=== PATIENT | female | born 1960 | race Caucasian/White ===

== ENCOUNTER → 2016-10-12 | Outpatient (CLI) | payer BC, OTHER | END | disposition home or self-care (01) | LOC: LABWHC1 09:49 | PROVIDERS: ATTEND Internal Medicine Endocrinology, Diabetes & Metabolism | DX: E11.65 Type 2 diabetes mellitus with hyperglycemia (principal); E89.0 Postprocedural hypothyroidism | CPT/HCPCS: 36415; 84432; 84439; 84443; 86800 ==

== ENCOUNTER → 2017-03-01 | Outpatient (CLI) | payer BC, OTHER | END | disposition home or self-care (01) | LOC: LABWHC1 12:22 | PROVIDERS: ATTEND Internal Medicine Endocrinology, Diabetes & Metabolism | DX: C73 Malignant neoplasm of thyroid gland (principal); E89.0 Postprocedural hypothyroidism | CPT/HCPCS: 36415; 84432; 86800 ==

== ENCOUNTER → 2017-03-09 | Outpatient (CLI) | payer BC, OTHER ==
--- NOTE | 2017-03-09 10:30 | US ---
EXAMINATION TYPE: US thyroid st tissue head/neck DATE OF EXAM: 03/09/2017 COMPARISON: 10/31/2015 CLINICAL HISTORY: Z85.850 History of thyroid cancer. F/U, pt had thyroidectomy 2 yrs ago Bilateral neck scanned, no evidence of lymphadenopathy. No evidence of residual thyroid tissue. Soft tissue neck appeared wnl. IMPRESSION: 1. No recurrent thyroid masses. Patient is status post thyroidectomy.
== END | disposition home or self-care (01) ==
LOC: RADUSWWP 09:39
PROVIDERS: ATTEND Family Medicine
DX: E89.0 Postprocedural hypothyroidism (principal); Z85.850 Personal history of malignant neoplasm of thyroid
CPT/HCPCS: 76536

== ENCOUNTER → 2017-03-16 | Outpatient (CLI) | payer BC, OTHER ==
[2017-03-16 11:16] LABS: ALT 35 U/L (9-52); AST 23 U/L (14-36); Alkaline Phosphatase 97 U/L (38-126); Anion Gap 10 mmol/L; Blood Urea Nitrogen 18 mg/dL (7-17); Calcium 9.2 mg/dL (8.4-10.2); Carbon Dioxide 26 mmol/L (22-30); Chloride 107 mmol/L (98-107); Cholesterol 229 mg/dL (<200); Glucose 143 mg/dL (74-99); HDL Cholesterol 50 mg/dL (40-60); Non-African American GFR(MDRD) >60 (>60 ml/min/1.73 sqM); Potassium 4.9 mmol/L (3.5-5.1); Sodium 143 mmol/L (137-145); Total Bilirubin 0.4 mg/dL (0.2-1.3); Total Protein 6.9 g/dL (6.3-8.2); Triglycerides 322 mg/dL (<150)
[2017-03-16 14:39] LABS: Hemoglobin A1C 6.8 % (4.2-6.1)
== END | disposition home or self-care (01) ==
LOC: LABWHC1 09:41
PROVIDERS: ATTEND Internal Medicine Endocrinology, Diabetes & Metabolism
DX: C73 Malignant neoplasm of thyroid gland (principal); E78.5 Hyperlipidemia, unspecified; E55.9 Vitamin D deficiency, unspecified; E11.65 Type 2 diabetes mellitus with hyperglycemia; I10 Essential (primary) hypertension; E89.0 Postprocedural hypothyroidism
CPT/HCPCS: 36415; 80053; 80061; 82306; 83036; 84439; 84443

== ENCOUNTER → 2018-02-16 | Outpatient (CLI) | payer BC ==
[2018-02-16 09:43] LABS: Albumin 4.6 g/dL (3.5-5.0); Calcium 9.7 mg/dL (8.4-10.2); Potassium 4.8 mmol/L (3.5-5.1); Total Bilirubin 0.4 mg/dL (0.2-1.3)
[2018-02-16 09:47] LABS: T4, Free (Free Thyroxine) 1.54 ng/dL (0.78-2.19)
[2018-02-16 17:10] LABS: Thyroglobulin 0.22 ng/mL (1.60-59.90)
[2018-02-16 17:25] LABS: Vitamin D 25 Hydroxy 18.8 ng/mL (30.0-100.0)
[2018-02-16 17:29] LABS: Hemoglobin A1C 8.1 % (4.0-6.0)
== END | disposition home or self-care (01) ==
LOC: LABWHC1 08:20
PROVIDERS: ATTEND Internal Medicine Endocrinology, Diabetes & Metabolism
DX: C73 Malignant neoplasm of thyroid gland (principal); I10 Essential (primary) hypertension; E89.0 Postprocedural hypothyroidism; E11.65 Type 2 diabetes mellitus with hyperglycemia; E55.9 Vitamin D deficiency, unspecified; E78.5 Hyperlipidemia, unspecified; L74.519 Primary focal hyperhidrosis, unspecified
CPT/HCPCS: 36415; 80053; 80061; 82306; 83036; 84432; 84439; 84443; 86800

== ENCOUNTER → 2018-04-25 | Outpatient (CLI) | payer BC ==
--- NOTE | 2018-04-25 18:56 | PN ---
PROGRESS NOTE SLEEP CENTER PROGRESS NOTE: This is a 57-year-old female patient coming in for a follow-up CPAP compliancy check and for JOSUÉ treatment. The patient has severe symptomatic obstructive sleep apnea. Her baseline AHI was 50. She has been maintained on a CPAP pressure of 11 cm of water. Note that her initial CPAP titration was set at a pressure of 13 and subsequently we had to lower the pressure for discomfort; currently she is on a pressure of 11 cm of water. She is doing well. She continues to benefit from the treatment. She has gained weight over the past 2 years. She used to weight 232 pounds and currently she is up to 251. Despite this weight gain, the patient has been adequately treated and she wakes up refreshed during the day. Her CPAP compliancy data indicated the patient has been utilizing CPAP every night. CPAP compliancy for more than 4 hours is 100% of the time. Average CPAP use is around 10 hours per night. Leak factor is 70 L/minute and AHI while on treatment is down to 3.1. The patient goes to bed around 10:30, wakes up at 7 a.m. in the morning and she feels quite refreshed. REVIEW OF SYSTEMS: Twelve-point review of systems was done. Positive findings were all mentioned above in the history of present illness. Her comorbidities include diabetes mellitus, hypertension and hypothyroidism; all of them are treated well. Her interval history is positive for weight gain on the order of 19 pounds. PHYSICAL EXAMINATION: BP is 119/78, pulse 78, respirations 16, temperature 99.2, saturation 94% on room air. Weight is 251. Height is 5 feet 7 inches. GENERAL APPEARANCE: Calm, comfortable. Head is atraumatic, normocephalic. NECK: Supple. There is no JVD. No goiter or neck masses. Mallampati class IV. LUNGS: Clear to auscultation. HEART: Heart sounds are regular rate and rhythm. Normal S1, S2. No S3, S4. No murmurs. ABDOMEN: Soft, nontender. No organomegaly. EXTREMITIES: No edema. No cyanosis or clubbing. NEUROLOGIC: Alert and oriented x3. No focal neurological deficit. PSYCHIATRIC: Appropriate mood and affect. IMPRESSION: 1. Severe obstructive sleep apnea. AHI is 50, currently on CPAP pressure of 11 cm of water with excellent clinical response and compliance. The patient continues to benefit from the treatment. 2. Obesity with interval weight gain on the order of 19 pounds. Current BMI is 39.3. Weight is up to 251. 3. Diabetes. 4. Hypertension. 5. Hypothyroidism. PLAN: 1. Continue CPAP at the same level of pressure. 2. Renew the CPAP supplies. 3. Encourage weight loss. 4. Implement good sleep hygiene measures. 5. We will continue to follow. MMODL / IJN: [id number] /
== END | disposition home or self-care (01) ==
LOC: SLEEP 13:51
PROVIDERS: ATTEND Internal Medicine Critical Care Medicine
DX: G47.33 Obstructive sleep apnea (adult) (pediatric) (principal); E11.9 Type 2 diabetes mellitus without complications; I10 Essential (primary) hypertension; E03.9 Hypothyroidism, unspecified; E66.9 Obesity, unspecified; Z68.39 Body mass index [BMI] 39.0-39.9, adult; Z99.89 Dependence on other enabling machines and devices

== ENCOUNTER → 2018-06-27 | Outpatient (CLI) | payer BC ==
[2018-06-27 16:10] LABS: Albumin 4.7 g/dL (3.80-4.90); Albumin/Globulin Ratio 2.24 (1.20-2.10); Anion Gap 8.3 mmol/L (4.00-12.00); Calcium 9.5 mg/dL (8.7-10.3); Carbon Dioxide 26.7 mmol/L (21.6-31.8); Globulin 2.1 g/dL (2.1-3.7); LDL Cholesterol,Calculated 74.6 mg/dL (0.0-131.0); Potassium 4.8 mmol/L (3.5-5.5); Total Bilirubin 0.3 mg/dL (0.2-1.2); Total Protein 6.8 g/dL (6.2-8.2)
[2018-06-27 16:18] LABS: T4, Free (Free Thyroxine) 1.5 ng/dL (0.80-1.80)
[2018-06-27 18:38] LABS: Thyroglobulin <0.20 ng/mL (1.60-59.90)
[2018-06-27 20:34] LABS: Hemoglobin A1C 6.5 % (4.0-6.0)
[2018-06-28 06:58] LABS: VLDL Calculation 23.4 mg/dL (5.00-40.00)
== END | disposition home or self-care (01) ==
LOC: LABWHC1 09:28
PROVIDERS: ATTEND Internal Medicine Endocrinology, Diabetes & Metabolism
DX: C73 Malignant neoplasm of thyroid gland (principal); I10 Essential (primary) hypertension; E89.0 Postprocedural hypothyroidism; E11.65 Type 2 diabetes mellitus with hyperglycemia
CPT/HCPCS: 36415; 80053; 80061; 82043; 82570; 83036; 84432; 84439; 84443; 86800

== ENCOUNTER → 2018-10-31 | Outpatient (CLI) | payer BC ==
[2018-10-31 11:33] LABS: Basophils # (A) 0.1 k/uL (0-0.2); Basophils % (A) 1 %; Eosinophils # (A) 0.3 k/uL (0-0.7); Eosinophils % (A) 4 %; HCT 38.2 % (34.0-46.0); HGB 12.2 gm/dL (11.4-16.0); Lymphocytes # (A) 1.7 k/uL (1.0-4.8); Lymphocytes % (A) 24 %; MCH 26.9 pg (25.0-35.0); MCV 83.9 fL (80.0-100.0); Mean Platelet Volume 6.3; Monocytes # (A) 0.4 k/uL (0-1.0); Monocytes % (A) 6 %; Neutrophils # (A) 4.5 k/uL (1.3-7.7); Neutrophils % (A) 64 %; Platelet Count 339 k/uL (150-450); RBC 4.55 m/uL (3.80-5.40); RDW 14.7 % (11.5-15.5); WBC 7.1 k/uL (3.8-10.6)
[2018-10-31 14:55] LABS: Erythrocyte Sedimentation Rate 20 mm/hr (0-20)
[2018-10-31 16:10] LABS: ALT 32 U/L (8-44); AST 28 U/L (13-35); Albumin/Globulin Ratio 2.42 (1.60-3.17); Alkaline Phosphatase 78 U/L (41-126); Calcium 9.7 mg/dL (8.7-10.3); Carbon Dioxide 28.4 mmol/L (21.6-31.8); Chloride 103 mmol/L (96-109); Cholesterol 142 mg/dL (0-200); Globulin 1.9 g/dL (1.6-3.3); Glucose 126 mg/dL (70-110); LDL Cholesterol,Calculated 67.4 mg/dL (0.0-131.0); Sodium 141 mmol/L (135-145); Total Bilirubin 0.5 mg/dL (0.2-1.2); Total Protein 6.5 g/dL (6.2-8.2)
[2018-10-31 16:19] LABS: Iron Saturation 17.67 (12.00-45.00)
[2018-10-31 16:28] LABS: Vitamin D 25 Hydroxy 62.2 ng/mL (30.0-100.0)
== END ==
LOC: LABWHC1 10:27
PROVIDERS: ATTEND Family Medicine
DX: Z00.00 Encounter for general adult medical examination without abnormal findings (principal); C73 Malignant neoplasm of thyroid gland; R53.83 Other fatigue; Z11.59 Encounter for screening for other viral diseases
CPT/HCPCS: 36415; 80053; 80061; 82306; 82607; 83540; 83550; 84439; 84443; 85025; 85652; 86803

== ENCOUNTER → 2019-02-13 | Outpatient (CLI) | payer BC ==
[2019-02-13 16:21] LABS: African American GFR (CKD) 94.9 (60.0-200.0); Albumin 4.6 g/dL (3.80-4.90); Albumin/Globulin Ratio 2.71 (1.60-3.17); Anion Gap 8.8 mmol/L (4.00-12.00); BUN/Creat Ratio 13.75 Ratio (12.00-20.00); Carbon Dioxide 27.2 mmol/L (21.6-31.8); Globulin 1.7 g/dL (1.6-3.3); LDL Cholesterol,Calculated 79.8 mg/dL (0.0-131.0); Potassium 4.5 mmol/L (3.5-5.5); Total Bilirubin 0.3 mg/dL (0.2-1.2); Total Protein 6.3 g/dL (6.2-8.2); VLDL Calculation 22.2 mg/dL (5.00-40.00)
[2019-02-13 16:28] LABS: T4, Free (Free Thyroxine) 1.2 ng/dL (0.80-1.80)
[2019-02-13 17:23] LABS: Hemoglobin A1C 7.8 % (4.0-6.0)
[2019-02-13 18:36] LABS: Thyroglobulin <0.20 ng/mL (1.60-59.90)
== END | disposition home or self-care (01) ==
LOC: LABWHC1 10:09
PROVIDERS: ATTEND Internal Medicine Endocrinology, Diabetes & Metabolism
DX: E11.65 Type 2 diabetes mellitus with hyperglycemia (principal); I10 Essential (primary) hypertension; E89.0 Postprocedural hypothyroidism
CPT/HCPCS: 36415; 80053; 80061; 83036; 84432; 84439; 84443; 86800

== ENCOUNTER → 2019-07-03 | Outpatient (CLI) | payer BC ==
--- NOTE | 2019-07-03 13:30 | US ---
EXAMINATION TYPE: US thyroid st tissue head/neck DATE OF EXAM: 07/03/2019 COMPARISON: NONE CLINICAL HISTORY: C73 Malignant neoplasm of thyroid gland. Hx of thyroid ca. 2015 thyroidectomy TECHNIQUE/FINDINGS: Grayscale imaging was performed of the thyroidectomy surgical bed and adjacent neck. There is a solitary nonenlarged 3 mm short axis lymph node on the left lateral neck. No residual thyr oid tissue. No focal cystic or solid nodules in the thyroidectomy bed. IMPRESSION: No solid or cystic mass in the thyroidectomy bed. Solitary nonenlarged 3 mm short axis ly mph node in the left lateral neck.
== END | disposition home or self-care (01) ==
LOC: RADUSWWP 12:41
PROVIDERS: ATTEND Internal Medicine
DX: Z08 Encounter for follow-up examination after completed treatment for malignant neoplasm (principal); Z85.850 Personal history of malignant neoplasm of thyroid; Z90.89 Acquired absence of other organs
CPT/HCPCS: 76536

== ENCOUNTER → 2019-07-11 | Outpatient (CLI) | payer BC ==
[2019-07-11 17:36] LABS: T4, Free (Free Thyroxine) 1.4 ng/dL (0.80-1.80)
[2019-07-11 17:54] LABS: Hemoglobin A1C 6.5 % (4.0-6.0)
== END | disposition home or self-care (01) ==
LOC: LABWHC1 09:30
PROVIDERS: ATTEND Internal Medicine
DX: E11.65 Type 2 diabetes mellitus with hyperglycemia (principal); E89.0 Postprocedural hypothyroidism; E55.9 Vitamin D deficiency, unspecified; C73 Malignant neoplasm of thyroid gland
CPT/HCPCS: 36415; 82043; 82306; 82570; 83036; 84432; 84439; 84443; 86800

== ENCOUNTER 2020-01-05 21:18 | Emergency (ER) | payer BC ==
[2020-01-05] MEDS ORDERED: IBUPROFEN 600 MG TAB PO STA (21:52)
[2020-01-05] MEDS ORDERED: ACETAMINOPHEN TAB 500 MG TAB PO STA (21:52)
--- NOTE | 2020-01-05 22:00 | ED ---
General Adult HPI - General Source: patient, RN notes reviewed, old records reviewed Mode of arrival: ambulatory Limitations: no limitations <Ramiro Barnard - Last Filed: 01/06/20 00:42> <Og Crump - Last Filed: 01/06/20 01:38> - General Chief complaint: Fever Stated complaint: Fever Time Seen by Provider: 01/05/20 21:20 - History of Present Illness Initial comments: This is a 59-year-old female presents emergency Department stating that she was recently diagnosed with urinary tract infection and started on Macrobid on Tuesday night. Patient states since then she has had a low-grade fever and has been feeling weak and slightly short of breath. Patient patient states she has a dry cough but nothing significant. Patient denies chest pain or palpitations. Patient denies abdominal pain patient denies vomiting or diarrhea. Patient denies any dysuria hematuria urinary frequency. Patient states this is typical of her UTI she gets fatigued feels a little nauseated occasionally and she gets diagnosed with urinary tract infection. Patient denies any back pain. Patient denies any headache patient denies numbness weakness. (Ramiro Barnard) - Related Data Home Medications Medication Instructions Recorded Confirmed Omeprazole [PriLOSEC] 40 mg PO HS 10/17/14 08/20/16 Venlafaxine HCl [Effexor] 75 mg PO DAILY 10/17/14 08/20/16 Cholecalciferol [Vitamin D3] 1,000 unit PO DAILY 12/22/15 08/20/16 Cinnamon Bark [Cinnamon] 2 cap PO DAILY 12/22/15 08/20/16 Cyanocobalamin (Vitamin B-12) 1,000 mcg PO DAILY 12/22/15 08/20/16 [Vitamin B12] Melatonin 10 mg PO HS 12/22/15 08/20/16 ALPRAZolam [Xanax] 0.5 mg PO BID 08/18/16 08/20/16 Levothyroxine Sodium [Levo-T] 150 mcg PO DAILY 08/18/16 08/20/16 Ranitidine HCl 150 mg PO BID 08/18/16 08/20/16 Varenicline [Chantix] .ROUTE BID 08/20/16 Allergies Allergy/AdvReac Type Severity Reaction Status Date / Time Penicillins Allergy Rash/Hives Verified 08/20/16 07:06 Review of Systems ROS Other: All systems not noted in ROS Statement are negative. <Ramiro Barnard - Last Filed: 01/06/20 00:42> ROS Other: All systems not noted in ROS Statement are negative. <Og Crump - Last Filed: 01/06/20 01:38> ROS Statement: Those systems with pertinent positive or pertinent negative responses have been documented in the HPI. Past Medical History Past Medical History: Cancer, Diabetes Mellitus, GERD/Reflux, Sleep Apnea/CPAP/BIPAP, Thyroid Disorder Additional Past Medical History / Comment(s): THYROID CANCER 10/30/14, Diet controlled Diabetes History of Any Multi-Drug Resistant Organisms: None Reported Past Surgical History: Cholecystectomy, Hysterectomy, Orthopedic Surgery, Tonsillectomy Additional Past Surgical History / Comment(s): thyroidectomy, left knees replacment. Past Anesthesia/Blood Transfusion Reactions: No Reported Reaction Past Psychological History: Depression Smoking Status: Current every day smoker Past Alcohol Use History: None Reported Past Drug Use History: None Reported - Past Family History Mother Family Medical History: Cancer Additional Family Medical History / Comment(s): uterine CA and esoghagus Father Family Medical History: Cancer <Ramiro Barnard - Last Filed: 01/06/20 00:42> General Exam Limitations: no limitations <Ramiro Barnard - Last Filed: 01/06/20 00:42> - General Exam Comments Initial Comments: GENERAL: Patient is well-developed and well-nourished. Patient is nontoxic and well- hydrated and is in mild distress. ENT: Neck is soft and supple. No significant lymphadenopathy is noted. Oropharynx is clear. Moist mucous membranes. Neck has full range of motion without eliciting any pain. EYES: The sclera were anicteric and conjunctiva were pink and moist. Extraocular movements were intact and pupils were equal round and reactive to light. Ey elids were unremarkable. PULMONARY: Unlabored respirations. Good breath sounds bilaterally. No audible rales rhonchi or wheezing was noted. CARDIOVASCULAR: There is a regular rate and rhythm without any murmurs gallops or rubs. ABDOMEN: Soft and nontender with normal bowel sounds. SKIN: Skin is clear with no lesions or rashes and otherwise unremarkable. NEUROLOGIC: Patient is alert and oriented x3. Cranial nerves II through XII are grossly intact. Motor and sensory are also intact. Normal speech, volume and content. Symmetrical smile. MUSCULOSKELETAL: Normal extremities with adequate strength and full range of motion. LYMPHATICS: No significant lymphadenopathy is noted PSYCHIATRIC: Normal psychiatric evaluation. (Ramiro aBrnard) Course Vital Signs 01/05/20 01/05/20 01/06/20 21:21 23:43 01:27 Temperature 100.5 F H 100.8 F H 98.6 F Pulse Rate 107 H 92 85 Respiratory 18 16 16 Rate Blood Pressure 175/96 133/92 146/93 O2 Sat by Pulse 98 97 96 Oximetry Medical Decision Making - Lab Data Result diagrams: 01/05/20 23:30 01/05/20 23:30 <Ramiro Barnard - Last Filed: 01/06/20 00:42> - Lab Data Result diagrams: 01/05/20 23:30 01/05/20 23:30 <Og Crump - Last Filed: 01/06/20 01:38> - Medical Decision Making EKG shows normal sinus rhythm at 89 bpm TX interval 160 QRS is 84 QT interval 376 QTC is 457. Patient's EKG shows no ST segment elevation or depression. Patient was given a gram of Rocephin in the emergency department because she had blood in her urine and was already partially treated with antibiotics. Chest x-ray showed no acute abnormality. Patient's given Tylenol Motrin emergency department and felt better after her fever came down. Dr. Vivas will follow-up with this patient at 12:30. (Ramiro Barnard) I reevaluated the patient after the computed tomography scan had been read. The patient is feeling better and she is not having symptoms suggestive of PE. She is feeling well and would like to go home. She does have to finish the course of antibiotics she is taking. We discussed appropriate further care and follow-up to ensure that all of her symptoms resolve, the hematuria clears and the d-dimer returns to baseline. We discussed possibility of requiring repeat imaging. (Og Crump) - Lab Data Lab Results 01/05/20 01/05/20 01/05/20 Range/Units 23:30 23:30 23:30 WBC 6.8 (3.8-10.6) k/uL RBC 4.48 (3.80-5.40) m/uL Hgb 11.5 (11.4-16.0) gm/dL Hct 35.9 (34.0-46.0) % MCV 80.2 (80.0-100.0) fL MCH 25.6 (25.0-35.0) pg MCHC 31.9 (31.0-37.0) g/dL RDW 15.1 (11.5-15.5) % Plt Count 305 (150-450) k/uL Neutrophils % 69 % Lymphocytes % 12 % Monocytes % 11 % Eosinophils % 5 % Basophils % 1 % Neutrophils # 4.7 (1.3-7.7) k/uL Lymphocytes # 0.8 L (1.0-4.8) k/uL Monocytes # 0.8 (0-1.0) k/uL Eosinophils # 0.3 (0-0.7) k/uL Basophils # 0.1 (0-0.2) k/uL Hypochromasia Marked D-Dimer 1.57 H (<0.60) mg/L FEU Sodium (137-145) mmol/L Potassium (3.5-5.1) mmol/L Chloride (98-107) mmol/L Carbon Dioxide (22-30) mmol/L Anion Gap mmol/L BUN (7-17) mg/dL Creatinine (0.52-1.04) mg/dL Est GFR (CKD-EPI)AfAm (>60 ml/min/1.73 sqM) Est GFR (CKD-EPI)NonAf (>60 ml/min/1.73 sqM) Glucose (74-99) mg/dL Calcium (8.4-10.2) mg/dL Total Bilirubin (0.2-1.3) mg/dL AST (14-36) U/L ALT (4-34) U/L Alkaline Phosphatase (38-126) U/L Total Protein (6.3-8.2) g/dL Albumin (3.5-5.0) g/dL Urine Color Yellow Urine Appearance Cloudy H (Clear) Urine pH 7.0 (5.0-8.0) Ur Specific Marlin 1.019 (1.001-1.035) Urine Protein 1+ H (Negative) Urine Glucose (UA) 2+ H (Negative) Urine Ketones Negative (Negative) Urine Blood Large H (Negative) Urine Nitrite Negative (Negative) Urine Bilirubin Negative (Negative) Urine Urobilinogen <2.0 (<2.0) mg/dL Ur Leukocyte Esterase Trace H (Negative) Urine RBC >182 H (0-5) /hpf Urine WBC 4 (0-5) /hpf Calcium Oxalate Crystal Many H (None) /hpf Urine Bacteria Rare H (None) /hpf Urine Mucus Rare H (None) /hpf Coronavirus (PCR) (Not Detectd) 01/05/20 01/05/20 Range/Units 23:30 23:30 WBC (3.8-10.6) k/uL RBC (3.80-5.40) m/uL Hgb (11.4-16.0) gm/dL Hct (34.0-46.0) % MCV (80.0-100.0) fL MCH (25.0-35.0) pg MCHC (31.0-37.0) g/dL RDW (11.5-15.5) % Plt Count (150-450) k/uL Neutrophils % % Lymphocytes % % Monocytes % % Eosinophils % % Basophils % % Neutrophils # (1.3-7.7) k/uL Lymphocytes # (1.0-4.8) k/uL Monocytes # (0-1.0) k/uL Eosinophils # (0-0.7) k/uL Basophils # (0-0.2) k/uL Hypochromasia D-Dimer (<0.60) mg/L FEU Sodium 137 (137-145) mmol/L Potassium 4.8 (3.5-5.1) mmol/L Chloride 102 (98-107) mmol/L Carbon Dioxide 25 (22-30) mmol/L Anion Gap 10 mmol/L BUN 12 (7-17) mg/dL Creatinine 0.59 (0.52-1.04) mg/dL Est GFR (CKD-EPI)AfAm >90 (>60 ml/min/1.73 sqM) Est GFR (CKD-EPI)NonAf >90 (>60 ml/min/1.73 sqM) Glucose 148 H (74-99) mg/dL Calcium 9.0 (8.4-10.2) mg/dL Total Bilirubin 0.4 (0.2-1.3) mg/dL AST 73 H (14-36) U/L ALT 44 H (4-34) U/L Alkaline Phosphatase 89 (38-126) U/L Total Protein 7.3 (6.3-8.2) g/dL Albumin 4.5 (3.5-5.0) g/dL Urine Color Urine Appearance (Clear) Urine pH (5.0-8.0) Ur Specific Marlin (1.001-1.035) Urine Protein (Negative) Urine Glucose (UA) (Negative) Urine Ketones (Negative) Urine Blood (Negative) Urine Nitrite (Negative) Urine Bilirubin (Negative) Urine Urobilinogen (<2.0) mg/dL Ur Leukocyte Esterase (Negative) Urine RBC (0-5) /hpf Urine WBC (0-5) /hpf Calcium Oxalate Crystal (None) /hpf Urine Bacteria (None) /hpf Urine Mucus (None) /hpf Coronavirus (PCR) Not Detected (Not Detectd) Disposition <Ramiro Barnard - Last Filed: 01/06/20 00:42> Is patient prescribed a controlled substance at d/c from ED?: No <Og Crump - Last Filed: 01/06/20 01:38> Clinical Impression: Hematuria, Elevated d-dimer Disposition: HOME SELF-CARE Condition: Good Instructions (If sedation given, give patient instructions): Fever in Adults (ED) Additional Instructions: As we discussed, follow with your physician to ensure that the hematuria clears and that all of her symptoms resolve. If the symptoms do not resolve, that should consider repeating imaging to rule out a blood clot. Referrals: Singh Otto MD [Primary Care Provider] - 1-2 days
--- NOTE | 2020-01-05 23:29 | XR ---
EXAMINATION TYPE: XR chest 2V DATE OF EXAM: 01/05/2020 COMPARISON: 12/16/2014 HISTORY: Short of breath TECHNIQUE: FINDINGS: Heart and mediastinum are normal. Lungs are clear. Diaphragm is normal. Bony thorax is inta ct. IMPRESSION: Normal chest. There is clearing of the atelectasis at the right lung base compared to old exam.
[2020-01-05 23:45] VITALS: RESP 16
[2020-01-05 23:46] LABS: Basophils # (A) 0.1 k/uL (0-0.2); Basophils % (A) 1 %; Eosinophils # (A) 0.3 k/uL (0-0.7); Eosinophils % (A) 5 %; HCT 35.9 % (34.0-46.0); HGB 11.5 gm/dL (11.4-16.0); Hypochromasia Marked; Lymphocytes # (A) 0.8 k/uL (1.0-4.8); Lymphocytes % (A) 12 %; MCH 25.6 pg (25.0-35.0); MCHC 31.9 g/dL (31.0-37.0); MCV 80.2 fL (80.0-100.0); Mean Platelet Volume 8.2; Monocytes # (A) 0.8 k/uL (0-1.0); Monocytes % (A) 11 %; Neutrophils # (A) 4.7 k/uL (1.3-7.7); Neutrophils % (A) 69 %; Platelet Count 305 k/uL (150-450); RBC 4.48 m/uL (3.80-5.40); RDW 15.1 % (11.5-15.5); WBC 6.8 k/uL (3.8-10.6)
[2020-01-05 23:55] LABS: ALT 44 U/L (4-34); AST 73 U/L (14-36); African American GFR (CKD) >90 (>60 ml/min/1.73 sqM); Albumin 4.5 g/dL (3.5-5.0); Alkaline Phosphatase 89 U/L (38-126); Anion Gap 10 mmol/L; Blood Urea Nitrogen 12 mg/dL (7-17); Carbon Dioxide 25 mmol/L (22-30); Chloride 102 mmol/L (98-107); Glucose 148 mg/dL (74-99); Non-African American GFR(CKD) >90 (>60 ml/min/1.73 sqM); Sodium 137 mmol/L (137-145); Total Bilirubin 0.4 mg/dL (0.2-1.3); Total Protein 7.3 g/dL (6.3-8.2)
[2020-01-05 23:58] LABS: Potassium 4.8 mmol/L (3.5-5.1)
[2020-01-06] LABS: Appearance,Urine Cloudy (Clear); Bacteria,Urine Rare /hpf; Bilirubin,Urine Negative (Negative); Blood,Urine Large (Negative); Calcium Oxalate Crystals,Urine Many /hpf; Color,Urine Yellow; Glucose,Urine (UA) 2+ (Negative); Ketones,Urine Negative (Negative); Leukocyte Esterase,Urine Trace (Negative); Mucus,Urine Rare /hpf; Nitrite,Urine Negative (Negative); Protein,Urine 1+ (Negative); RBC,Urine >182 /hpf (0-5); Specific Gravity,Urine 1.019 (1.001-1.035); Urobilinogen,Urine <2.0 mg/dL (<2.0); WBC,Urine 4 /hpf (0-5)
[2020-01-06] MEDS ORDERED: cefTRIAXone IN SWFI 1,000 MG/10 ML SYRINGE IVP STA (00:41)
--- NOTE | 2020-01-06 01:11 | CT ---
EXAMINATION TYPE: CT chest angio for PE DATE OF EXAM: 01/06/2020 COMPARISON: 12/15/2014 HISTORY: SARAH AND FEVER CT DLP: 864.8 mGycm Automated exposure control for dose reduction was used. CONTRAST: Performed with IV Contrast, patient injected with 100mL mL of Isovue 370. There are 3-D post processed images. There is mild subsegmental atelectasis in the posterior lung hearn. There is no evidence of a pulmon bennie mass. There is no pleural effusion. Heart size is normal. There is no pericardial effusion. There is no mediastinal adenopathy. There are no hilar masses. Thoracic aorta is intact. There is no aneurysm or dissection. There is normal contrast opacification of the pulmonary arteries. There is no filling defect. The tho racic spine is intact. Bony thorax is intact. IMPRESSION: No evidence of pulmonary embolism. Mild subsegmental atelectasis. There is almost complete clearing o f the right lower lobe pneumonia and atelectasis compared to old exam.
[2020-01-06 01:28] VITALS: BP 146/93; PULSE 85; TEMP 98.6
== END 2020-01-06 01:53 | disposition home or self-care (01) ==
LOC: EC 21:18
DX: R31.9 Hematuria, unspecified (principal); R79.89 Other specified abnormal findings of blood chemistry; K21.9 Gastro-esophageal reflux disease without esophagitis; F32.9 Major depressive disorder, single episode, unspecified; E11.9 Type 2 diabetes mellitus without complications; E07.9 Disorder of thyroid, unspecified; G47.30 Sleep apnea, unspecified; F17.200 Nicotine dependence, unspecified, uncomplicated; Z20.828 Contact with and (suspected) exposure to other viral communicable diseases; Z79.899 Other long term (current) drug therapy; Z79.890 Hormone replacement therapy; Z88.0 Allergy status to penicillin; Z85.850 Personal history of malignant neoplasm of thyroid; Z96.652 Presence of left artificial knee joint; Z99.89 Dependence on other enabling machines and devices
CPT/HCPCS: 96374; 99284; 36415; 93005; 85379; 80053; 85025; 81001; 87635; 71046; 71275; J0696; Q9967

== ENCOUNTER → 2020-02-15 | Outpatient (CLI) | payer BC ==
--- NOTE | 2020-02-15 15:45 | US ---
EXAMINATION TYPE: US thyroid st tissue head/neck DATE OF EXAM: 02/15/2020 COMPARISON: None CLINICAL HISTORY: 59-year-old female R22.1 localized swelling, mass and lump, neck. Right lateral nec k pain and swelling around right clavicle TECHNIQUE: Multiple sonographic images along the lateral aspect of the right side of the neck as well as the right supraclavicular area. FINDINGS: Right lateral neck: appears wnl Right clavicle area: appears wnl No discrete solid or cystic lesion is seen. IMPRESSION: The lateral right neck as well as the right clavicular area at the site of swelling and pain was scan george. No discrete sonographic abnormality of the superficial tissues. Clinical follow-up recommended. If any enlarging palpable lesion, CT can be considered.
== END | disposition home or self-care (01) ==
LOC: RADUSWWP 15:15
PROVIDERS: ATTEND Family Medicine
DX: R22.1 Localized swelling, mass and lump, neck (principal)
CPT/HCPCS: 76536

== ENCOUNTER → 2020-02-18 | Outpatient (CLI) | payer BC ==
[2020-02-18 08:45] LABS: Basophils # (A) 0.1 k/uL (0-0.2); Basophils % (A) 1 %; Eosinophils # (A) 0.3 k/uL (0-0.7); Eosinophils % (A) 4 %; Hypochromasia Moderate; Lymphocytes # (A) 1.8 k/uL (1.0-4.8); Lymphocytes % (A) 25 %; MCH 23.8 pg (25.0-35.0); MCHC 30.5 g/dL (31.0-37.0); Mean Platelet Volume 7.3; Monocytes # (A) 0.5 k/uL (0-1.0); Monocytes % (A) 7 %; Neutrophils # (A) 4.3 k/uL (1.3-7.7); Neutrophils % (A) 62 %; Platelet Count 366 k/uL (150-450); RBC 4.62 m/uL (3.80-5.40); RDW 15.4 % (11.5-15.5)
[2020-02-18 17:36] LABS: African American GFR (CKD) 110.7 (60.0-200.0); Anion Gap 10.6 mmol/L (4.00-12.00); BUN/Creat Ratio 17.14 Ratio (12.00-20.00); Calcium 9.3 mg/dL (8.7-10.3); Carbon Dioxide 24.4 mmol/L (21.6-31.8); Non-African American GFR(CKD) 95.5 (60.0-200.0); Potassium 4.4 mmol/L (3.5-5.5)
== END | disposition home or self-care (01) ==
LOC: LABWHC1 07:59
PROVIDERS: ATTEND Urology
DX: C67.9 Malignant neoplasm of bladder, unspecified (principal); Z88.0 Allergy status to penicillin; Z88.8 Allergy status to other drugs, medicaments and biological substances
CPT/HCPCS: 36415; 80048; 85025

== ENCOUNTER → 2020-05-06 | Outpatient (CLI) | payer BC ==
[2020-05-06 18:57] LABS: African American GFR (CKD) 109.9 (60.0-200.0); Anion Gap 8.5 mmol/L (4.00-12.00); BUN/Creat Ratio 18.57 Ratio (12.00-20.00); Calcium 9.4 mg/dL (8.7-10.3); Carbon Dioxide 26.5 mmol/L (21.6-31.8); Chol/HDL Ratio 2.54; LDL Cholesterol,Calculated 50.2 mg/dL (0.0-131.0); Non-African American GFR(CKD) 94.8 (60.0-200.0); Potassium 4.8 mmol/L (3.5-5.5); VLDL Calculation 26.8 mg/dL (5.00-40.00)
[2020-05-06 19:05] LABS: T4, Free (Free Thyroxine) 1.3 ng/dL (0.80-1.80)
[2020-05-06 21:49] LABS: Hemoglobin A1C 6.6 % (4.0-6.0)
== END | disposition home or self-care (01) ==
LOC: LABWHC1 11:36
PROVIDERS: ATTEND Internal Medicine
DX: C73 Malignant neoplasm of thyroid gland (principal); E11.65 Type 2 diabetes mellitus with hyperglycemia; R31.0 Gross hematuria
CPT/HCPCS: 36415; 80048; 80061; 82043; 82570; 83036; 84432; 84439; 84443; 86800

== ENCOUNTER → 2020-05-27 | Outpatient (CLI) | payer BC ==
[2020-05-27 13:55] LABS: Anisocytosis Slight; Basophils # (A) 0.1 k/uL (0-0.2); Basophils % (A) 1 %; Eosinophils # (A) 0.3 k/uL (0-0.7); Eosinophils % (A) 4 %; HCT 38.3 % (34.0-46.0); Hypochromasia Slight; Lymphocytes % (A) 25 %; MCH 25.1 pg (25.0-35.0); MCHC 31.4 g/dL (31.0-37.0); MCV 79.9 fL (80.0-100.0); Mean Platelet Volume 7.2; Microcytosis Slight; Monocytes # (A) 0.5 k/uL (0-1.0); Monocytes % (A) 7 %; Neutrophils # (A) 4.8 k/uL (1.3-7.7); Neutrophils % (A) 61 %; Platelet Count 337 k/uL (150-450); RBC 4.79 m/uL (3.80-5.40); RDW 16.2 % (11.5-15.5); WBC 7.9 k/uL (3.8-10.6)
[2020-05-27 14:13] LABS: African American GFR (CKD) >90 (>60 ml/min/1.73 sqM); Anion Gap 9 mmol/L; Blood Urea Nitrogen 18 mg/dL (7-17); Calcium 9.4 mg/dL (8.4-10.2); Carbon Dioxide 27 mmol/L (22-30); Chloride 104 mmol/L (98-107); Glucose 148 mg/dL (74-99); Non-African American GFR(CKD) >90 (>60 ml/min/1.73 sqM); Potassium 4.9 mmol/L (3.5-5.1); Sodium 140 mmol/L (137-145)
[2020-05-27 15:11] LABS: Amorphous Sediment,Urine Rare /hpf; Appearance,Urine Cloudy (Clear); Bilirubin,Urine Negative (Negative); Blood,Urine Moderate (Negative); Color,Urine Yellow; Glucose,Urine (UA) Negative (Negative); Hyaline Casts,Urine 5 /lpf (0-2); Ketones,Urine Negative (Negative); Leukocyte Esterase,Urine Moderate (Negative); Mucus,Urine Rare /hpf; Nitrite,Urine Negative (Negative); PH, Urine 5.5 (5.0-8.0); Protein,Urine Trace (Negative); RBC,Urine >182 /hpf (0-5); Specific Gravity,Urine 1.024 (1.001-1.035); Squamous Epithelial Cell,Urine 2 /hpf (0-4); Urobilinogen,Urine <2.0 mg/dL (<2.0); WBC,Urine 13 /hpf (0-5)
== END | disposition home or self-care (01) ==
LOC: LABPAT 13:15
PROVIDERS: ATTEND Urology
DX: Z01.818 Encounter for other preprocedural examination (principal); E11.9 Type 2 diabetes mellitus without complications; N20.0 Calculus of kidney; R31.0 Gross hematuria
CPT/HCPCS: 36415; 80048; 81001; 85025; 87086

== ENCOUNTER 2020-06-06 14:49 | Day surgery (SDC) | payer BC, OTHER ==
[2020-06-05 09:01] VITALS: BMI 40.3
[~2020-06-06 14:49] MED LIST: CIPROFLOXACIN/DEXTROSE PMX 400 MG in DEXTROSE/WATER 1 200ML.BAG IVPB ONE; DEXAMETHASONE SOD PHOSPHATE 10 MG/ML 1 ML VIAL IV ONE; HYDROmorphone 0.5 MG/0.5 ML SYRINGE IVP PRN; LIDOCAINE 1% (10MG/ML) FOR IV START INTRADERMA PRN; ONDANSETRON 4 MG/2 ML VIAL IVP ONE; ONDANSETRON 4 MG/2 ML VIAL IVP PRN
--- NOTE | 2020-06-06 15:04 | XR ---
EXAMINATION TYPE: XR KUB DATE OF EXAM: 06/06/2020 2:58 PM CLINICAL HISTORY: Left-sided kidney stones. Preoperative. TECHNIQUE: Two supine KUB images of the abdomen are obtained. COMPARISON: None. FINDINGS: There is 9 mm calculus left kidney centrally at L2 level. Cholecystectomy clips. Overall nonobstructive bowel gas pattern. Visualized osseous structures are in tact IMPRESSION: As above.
[2020-06-06] MEDS: LACTATED RINGERS 1,000 ML IV SCH (15:15)
[2020-06-06 15:34] LABS: Glucose,Whole Blood 93 mg/dL (75-99)
[2020-06-06 18:04] LABS: Glucose,Whole Blood 135 mg/dL (75-99)
--- NOTE | 2020-06-06 18:44 | P.HPIHPCON ---
History of Present Illness H&P Date: 06/06/20 Chief Complaint: Gross hematuria, left sided renal stone Ms Delaney is a 50-year-old female with history of gross hematuria. of note she has history of low-grade TA bladder cancer. Underwent an office cystoscopy that showed no evidence of bladder tumor recurrence. Given her continued gross hematuria decision was made to proceed with cystoscopy bilateral ureteroscopy. Of note she also has a left-sided renal stone. We'll do holmium laser lithotripsy at the same time. Discussed risk of bleeding infection injury to the ureter with her. She understood all risks and agree to proceed Consent for Procedure: I have explained the operation/procedure to the patient, including the risks, benefits, side effects, alternative therapies (including not receiving the proposed treatment or service), the likelihood of the patient achieving his/her goals, and potential recuperation problems for the procedure/sedation/analgesia, as well as any blood products, if indicated. I also explained to the patient the risks, benefits and side effects of the alternatives, as well as the risks related to not receiving the proposed procedure, care, treatment, or services. Past Medical History Past Medical History: Cancer, Diabetes Mellitus, GERD/Reflux, Sleep Apnea/CPAP/BIPAP, Thyroid Disorder Additional Past Medical History / Comment(s): THYROID CANCER AND BLADDER CANCER History of Any Multi-Drug Resistant Organisms: None Reported Past Surgical History: Cholecystectomy, Hysterectomy, Orthopedic Surgery, Tonsillectomy Additional Past Surgical History / Comment(s): thyroidectomy, left knee replacment x2, bladder cancer tumor removed Past Anesthesia/Blood Transfusion Reactions: No Reported Reaction Smoking Status: Former smoker - Past Family History Mother Family Medical History: Cancer Additional Family Medical History / Comment(s): uterine CA and esoghagus Father Family Medical History: Cancer Medications and Allergies Home Medications Medication Instructions Recorded Confirmed Type RX: Omeprazole [PriLOSEC] 40 mg PO HS 10/17/14 06/05/20 History RX: Venlafaxine HCl [Effexor] 75 mg PO DAILY 10/17/14 06/05/20 History Cholecalciferol [Vitamin D3] 50,000 unit PO Q7DAYS 12/22/15 06/05/20 History Cyanocobalamin (Vitamin B-12) 1,000 mcg PO DAILY 12/22/15 06/06/20 History [Vitamin B12] RX: Melatonin 10 mg PO HS 12/22/15 06/05/20 History ALPRAZolam [Xanax] 0.5 mg PO BID PRN 08/18/16 06/05/20 History Levothyroxine Sodium [Levo-T] 150 mcg PO DAILY 08/18/16 06/06/20 History RX: Ranitidine HCl 150 mg PO QAM 08/18/16 06/05/20 History Varenicline [Chantix] 1 tab PO BID 08/20/16 06/05/20 History Dulaglutide [Trulicity] 1.5 mg SQ Q7DAYS 06/05/20 06/05/20 History RX: Oxybutynin Chloride 5 mg PO BID 06/05/20 06/06/20 History RX: metFORMIN HCL 1,000 mg PO BID 06/05/20 06/05/20 History Allergies Allergy/AdvReac Type Severity Reaction Status Date / Time Penicillins Allergy Itching Verified 06/06/20 15:05 Surgical - Exam Vital Signs Temp Pulse Resp Pulse Ox 96.0 F L 98 17 96 06/06/20 15:10 06/06/20 15:10 06/06/20 15:10 06/06/20 15:10 - General well developed, well nourished, no distress, no pain - Respiratory normal expansion, normal respiratory effort - Abdomen Abdomen: soft, non tender Results - Labs Abnormal Lab Results - Last 24 Hours (Table) 06/06/20 Range/Units 18:02 POC Glucose (mg/dL) 135 H (75-99) mg/dL Assessment and Plan Assessment: 60-year-old female history of gross hematuria and left-sided renal stone OR for Cystoscopy, bilateral ureteroscopy, left sided holmium laser lithotripsy and stone basketing
[2020-06-06] MEDS ORDERED: LIDOCAINE 1% INJ 10MG/ML (20 ML MDV) ONE (18:55)
[2020-06-06] MEDS ORDERED: HYDROmorphone (PF) 1 MG/ML ONE (18:55)
[2020-06-06] MEDS ORDERED: SUCCINYLCHOLINE CHLORIDE 100 MG/5 ML SYR IV ONE (18:55)
[2020-06-06] MEDS ORDERED: PROPOFOL 10 MG/ML 20 ML VIAL IV ONE (18:55)
[2020-06-06] MEDS ORDERED: fentaNYL (PF) 50 MCG/ML 2 ML AMP ONE (18:55)
[2020-06-06] MEDS ORDERED: MIDAZOLAM 2 MG/2 ML VIAL ONE (18:55)
[2020-06-06] MEDS ORDERED: IOPAMIDOL-370 50ML BTL IRRIGATION ONE (19:22)
--- NOTE | 2020-06-06 20:17 | P.OP ---
Date of Procedure: 06/06/20 Preoperative Diagnosis: Gross hematuria/left renal calculi Postoperative Diagnosis: Same Procedure(s) Performed: Cystoscopy, bilateral ureteroscopy, left holmium laser lithotripsy, stone basketing and stent placement Implants: 6-Burmese by 26 cm stent on the left Anesthesia: CAROLEE Surgeon: Isaiah Doyle Estimated Blood Loss (ml): 1 Pathology: other (Left renal calculi, bilateral renal cytology) Condition: stable Disposition: PACU Indications for Procedure: Ms Delaney is a 50-year-old female with history of gross hematuria. of note she has history of low-grade TA bladder cancer. Underwent an office cystoscopy that showed no evidence of bladder tumor recurrence. Given her continued gross hematuria decision was made to proceed with cystoscopy bilateral ureteroscopy. Of note she also has a left-sided renal stone. We'll do holmium laser lithotripsy at the same time. Discussed risk of bleeding infection injury to the ureter with her. She understood all risks and agree to proceed Operative Findings: Left renal calculi, otherwise normal bilateral ureteroscopy Description of Procedure: Patient was brought to the operating room, general anesthesia was induced. She was prepped and draped in sterile fashion and placed in a dorsal lithotomy position. Cystoscopy fitted with 21 sheath was inserted per urethra, cystoscopy was performed which showed no evidence of bleeding within the bladder. The previous resection site appears completely healed and there was no evidence of bleeding. At this time attention was carried to the right ureteral orifice which was intubated with a a sensor wire. Next an [id number] access sheath was passed over the wire and into the proximal ureter. Next the flexible ureteroscope was inserted through the access sheath, renoscopy was performed showed no abnormality within the kidney. Renal cytology was obtained on the right side. Retrograde Polygram was performed to ensure all cases were evaluated. Pullback ureteroscopy confirmed no injury to the ureter or any evidence of ureteral tumor. At this time the cystoscope was reinserted and the left ureteral orifice was intubated with a sensor wire. Next a [id number] access sheath was passed over the wire and into the proximal ureter. Next a flexible ureteroscope was inserted through the access sheath renoscopy was performed which showed a large stone in the renal pelvis. renoscopy of the rest of the kidney demonstrated no suspicious lesions within the kidney. Renal cytology left-sided was obtained. Using the holmium laser the stone was fragmented into smaller fragments. The fragments were removed using stone basket. Repeat renoscopy showed no sizable fragments or injury to the kidney. Retrograde pyelogram was performed to ensure all calyces were evaluated. At this time pullback ureteroscopy was performed showed no injury to the ureter or any evidence of ureteral stones or tumors. The scope was reinserted and a sensor wire was advanced to the left ureteral orifice. Next a ureteral stent was passed over the wire, the proximal closure was on fluoroscopy and distal curl was noted cystoscope. The bladder was emptied and the case. The patient thought the procedure well taken to PACU in stable condition
[2020-06-06] MEDS ORDERED: LACTATED RINGERS 1,000 ML IV ONE ×2 (20:45)
[2020-06-06 20:52] LABS: Glucose,Whole Blood 149 mg/dL (75-99)
[2020-06-06] MEDS ORDERED: LOSARTAN 25 MG TAB PO STA (21:59)
[2020-06-06] MEDS ORDERED: ONDANSETRON 4 MG/2 ML VIAL IVP PRN (23:16)
[2020-06-06] MEDS ORDERED: ALPRAZolam 0.5 MG TAB PO PRN (23:19)
[2020-06-06] MEDS ORDERED: MELATONIN 5 MG TABLET PO SCH (23:30)
[2020-06-06] MEDS: HYDROcodone/APAP 5-325MG 1 EACH TAB PO PRN (23:31)
[2020-06-07] MEDS: HYDROcodone/APAP 5-325MG 1 EACH TAB PO PRN (03:01)
[2020-06-07 03:09] VITALS: RESP 16
[2020-06-07 06:09] LABS: Glucose,Whole Blood 141 mg/dL (75-99)
[2020-06-07] MEDS: LACTATED RINGERS 1,000 ML IV SCH (06:09)
[2020-06-07] MEDS ORDERED: LEVOTHYROXINE 75 MCG TAB PO SCH (06:30)
--- NOTE | 2020-06-07 07:20 | FL ---
Fluoroscopy HISTORY: Stones 46 seconds fluoroscopy time supplied to the referring clinician. 1 intraoperative C-arm images docum ent the procedure. See dictated report from urology.
[2020-06-07 08:14] VITALS: BP 156/89; PULSE 111; TEMP 98.8
[2020-06-07] MEDS ORDERED: VARENICLINE 0.5 MG TAB PO SCH (08:30)
[2020-06-07] MEDS ORDERED: OXYBUTYNIN CHLORIDE 5 MG TAB PO SCH (09:00)
[2020-06-07] MEDS ORDERED: FAMOTIDINE 20 MG TAB PO SCH (09:00)
[2020-06-07] MEDS ORDERED: LOSARTAN 25 MG TAB PO SCH (09:00)
[2020-06-07] MEDS ORDERED: VENLAFAXINE HCL 75 MG TAB PO SCH (09:00)
[2020-06-07] MEDS ORDERED: metFORMIN 500 MG TAB PO SCH (09:00)
[2020-06-07] MEDS ORDERED: CYANOCOBALAMIN 500 MCG TAB PO SCH (09:00)
--- NOTE | 2020-06-07 10:41 | P.DS ---
Providers Attending physician: Isaiah Doyle MD Primary care physician: [facility] Course: The patient underwent cystoscopy left ureteroscopy with laser lithotripsy and stent placement by yesterday. She had too much pain to be discharged home last night. She is feeling much better today. She'll be discharged home today in follow-up in the office to see Dr. Doyle. Postoperative instructions have been given. Her condition is good. She'll take tolerable Motrin for pain. She may resume all her medications. Patient Condition at Discharge: Good Plan - Discharge Summary Discharge Rx Participant: No New Discharge Prescriptions: No Action Venlafaxine HCl [Effexor] 75 mg PO DAILY Omeprazole [PriLOSEC] 40 mg PO HS Cholecalciferol [Vitamin D3] 50,000 unit PO Q7DAYS Cyanocobalamin (Vitamin B-12) [Vitamin B12] 1,000 mcg PO DAILY Melatonin 10 mg PO HS Ranitidine HCl 150 mg PO QAM ALPRAZolam [Xanax] 0.5 mg PO BID PRN PRN Reason: Anxiety Levothyroxine Sodium [Levo-T] 150 mcg PO DAILY Varenicline [Chantix] 1 tab PO BID Oxybutynin Chloride 5 mg PO BID metFORMIN HCL 1,000 mg PO BID Dulaglutide [Trulicity] 1.5 mg SQ Q7DAYS Losartan Potassium [Cozaar] 25 mg PO Discharge Medication List Omeprazole [PriLOSEC] 40 mg PO HS 10/17/14 [History] Venlafaxine HCl [Effexor] 75 mg PO DAILY 10/17/14 [History] Cholecalciferol [Vitamin D3] 50,000 unit PO Q7DAYS 12/22/15 [History] Cyanocobalamin (Vitamin B-12) [Vitamin B12] 1,000 mcg PO DAILY 12/22/15 [History] Melatonin 10 mg PO HS 12/22/15 [History] ALPRAZolam [Xanax] 0.5 mg PO BID PRN 08/18/16 [History] Levothyroxine Sodium [Levo-T] 150 mcg PO DAILY 08/18/16 [History] Ranitidine HCl 150 mg PO QAM 08/18/16 [History] Varenicline [Chantix] 1 tab PO BID 08/20/16 [History] Dulaglutide [Trulicity] 1.5 mg SQ Q7DAYS 06/05/20 [History] Oxybutynin Chloride 5 mg PO BID 06/05/20 [History] metFORMIN HCL 1,000 mg PO BID 06/05/20 [History] Losartan Potassium [Cozaar] 25 mg PO 06/06/20 [History] Follow up Appointment(s)/Referral(s): Isaiah Doyle MD [STAFF PHYSICIAN] - 1 Week Patient Instructions/Handouts: *[facility] - Cystoscopy Discharge Instructions, *[facility] - (Anesthesia) Discharge Instructions Outpatient Surgery, Ureteral Stent Placement (DC), Lithotripsy (DC) Activity/Diet/Wound Care/Special Instructions: You may see some blood in the urine Drink plenty of fluid Discharge Disposition: HOME SELF-CARE
[2020-06-07] MEDS ORDERED: PANTOPRAZOLE 40 MG TABLET PO SCH (21:00)
[2020-06-12] MEDS ORDERED: NON FORMULARY DRUG (Dulaglutide [Trulicity] 1.5 MG/0.5 ML Pen.Injctr) SQ SCH (09:00)
[2020-06-12] MEDS ORDERED: ERGOCALCIFEROL 50,000 UNIT CAP PO SCH (09:00)
== END 2020-06-07 11:45 | disposition home or self-care (01) ==
LOC: OR 14:49 → 1SOBS 20:52 → OR 06-07 11:45
PROVIDERS: ATTEND Urology
DX: N20.0 Calculus of kidney (principal); R31.0 Gross hematuria; E11.9 Type 2 diabetes mellitus without complications; K21.9 Gastro-esophageal reflux disease without esophagitis; G47.33 Obstructive sleep apnea (adult) (pediatric); Z99.89 Dependence on other enabling machines and devices; Z85.850 Personal history of malignant neoplasm of thyroid; Z85.51 Personal history of malignant neoplasm of bladder; Z90.49 Acquired absence of other specified parts of digestive tract; Z90.710 Acquired absence of both cervix and uterus; F41.9 Anxiety disorder, unspecified; F32.9 Major depressive disorder, single episode, unspecified; Z96.652 Presence of left artificial knee joint; E89.0 Postprocedural hypothyroidism; Z98.890 Other specified postprocedural states; Z87.891 Personal history of nicotine dependence; Z80.0 Family history of malignant neoplasm of digestive organs; Z80.49 Family history of malignant neoplasm of other genital organs; Z79.84 Long term (current) use of oral hypoglycemic drugs; Z79.899 Other long term (current) drug therapy; Z88.0 Allergy status to penicillin
CPT/HCPCS: 52356; 82365; 74420; 74018; C2625; C1758; C1769; J2250; J1100; J2405; J2001; J3010; J0744; J1170; J0330; J2704; Q9967; 88173; 88305

== ENCOUNTER 2020-12-02 06:55 | Inpatient (IN) | payer BC, OTHER ==
[2020-12-02] MEDS ORDERED: ACETAMINOPHEN TAB 325 MG TAB PO STA (07:06)
[2020-12-02] MEDS ORDERED: KETOROLAC 15 MG/ML 1 ML VIAL IVP STA (07:06)
[2020-12-02] MEDS ORDERED: SODIUM CHLORIDE 0.9% 500 ML 500 ML IV ONE (07:06)
--- NOTE | 2020-12-02 07:13 | ED ---
Recheck HPI - General Stated Complaint: +COVID, SARAH Time Seen by Provider: 12/02/20 06:58 - History of Present Illness Initial Comments: 60-year-old female presenting to the emergency department today for chief complaint of shortness of breath, cough, fevers. Patient states that she tested positive for covid 7 days ago, she states she started symptoms 1 day prior. Patient states that she was exposed 5 days prior to symptom onset. Patient states that for the past 2-3 days she had increasing dyspnea and feels like she cannot expand her lungs, she states they feel "tight" denies chest pain, hemoptysis, leg swelling, sharp chest pain wtih a deep breath. Admits to cough, fevers, nausea. Denies diarrhea, abdominal pain, rashes, sore throat, ear pain. Patient denies hx of DVT/PE, recent surgeries/fracture, patient states that she was recently diagnosed with stage 1A breast cancer, and has hx of previous cancer CA, thyroid CA both of which she states is in remission. Patient denies neck stiffness, or additional complaints. Upon arrival she appears in no distress, but is only 88% on RA, febrile and tachycardic. - Related Data Home Medications Medication Instructions Recorded Confirmed Omeprazole [PriLOSEC] 40 mg PO HS 10/17/14 06/05/20 Venlafaxine HCl [Effexor] 75 mg PO DAILY 10/17/14 06/05/20 Cholecalciferol [Vitamin D3] 50,000 unit PO Q7DAYS 12/22/15 06/05/20 Cyanocobalamin (Vitamin B-12) 1,000 mcg PO DAILY 12/22/15 06/06/20 [Vitamin B12] Melatonin 10 mg PO HS 12/22/15 06/05/20 ALPRAZolam [Xanax] 0.5 mg PO BID PRN 08/18/16 06/05/20 Levothyroxine Sodium [Levo-T] 150 mcg PO DAILY 08/18/16 06/06/20 Ranitidine HCl 150 mg PO QAM 08/18/16 06/05/20 Varenicline [Chantix] 1 tab PO BID 08/20/16 06/05/20 Dulaglutide [Trulicity] 1.5 mg SQ Q7DAYS 06/05/20 06/05/20 Oxybutynin Chloride 5 mg PO BID 06/05/20 06/06/20 metFORMIN HCL 1,000 mg PO BID 06/05/20 06/05/20 Losartan Potassium [Cozaar] 25 mg PO 06/06/20 Allergies Allergy/AdvReac Type Severity Reaction Status Date / Time Penicillins Allergy Itching Verified 12/02/20 09:26 Review of Systems ROS Statement: Those systems with pertinent positive or pertinent negative responses have been documented in the HPI. ROS Other: All systems not noted in ROS Statement are negative. Past Medical History Past Medical History: Cancer, Diabetes Mellitus, GERD/Reflux, Sleep Apnea/CPAP/BIPAP, Thyroid Disorder Additional Past Medical History / Comment(s): THYROID CANCER 10/30/14, Diet controlled Diabetes History of Any Multi-Drug Resistant Organisms: None Reported Past Surgical History: Cholecystectomy, Hysterectomy, Orthopedic Surgery, Tonsillectomy Additional Past Surgical History / Comment(s): thyroidectomy, left knees replacment. Past Anesthesia/Blood Transfusion Reactions: No Reported Reaction Past Psychological History: Depression - Past Family History Mother Family Medical History: Cancer Additional Family Medical History / Comment(s): uterine CA and esoghagus Father Family Medical History: Cancer General Exam - General Exam Comments Initial Comments: General: The patient is awake and alert, in no distress Eye: +3 mm pupils are equal, round and reactive to light, extra-ocular movements are intact. No nystagmus. There is normal conjunctiva bilaterally. No signs of icterus. Ears, nose, mouth and throat: There are moist mucous membranes and no oral lesions. Neck: The neck is supple, there is no tenderness or JVD. Cardiovascular: There is a regular rate and rhythm. No murmur, rub or gallop is appreciated. Respiratory: Respirations are mildly-labored, breath sounds are equal. No wheezes, stridor, rales. Scattered rales, rhonchi present. Gastrointestinal: Soft, non-distended, non-tender abdomen without masses or organomegaly noted. There is no rebound or guarding present. Musculoskeletal: Normal ROM, no tenderness. Strength 5/5. Sensation intact. Radial pulses equal bilaterally 2+. Neurological: A&O x 3. CN II-XII intact grossly, There are no obvious motor or sensory deficits. Coordination appears grossly intact. Speech is normal. Skin: Skin is warm and dry and no rashes or lesions are noted. No calf pain or LE edema. Psychiatric: Cooperative, appropriate mood & affect, normal judgment. Course Vital Signs 12/02/20 12/02/20 12/02/20 07:04 07:50 07:52 Temperature 103 F H Pulse Rate 115 H 115 H Respiratory 18 16 18 Rate Blood Pressure 125/72 130/82 O2 Sat by Pulse 88 L 95 Oximetry Medical Decision Making - Medical Decision Making Labs consistent with covid 19 infection. Patient does not appear toxic but is significantly hypoxia at 88% on RA. patient 95% on 2L. CTA no PE. Patient will be admittedd on IV steroids for hypoxic covid pneumonia. Dr Brice agreeable to care plan and admission. Ventricular rate 107 bpm, ME interval 140 ms, QR administration 86 ms, QT/QTc 320/427 ms. This is sinus tachycardia with no ST elevation or depression appreciated. - Lab Data Result diagrams: 12/02/20 07:39 12/02/20 07:39 Lab Results 12/02/20 12/02/20 12/02/20 Range/Units 07:39 07:39 07:39 WBC 4.3 (3.8-10.6) k/uL RBC 4.58 (3.80-5.40) m/uL Hgb 12.0 (11.4-16.0) gm/dL Hct 35.3 (34.0-46.0) % MCV 77.1 L (80.0-100.0) fL MCH 26.2 (25.0-35.0) pg MCHC 33.9 (31.0-37.0) g/dL RDW 15.4 (11.5-15.5) % Plt Count 174 (150-450) k/uL MPV 7.8 Neutrophils % 83 % Lymphocytes % 12 % Monocytes % 4 % Eosinophils % 0 % Basophils % 0 % Neutrophils # 3.6 (1.3-7.7) k/uL Lymphocytes # 0.5 L (1.0-4.8) k/uL Monocytes # 0.2 (0-1.0) k/uL Eosinophils # 0.0 (0-0.7) k/uL Basophils # 0.0 (0-0.2) k/uL Microcytosis Slight PT 10.0 (9.0-12.0) sec INR 0.9 (<1.2) APTT 24.8 (22.0-30.0) sec D-Dimer 0.87 H (<0.60) mg/L FEU Sodium 131 L (137-145) mmol/L Potassium 4.1 (3.5-5.1) mmol/L Chloride 99 (98-107) mmol/L Carbon Dioxide 24 (22-30) mmol/L Anion Gap 8 mmol/L BUN 13 (7-17) mg/dL Creatinine 0.80 (0.52-1.04) mg/dL Est GFR (CKD-EPI)AfAm >90 (>60 ml/min/1.73 sqM) Est GFR (CKD-EPI)NonAf 81 (>60 ml/min/1.73 sqM) Glucose 143 H (74-99) mg/dL Plasma Lactic Acid Hussein (0.7-2.0) mmol/L Calcium 8.8 (8.4-10.2) mg/dL Magnesium 1.8 (1.6-2.3) mg/dL Total Bilirubin 0.6 (0.2-1.3) mg/dL AST 44 H (14-36) U/L ALT 25 (4-34) U/L Alkaline Phosphatase 71 (38-126) U/L Lactate Dehydrogenase 740 H (313-618) U/L C-Reactive Protein 204.9 H (<10.0) mg/L Total Protein 6.8 (6.3-8.2) g/dL Albumin 4.0 (3.5-5.0) g/dL Coronavirus (PCR) (Not Detectd) 12/02/20 12/02/20 Range/Units 07:39 08:03 WBC (3.8-10.6) k/uL RBC (3.80-5.40) m/uL Hgb (11.4-16.0) gm/dL Hct (34.0-46.0) % MCV (80.0-100.0) fL MCH (25.0-35.0) pg MCHC (31.0-37.0) g/dL RDW (11.5-15.5) % Plt Count (150-450) k/uL MPV Neutrophils % % Lymphocytes % % Monocytes % % Eosinophils % % Basophils % % Neutrophils # (1.3-7.7) k/uL Lymphocytes # (1.0-4.8) k/uL Monocytes # (0-1.0) k/uL Eosinophils # (0-0.7) k/uL Basophils # (0-0.2) k/uL Microcytosis PT (9.0-12.0) sec INR (<1.2) APTT (22.0-30.0) sec D-Dimer (<0.60) mg/L FEU Sodium (137-145) mmol/L Potassium (3.5-5.1) mmol/L Chloride (98-107) mmol/L Carbon Dioxide (22-30) mmol/L Anion Gap mmol/L BUN (7-17) mg/dL Creatinine (0.52-1.04) mg/dL Est GFR (CKD-EPI)AfAm (>60 ml/min/1.73 sqM) Est GFR (CKD-EPI)NonAf (>60 ml/min/1.73 sqM) Glucose (74-99) mg/dL Plasma Lactic Acid Hussein 1.3 (0.7-2.0) mmol/L Calcium (8.4-10.2) mg/dL Magnesium (1.6-2.3) mg/dL Total Bilirubin (0.2-1.3) mg/dL AST (14-36) U/L ALT (4-34) U/L Alkaline Phosphatase (38-126) U/L Lactate Dehydrogenase (313-618) U/L C-Reactive Protein (<10.0) mg/L Total Protein (6.3-8.2) g/dL Albumin (3.5-5.0) g/dL Coronavirus (PCR) Detected A (Not Detectd) Disposition Clinical Impression: COVID-19, Hypoxia, Fever, Pneumonia due to COVID-19 virus Disposition: ADMITTED IP TO THIS [facility] Condition: Stable Is patient prescribed a controlled substance at d/c from ED?: No Referrals: Singh Otto MD [Primary Care Provider] - 1-2 days Time of Disposition: 09:09 Decision to Admit Reason: Admit from EC Decision Date: 12/02/20 Decision Time: 09:09
[2020-12-02] MEDS ORDERED: SODIUM CHLORIDE 0.9% 1,000 ML IV SCH (07:15)
[2020-12-02 07:45] LABS: Basophils % (A) 0 %; Eosinophils % (A) 0 %; HCT 35.3 % (34.0-46.0); Lymphocytes # (A) 0.5 k/uL (1.0-4.8); Lymphocytes % (A) 12 %; MCH 26.2 pg (25.0-35.0); MCHC 33.9 g/dL (31.0-37.0); MCV 77.1 fL (80.0-100.0); Mean Platelet Volume 7.8; Microcytosis Slight; Monocytes # (A) 0.2 k/uL (0-1.0); Monocytes % (A) 4 %; Neutrophils # (A) 3.6 k/uL (1.3-7.7); Neutrophils % (A) 83 %; Platelet Count 174 k/uL (150-450); RBC 4.58 m/uL (3.80-5.40); RDW 15.4 % (11.5-15.5); WBC 4.3 k/uL (3.8-10.6)
--- NOTE | 2020-12-02 07:54 | XR ---
EXAMINATION TYPE: XR chest 1V portable DATE OF EXAM: 12/02/2020 Comparison: 01/05/2020 Clinical History: 60-year-old female Suspected COVID-19 pneumonia Findings: Heart upper limits of normal in size. Mild tortuosity of the thoracic aorta. Confluent airspace disea se in the mid and lower lungs, right greater than left. No pleural effusion. Impression: Peripheral airspace disease in the mid and lower lungs, right greater than left. Findings can be seen with COVID pneumonia.
[2020-12-02 07:57] LABS: ALT 25 U/L (4-34); AST 44 U/L (14-36); African American GFR (CKD) >90 (>60 ml/min/1.73 sqM); Alkaline Phosphatase 71 U/L (38-126); Anion Gap 8 mmol/L; Blood Urea Nitrogen 13 mg/dL (7-17); Calcium 8.8 mg/dL (8.4-10.2); Carbon Dioxide 24 mmol/L (22-30); Chloride 99 mmol/L (98-107); Glucose 143 mg/dL (74-99); Magnesium 1.8 mg/dL (1.6-2.3); Non-African American GFR(CKD) 81 (>60 ml/min/1.73 sqM); Potassium 4.1 mmol/L (3.5-5.1); Sodium 131 mmol/L (137-145); Total Bilirubin 0.6 mg/dL (0.2-1.3); Total Protein 6.8 g/dL (6.3-8.2)
[2020-12-02 08:02] LABS: INR 0.9 (<1.2); Partial Thromboplastin Time 24.8 sec (22.0-30.0)
[2020-12-02 08:40] LABS: C Reactive Protein 204.9 mg/L (<10.0)
[2020-12-02 08:47] LABS: LDH 740 U/L (313-618)
--- NOTE | 2020-12-02 09:06 | CT ---
CT CHEST FOR PULMONARY EMBOLISM. EXAMINATION TYPE: CT chest angio for PE DATE OF EXAM: 12/02/2020 INDICATION: SOB, elevated d dimer, covid positive CT DLP: 529.6 mGycm, Automated exposure control for dose reduction was used. CONTRAST: Patient injected with 100 mL of Isovue 370. COMPARISON: 01/06/2020 TECHNIQUE: CT of the chest is performed on a spiral scan at 2 mm thick sections. Study is performed with intravenous contrast timed for evaluation for pulmonary embolism. This will limit additional po rtions of the evaluation. 3-D MIP images reconstructed by the technologist are reviewed on the compu ter in the coronal and sagittal planes. FINDINGS: No persistent filling defects are evident to suggest an acute pulmonary embolism. No mediastinal or hilar adenopathy enlarged by CT criteria is evident. The ascending aorta diameter at the level of the main pulmonary artery is 3.3 cm. The main pulmonary artery diameter at the bifur cation is 2.8 cm. There are patchy peripheral infiltrates present some peripheral posterior nodules would be difficult to exclude. Findings can be compatible with atypical pneumonia. Limited CT section through the upper abdomen. There is mild to moderate fatty infiltration of liver. IMPRESSIONS: 1. Findings suggestive for atypical pneumonia. 2. No acute pulmonary embolism
[2020-12-02] MEDS ORDERED: DEXAMETHASONE SOD PHOSPHATE 4 MG/ML 1 ML VIAL IV STA (09:07)
[2020-12-02] MEDS ORDERED: NALOXONE 0.4 MG/ML 1 ML VIAL IV PRN (09:08)
[2020-12-02] MEDS ORDERED: AZITHROMYCIN 500 MG in SODIUM CHLORIDE 0.9% 250 ML IVPB STA (09:08)
[2020-12-02] MEDS ORDERED: IBUPROFEN 400 MG TAB PO PRN (13:00)
--- NOTE | 2020-12-02 13:17 | P.HPIM ---
History of Present Illness H&P Date: 12/02/20 Chief Complaint: Not feeling well This is a 60-year-old female with past medical history noted below who presented to the emergency room with generalized fatigue, fever, and vomiting. Patient reported that she was diagnosed with COVID-19 approximately a week ago at the urgent care. She said her symptoms started approximately 8 days ago and is being getting progressively worse. Patient reports mild shortness of breath, fevers and chills, and poor appetite with nausea and occasional vomiting. Patient said that occasionally she is having diarrhea as well. She said that she was not given any prescription at the urgent care and has been taking Tylenol and ibuprofen at home with minimal relief. She denies any significant cough. Patient was evaluated in the ER and was found to have evidence of a typical pneumonia on imaging. CT angiogram was negative for PE. Initial O2 sat on presentation was 88% on room air. Patient was seen by me in the ED. She is in no distress. She reported being diagnosed with stage I breast cancer recently and is scheduled for surgical removal of the tumor on December 17. She also has a history of thyroid cancer and bladder cancer there are both in remission. She did not get any chemotherapy. Review of Systems Review of system: 14 points review of systems were obtained and were negative except to what were mentioned in the HPI. Past Medical History Past Medical History: Cancer, Diabetes Mellitus, GERD/Reflux, Sleep Apnea/CPAP/BIPAP, Thyroid Disorder Additional Past Medical History / Comment(s): THYROID CANCER 10/30/14, Diet controlled Diabetes History of Any Multi-Drug Resistant Organisms: None Reported Past Surgical History: Cholecystectomy, Hysterectomy, Orthopedic Surgery, T onsillectomy Additional Past Surgical History / Comment(s): thyroidectomy, left knees replacment. Past Anesthesia/Blood Transfusion Reactions: No Reported Reaction Past Psychological History: Depression - Past Family History Mother Family Medical History: Cancer Additional Family Medical History / Comment(s): uterine CA and esoghagus Father Family Medical History: Cancer Medications and Allergies Home Medications Medication Instructions Recorded Confirmed Type Venlafaxine HCl [Effexor] 75 mg PO DAILY 10/17/14 12/02/20 History ALPRAZolam [Xanax] 0.5 mg PO HS PRN 08/18/16 12/02/20 History Levothyroxine Sodium [Levo-T] 150 mcg PO DAILY 08/18/16 12/02/20 History Dulaglutide [Trulicity] 1.5 mg SQ WE 06/05/20 12/02/20 History Oxybutynin Chloride 5 mg PO BID 06/05/20 12/02/20 History Losartan Potassium [Cozaar] 25 mg PO DAILY 06/06/20 12/02/20 History Ergocalciferol (Vitamin D2) 1,250 mcg PO LEÓN 12/02/20 12/02/20 History [Vitamin D2 (50,000 Iu)] Omeprazole [PriLOSEC] 40 mg PO DAILY 12/02/20 12/02/20 History Propranolol HCl [Propranolol HCl 60 mg PO DAILY 12/02/20 12/02/20 History ER] metFORMIN HCL ER [Glucophage Xr] 1,000 mg PO BID 12/02/20 12/02/20 History Allergies Allergy/AdvReac Type Severity Reaction Status Date / Time Penicillins Allergy Itching Verified 12/02/20 09:26 Physical Exam Vitals: Vital Signs Temp Pulse Resp BP Pulse Ox 12/02/20 12:38 100.3 F H 12/02/20 12:36 98 18 112/71 96 12/02/20 10:37 100.9 F H 96 18 129/77 92 L 12/02/20 07:52 115 H 18 130/82 95 12/02/20 07:50 16 12/02/20 07:04 103 F H 115 H 18 125/72 88 L Intake and Output 12/01/20 12/02/20 12/02/20 22:59 06:59 14:59 Other: Weight 113.398 kg General: The patient is awake and alert, in no distress Eye: there is normal conjunctiva bilaterally. Neck: The neck is supple, there is no JVD. Cardiovascular: Normal S1-S2, no S3-S4, no murmurs. Respiratory: Lungs clear to auscultation bilaterally Gastrointestinal: Abdomen is soft, nontender Musculoskeletal: There is no pedal edema. Neurological:. Speech is normal. Skin: Skin is warm and dry Results CBC & Chem 7: 12/02/20 07:39 12/02/20 07:39 Labs: Abnormal Lab Results - Last 24 Hours (Table) 12/02/20 12/02/20 12/02/20 Range/Units 07:39 07:39 07:39 MCV 77.1 L (80.0-100.0) fL Lymphocytes # 0.5 L (1.0-4.8) k/uL D-Dimer 0.87 H (<0.60) mg/L FEU Sodium 131 L (137-145) mmol/L Glucose 143 H (74-99) mg/dL AST 44 H (14-36) U/L Lactate Dehydrogenase 740 H (313-618) U/L C-Reactive Protein 204.9 H (<10.0) mg/L Procalcitonin (0.02-0.09) ng/mL Coronavirus (PCR) (Not Detectd) 12/02/20 12/02/20 Range/Units 07:39 08:03 MCV (80.0-100.0) fL Lymphocytes # (1.0-4.8) k/uL D-Dimer (<0.60) mg/L FEU Sodium (137-145) mmol/L Glucose (74-99) mg/dL AST (14-36) U/L Lactate Dehydrogenase (313-618) U/L C-Reactive Protein (<10.0) mg/L Procalcitonin 0.17 H (0.02-0.09) ng/mL Coronavirus (PCR) Detected A (Not Detectd) Assessment and Plan Assessment: This is a 60-year-old female that presented to the emergency room with worsening shortness of breath, fever, and nausea. Patient was diagnosed with COVID-19 week prior to her presentation. Patient was evaluated in the ER and admitted to the hospital for further management of her medical problems noted below. 1. COVID-19 pneumonia: Continue Decadron 6 mg daily for 10 days. Vitamin C, vitamin D, zinc, and melatonin. Continue supportive care. We will continue to monitor inflammatory markers. Patient may be a candidate for Remdesivir. I will consult pulmonology for further evaluation 2. Acute hypoxic respiratory failure, mild. Patient was 88% on room air on presentation. Improved significantly with 2 L of oxygen 3. Sepsis without septic shock: Lactic acid is normal. Blood culture sent and pending. Continue aggressive IV fluid hydration. 4. Hypovolemic hyponatremia, repeat lab work in the morning 5. Type 2 diabetes: Hold oral agents and continue sliding scale insulin 6. Elevated d-dimer, CT angiogram negative for PE 7. Chronic medical problems: Recently diagnosed stage I breast cancer with scheduled surgical intervention on December 17, hypothyroidism, hypertension 8. DVT prophylaxis with subcu Lovenox 9. Patient is full code Today, I reviewed her medication list and lab work results. Continue IV fluid hydration with normal saline at 75 mL per hour. Appreciate industrial rehabilitation consultant's recommendations. Repeat inflammatory markers tomorrow.
[2020-12-02] MEDS: ALBUTEROL HFA INHALER INHALATION PRN ×3 (13:54→18:59)
[2020-12-02] MEDS: ASCORBIC ACID 500 MG TAB PO SCH (14:30)
[2020-12-02] MEDS: ZINC SULFATE 220 MG CAP PO SCH (14:30)
[2020-12-02] MEDS: ENOXAPARIN 40 MG/0.4 ML SYRINGE SQ SCH (14:31)
[2020-12-02] MEDS: CHOLECALCIFEROL 25 MCG (1000 IU) TABLET PO SCH (14:31)
[2020-12-02] MEDS: SODIUM CHLORIDE 0.9% 2,000 ML IV SCH (14:32)
[2020-12-02 16:26] LABS: Ferritin 198.6 ng/mL (10.0-291.0)
[2020-12-02] MEDS: INSULIN ASPART (NovoLOG) 100 UNIT/ML VIAL SQ SCH ×2 (17:18→20:51)
[2020-12-02 17:20] LABS: Glucose,Whole Blood 227 mg/dL (75-99)
[2020-12-02] MEDS: ACETAMINOPHEN TAB 325 MG TAB PO PRN ×2 (19:23→23:52)
[2020-12-02 20:19] LABS: Glucose,Whole Blood 208 mg/dL (75-99)
[2020-12-02] MEDS: MELATONIN 5 MG TABLET PO SCH (20:50)
[2020-12-02] MEDS: OXYBUTYNIN CHLORIDE 5 MG TAB PO SCH (20:52)
[2020-12-03] MEDS: ACETAMINOPHEN TAB 325 MG TAB PO PRN ×3 (05:36→20:39)
[2020-12-03] MEDS: ALBUTEROL HFA INHALER INHALATION PRN ×4 (08:14→20:38)
[2020-12-03] MEDS: VENLAFAXINE HCL 75 MG TAB PO SCH (08:24)
[2020-12-03] MEDS: ZINC SULFATE 220 MG CAP PO SCH (08:24)
[2020-12-03] MEDS: CHOLECALCIFEROL 25 MCG (1000 IU) TABLET PO SCH (08:24)
[2020-12-03] MEDS: LOSARTAN 25 MG TAB PO SCH (08:24)
[2020-12-03] MEDS: ASCORBIC ACID 500 MG TAB PO SCH (08:24)
[2020-12-03] MEDS: ENOXAPARIN 40 MG/0.4 ML SYRINGE SQ SCH (08:24)
[2020-12-03] MEDS: PANTOPRAZOLE 40 MG TABLET PO SCH (08:24)
[2020-12-03] MEDS: PROPRANOLOL LA 60 MG CAP.SA.24H PO SCH (08:24)
[2020-12-03] MEDS: DEXAMETHASONE SOD PHOSPHATE 10 MG/ML 1 ML VIAL IV SCH (08:25)
[2020-12-03 08:26] LABS: Glucose,Whole Blood 107 mg/dL (75-99)
[2020-12-03] MEDS: INSULIN ASPART (NovoLOG) 100 UNIT/ML VIAL SQ SCH ×4 (09:01→20:51)
[2020-12-03] MEDS: OXYBUTYNIN CHLORIDE 5 MG TAB PO SCH ×2 (10:30→21:41)
[2020-12-03] MEDS: LEVOTHYROXINE 75 MCG TAB PO SCH (10:30)
[2020-12-03] MEDS: SODIUM CHLORIDE 0.9% 2,000 ML IV SCH (10:31)
[2020-12-03 12:09] LABS: African American GFR (CKD) 81.1 (60.0-200.0); BUN/Creat Ratio 15.56 Ratio (12.00-20.00); Calcium 8.5 mg/dL (8.7-10.3); Potassium 4.5 mmol/L (3.5-5.5)
[2020-12-03] MEDS: ASPIRIN 81 MG PO SCH (12:39)
[2020-12-03] MEDS: COLCHICINE 0.6 MG EACH PO SCH (12:39)
--- NOTE | 2020-12-03 12:51 | P.CNPUL ---
History of Present Illness Consult date: 12/03/20 Requesting physician: Yara Arias Chief complaint: Fatigue fever and vomiting. And cough History of present illness: This is a 60-year-old female with history of thyroid cancer, diabetes, bladder cancer, GERD, obstructive sleep apnea syndrome, patient was admitted yesterday with 9 days symptoms of shortness of breath, fever, chills, poor appetite, nausea, and occasional vomiting, intermittent episodes of diarrhea, and nonproductive cough. Patient tested positive about a week ago at the urgent care clinic for [place] virus with positive PCR. Patient was advised to take Tylenol ibuprofen at home, and there was minimal relief. Patient continues to worsen, more symptoms of cough, or symptoms of shortness of breath, seen in the ER yesterday, and chest x-ray showed bilateral pneumonia consistent with acute c ovid [address] angiogram of the chest showed no evidence of pulmonary embolism. Patient was admitted, and this consult was initiated. Review of Systems Constitutional: Fever chills, aches and pains, weakness, fatigue. HEENT: Negative. Pulmonary: As noted in HPI Cardiac: Negative GI: As noted. Genitourinary: Negative Muscular skeletal: Negative except for aches and pains Skin: Negative Endocrine: Negative Hematologic: Negative Psychiatric: Negative Past Medical History Past Medical History: Cancer, Diabetes Mellitus, GERD/Reflux, Sleep Apnea/CPAP/BIPAP, Thyroid Disorder Additional Past Medical History / Comment(s): THYROID CANCER 10/30/14, Diet controlled Diabetes History of Any Multi-Drug Resistant Organisms: None Reported Past Surgical History: Cholecystectomy, Hysterectomy, Orthopedic Surgery, Tonsillectomy Additional Past Surgical History / Comment(s): thyroidectomy, left knees replacment. Past Anesthesia/Blood Transfusion Reactions: No Reported Reaction Past Psychological History: Depression Smoking Status: Never smoker Past Alcohol Use History: None Reported Past Drug Use History: None Reported - Past Family History Mother Family Medical History: Cancer Additional Family Medical History / Comment(s): uterine CA and esoghagus Father Family Medical History: Cancer Medications and Allergies Home Medications Medication Instructions Recorded Confirmed Type Venlafaxine HCl [Effexor] 75 mg PO DAILY 10/17/14 12/02/20 History ALPRAZolam [Xanax] 0.5 mg PO HS PRN 08/18/16 12/02/20 History Levothyroxine Sodium [Levo-T] 150 mcg PO DAILY 08/18/16 12/02/20 History Dulaglutide [Trulicity] 1.5 mg SQ WE 06/05/20 12/02/20 History Oxybutynin Chloride 5 mg PO BID 06/05/20 12/02/20 History Losartan Potassium [Cozaar] 25 mg PO DAILY 06/06/20 12/02/20 History Ergocalciferol (Vitamin D2) 1,250 mcg PO LEÓN 12/02/20 12/02/20 History [Vitamin D2 (50,000 Iu)] Omeprazole [PriLOSEC] 40 mg PO DAILY 12/02/20 12/02/20 History Propranolol HCl [Propranolol HCl 60 mg PO DAILY 12/02/20 12/02/20 History ER] metFORMIN HCL ER [Glucophage Xr] 1,000 mg PO BID 12/02/20 12/02/20 History Allergies Allergy/AdvReac Type Severity Reaction Status Date / Time Penicillins Allergy Itching Verified 12/02/20 09:26 Physical Exam Vitals: Vital Signs Temp Pulse Pulse Resp BP BP Pulse Ox 12/03/20 12:19 90 L 12/03/20 07:36 99.9 F H 91 16 113/73 92 L 12/03/20 05:30 101.6 F H 12/03/20 02:00 99.1 F 92 16 101/63 92 L 12/03/20 00:23 99.7 F H 89 20 118/87 92 L 12/02/20 20:00 100.0 F H 87 18 108/65 91 L 12/02/20 19:19 101.2 F H 92 18 109/66 95 12/02/20 17:19 94 18 120/83 95 12/02/20 14:37 94 18 126/79 94 L 12/02/20 13:58 95 Intake and Output 12/02/20 12/03/20 12/03/20 22:59 06:59 14:59 Intake Total 180 Balance 180 Intake: Oral 180 Other: Voiding Method Toilet # Voids 1 Weight 113.398 kg Physical Exam: Revealed a 60-year-old female in no distress Head: Atraumatic, normocephalic. HEENT:[Neck is supple.] [No neck masses.] [No thyromegaly.] [No JVD.] Chest: [] Called chest expansion crackles and rhonchi at the bases. No wheezing. Cardiac Exam: [Normal S1 and S2, no S3 gallop, no murmur.] Abdomen: [Soft, nontender, no megaly, no rebound, no guarding, normal bowel sounds.] Extremities: [No clubbing, no edema, no cyanosis.] Neurological Exam: [No focal neurologic deficit.] Alert and oriented 3, no gross focal deficits. Psychiatric: Normal mood affect and normal mental status examination. Skin: No rashes. Musculoskeletal: No deformities and no limitation in range of motion Results - Laboratory Findings CBC and BMP: 12/02/20 07:39 12/03/20 05:22 PT/INR, D-dimer PT 10.0 sec (9.0-12.0) 12/02/20 07:39 INR 0.9 (<1.2) 12/02/20 07:39 D-Dimer 0.87 mg/L FEU (<0.60) H 12/02/20 07:39 Abnormal lab findings: Abnormal Labs 12/02/20 12/02/20 12/02/20 07:39 07:39 07:39 MCV 77.1 L Lymphocytes # 0.5 L D-Dimer 0.87 H Sodium 131 L Glucose 143 H POC Glucose (mg/dL) Calcium AST 44 H Lactate Dehydrogenase 740 H C-Reactive Protein 204.9 H Procalcitonin Coronavirus (PCR) 12/02/20 12/02/20 12/02/20 07:39 08:03 17:13 MCV Lymphocytes # D-Dimer Sodium Glucose POC Glucose (mg/dL) 227 H Calcium AST Lactate Dehydrogenase C-Reactive Protein Procalcitonin 0.17 H Coronavirus (PCR) Detected A 12/02/20 12/03/20 12/03/20 20:18 05:22 08:11 MCV Lymphocytes # D-Dimer Sodium Glucose 113 H POC Glucose (mg/dL) 208 H 107 H Calcium 8.5 L AST Lactate Dehydrogenase 373 H C-Reactive Protein Procalcitonin Coronavirus (PCR) - Diagnostic Findings Chest x-ray: image reviewed CT scan - chest: image reviewed (As noted in HPI.) Assessment and Plan Assessment: Impression: Acute hypoxic respiratory failure secondary to acute covid 19 pneumonitis. Hypovolemic hyponatremia Type 2 diabetes Elevated d-dimer History of of multiple cancers including breast thyroid and bladder. Recommendation: Continue present Covid 19 cocktail. Continue Decadron. Continue Lovenox. Continue colchicine. Continue ascorbic acid. Continue Cozaar. Continue aspirin. Resume home medications. Patient is out of the window for remdesivir May or may not consider convalescent plasma. And she does not qualify at this point for actemra Time with Patient: Greater than 30
[2020-12-03 12:55] LABS: Glucose,Whole Blood 135 mg/dL (75-99)
[2020-12-03] MEDS: ONDANSETRON 4 MG/2 ML VIAL IVP PRN (14:18)
--- NOTE | 2020-12-03 16:01 | P.PN ---
Subjective Progress Note Date: 12/03/20 (delayed charting seen at 1210) Principal diagnosis: shortness of breath Patient is a 60-year-old female with a history of diabetes mellitus type 2 controlled without insulin, GERD, stage I breast cancer with history of thyroid cancer and bladder cancer in remission who presented to the emergency department secondary to fever, fatigue, and vomiting. Patient had been diagnosed with Covid 19 one week ago at urgent care, and had started symptoms 8 days prior to presentation. In the ER she underwent an extensive evaluation. CTA chest was negative for PE but was consistent with atypical pneumonia. She was found to be satting 88% on room air.'[id number]. She had a fever of 103 and pulse 115. LDH 704, CRP 204.9, pro calcitonin 0.17. She was admitted and started on Decadron. She is not a candidate for Remdesivir due to symptoms starting greater than 7 days prior to admission. Pulmonary started her on Colchicine. Patient seen and examined at bedside. She is feeling very fatigued. Her shortness of breath is somewhat better than yesterday. No nausea or vomiting. She states she is not eating and drinking well. She has not lost her taste or sense of smell. General: Ill appearing, mild distress, appears at stated age Derm: warm, dry Head: atraumatic, normocephalic, symmetric Eyes: EOMI, no lid lag, anicteric sclera Mouth: no lip lesion, mucus membranes moist Cardiovascular: S1S2 reg, no murmur, positive posterior tibial pulse bilateral, Lungs: Rhonchi right base greater than left, 3 word conversational dyspnea, no accessory muscle use Abdominal: soft, nontender to palpation, no guarding, no appreciable organomegaly Ext: no gross muscle atrophy, no edema, no contractures Neuro: CN II-XI grossly intact, no focal neuro deficits Psych: Alert, oriented, appropriate affect Covid 19 pneumonitis, acute hypoxic respiratory failure -Continue with Decadron -Pulmonary recommendations appreciated: Colchicine, window for REM. Currently not a candidate for actemra. -Continue with Lovenox, vitamin C, vitamin D - follow inflammatory labs Hyponatremia secondary to dehydration, improved -IV fluids -Repeat labs in a.m. Diabetes mellitus type 2 -Hold trulicity and metformin - SSI - follow BS Hypothyroidism -Synthroid Obesity with BMI 40.4 -Outpatient structured weight loss Breast cancer stage I -Has outpatient appointment on 12/17 for surgical procedure. DVT prophylaxis: Lovenox Discussed with: Patient, nursing, pulmonary Anticipated discharge: 4-[address]: home A total of 35 minutes was spent on the care of this complex patient more than 50% of the time was spent in counseling and care coordination. Objective - Vital Signs Vital signs: Vital Signs Temp 100.6 F H 12/03/20 14:15 Pulse 90 12/03/20 14:15 Resp 16 12/03/20 14:15 BP 117/56 12/03/20 14:15 Pulse Ox 90 L 12/03/20 14:15 Intake & Output 12/02/20 12/03/20 12/03/20 18:59 06:59 18:59 Intake Total 180 Balance 180 Weight 113.398 kg 113.398 kg Intake: Oral 180 Other: Voiding Method Toilet # Voids 1 - Labs CBC & Chem 7: 12/02/20 07:39 12/03/20 05:22 Labs: Abnormal Lab Results - Last 24 Hours (Table) 12/02/20 12/02/20 12/03/20 Range/Units 17:13 20:18 05:22 Glucose 113 H (70-110) mg/dL POC Glucose (mg/dL) 227 H 208 H (75-99) mg/dL Calcium 8.5 L (8.7-10.3) mg/dL Lactate Dehydrogenase 373 H (120-246) U/L 12/03/20 12/03/20 Range/Units 08:11 12:48 Glucose (70-110) mg/dL POC Glucose (mg/dL) 107 H 135 H (75-99) mg/dL Calcium (8.7-10.3) mg/dL Lactate Dehydrogenase (120-246) U/L Microbiology - Last 24 Hours (Table) 12/02/20 10:45 Blood Culture - Preliminary Blood No Growth after 24 hours 12/02/20 10:40 Blood Culture - Preliminary Blood No Growth after 24 hours
[2020-12-03 17:17] LABS: Glucose,Whole Blood 124 mg/dL (75-99)
[2020-12-03 19:16] LABS: C Reactive Protein 11.7 mg/dL (0.0-0.8)
[2020-12-03] MEDS: MELATONIN 5 MG TABLET PO SCH (20:39)
[2020-12-03 20:45] LABS: Glucose,Whole Blood 101 mg/dL (75-99)
[2020-12-04] MEDS: ACETAMINOPHEN TAB 325 MG TAB PO PRN (02:46)
[2020-12-04] MEDS: ALBUTEROL HFA INHALER INHALATION PRN ×4 (03:50→19:34)
[2020-12-04] MEDS: LEVOTHYROXINE 75 MCG TAB PO SCH (06:01)
[2020-12-04] MEDS: SODIUM CHLORIDE 0.9% 2,000 ML IV SCH (06:02)
[2020-12-04 07:41] LABS: Glucose,Whole Blood 72 mg/dL (75-99)
[2020-12-04] MEDS: INSULIN ASPART (NovoLOG) 100 UNIT/ML VIAL SQ SCH ×4 (07:53→22:11)
[2020-12-04] MEDS: ASPIRIN 81 MG PO SCH (07:54)
[2020-12-04] MEDS: PANTOPRAZOLE 40 MG TABLET PO SCH (07:54)
[2020-12-04] MEDS: CHOLECALCIFEROL 25 MCG (1000 IU) TABLET PO SCH (07:54)
[2020-12-04] MEDS: DEXAMETHASONE SOD PHOSPHATE 10 MG/ML 1 ML VIAL IV SCH (07:54)
[2020-12-04] MEDS: ASCORBIC ACID 500 MG TAB PO SCH (07:54)
[2020-12-04] MEDS: LOSARTAN 25 MG TAB PO SCH (07:55)
[2020-12-04] MEDS: ZINC SULFATE 220 MG CAP PO SCH (07:55)
[2020-12-04] MEDS: ENOXAPARIN 40 MG/0.4 ML SYRINGE SQ SCH (07:55)
[2020-12-04] MEDS: VENLAFAXINE HCL 75 MG TAB PO SCH (09:33)
[2020-12-04] MEDS: PROPRANOLOL LA 60 MG CAP.SA.24H PO SCH (09:33)
[2020-12-04] MEDS: OXYBUTYNIN CHLORIDE 5 MG TAB PO SCH ×2 (09:33→20:06)
[2020-12-04] MEDS: COLCHICINE 0.6 MG EACH PO SCH (09:34)
[2020-12-04 11:11] LABS: HCT 32.2 % (37.2-46.3); HGB 9.9 g/dL (12.0-15.0); MCH 24.9 pg (27.0-32.0); MCHC 30.7 g/dL (32.0-37.0); MCV 81.1 fL (80.0-97.0); Mean Platelet Volume 10.9 fL (9.5-12.2); Platelet Count 223 X 10*3/uL (140-440); RBC 3.97 X 10*6/uL (4.10-5.20); RDW 16.5 % (11.5-14.5); WBC 4.87 X 10*3/uL (4.50-10.00)
[2020-12-04 11:48] LABS: Basophils # (A) 0.01 X 10*3/uL (0.00-0.10); Basophils % (A) 0.2 %; Eosinophils # (A) 0 X 10*3/uL (0.04-0.35); Eosinophils % (A) 0 %; Lymphocytes # (A) 0.99 X 10*3/uL (0.90-5.00); Lymphocytes % (A) 20.3 %; Monocytes % (A) 4.1 %; Neutrophils # (A) 3.65 X 10*3/uL (1.80-7.70)
[2020-12-04 12:15] LABS: Glucose,Whole Blood 142 mg/dL (75-99)
[2020-12-04 12:23] LABS: African American GFR (CKD) 93.5 (60.0-200.0); Albumin 3.7 g/dL (3.80-4.90); Albumin/Globulin Ratio 2.18 (1.60-3.17); Calcium 8.1 mg/dL (8.7-10.3); Globulin 1.7 g/dL (1.6-3.3); Non-African American GFR(CKD) 80.7 (60.0-200.0); Potassium 4.2 mmol/L (3.5-5.5); Total Bilirubin 0.3 mg/dL (0.2-1.2); Total Protein 5.4 g/dL (6.2-8.2)
--- NOTE | 2020-12-04 12:43 | P.PN ---
Subjective Progress Note Date: 12/04/20 Principal diagnosis: Acute hypoxic respiratory failure secondary to acute covid 19 pneumonitis. This is a 60-year-old female with history of thyroid cancer, diabetes, bladder cancer, GERD, obstructive sleep apnea syndrome, patient was admitted yesterday with 9 days symptoms of shortness of breath, fever, chills, poor appetite, nausea, and occasional vomiting, intermittent episodes of diarrhea, and nonproductive cough. Patient tested positive about a week ago at the urgent [facility] for [place] virus with positive PCR. Patient was advised to take Tylenol ibuprofen at home, and there was minimal relief. Patient continues to worsen, more symptoms of cough, or symptoms of shortness of breath, seen in the ER yesterday, and chest x-ray showed bilateral pneumonia consistent with acute covid [address] angiogram of the chest showed no evidence of pulmonary embolism. Patient was admitted, and this consult was initiated. Patient was reevaluated today on 12/04/2020, patient remains on the regular medical floor, she developed diarrhea today, and I have recommended stopping colchicine. Patient remains on 4 L nasal cannula, and O2 saturations 90%, she was on CPAP which she normally uses at night and she was placed back on cannula this morning. Still feels generally weak, had diarrhea this morning, occasional cough, some shortness of breath upon activity. CBC is relatively normal except for hemoglobin of 9.9. Basic metabolic profile is normal. LDH is 502, CT of the chest showed obviously evidence of atypical pneumonia and there was no evidence of pulmonary embolism on admission. Objective - Vital Signs Vital signs: Vital Signs Temp 97.5 F L 12/04/20 08:00 Pulse 85 12/04/20 02:00 Resp 25 H 12/04/20 08:00 BP 112/57 12/04/20 08:00 Pulse Ox 90 L 12/04/20 10:00 Intake & Output 12/03/20 12/04/20 12/04/20 18:59 06:59 18:59 Intake Total 180 150 Balance 180 150 Intake: Oral 180 150 Other: Voiding Method Toilet # Voids 1 - Exam Physical Exam: Revealed a 60-year-old female in no distress Head: Atraumatic, normocephalic. HEENT:[Neck is supple.] [No neck masses.] [No thyromegaly.] [No JVD.] Chest: [] Called chest expansion crackles and rhonchi at the bases. No wheezing. Cardiac Exam: [Normal S1 and S2, no S3 gallop, no murmur.] Abdomen: [Soft, nontender, no megaly, no rebound, no guarding, normal bowel sounds.] Extremities: [No clubbing, no edema, no cyanosis.] Neurological Exam: [No focal neurologic deficit.] Alert and oriented 3, no gross focal deficits. Psychiatric: Normal mood affect and normal mental status examination. Skin: No rashes. Musculoskeletal: No deformities and no limitation in range of motion - Labs CBC & Chem 7: 12/04/20 06:27 12/04/20 06:27 Labs: Abnormal Lab Results - Last 24 Hours (Table) 12/03/20 12/03/20 12/03/20 Range/Units 05:22 12:48 17:15 RBC (4.10-5.20) X 10*6/uL Hgb (12.0-15.0) g/dL Hct (37.2-46.3) % MCH (27.0-32.0) pg MCHC (32.0-37.0) g/dL RDW (11.5-14.5) % Eosinophils # (0.04-0.35) X 10*3/uL D-Dimer (<0.60) mg/L FEU POC Glucose (mg/dL) 135 H 124 H (75-99) mg/dL Calcium (8.7-10.3) mg/dL AST (13-35) U/L Lactate Dehydrogenase (120-246) U/L C-Reactive Protein 11.7 H (0.0-0.8) mg/dL Total Protein (6.2-8.2) g/dL Albumin (3.80-4.90) g/dL 12/03/20 12/04/20 12/04/20 Range/Units 20:44 06:27 06:27 RBC (4.10-5.20) X 10*6/uL Hgb (12.0-15.0) g/dL Hct (37.2-46.3) % MCH (27.0-32.0) pg MCHC (32.0-37.0) g/dL RDW (11.5-14.5) % Eosinophils # (0.04-0.35) X 10*3/uL D-Dimer 1.49 H (<0.60) mg/L FEU POC Glucose (mg/dL) 101 H (75-99) mg/dL Calcium 8.1 L (8.7-10.3) mg/dL AST 36 H (13-35) U/L Lactate Dehydrogenase 502 H (120-246) U/L C-Reactive Protein (0.0-0.8) mg/dL Total Protein 5.4 L (6.2-8.2) g/dL Albumin 3.70 L (3.80-4.90) g/dL 12/04/20 12/04/20 12/04/20 Range/Units 06:27 07:39 12:14 RBC 3.97 L (4.10-5.20) X 10*6/uL Hgb 9.9 L (12.0-15.0) g/dL Hct 32.2 L (37.2-46.3) % MCH 24.9 L (27.0-32.0) pg MCHC 30.7 L (32.0-37.0) g/dL RDW 16.5 H (11.5-14.5) % Eosinophils # 0 L (0.04-0.35) X 10*3/uL D-Dimer (<0.60) mg/L FEU POC Glucose (mg/dL) 72 L 142 H (75-99) mg/dL Calcium (8.7-10.3) mg/dL AST (13-35) U/L Lactate Dehydrogenase (120-246) U/L C-Reactive Protein (0.0-0.8) mg/dL Total Protein (6.2-8.2) g/dL Albumin (3.80-4.90) g/dL Microbiology - Last 24 Hours (Table) 12/02/20 10:45 Blood Culture - Preliminary Blood No Growth after 24 hours 12/02/20 10:40 Blood Culture - Preliminary Blood No Growth after 24 hours Assessment and Plan Assessment: Impression: Acute hypoxic respiratory failure secondary to acute covid 19 pneumonitis. Hypovolemic hyponatremia Type 2 diabetes Elevated d-dimer History of of multiple cancers including breast thyroid and bladder. Suspect colchicine induced diarrhea. Recommendation: Continue present Covid 19 cocktail. Continue Decadron. Continue Lovenox. Discontinue colchicine because of diarrhea. Continue ascorbic acid. Continue Cozaar. Continue aspirin. Resume home medications. Patient is out of the window for remdesivir Patient does not qualify for actemra Continue to titrate oxygen down accordingly and maintaining O2 saturation above 90%. We'll continue to follow. Time with Patient: Less than 30
[2020-12-04 12:54] LABS: C Reactive Protein 15.7 mg/dL (0.0-0.8)
--- NOTE | 2020-12-04 16:35 | P.PN ---
Subjective Progress Note Date: 12/04/20 (delayed charting seen at 1330) Principal diagnosis: shortness of breath Patient is a 60-year-old female with a history of diabetes mellitus type 2 controlled without insulin, GERD, stage I breast cancer with history of thyroid cancer and bladder cancer in remission who presented to the emergency department secondary to fever, fatigue, and vomiting. Patient had been diagnosed with Covid 19 one week ago at urgent care, and had started symptoms 8 days prior to presentation. In the ER she underwent an extensive evaluation. CTA chest was negative for PE but was consistent with atypical pneumonia. She was found to be satting 88% on room air. She had a fever of 103 and pulse 115. LDH 704, CRP 204.9, pro calcitonin 0.17. She was admitted and started on Decadron. She is not a candidate for Remdesivir due to symptoms starting greater than 7 days prior to admission. Pulmonary started her on Colchicine. Patient seen and examined at bedside. Feeling somewhat better that yesterday. + SOB, no N/V, + diarrhea, no chest pain, has been eating and drinking well. General: Ill appearing, mild distress, appears at stated age Derm: warm, dry Head: atraumatic, normocephalic, symmetric Eyes: EOMI, no lid lag, anicteric sclera Mouth: no lip lesion, mucus membranes moist Cardiovascular: S1S2 reg, no murmur, positive posterior tibial pulse bilateral, Lungs: Rhonchi right base greater than left, no conversational dyspnea, no accessory muscle use Abdominal: soft, nontender to palpation, no guarding, no appreciable organomegaly Ext: no gross muscle atrophy, no edema, no contractures Neuro: CN II-XI grossly intact, no focal neuro deficits Psych: Alert, oriented, appropriate affect Covid 19 pneumonitis, acute hypoxic respiratory failure -Continue with Decadron -Pulmonary recommendations appreciated: Colchicine stopped due to diarrhea, out of the window for REM. Currently not a candidate for actemra. -Continue with Lovenox, vitamin C, vitamin D, zinc - follow inflammatory labs Diabetes mellitus type 2 -Hold trulicity and metformin - SSI - follow BS Hypothyroidism -Synthroid Obesity with BMI 40.4 -Outpatient structured weight loss Breast cancer stage I -Has outpatient appointment on 12/17 for surgical procedure. Hyponatremia secondary to dehydration, improved DVT prophylaxis: Lovenox Discussed with: Patient, nursing, pulmonary Anticipated discharge: 4-[address]: home A total of 35 minutes was spent on the care of this complex patient more than 50% of the time was spent in counseling and care coordination. Objective - Vital Signs Vital signs: Vital Signs Temp 97.8 F 12/04/20 14:35 Pulse 78 12/04/20 14:35 Resp 14 12/04/20 14:35 BP 121/68 12/04/20 14:35 Pulse Ox 94 L 12/04/20 14:35 Intake & Output 12/03/20 12/04/20 12/04/20 18:59 06:59 18:59 Intake Total 180 150 Balance 180 150 Intake: Oral 180 150 Other: Voiding Method Toilet # Voids 1 - Labs CBC & Chem 7: 12/04/20 06:27 12/04/20 06:27 Labs: Abnormal Lab Results - Last 24 Hours (Table) 12/03/20 12/03/20 12/03/20 Range/Units 05:22 17:15 20:44 RBC (4.10-5.20) X 10*6/uL Hgb (12.0-15.0) g/dL Hct (37.2-46.3) % MCH (27.0-32.0) pg MCHC (32.0-37.0) g/dL RDW (11.5-14.5) % Eosinophils # (0.04-0.35) X 10*3/uL D-Dimer (<0.60) mg/L FEU POC Glucose (mg/dL) 124 H 101 H (75-99) mg/dL Calcium (8.7-10.3) mg/dL AST (13-35) U/L Lactate Dehydrogenase (120-246) U/L C-Reactive Protein 11.7 H (0.0-0.8) mg/dL Total Protein (6.2-8.2) g/dL Albumin (3.80-4.90) g/dL 12/04/20 12/04/20 12/04/20 Range/Units 06:27 06:27 06:27 RBC 3.97 L (4.10-5.20) X 10*6/uL Hgb 9.9 L (12.0-15.0) g/dL Hct 32.2 L (37.2-46.3) % MCH 24.9 L (27.0-32.0) pg MCHC 30.7 L (32.0-37.0) g/dL RDW 16.5 H (11.5-14.5) % Eosinophils # 0 L (0.04-0.35) X 10*3/uL D-Dimer 1.49 H (<0.60) mg/L FEU POC Glucose (mg/dL) (75-99) mg/dL Calcium 8.1 L (8.7-10.3) mg/dL AST 36 H (13-35) U/L Lactate Dehydrogenase 502 H (120-246) U/L C-Reactive Protein 15.7 H (0.0-0.8) mg/dL Total Protein 5.4 L (6.2-8.2) g/dL Albumin 3.70 L (3.80-4.90) g/dL 12/04/20 12/04/20 Range/Units 07:39 12:14 RBC (4.10-5.20) X 10*6/uL Hgb (12.0-15.0) g/dL Hct (37.2-46.3) % MCH (27.0-32.0) pg MCHC (32.0-37.0) g/dL RDW (11.5-14.5) % Eosinophils # (0.04-0.35) X 10*3/uL D-Dimer (<0.60) mg/L FEU POC Glucose (mg/dL) 72 L 142 H (75-99) mg/dL Calcium (8.7-10.3) mg/dL AST (13-35) U/L Lactate Dehydrogenase (120-246) U/L C-Reactive Protein (0.0-0.8) mg/dL Total Protein (6.2-8.2) g/dL Albumin (3.80-4.90) g/dL Microbiology - Last 24 Hours (Table) 12/02/20 10:45 Blood Culture - Preliminary Blood No Growth after 48 hours 12/02/20 10:40 Blood Culture - Preliminary Blood No Growth after 48 hours
[2020-12-04 17:23] LABS: Glucose,Whole Blood 229 mg/dL (75-99)
[2020-12-04] MEDS: MELATONIN 5 MG TABLET PO SCH (20:06)
[2020-12-04 20:43] LABS: Glucose,Whole Blood 216 mg/dL (75-99)
[2020-12-05] MEDS: SODIUM CHLORIDE 0.9% 2,000 ML IV SCH (01:45)
[2020-12-05] MEDS: LEVOTHYROXINE 75 MCG TAB PO SCH (05:24)
[2020-12-05 06:59] LABS: Glucose,Whole Blood 137 mg/dL (75-99)
[2020-12-05] MEDS: ASPIRIN 81 MG PO SCH (08:40)
[2020-12-05] MEDS: ENOXAPARIN 40 MG/0.4 ML SYRINGE SQ SCH (08:40)
[2020-12-05] MEDS: ZINC SULFATE 220 MG CAP PO SCH (08:40)
[2020-12-05] MEDS: PROPRANOLOL LA 60 MG CAP.SA.24H PO SCH (08:41)
[2020-12-05] MEDS: INSULIN ASPART (NovoLOG) 100 UNIT/ML VIAL SQ SCH ×4 (08:41→22:11)
[2020-12-05] MEDS: VENLAFAXINE HCL 75 MG TAB PO SCH (08:41)
[2020-12-05] MEDS: PANTOPRAZOLE 40 MG TABLET PO SCH (08:41)
[2020-12-05] MEDS: ASCORBIC ACID 500 MG TAB PO SCH (08:41)
[2020-12-05] MEDS: OXYBUTYNIN CHLORIDE 5 MG TAB PO SCH ×2 (08:41→22:11)
[2020-12-05] MEDS: LOSARTAN 25 MG TAB PO SCH (08:41)
[2020-12-05] MEDS: CHOLECALCIFEROL 25 MCG (1000 IU) TABLET PO SCH (08:41)
[2020-12-05] MEDS: ACETAMINOPHEN TAB 325 MG TAB PO PRN (08:47)
[2020-12-05] MEDS: ONDANSETRON 4 MG/2 ML VIAL IVP PRN (08:47)
[2020-12-05] MEDS: ALBUTEROL HFA INHALER INHALATION PRN ×4 (09:49→20:22)
[2020-12-05] MEDS: DEXAMETHASONE SOD PHOSPHATE 10 MG/ML 1 ML VIAL IV SCH (09:57)
[2020-12-05 11:30] LABS: Basophils # (A) 0 X 10*3/uL (0.00-0.10); Basophils % (A) 0 %; Eosinophils # (A) 0 X 10*3/uL (0.04-0.35); Eosinophils % (A) 0 %; HCT 30.1 % (37.2-46.3); HGB 9.4 g/dL (12.0-15.0); Lymphocytes # (A) 0.73 X 10*3/uL (0.90-5.00); Lymphocytes % (A) 12.2 %; MCH 24.9 pg (27.0-32.0); MCHC 31.2 g/dL (32.0-37.0); MCV 79.8 fL (80.0-97.0); Mean Platelet Volume 11.2 fL (9.5-12.2); Monocytes # (A) 0.33 X 10*3/uL (0.20-1.00); Monocytes % (A) 5.5 %; Neutrophils # (A) 4.88 X 10*3/uL (1.80-7.70); Neutrophils % (A) 81.8 %; Platelet Count 235 X 10*3/uL (140-440); RBC 3.77 X 10*6/uL (4.10-5.20); RDW 16.5 % (11.5-14.5); WBC 5.97 X 10*3/uL (4.50-10.00)
[2020-12-05 11:40] LABS: Glucose,Whole Blood 174 mg/dL (75-99)
[2020-12-05 12:41] LABS: African American GFR (CKD) 115.6 (60.0-200.0); Albumin 3.6 g/dL (3.80-4.90); Albumin/Globulin Ratio 2.12 (1.60-3.17); BUN/Creat Ratio 16.67 Ratio (12.00-20.00); Calcium 7.9 mg/dL (8.7-10.3); Globulin 1.7 g/dL (1.6-3.3); Non-African American GFR(CKD) 99.8 (60.0-200.0); Potassium 4.1 mmol/L (3.5-5.5); Total Bilirubin 0.2 mg/dL (0.3-1.2); Total Protein 5.3 g/dL (6.2-8.2)
--- NOTE | 2020-12-05 13:39 | P.PN ---
Subjective Progress Note Date: 12/05/20 Principal diagnosis: Acute hypoxic respiratory failure secondary to acute covid 19 pneumonitis. This is a 60-year-old female with history of thyroid cancer, diabetes, bladder cancer, GERD, obstructive sleep apnea syndrome, patient was admitted yesterday with 9 days symptoms of shortness of breath, fever, chills, poor appetite, nausea, and occasional vomiting, intermittent episodes of diarrhea, and nonproductive cough. Patient tested positive about a week ago at the [facility] for [facility] virus with positive PCR. Patient was advised to take Tylenol ibuprofen at home, and there was minimal relief. Patient continues to worsen, more symptoms of cough, or symptoms of shortness of breath, seen in the ER yesterday, and chest x-ray showed bilateral pneumonia consistent with acute covid [address] angiogram of the chest showed no evidence of pulmonary embolism. Patient was admitted, and this consult was initiated. Patient was reevaluated today on 12/04/2020, patient remains on the regular medical floor, she developed diarrhea today, and I have recommended stopping colchicine. Patient remains on 4 L nasal cannula, and O2 saturations 90%, she was on CPAP which she normally uses at night and she was placed back on cannula this morning. Still feels generally weak, had diarrhea this morning, occasional cough, some shortness of breath upon activity. CBC is relatively normal except for hemoglobin of 9.9. Basic metabolic profile is normal. LDH is 502, CT of the chest showed obviously evidence of atypical pneumonia and there was no evidence of pulmonary embolism on admission. Reevaluated today on 12/05/2020, patient is about the same, maybe she feels a bit worse. Continues to have cough, shortness of breath, fever, generalized weakness and fatigue. She is now on 5 L nasal cannula, and her O2 saturation is in the high 80s and low 90s. Last LDH was 521, and this was today. C-reactive protein is 11 clinically however the patient is not doing great Objective - Vital Signs Vital signs: Vital Signs Temp 97.0 F L 12/05/20 08:00 Pulse 63 12/05/20 08:00 Resp 20 12/05/20 08:00 BP 115/63 12/05/20 08:00 Pulse Ox 89 L 12/05/20 08:00 Intake & Output 12/04/20 12/05/20 12/05/20 18:59 06:59 18:59 Intake Total 350 180 Balance 350 180 Intake: Oral 350 180 Other: Voiding Method Toilet # Voids 1 1 - Exam Physical Exam: Revealed a 60-year-old female in no distress, on 5 L nasal cannula. Head: Atraumatic, normocephalic. HEENT:[Neck is supple.] [No neck masses.] [No thyromegaly.] [No JVD.] Chest: [] Called chest expansion crackles and rhonchi at the bases. No wheezing. Cardiac Exam: [Normal S1 and S2, no S3 gallop, no murmur.] Abdomen: [Soft, nontender, no megaly, no rebound, no guarding, normal bowel sounds.] Extremities: [No clubbing, no edema, no cyanosis.] Neurological Exam: [No focal neurologic deficit.] Alert and oriented 3, no gross focal deficits. Psychiatric: Normal mood affect and normal mental status examination. Skin: No rashes. Musculoskeletal: No deformities and no limitation in range of motion - Labs CBC & Chem 7: 12/05/20 05:22 12/05/20 05:22 Labs: Abnormal Lab Results - Last 24 Hours (Table) 12/04/20 12/04/20 12/05/20 Range/Units 17:21 20:42 05:22 RBC (4.10-5.20) X 10*6/uL Hgb (12.0-15.0) g/dL Hct (37.2-46.3) % MCV (80.0-97.0) fL MCH (27.0-32.0) pg MCHC (32.0-37.0) g/dL RDW (11.5-14.5) % Lymphocytes # (0.90-5.00) X 10*3/uL Eosinophils # (0.04-0.35) X 10*3/uL D-Dimer 0.61 H (<0.60) mg/L FEU Carbon Dioxide (21.6-31.8) mmol/L Glucose (70-110) mg/dL POC Glucose (mg/dL) 229 H 216 H (75-99) mg/dL Calcium (8.7-10.3) mg/dL Total Bilirubin (0.3-1.2) mg/dL Lactate Dehydrogenase (120-246) U/L C-Reactive Protein (0.0-0.8) mg/dL Total Protein (6.2-8.2) g/dL Albumin (3.80-4.90) g/dL 12/05/20 12/05/20 12/05/20 Range/Units 05:22 05:22 06:57 RBC 3.77 L (4.10-5.20) X 10*6/uL Hgb 9.4 L (12.0-15.0) g/dL Hct 30.1 L (37.2-46.3) % MCV 79.8 L (80.0-97.0) fL MCH 24.9 L (27.0-32.0) pg MCHC 31.2 L (32.0-37.0) g/dL RDW 16.5 H (11.5-14.5) % Lymphocytes # 0.73 L (0.90-5.00) X 10*3/uL Eosinophils # 0 L (0.04-0.35) X 10*3/uL D-Dimer (<0.60) mg/L FEU Carbon Dioxide 21.0 L (21.6-31.8) mmol/L Glucose 158 H (70-110) mg/dL POC Glucose (mg/dL) 137 H (75-99) mg/dL Calcium 7.9 L (8.7-10.3) mg/dL Total Bilirubin 0.2 L (0.3-1.2) mg/dL Lactate Dehydrogenase 521 H (120-246) U/L C-Reactive Protein 11.0 H (0.0-0.8) mg/dL Total Protein 5.3 L (6.2-8.2) g/dL Albumin 3.60 L (3.80-4.90) g/dL 12/05/20 Range/Units 11:38 RBC (4.10-5.20) X 10*6/uL Hgb (12.0-15.0) g/dL Hct (37.2-46.3) % MCV (80.0-97.0) fL MCH (27.0-32.0) pg MCHC (32.0-37.0) g/dL RDW (11.5-14.5) % Lymphocytes # (0.90-5.00) X 10*3/uL Eosinophils # (0.04-0.35) X 10*3/uL D-Dimer (<0.60) mg/L FEU Carbon Dioxide (21.6-31.8) mmol/L Glucose (70-110) mg/dL POC Glucose (mg/dL) 174 H (75-99) mg/dL Calcium (8.7-10.3) mg/dL Total Bilirubin (0.3-1.2) mg/dL Lactate Dehydrogenase (120-246) U/L C-Reactive Protein (0.0-0.8) mg/dL Total Protein (6.2-8.2) g/dL Albumin (3.80-4.90) g/dL Microbiology - Last 24 Hours (Table) 12/02/20 10:45 Blood Culture - Preliminary Blood No Growth after 72 hours 12/02/20 10:40 Blood Culture - Preliminary Blood No Growth after 72 hours Assessment and Plan Assessment: Impression: Acute hypoxic respiratory failure secondary to acute covid 19 pneumonitis. Hypovolemic hyponatremia Type 2 diabetes Elevated d-dimer History of of multiple cancers including breast thyroid and bladder. Suspect colchicine induced diarrhea. Recommendation: Continue present Covid 19 cocktail. Continue Decadron. Continue Lovenox. Continue ascorbic acid. Continue Cozaar. Continue aspirin. Patient is out of the window for remdesivir Patient does not qualify for actemra, did not receive convalescent plasma Continue to titrate oxygen down accordingly and maintaining O2 saturation above 90%. We'll continue to follow. Time with Patient: Less than 30
--- NOTE | 2020-12-05 15:01 | P.PN ---
Subjective Progress Note Date: 12/05/20 (delayed charting seen at 1230) Principal diagnosis: shortness of breath Patient is a 60-year-old female with a history of diabetes mellitus type 2 controlled without insulin, GERD, stage I breast cancer with history of thyroid cancer and bladder cancer in remission who presented to the emergency department secondary to fever, fatigue, and vomiting. Patient had been diagnosed with Covid 19 one week ago at urgent care, and had started symptoms 8 days prior to presentation. In the ER she underwent an extensive evaluation. CTA chest was negative for PE but was consistent with atypical pneumonia. She was found to be satting 88% on room air. She had a fever of 103 and pulse 115. LDH 704, CRP 204.9, pro calcitonin 0.17. She was admitted and started on Decadron. She is not a candidate for Remdesivir due to symptoms starting greater than 7 days prior to admission. Pulmonary started her on Colchicine she was unable to tolerate due to diarrhea. Fevers improved after 12/04. O2 went from 4 to 5L 12/05. Patient seen and examined at bedside. Still feeling very tired. Diarrhea somewhat worse than yesterday. Some nausea no vomiting. Still eating and drinking well.continues with some shortness of breath and cough. Difficulty to take deep General: Ill appearing, breath, mild distress, appears at stated age Derm: warm, dry Head: atraumatic, normocephalic, symmetric Eyes: EOMI, no lid lag, anicteric sclera Mouth: no lip lesion, mucus membranes moist Cardiovascular: S1S2 reg, no murmur, positive posterior tibial pulse bilateral, Lungs: Rhonchi right base greater than left, no conversational dyspnea, no accessory muscle use Abdominal: soft, nontender to palpation, no guarding, no appreciable organomegaly Ext: no gross muscle atrophy, no edema, no contractures Neuro: CN II-XI grossly intact, no focal neuro deficits Psych: Alert, oriented, appropriate affect Covid 19 pneumonitis, acute hypoxic respiratory failure -Continue with Decadron -Pulmonary recommendations appreciated: Colchicine stopped due to diarrhea, out of the window for REM. Currently not a candidate for actemra. -Continue with Lovenox, vitamin C, vitamin D, zinc - follow inflammatory labs Diabetes mellitus type 2 -Hold trulicity and metformin - SSI - follow BS Hypothyroidism -Synthroid Microcytic anemia - outpatient follow-up as ferritin likely falsely elevated due to COVID-19 Obesity with BMI 40.4 -Outpatient structured weight loss Breast cancer stage I -Has outpatient appointment on 12/17 for surgical procedure. Hyponatremia secondary to dehydration, improved DVT prophylaxis: Lovenox Discussed with: Patient, nursing, Anticipated discharge: 3-[address]: home A total of 25 minutes was spent on the care of this complex patient more than 50% of the time was spent in counseling and care coordination. Objective - Vital Signs Vital signs: Vital Signs Temp 97.0 F L 12/05/20 08:00 Pulse 63 12/05/20 08:00 Resp 20 12/05/20 08:00 BP 115/63 12/05/20 08:00 Pulse Ox 94 L 12/05/20 13:00 Intake & Output 12/04/20 12/05/20 12/05/20 18:59 06:59 18:59 Intake Total 350 180 Balance 350 180 Intake: Oral 350 180 Other: Voiding Method Toilet # Voids 1 1 - Labs CBC & Chem 7: 12/05/20 05:22 12/05/20 05:22 Labs: Abnormal Lab Results - Last 24 Hours (Table) 12/04/20 12/04/20 12/05/20 Range/Units 17:21 20:42 05:22 RBC (4.10-5.20) X 10*6/uL Hgb (12.0-15.0) g/dL Hct (37.2-46.3) % MCV (80.0-97.0) fL MCH (27.0-32.0) pg MCHC (32.0-37.0) g/dL RDW (11.5-14.5) % Lymphocytes # (0.90-5.00) X 10*3/uL Eosinophils # (0.04-0.35) X 10*3/uL D-Dimer 0.61 H (<0.60) mg/L FEU Carbon Dioxide (21.6-31.8) mmol/L Glucose (70-110) mg/dL POC Glucose (mg/dL) 229 H 216 H (75-99) mg/dL Calcium (8.7-10.3) mg/dL Total Bilirubin (0.3-1.2) mg/dL Lactate Dehydrogenase (120-246) U/L C-Reactive Protein (0.0-0.8) mg/dL Total Protein (6.2-8.2) g/dL Albumin (3.80-4.90) g/dL 12/05/20 12/05/20 12/05/20 Range/Units 05:22 05:22 06:57 RBC 3.77 L (4.10-5.20) X 10*6/uL Hgb 9.4 L (12.0-15.0) g/dL Hct 30.1 L (37.2-46.3) % MCV 79.8 L (80.0-97.0) fL MCH 24.9 L (27.0-32.0) pg MCHC 31.2 L (32.0-37.0) g/dL RDW 16.5 H (11.5-14.5) % Lymphocytes # 0.73 L (0.90-5.00) X 10*3/uL Eosinophils # 0 L (0.04-0.35) X 10*3/uL D-Dimer (<0.60) mg/L FEU Carbon Dioxide 21.0 L (21.6-31.8) mmol/L Glucose 158 H (70-110) mg/dL POC Glucose (mg/dL) 137 H (75-99) mg/dL Calcium 7.9 L (8.7-10.3) mg/dL Total Bilirubin 0.2 L (0.3-1.2) mg/dL Lactate Dehydrogenase 521 H (120-246) U/L C-Reactive Protein 11.0 H (0.0-0.8) mg/dL Total Protein 5.3 L (6.2-8.2) g/dL Albumin 3.60 L (3.80-4.90) g/dL 12/05/20 Range/Units 11:38 RBC (4.10-5.20) X 10*6/uL Hgb (12.0-15.0) g/dL Hct (37.2-46.3) % MCV (80.0-97.0) fL MCH (27.0-32.0) pg MCHC (32.0-37.0) g/dL RDW (11.5-14.5) % Lymphocytes # (0.90-5.00) X 10*3/uL Eosinophils # (0.04-0.35) X 10*3/uL D-Dimer (<0.60) mg/L FEU Carbon Dioxide (21.6-31.8) mmol/L Glucose (70-110) mg/dL POC Glucose (mg/dL) 174 H (75-99) mg/dL Calcium (8.7-10.3) mg/dL Total Bilirubin (0.3-1.2) mg/dL Lactate Dehydrogenase (120-246) U/L C-Reactive Protein (0.0-0.8) mg/dL Total Protein (6.2-8.2) g/dL Albumin (3.80-4.90) g/dL Microbiology - Last 24 Hours (Table) 12/02/20 10:45 Blood Culture - Preliminary Blood No Growth after 72 hours 12/02/20 10:40 Blood Culture - Preliminary Blood No Growth after 72 hours
[2020-12-05] MEDS: SODIUM CHLORIDE 0.9% 1,000 ML IV SCH (16:53)
[2020-12-05 17:05] LABS: Glucose,Whole Blood 200 mg/dL (75-99)
[2020-12-05 20:06] LABS: Glucose,Whole Blood 212 mg/dL (75-99)
[2020-12-05] MEDS: MELATONIN 5 MG TABLET PO SCH (22:11)
[2020-12-06] MEDS: SODIUM CHLORIDE 0.9% 1,000 ML IV SCH ×2 (03:57→12:53)
[2020-12-06] MEDS: LEVOTHYROXINE 75 MCG TAB PO SCH (06:07)
[2020-12-06 07:04] LABS: Glucose,Whole Blood 119 mg/dL (75-99)
--- NOTE | 2020-12-06 07:05 | XR ---
EXAMINATION TYPE: XR chest 1V portable DATE OF EXAM: 12/06/2020 COMPARISON: 12/02/2020 HISTORY: Suspected: Pneumonia TECHNIQUE: Single frontal view of the chest is obtained. FINDINGS: There are marked diffuse partially consolidative/airspace opacities moderately worse julio cesar red to the prior study. There is no pneumothorax. There is no large pleural effusion. Heart size is normal. The osseous struc tures are intact IMPRESSION: Moderate interval worsening in the airspace opacities as described above.
[2020-12-06] MEDS: INSULIN ASPART (NovoLOG) 100 UNIT/ML VIAL SQ SCH ×4 (07:20→21:07)
[2020-12-06] MEDS: ASPIRIN 81 MG PO SCH (08:54)
[2020-12-06] MEDS: LOSARTAN 25 MG TAB PO SCH (08:54)
[2020-12-06] MEDS: ASCORBIC ACID 500 MG TAB PO SCH (08:54)
[2020-12-06] MEDS: PANTOPRAZOLE 40 MG TABLET PO SCH (08:54)
[2020-12-06] MEDS: DEXAMETHASONE SOD PHOSPHATE 10 MG/ML 1 ML VIAL IV SCH (08:54)
[2020-12-06 08:55] LABS: HGB 9.6 g/dL (12.0-15.0); MCH 24.9 pg (27.0-32.0); MCV 80.5 fL (80.0-97.0); Platelet Count 302 X 10*3/uL (140-440); RBC 3.85 X 10*6/uL (4.10-5.20); RDW 16.4 % (11.5-14.5); WBC 7.99 X 10*3/uL (4.50-10.00)
[2020-12-06] MEDS: ZINC SULFATE 220 MG CAP PO SCH (08:55)
[2020-12-06] MEDS: CHOLECALCIFEROL 25 MCG (1000 IU) TABLET PO SCH (08:55)
[2020-12-06] MEDS: ENOXAPARIN 40 MG/0.4 ML SYRINGE SQ SCH (08:55)
[2020-12-06] MEDS: OXYBUTYNIN CHLORIDE 5 MG TAB PO SCH ×2 (08:57→21:07)
[2020-12-06] MEDS: VENLAFAXINE HCL 75 MG TAB PO SCH (08:57)
[2020-12-06] MEDS: PROPRANOLOL LA 60 MG CAP.SA.24H PO SCH (08:57)
[2020-12-06 09:35] LABS: African American GFR (CKD) 115.6 (60.0-200.0); Albumin 3.6 g/dL (3.80-4.90); Albumin/Globulin Ratio 2.12 (1.60-3.17); Anion Gap 8.3 mmol/L (4.00-12.00); BUN/Creat Ratio 23.33 Ratio (12.00-20.00); Calcium 8.2 mg/dL (8.7-10.3); Carbon Dioxide 24.7 mmol/L (21.6-31.8); Globulin 1.7 g/dL (1.6-3.3); Non-African American GFR(CKD) 99.8 (60.0-200.0); Potassium 4.8 mmol/L (3.5-5.5); Total Bilirubin 0.3 mg/dL (0.2-1.2); Total Protein 5.3 g/dL (6.2-8.2)
[2020-12-06 10:16] LABS: C Reactive Protein 3.8 mg/dL (0.0-0.8)
--- NOTE | 2020-12-06 10:17 | P.PN ---
Subjective Progress Note Date: 12/06/20 Principal diagnosis: Shortness of breath. Patient was reevaluated today on 12/04/2020, patient remains on the regular medical floor, she developed diarrhea today, and I have recommended stopping colchicine. Patient remains on 4 L nasal cannula, and O2 saturations 90%, she was on CPAP which she normally uses at night and she was placed back on cannula this morning. Still feels generally weak, had diarrhea this morning, occasional cough, some shortness of breath upon activity. CBC is relatively normal except for hemoglobin of 9.9. Basic metabolic profile is normal. LDH is 502, CT of the chest showed obviously evidence of atypical pneumonia and there was no evidence of pulmonary embolism on admission. Reevaluated today on 12/05/2020, patient is about the same, maybe she feels a bit worse. Continues to have cough, shortness of breath, fever, generalized weakness and fatigue. She is now on 5 L nasal cannula, and her O2 saturation is in the high 80s and low 90s. Last LDH was 521, and this was today. C-reactive protein is 11 clinically however the patient is not doing great Progress note dated 12/06/2020. This is a 60-year-old female that was admitted with a diagnosis of acute hypoxemic respiratory failure secondary to COVID 19 pneumonia. She also has a history of thyroid cancer, diabetes mellitus, bladder cancer, GERD, and sleep apnea syndrome. When she was admitted, she had 9 days of symptoms of shortness of breath, fever, chills, poor appetite, nausea, vomiting, diarrhea, nonproductive cough. CT angiogram the chest did not reveal pulmonary embolism. Currently, she is on 5 L nasal cannula. She's not receiving any IV fluids. She has not been out of bed. I told her she needed to get up and sit in a chair, and while in bed, focus on right side down, left side down, supine positioning, and prone positioning, to improve her oxygenation. She does not seem to be particularly motivated. Labs today show a white count of 7.99, hemoglobin 9.6, hematocrit 31.0, platelet count 302,000. Sodium, potassium, chloride, CO2, anion gap, BUN, and creatinine were all normal. LDH was 498. D-dimer was 1.26. Objective - Vital Signs Vital signs: Vital Signs Temp 96.9 F L 12/06/20 08:00 Pulse 62 12/06/20 08:00 Resp 22 12/06/20 08:00 BP 168/76 12/06/20 08:00 Pulse Ox 90 L 12/06/20 09:11 Intake & Output 12/05/20 12/06/20 12/06/20 18:59 06:59 18:59 Intake Total 2340 240 Balance 2340 240 Intake: Intake, IV Titration 1200 Amount Sodium Chloride 0.9% 1, 1200 000 ml @ 100 mls/hr IV . Q10H CHUY Rx#:[id number] Oral 1140 240 Other: Voiding Method Toilet # Voids 3 1 - Exam No acute distress, oriented 3. Seems depressed. 5 L saturation is 90%. No use of accessory muscles or conversational dyspnea. HEENT examination is grossly unremarkable. Mucous membranes are moist. No oral lesions. Neck supple. Full range of motion. No adenopathy thyromegaly or neck vein distention. Cardiovascular examination reveals regular rhythm rate. S1-S2 normal. No S3 or S4. No discernible murmur noted. Heart rate 62 bpm. Lungs reveal bibasilar crackles and rhonchi. There are no wheezes. Breath sounds equal bilaterally. She does not take deep breaths and when she does, she does cough. Abdomen soft bowel sounds are heard. No masses or tenderness. Extremities are intact. No cyanosis clubbing or edema. Skin is without rash or lesion. Neurologic examination is brief but nonfocal. - Labs CBC & Chem 7: 12/06/20 05:57 12/06/20 05:57 Labs: Abnormal Lab Results - Last 24 Hours (Table) 12/05/20 12/05/20 12/05/20 Range/Units 05:22 05:22 11:38 RBC 3.77 L (4.10-5.20) X 10*6/uL Hgb 9.4 L (12.0-15.0) g/dL Hct 30.1 L (37.2-46.3) % MCV 79.8 L (80.0-97.0) fL MCH 24.9 L (27.0-32.0) pg MCHC 31.2 L (32.0-37.0) g/dL RDW 16.5 H (11.5-14.5) % Absolute Nucleated RBC (0.00-0.00) X 10*3/uL Lymphocytes # 0.73 L (0.90-5.00) X 10*3/uL Eosinophils # 0 L (0.04-0.35) X 10*3/uL NRBC/100 WBC Diff (0.0-0.0) /100 WBCS D-Dimer (<0.60) mg/L FEU Carbon Dioxide 21.0 L (21.6-31.8) mmol/L BUN/Creatinine Ratio (12.00-20.00) Ratio Glucose 158 H (70-110) mg/dL POC Glucose (mg/dL) 174 H (75-99) mg/dL Calcium 7.9 L (8.7-10.3) mg/dL Total Bilirubin 0.2 L (0.3-1.2) mg/dL Lactate Dehydrogenase 521 H (120-246) U/L C-Reactive Protein 11.0 H (0.0-0.8) mg/dL Total Protein 5.3 L (6.2-8.2) g/dL Albumin 3.60 L (3.80-4.90) g/dL 12/05/20 12/05/20 12/05/20 Range/Units 16:10 17:03 20:04 RBC (4.10-5.20) X 10*6/uL Hgb (12.0-15.0) g/dL Hct (37.2-46.3) % MCV (80.0-97.0) fL MCH (27.0-32.0) pg MCHC (32.0-37.0) g/dL RDW (11.5-14.5) % Absolute Nucleated RBC (0.00-0.00) X 10*3/uL Lymphocytes # (0.90-5.00) X 10*3/uL Eosinophils # (0.04-0.35) X 10*3/uL NRBC/100 WBC Diff (0.0-0.0) /100 WBCS D-Dimer 0.76 H (<0.60) mg/L FEU Carbon Dioxide (21.6-31.8) mmol/L BUN/Creatinine Ratio (12.00-20.00) Ratio Glucose (70-110) mg/dL POC Glucose (mg/dL) 200 H 212 H (75-99) mg/dL Calcium (8.7-10.3) mg/dL Total Bilirubin (0.3-1.2) mg/dL Lactate Dehydrogenase (120-246) U/L C-Reactive Protein (0.0-0.8) mg/dL Total Protein (6.2-8.2) g/dL Albumin (3.80-4.90) g/dL 12/06/20 12/06/20 12/06/20 Range/Units 05:57 05:57 05:57 RBC 3.85 L (4.10-5.20) X 10*6/uL Hgb 9.6 L (12.0-15.0) g/dL Hct 31.0 L (37.2-46.3) % MCV (80.0-97.0) fL MCH 24.9 L (27.0-32.0) pg MCHC 31.0 L (32.0-37.0) g/dL RDW 16.4 H (11.5-14.5) % Absolute Nucleated RBC 0.02 H (0.00-0.00) X 10*3/uL Lymphocytes # (0.90-5.00) X 10*3/uL Eosinophils # (0.04-0.35) X 10*3/uL NRBC/100 WBC Diff 0.3 H (0.0-0.0) /100 WBCS D-Dimer 1.26 H (<0.60) mg/L FEU Carbon Dioxide (21.6-31.8) mmol/L BUN/Creatinine Ratio 23.33 H (12.00-20.00) Ratio Glucose 111 H (70-110) mg/dL POC Glucose (mg/dL) (75-99) mg/dL Calcium 8.2 L (8.7-10.3) mg/dL Total Bilirubin (0.3-1.2) mg/dL Lactate Dehydrogenase 498 H (120-246) U/L C-Reactive Protein (0.0-0.8) mg/dL Total Protein 5.3 L (6.2-8.2) g/dL Albumin 3.60 L (3.80-4.90) g/dL 12/06/20 Range/Units 07:03 RBC (4.10-5.20) X 10*6/uL Hgb (12.0-15.0) g/dL Hct (37.2-46.3) % MCV (80.0-97.0) fL MCH (27.0-32.0) pg MCHC (32.0-37.0) g/dL RDW (11.5-14.5) % Absolute Nucleated RBC (0.00-0.00) X 10*3/uL Lymphocytes # (0.90-5.00) X 10*3/uL Eosinophils # (0.04-0.35) X 10*3/uL NRBC/100 WBC Diff (0.0-0.0) /100 WBCS D-Dimer (<0.60) mg/L FEU Carbon Dioxide (21.6-31.8) mmol/L BUN/Creatinine Ratio (12.00-20.00) Ratio Glucose (70-110) mg/dL POC Glucose (mg/dL) 119 H (75-99) mg/dL Calcium (8.7-10.3) mg/dL Total Bilirubin (0.3-1.2) mg/dL Lactate Dehydrogenase (120-246) U/L C-Reactive Protein (0.0-0.8) mg/dL Total Protein (6.2-8.2) g/dL Albumin (3.80-4.90) g/dL Microbiology - Last 24 Hours (Table) 12/02/20 10:45 Blood Culture - Preliminary Blood No Growth after 72 hours 12/02/20 10:40 Blood Culture - Preliminary Blood No Growth after 72 hours Assessment and Plan Assessment: Acute hypoxemic respiratory failure secondary to COVID 19 pneumonia. Hypovolemic hyponatremia. Type 2 diabetes mellitus. History of breast, thyroid, and bladder cancer. History of gastroesophageal reflux disease. History of obstructive sleep apnea syndrome. Plan: Plan dated 12/06/2020. The patient did not qualify for REM, as she was outside the window. She also did not qualify for, convalescent plasma or TOCI. She continues on vitamin C, vitamin D3, and zinc. In addition, she continues on Decadron, and Lovenox. Her oxygenation is borderline. She is on 5 L. She hasn't gotten out of bed. I told her she needed to get out of bed and sit up in the chair. In addition, while in bed, she needs to change her positions frequently. She seems not motivated to get better and may be even a little depressed. Additional recommendations and suggestions are forthcoming. Prognosis is guarded. We will continue to follow along and make recommendations were appropriate. Time with Patient: Less than 30
[2020-12-06 12:09] LABS: Glucose,Whole Blood 189 mg/dL (75-99)
--- NOTE | 2020-12-06 14:24 | XR ---
EXAMINATION TYPE: XR chest 1V portable DATE OF EXAM: 12/06/2020 COMPARISON: December 06, 2020 HISTORY: Hypoxemia TECHNIQUE: Single view FINDINGS: There is pulmonary interstitial and airspace edema. Heart is probably enlarged. I see no de finite pleural effusion. IMPRESSION: Moderately severe pulmonary edema is the same or slightly worse than exam this morning.
[2020-12-06] MEDS ORDERED: TOCILIZUMAB 800 MG in SODIUM CHLORIDE 0.9% 60 ML IV ONE (15:00)
[2020-12-06] MEDS ORDERED: FUROSEMIDE 10 MG/ML 4 ML VIAL IV STA (15:13)
[2020-12-06 15:46] LABS: Glucose,Whole Blood 179 mg/dL (75-99)
--- NOTE | 2020-12-06 16:08 | P.PN ---
Subjective Progress Note Date: 12/06/20 (delayed charting seen at 1130 and 1430) Principal diagnosis: shortness of breath Patient is a 60-year-old female with a history of diabetes mellitus type 2 controlled without insulin, GERD, stage I breast cancer with history of thyroid cancer and bladder cancer in remission who presented to the emergency department secondary to fever, fatigue, and vomiting. Patient had been diagnosed with Covid 19 one week ago at urgent care, and had started symptoms 8 days prior to presentation. In the ER she underwent an extensive evaluation. CTA chest was negative for PE but was consistent with atypical pneumonia. She was found to be satting 88% on room air. She had a fever of 103 and pulse 115. LDH 704, CRP 204.9, pro calcitonin 0.17. She was admitted and started on Decadron. She is not a candidate for Remdesivir due to symptoms starting greater than 7 days prior to admission. Pulmonary started her on Colchicine she was unable to tolerate due to diarrhea. Fevers improved after 12/04. O2 went from 4 to 5L 12/05. On 12/06/20 her oxygen requirements went up acutely. She was requiring 15L NC. She was started on Tocilizumab. Patient seen and examined at bedside. SOB unchagned from yesterday, more tired, no nuasea, still eating and drinking okay Recheck on 1430 and worsening ronchi and crackes and fluids stopped General: Ill appearing, moderate distress, appears at stated age Derm: warm, dry Head: atraumatic, normocephalic, symmetric Eyes: EOMI, no lid lag, anicteric sclera Mouth: no lip lesion, mucus membranes moist Cardiovascular: S1S2 reg, no murmur, positive posterior tibial pulse bilateral, Lungs: + ronchi bilateral, + conversational dyspnea, no accessory muscle use Abdominal: soft, nontender to palpation, no guarding, no appreciable organomegaly Ext: no gross muscle atrophy, no edema, no contractures Neuro: CN II-XI grossly intact, no focal neuro deficits Psych: Alert, oriented, appropriate affect Covid 19 pneumonitis, acute hypoxic respiratory failure -Continue with Decadron -Pulmonary recommendations appreciated: Colchicine stopped due to diarrhea, out of the window for REM. D/W pulm started on Toci -Continue with Lovenox, vitamin C, vitamin D, zinc - follow inflammatory labs - check echo - stop IVF Diabetes mellitus type 2 -Hold trulicity and metformin - SSI - follow BS Hypothyroidism -Synthroid Microcytic anemia - outpatient follow-up as ferritin likely falsely elevated due to COVID-19 Obesity with BMI 40.4 -Outpatient structured weight loss Breast cancer stage I -Has outpatient appointment on 12/17 for surgical procedure. Hyponatremia secondary to dehydration, improved DVT prophylaxis: Lovenox Discussed with: Patient, nursing, Anticipated discharge: 3-[address]: home A total of 25 minutes was spent on the care of this complex patient more than 50% of the time was spent in counseling and care coordination. Objective - Vital Signs Vital signs: Vital Signs Temp 97.2 F L 12/06/20 14:00 Pulse 66 12/06/20 14:00 Resp 22 12/06/20 14:00 BP 133/79 12/06/20 14:00 Pulse Ox 89 L 12/06/20 14:00 Intake & Output 12/05/20 12/06/20 12/06/20 18:59 06:59 18:59 Intake Total 2340 240 Balance 2340 240 Intake: Intake, IV Titration 1200 Amount Sodium Chloride 0.9% 1, 1200 000 ml @ 100 mls/hr IV . Q10H CHUY Rx#:[id number] Oral 1140 240 Other: Voiding Method Toilet # Voids 3 1 - Labs CBC & Chem 7: 12/06/20 05:57 12/06/20 05:57 Labs: Abnormal Lab Results - Last 24 Hours (Table) 12/05/20 12/05/20 12/05/20 Range/Units 16:10 17:03 20:04 RBC (4.10-5.20) X 10*6/uL Hgb (12.0-15.0) g/dL Hct (37.2-46.3) % MCH (27.0-32.0) pg MCHC (32.0-37.0) g/dL RDW (11.5-14.5) % Absolute Nucleated RBC (0.00-0.00) X 10*3/uL NRBC/100 WBC Diff (0.0-0.0) /100 WBCS D-Dimer 0.76 H (<0.60) mg/L FEU BUN/Creatinine Ratio (12.00-20.00) Ratio Glucose (70-110) mg/dL POC Glucose (mg/dL) 200 H 212 H (75-99) mg/dL Calcium (8.7-10.3) mg/dL Lactate Dehydrogenase (120-246) U/L C-Reactive Protein (0.0-0.8) mg/dL Total Protein (6.2-8.2) g/dL Albumin (3.80-4.90) g/dL 12/06/20 12/06/20 12/06/20 Range/Units 05:57 05:57 05:57 RBC 3.85 L (4.10-5.20) X 10*6/uL Hgb 9.6 L (12.0-15.0) g/dL Hct 31.0 L (37.2-46.3) % MCH 24.9 L (27.0-32.0) pg MCHC 31.0 L (32.0-37.0) g/dL RDW 16.4 H (11.5-14.5) % Absolute Nucleated RBC 0.02 H (0.00-0.00) X 10*3/uL NRBC/100 WBC Diff 0.3 H (0.0-0.0) /100 WBCS D-Dimer 1.26 H (<0.60) mg/L FEU BUN/Creatinine Ratio 23.33 H (12.00-20.00) Ratio Glucose 111 H (70-110) mg/dL POC Glucose (mg/dL) (75-99) mg/dL Calcium 8.2 L (8.7-10.3) mg/dL Lactate Dehydrogenase 498 H (120-246) U/L C-Reactive Protein 3.8 H (0.0-0.8) mg/dL Total Protein 5.3 L (6.2-8.2) g/dL Albumin 3.60 L (3.80-4.90) g/dL 12/06/20 12/06/20 Range/Units 07:03 12:08 RBC (4.10-5.20) X 10*6/uL Hgb (12.0-15.0) g/dL Hct (37.2-46.3) % MCH (27.0-32.0) pg MCHC (32.0-37.0) g/dL RDW (11.5-14.5) % Absolute Nucleated RBC (0.00-0.00) X 10*3/uL NRBC/100 WBC Diff (0.0-0.0) /100 WBCS D-Dimer (<0.60) mg/L FEU BUN/Creatinine Ratio (12.00-20.00) Ratio Glucose (70-110) mg/dL POC Glucose (mg/dL) 119 H 189 H (75-99) mg/dL Calcium (8.7-10.3) mg/dL Lactate Dehydrogenase (120-246) U/L C-Reactive Protein (0.0-0.8) mg/dL Total Protein (6.2-8.2) g/dL Albumin (3.80-4.90) g/dL Microbiology - Last 24 Hours (Table) 12/02/20 10:40 Blood Culture - Preliminary Blood No Growth after 96 hours 12/02/20 10:45 Blood Culture - Preliminary Blood No Growth after 96 hours
[2020-12-06 16:28] LABS: ABG Base Excess -0.7 mmol/L; ABG HCO3 24 mmol/L (21-25); ABG Oxygen Saturation 85.2 % (94-97); ABG PCO2 36 mmHg (35-45); ABG PH 7.42 (7.35-7.45); ABG TCO2 25 mmol/L (19-24)
[2020-12-06 16:29] LABS: ABG PO2 50 mmHg (83-108); Allen Test Performed? y
[2020-12-06 17:05] LABS: Glucose,Whole Blood 148 mg/dL (75-99)
[2020-12-06 20:41] LABS: Glucose,Whole Blood 135 mg/dL (75-99)
[2020-12-06] MEDS: MELATONIN 5 MG TABLET PO SCH (21:07)
[2020-12-06] MEDS: ALBUTEROL HFA INHALER INHALATION PRN (23:55)
[2020-12-07 04:47] LABS: HCT 32.2 % (34.0-46.0); HGB 10.4 gm/dL (11.4-16.0); Hypochromasia Slight; MCH 25.1 pg (25.0-35.0); MCHC 32.2 g/dL (31.0-37.0); MCV 77.9 fL (80.0-100.0); Mean Platelet Volume 7.8; Microcytosis Slight; RBC 4.13 m/uL (3.80-5.40); RDW 15.9 % (11.5-15.5); WBC 8.8 k/uL (3.8-10.6)
[2020-12-07 04:55] LABS: Platelet Count 367 k/uL (150-450)
[2020-12-07 05:08] LABS: ALT 18 U/L (4-34); AST 41 U/L (14-36); African American GFR (CKD) >90 (>60 ml/min/1.73 sqM); Alkaline Phosphatase 50 U/L (38-126); Anion Gap 3 mmol/L; Blood Urea Nitrogen 14 mg/dL (7-17); Carbon Dioxide 31 mmol/L (22-30); Chloride 104 mmol/L (98-107); Glucose 94 mg/dL (74-99); LDH 1280 U/L (313-618); Non-African American GFR(CKD) >90 (>60 ml/min/1.73 sqM); Potassium 4.4 mmol/L (3.5-5.1); Sodium 138 mmol/L (137-145); Total Bilirubin 0.5 mg/dL (0.2-1.3); Total Protein 5.6 g/dL (6.3-8.2)
[2020-12-07 05:26] LABS: C Reactive Protein 31.8 mg/L (<10.0)
[2020-12-07] MEDS: LEVOTHYROXINE 75 MCG TAB PO SCH (06:57)
[2020-12-07] MEDS: PANTOPRAZOLE 40 MG TABLET PO SCH (06:57)
[2020-12-07] MEDS: INSULIN ASPART (NovoLOG) 100 UNIT/ML VIAL SQ SCH ×4 (06:58→20:43)
[2020-12-07] MEDS: ALBUTEROL HFA INHALER INHALATION PRN ×3 (07:24→20:24)
[2020-12-07] MEDS: ONDANSETRON 4 MG/2 ML VIAL IVP PRN (08:01)
[2020-12-07] MEDS: ENOXAPARIN 40 MG/0.4 ML SYRINGE SQ SCH (08:01)
[2020-12-07] MEDS: DEXAMETHASONE SOD PHOSPHATE 10 MG/ML 1 ML VIAL IV SCH (08:03)
[2020-12-07] MEDS ORDERED: LIDOCAINE 1% INJ 10MG/ML (20 ML MDV) SQ STA (08:50)
--- NOTE | 2020-12-07 09:16 | XR ---
EXAMINATION TYPE: XR chest 1V portable DATE OF EXAM: 12/07/2020 COMPARISON: NONE HISTORY: Follow-up shortness of breath and covid positive. TECHNIQUE: Single frontal view of the chest is obtained. FINDINGS: There is new moderate to large right pneumothorax with partial collapse of the long. There is persistent diffuse, dense opacities throughout the visualized bilateral lungs. No significant ple ural effusion. The cardiac silhouette size is stable. The osseous structures are unchanged. IMPRESSION: Interval moderate to large right pneumothorax. Ongoing diffuse airspace disease. Medical team aware of findings.
[2020-12-07] MEDS ORDERED: LIDOCAINE 1% INJ 10MG/ML (20 ML MDV) SQ ONE (09:32)
--- NOTE | 2020-12-07 09:44 | XR ---
EXAMINATION TYPE: XR chest 1V portable DATE OF EXAM: 12/07/2020 COMPARISON: Earlier same day. HISTORY: Follow-up pneumothorax. Covid positive. TECHNIQUE: Single frontal view of the chest is obtained. FINDINGS: There is interval placement of right upper chest tube. There is persistent moderate to lar ge right pneumothorax as well as diffuse patchy opacities of the visualized lungs. The cardiac silho uette size is within normal limits. The osseous structures are intact. IMPRESSION: Status post right chest tube. Otherwise no significant interval change.
--- NOTE | 2020-12-07 09:58 | XR ---
EXAMINATION TYPE: XR chest 1V portable DATE OF EXAM: 12/07/2020 COMPARISON: Earlier same day. HISTORY: Follow-up chest tube. TECHNIQUE: Single frontal view of the chest is obtained. FINDINGS: There is adjustment of right upper chest with straightening of the tip. There is mild decr ease of right pneumothorax is persistent moderate residual. There is unchanged bilateral diffuse patc hy groundglass opacities. No significant pleural effusion. The cardiac silhouette size is within nor mal limits. The osseous structures are intact. IMPRESSION: Mild decrease of right pneumothorax persistent moderate residual. Unchanged airspace disease.
[2020-12-07] MEDS: CHOLECALCIFEROL 25 MCG (1000 IU) TABLET PO SCH (10:24)
[2020-12-07] MEDS: OXYBUTYNIN CHLORIDE 5 MG TAB PO SCH ×3 (10:24→20:43)
[2020-12-07] MEDS: ASPIRIN 81 MG PO SCH (10:24)
[2020-12-07] MEDS: LOSARTAN 25 MG TAB PO SCH (10:24)
[2020-12-07] MEDS: ZINC SULFATE 220 MG CAP PO SCH (10:24)
[2020-12-07] MEDS: ASCORBIC ACID 500 MG TAB PO SCH (10:24)
[2020-12-07] MEDS: VENLAFAXINE HCL 75 MG TAB PO SCH (10:24)
[2020-12-07] MEDS: PROPRANOLOL LA 60 MG CAP.SA.24H PO SCH (10:24)
--- NOTE | 2020-12-07 11:06 | P.PN ---
Subjective Progress Note Date: 12/07/20 Principal diagnosis: shortness of breath Patient is a 60-year-old female with a history of diabetes mellitus type 2 controlled without insulin, GERD, stage I breast cancer with history of thyroid cancer and bladder cancer in remission who presented to the emergency department secondary to fever, fatigue, and vomiting. Patient had been diagnosed with Covid 19 one week ago at urgent care, and had started symptoms 8 days prior to presentation. In the ER she underwent an extensive evaluation. CTA chest was negative for PE but was consistent with atypical pneumonia. She was found to be satting 88% on room air. She had a fever of 103 and pulse 115. LDH 704, CRP 204.9, pro calcitonin 0.17. She was admitted and started on Decadron. She is not a candidate for Remdesivir due to symptoms starting greater than 7 days prior to admission. Pulmonary started her on Colchicine she was unable to tolerate due to diarrhea. Fevers improved after 12/04. O2 went from 4 to 5L 12/05. On 12/06/20 her oxygen requirements went up acutely. She was requiring 15L NC. She was started on Tocilizumab. CXR showed worsening infiltrates and she was transferred to he ICU for closer monitoring. Her morning CXR on 12/07 revealed a PTX and a thoravent was placed. Patient seen and examined at bedside. + SOB, but somewhat improved from yesterday, no chest pain, no nausea, no vomiting. There was pain at the thoravent site but it is improved now. General: Ill appearing, moderate distress, appears at stated age Derm: warm, dry Head: atraumatic, normocephalic, symmetric Eyes: EOMI, no lid lag, anicteric sclera Mouth: no lip lesion, mucus membranes moist Cardiovascular: S1S2 reg, no murmur, positive posterior tibial pulse bilateral, Lungs: + crackels bilateral with dimminished bs right apex. + conversational dyspnea, no accessory muscle use Abdominal: soft, nontender to palpation, no guarding, no appreciable organomegaly Ext: no gross muscle atrophy, no edema, no contractures Neuro: CN II-XI grossly intact, no focal neuro deficits Psych: Alert, oriented, appropriate affect Covid 19 pneumonitis, acute hypoxic respiratory failure -Continue with Decadron - Pulmonary recommendations appreciated: Colchicine stopped due to diarrhea, out of the window for REM. - Toci on 12/06 and Convalescent plasma 12/07 - Continue with Lovenox, vitamin C, vitamin D, zinc - follow inflammatory labs - Echo pending - stop IVF Right pneumonthorax - thoravent in place - management per pulmonary - pain control Diabetes mellitus type 2 -Hold trulicity and metformin - SSI - follow BS Hypothyroidism -Synthroid Microcytic anemia - outpatient follow-up as ferritin likely falsely elevated due to COVID-19 Obesity with BMI 40.4 -Outpatient structured weight loss Breast cancer stage I -Has outpatient appointment on 12/17 for surgical procedure. Hyponatremia secondary to dehydration, improved DVT prophylaxis: Lovenox Discussed with: Patient, nursing, Anticipated discharge: 5-[address]: home A total of 25 minutes was spent on the care of this complex patient more than 50% of the time was spent in counseling and care coordination. Objective - Vital Signs Vital signs: Vital Signs Temp 98.7 F 12/07/20 04:00 Pulse 49 L 12/07/20 07:00 Resp 20 12/07/20 07:00 BP 148/83 12/07/20 07:00 Pulse Ox 96 12/07/20 07:00 Intake & Output 12/06/20 12/07/20 12/07/20 18:59 06:59 18:59 Intake Total 340 Output Total 1999 3150 120 Balance -1660 -3150 -120 Weight 116.6 kg Intake: Oral 340 Output: Urine 1999 3150 120 Uretheral (Becerril) 500 1500 Other: Voiding Method Indwelling Catheter Indwelling Catheter - Labs CBC & Chem 7: 12/07/20 03:31 12/07/20 03:31 Labs: Abnormal Lab Results - Last 24 Hours (Table) 12/06/20 12/06/20 12/06/20 Range/Units 12:08 15:41 16:25 Hgb (11.4-16.0) gm/dL Hct (34.0-46.0) % MCV (80.0-100.0) fL RDW (11.5-15.5) % D-Dimer (<0.60) mg/L FEU ABG pO2 50 L* (83-108) mmHg ABG Total CO2 25 H (19-24) mmol/L ABG O2 Saturation 85.2 L (94-97) % Carbon Dioxide (22-30) mmol/L POC Glucose (mg/dL) 189 H 179 H (75-99) mg/dL Calcium (8.4-10.2) mg/dL AST (14-36) U/L Lactate Dehydrogenase (313-618) U/L C-Reactive Protein (<10.0) mg/L Total Protein (6.3-8.2) g/dL Albumin (3.5-5.0) g/dL 12/06/20 12/06/20 12/07/20 Range/Units 17:03 20:39 03:31 Hgb 10.4 L (11.4-16.0) gm/dL Hct 32.2 L (34.0-46.0) % MCV 77.9 L (80.0-100.0) fL RDW 15.9 H (11.5-15.5) % D-Dimer (<0.60) mg/L FEU ABG pO2 (83-108) mmHg ABG Total CO2 (19-24) mmol/L ABG O2 Saturation (94-97) % Carbon Dioxide (22-30) mmol/L POC Glucose (mg/dL) 148 H 135 H (75-99) mg/dL Calcium (8.4-10.2) mg/dL AST (14-36) U/L Lactate Dehydrogenase (313-618) U/L C-Reactive Protein (<10.0) mg/L Total Protein (6.3-8.2) g/dL Albumin (3.5-5.0) g/dL 12/07/20 12/07/20 Range/Units 03:31 03:31 Hgb (11.4-16.0) gm/dL Hct (34.0-46.0) % MCV (80.0-100.0) fL RDW (11.5-15.5) % D-Dimer 1.81 H (<0.60) mg/L FEU ABG pO2 (83-108) mmHg ABG Total CO2 (19-24) mmol/L ABG O2 Saturation (94-97) % Carbon Dioxide 31 H (22-30) mmol/L POC Glucose (mg/dL) (75-99) mg/dL Calcium 8.0 L (8.4-10.2) mg/dL AST 41 H (14-36) U/L Lactate Dehydrogenase 1280 H (313-618) U/L C-Reactive Protein 31.8 H (<10.0) mg/L Total Protein 5.6 L (6.3-8.2) g/dL Albumin 3.0 L (3.5-5.0) g/dL Microbiology - Last 24 Hours (Table) 12/02/20 10:40 Blood Culture - Preliminary Blood No Growth after 96 hours 12/02/20 10:45 Blood Culture - Preliminary Blood No Growth after 96 hours
--- NOTE | 2020-12-07 12:02 | P.PN ---
Subjective Progress Note Date: 12/07/20 Principal diagnosis: CoVID 19 pneumonia Patient was reevaluated today on 12/04/2020, patient remains on the regular medical floor, she developed diarrhea today, and I have recommended stopping colchicine. Patient remains on 4 L nasal cannula, and O2 saturations 90%, she was on CPAP which she normally uses at night and she was placed back on cannula this morning. Still feels generally weak, had diarrhea this morning, occasional cough, some shortness of breath upon activity. CBC is relatively normal except for hemoglobin of 9.9. Basic metabolic profile is normal. LDH is 502, CT of the chest showed obviously evidence of atypical pneumonia and there was no evidence of pulmonary embolism on admission. Reevaluated today on 12/05/2020, patient is about the same, maybe she feels a bit worse. Continues to have cough, shortness of breath, fever, generalized weakness and fatigue. She is now on 5 L nasal cannula, and her O2 saturation is in the high 80s and low 90s. Last LDH was 521, and this was today. C-reactive protein is 11 clinically however the patient is not doing great Progress note dated 12/06/2020. This is a 60-year-old female that was admitted with a diagnosis of acute hypoxemic respiratory failure secondary to COVID 19 pneumonia. She also has a history of thyroid cancer, diabetes mellitus, bladder cancer, GERD, and sleep apnea syndrome. When she was admitted, she had 9 days of symptoms of shortness of breath, fever, chills, poor appetite, nausea, vomiting, diarrhea, nonproductive cough. CT angiogram the chest did not reveal pulmonary embolism. Currently, she is on 5 L nasal cannula. She's not receiving any IV fluids. She has not been out of bed. I told her she needed to get up and sit in a chair, and while in bed, focus on right side down, left side down, supine positioning, and prone positioning, to improve her oxygenation. She does not seem to be particularly motivated. Labs today show a white count of 7.99, hemoglobin 9.6, hematocrit 31.0, platelet count 302,000. Sodium, potassium, chloride, CO2, anion gap, BUN, and creatinine were all normal. LDH was 498. D-dimer was 1.26. The patient is seen today 12/07/2020 follow-up in the intensive care unit. She was transferred here yesterday afternoon after developing increasing shortness of breath, worsening chest x-ray and higher oxygen requirements. She was given tocilizumab and convalescent plasma have been ordered. She is seen today in follow-up in the intensive care unit. She is currently sitting up in bed. Awake and alert. In mild respiratory distress. She was on 15 L high flow nasal cannula along with the 100% nonrebreather mask. She utilized BiPAP throughout the evening. She has 0.9 NS KVO . Her main complaint today is that of nausea. Chest x-ray today shows a moderate to large right-sided pneumothorax with partial collapse of the lung. There is persistent diffuse dense opacities throughout the visualized bilaterally. Right-sided thora vent was placed by Dr. Pereira. This required repositioning and follow-up chest x-ray showed improvement in the pneumothorax. Current saturations in the mid 90s. White count 8.8. Hemoglobin 10.4. D-dimer 1.81. Sodium 1:30. Potassium 4.4. Creatinine 0.66. LDH tolerated. C-reactive protein 31.8. She is continued on dexamethasone, Lovenox, vitamin supplements. Objective - Vital Signs Vital signs: Vital Signs Temp 98.7 F 12/07/20 04:00 Pulse 49 L 12/07/20 07:00 Resp 20 12/07/20 07:00 BP 148/83 12/07/20 07:00 Pulse Ox 96 12/07/20 07:00 Intake & Output 12/06/20 12/07/20 12/07/20 18:59 06:59 18:59 Intake Total 340 Output Total 19990 120 Balance -1660 -0 -120 Weight 116.6 kg Intake: Oral 340 Output: Urine 1999 3150 120 Uretheral (Becerril) 500 1500 Other: Voiding Method Indwelling Catheter Indwelling Catheter - Exam GENERAL EXAM: Alert, very pleasant 60-year-old female patient currently on 15 L high flow + nonrebreather mask, in mild respiratory distress. HEAD: Normocephalic. EYES: Normal reaction of pupils, equal size. NOSE: Clear with pink turbinates. THROAT: No erythema or exudates. NECK: No masses, no JVD. CHEST: No chest wall deformity. LUNGS: Equal air entry with bibasilar crackles, diminished in the right lung. CVS: S1 and S2 normal with no audible murmur, regular rhythm. ABDOMEN: No hepatosplenomegaly, normal bowel sounds, no guarding or rigidity. SPINE: No scoliosis or deformity SKIN: No rashes CENTRAL NERVOUS SYSTEM: No focal deficits, tone is normal in all 4 extremities. EXTREMITIES: There is no peripheral edema. No clubbing, no cyanosis. Peripheral pulses are intact. - Labs CBC & Chem 7: 12/07/20 03:31 12/07/20 03:31 Labs: Abnormal Lab Results - Last 24 Hours (Table) 12/06/20 12/06/20 12/06/20 Range/Units 12:08 15:41 16:25 Hgb (11.4-16.0) gm/dL Hct (34.0-46.0) % MCV (80.0-100.0) fL RDW (11.5-15.5) % D-Dimer (<0.60) mg/L FEU ABG pO2 50 L* (83-108) mmHg ABG Total CO2 25 H (19-24) mmol/L ABG O2 Saturation 85.2 L (94-97) % Carbon Dioxide (22-30) mmol/L POC Glucose (mg/dL) 189 H 179 H (75-99) mg/dL Calcium (8.4-10.2) mg/dL AST (14-36) U/L Lactate Dehydrogenase (313-618) U/L C-Reactive Protein (<10.0) mg/L Total Protein (6.3-8.2) g/dL Albumin (3.5-5.0) g/dL 12/06/20 12/06/20 12/07/20 Range/Units 17:03 20:39 03:31 Hgb 10.4 L (11.4-16.0) gm/dL Hct 32.2 L (34.0-46.0) % MCV 77.9 L (80.0-100.0) fL RDW 15.9 H (11.5-15.5) % D-Dimer (<0.60) mg/L FEU ABG pO2 (83-108) mmHg ABG Total CO2 (19-24) mmol/L ABG O2 Saturation (94-97) % Carbon Dioxide (22-30) mmol/L POC Glucose (mg/dL) 148 H 135 H (75-99) mg/dL Calcium (8.4-10.2) mg/dL AST (14-36) U/L Lactate Dehydrogenase (313-618) U/L C-Reactive Protein (<10.0) mg/L Total Protein (6.3-8.2) g/dL Albumin (3.5-5.0) g/dL 12/07/20 12/07/20 Range/Units 03:31 03:31 Hgb (11.4-16.0) gm/dL Hct (34.0-46.0) % MCV (80.0-100.0) fL RDW (11.5-15.5) % D-Dimer 1.81 H (<0.60) mg/L FEU ABG pO2 (83-108) mmHg ABG Total CO2 (19-24) mmol/L ABG O2 Saturation (94-97) % Carbon Dioxide 31 H (22-30) mmol/L POC Glucose (mg/dL) (75-99) mg/dL Calcium 8.0 L (8.4-10.2) mg/dL AST 41 H (14-36) U/L Lactate Dehydrogenase 1280 H (313-618) U/L C-Reactive Protein 31.8 H (<10.0) mg/L Total Protein 5.6 L (6.3-8.2) g/dL Albumin 3.0 L (3.5-5.0) g/dL Microbiology - Last 24 Hours (Table) 12/02/20 10:40 Blood Culture - Preliminary Blood No Growth after 96 hours 12/02/20 10:45 Blood Culture - Preliminary Blood No Growth after 96 hours Assessment and Plan Assessment: 1 Acute hypoxemic respiratory failure secondary to CoVID 19 pneumonia. Received Tocilizumab on 12/06/2020, convalescent plasma pending 2 Acute right-sided spontaneous pneumothorax secondary to above, status post Thora-Vent placement on 12/07/2020 3 Diabetes mellitus 4 History of breast, thyroid, bladder cancer 5 History of gastroesophageal reflux disease 6 History of obstructive sleep apnea Plan: The patient was seen and evaluated by Dr. Pereira Chest x-ray and labs reviewed Thora vent chest tube placed to the right chest Tocilizumab given on 12/06/2020 1 unit of convalescent plasma has been ordered Continued on dexamethasone, Lovenox, vitamin supplements Utilizing BiPAP throughout the evening Titrate down the FiO2 as tolerated Follow-up chest x-ray and labs in the a.m. I, the cosigning physician, performed a history & physical examination of the patient. Lungs sounds with crackles in the bilateral posterior bases, diminished in the right Maintaining good O2 saturations in the 90s on 15 L high flow with 100% nonrebreather mask. I discussed the assessment and plan of care with my nurse practitioner, Cindy Delgadillo. I attest to the above note as dictated by her.
--- NOTE | 2020-12-07 12:40 | PCN ---
PROCEDURE NOTE OPERATIVE REPORT: Placement of a right sided Thoravent/chest tube. PREOPERATIVE DIAGNOSIS: Acute spontaneous right-sided pneumothorax. POSTOP DIAGNOSIS: Acute spontaneous right sided pneumothorax. ANESTHESIA: 10 mL of 1% lidocaine. PROCEDURE DETAILS: The patient was placed in a sitting upright position, the area below the right clavicle was prepared in a sterile fashion and drapes were applied. The area between the 2nd and 3rd intercostal space was anesthetized locally with lidocaine, then a small incision was made, and through the incision, a size 13-Algerian Thoravent was placed with the trocar, advanced into the pleural space. Then, the catheter was advanced over the trocar, the trocar was moved out of the pleural space. There was adequate movement of the diaphragm upon the placement, however, followup chest x-ray showed persistent right- sided pneumothorax, and the catheter was noted to be possibly kinked at the rib level. Then, the catheter was adjusted, moved slightly out of the pleural space, and gauze was applied below the Thoravent. Repeat chest x-ray in 1 hour showed significant improvement in the right-sided pneumothorax with residual right-sided apical pneumothorax. The patient felt better, her O2 saturation significantly improved. The Thoravent was secured by tape, no evidence of any immediate complications. MMODL / IJN: [id number] /
--- NOTE | 2020-12-07 12:43 | XR ---
EXAMINATION TYPE: XR chest 1V portable DATE OF EXAM: 12/07/2020 Comparison: Earlier today Clinical History: 60-year-old female reposition thoravent Findings: Heart borderline enlarged. Diffuse bilateral airspace disease persists. Right-sided Thoravent cathete r is demonstrated. A small right apical pneumothorax remains measuring 3.4 cm versus 8.6 cm, previous ly. No sizable effusion. Impression: 1. Right-sided Thoravent catheter with decreasing size of the patient's right-sided pneumothorax curr ently small at the apex measuring 3.4 cm. 2. Continued extensive diffuse bilateral airspace disease.
[2020-12-07 13:16] LABS: Glucose,Whole Blood 158 mg/dL (75-99)
[2020-12-07 17:29] LABS: Glucose,Whole Blood 144 mg/dL (75-99)
[2020-12-07 20:21] LABS: Glucose,Whole Blood 128 mg/dL (75-99)
[2020-12-07] MEDS: ALPRAZolam 0.5 MG TAB PO PRN (20:43)
[2020-12-07] MEDS: MELATONIN 5 MG TABLET PO SCH (20:43)
[2020-12-08 05:24] LABS: HCT 29.2 % (34.0-46.0); HGB 10.4 gm/dL (11.4-16.0); MCH 27.2 pg (25.0-35.0); MCHC 35.4 g/dL (31.0-37.0); Mean Platelet Volume 8.5; Microcytosis Slight; Platelet Count 386 k/uL (150-450); RDW 15.8 % (11.5-15.5); WBC 7.2 k/uL (3.8-10.6)
[2020-12-08 05:48] LABS: ALT 26 U/L (4-34); AST 47 U/L (14-36); African American GFR (CKD) >90 (>60 ml/min/1.73 sqM); Albumin 3.4 g/dL (3.5-5.0); Alkaline Phosphatase 58 U/L (38-126); Anion Gap 7 mmol/L; Blood Urea Nitrogen 13 mg/dL (7-17); Calcium 8.1 mg/dL (8.4-10.2); Carbon Dioxide 32 mmol/L (22-30); Chloride 97 mmol/L (98-107); Glucose 81 mg/dL (74-99); LDH 1187 U/L (313-618); Non-African American GFR(CKD) >90 (>60 ml/min/1.73 sqM); Potassium 3.7 mmol/L (3.5-5.1); Sodium 136 mmol/L (137-145); Total Bilirubin 0.6 mg/dL (0.2-1.3); Total Protein 6.1 g/dL (6.3-8.2)
[2020-12-08] MEDS: INSULIN ASPART (NovoLOG) 100 UNIT/ML VIAL SQ SCH ×4 (06:36→21:59)
--- NOTE | 2020-12-08 07:31 | XR ---
EXAMINATION TYPE: XR chest 1V portable DATE OF EXAM: 12/08/2020 Comparison: 12/07/2020 Clinical History: 60-year-old female COVID, PTX Findings: Heart mildly enlarged. Diffuse bilateral airspace disease persists. Right-sided Thoravent catheter. R edemonstrated right apical pneumothorax, [id number] in size. While the apical component is sli ghtly smaller at 3.2 cm versus 3.4 cm, previously, lateral component is now visualized measuring 8 mm . No pleural effusion. Impression: 1. Small to moderate sized right-sided pneumothorax with Thoravent catheter in place. While the apica l component is slightly smaller at 3.2 cm (versus 3.4 cm, previously), a lateral component is now vis ualized measuring 8 mm suggesting slight increasing size. 2. Continued diffuse bilateral airspace disease and mild cardiomegaly.
[2020-12-08] MEDS: ENOXAPARIN 40 MG/0.4 ML SYRINGE SQ SCH (08:36)
[2020-12-08] MEDS: DEXAMETHASONE SOD PHOSPHATE 10 MG/ML 1 ML VIAL IV SCH (08:36)
[2020-12-08] MEDS: PROPRANOLOL LA 60 MG CAP.SA.24H PO SCH (08:37)
[2020-12-08] MEDS: LOSARTAN 25 MG TAB PO SCH (08:37)
[2020-12-08] MEDS: VENLAFAXINE HCL 75 MG TAB PO SCH (08:37)
[2020-12-08] MEDS: OXYBUTYNIN CHLORIDE 5 MG TAB PO SCH ×2 (08:37→21:59)
[2020-12-08] MEDS: ASPIRIN 81 MG PO SCH (08:37)
[2020-12-08] MEDS: ASCORBIC ACID 500 MG TAB PO SCH (08:37)
[2020-12-08] MEDS: ZINC SULFATE 220 MG CAP PO SCH (08:37)
[2020-12-08] MEDS: LEVOTHYROXINE 75 MCG TAB PO SCH (08:38)
[2020-12-08] MEDS: CHOLECALCIFEROL 25 MCG (1000 IU) TABLET PO SCH (08:38)
[2020-12-08] MEDS: PANTOPRAZOLE 40 MG TABLET PO SCH (08:39)
[2020-12-08] MEDS: ALBUTEROL HFA INHALER INHALATION PRN ×2 (11:12→20:29)
[2020-12-08 11:18] LABS: Glucose,Whole Blood 154 mg/dL (75-99)
--- NOTE | 2020-12-08 12:53 | P.PN ---
Subjective Progress Note Date: 12/08/20 Principal diagnosis: Shortness of breath. Patient was reevaluated today on 12/04/2020, patient remains on the regular medical floor, she developed diarrhea today, and I have recommended stopping colchicine. Patient remains on 4 L nasal cannula, and O2 saturations 90%, she was on CPAP which she normally uses at night and she was placed back on cannula this morning. Still feels generally weak, had diarrhea this morning, occasional cough, some shortness of breath upon activity. CBC is relatively normal except for hemoglobin of 9.9. Basic metabolic profile is normal. LDH is 502, CT of the chest showed obviously evidence of atypical pneumonia and there was no evidence of pulmonary embolism on admission. Reevaluated today on 12/05/2020, patient is about the same, maybe she feels a bit worse. Continues to have cough, shortness of breath, fever, generalized weakness and fatigue. She is now on 5 L nasal cannula, and her O2 saturation is in the high 80s and low 90s. Last LDH was 521, and this was today. C-reactive protein is 11 clinically however the patient is not doing great Progress note dated 12/06/2020. This is a 60-year-old female that was admitted with a diagnosis of acute hypoxemic respiratory failure secondary to COVID 19 pneumonia. She also has a history of thyroid cancer, diabetes mellitus, bladder cancer, GERD, and sleep apnea syndrome. When she was admitted, she had 9 days of symptoms of shortness of breath, fever, chills, poor appetite, nausea, vomiting, diarrhea, nonproductive cough. CT angiogram the chest did not reveal pulmonary embolism. Currently, she is on 5 L nasal cannula. She's not receiving any IV fluids. She has not been out of bed. I told her she needed to get up and sit in a chair, and while in bed, focus on right side down, left side down, supine positioning, and prone positioning, to improve her oxygenation. She does not seem to be particularly motivated. Labs today show a white count of 7.99, hemoglobin 9.6, hematocrit 31.0, platelet count 302,000. Sodium, potassium, chloride, CO2, anion gap, BUN, and creatinine were all normal. LDH was 498. D-dimer was 1.26. Progress note dated 12/08/2020. This is a 60-year-old female that was admitted with a diagnosis of acute hypoxemic respiratory failure secondary to COVID 19 pneumonia. She also has a history of thyroid cancer, diabetes mellitus, bladder cancer, GERD, and sleep apnea syndrome. When she was admitted, she had 9 days of symptoms of shortness of breath, fever, chills, poor appetite, nausea, vomiting, diarrhea, nonproductive cough. CT angiogram the chest did not reveal pulmonary embolism. The patient was initially admitted on December 02. She came to the ICU on December 06. She developed a right-sided pneumothorax, and a Thora-vent was placed. Initially, it was not functional, but is currently working. Her pneumothorax on the right side is improved. She still has some apical pneumothorax present. Currently, she is on a combination of both 15 L high flow nasal cannula, and a nonrebreather mask. The patient's getting saline at 10 mL an hour. She did receive both TOCI and CP. White count 7.2, hemoglobin 10.4, hematocrit 29.2, pl atelet count 386,000. D-dimer is 1.76. Sodium 136, potassium 3.7, chlorides 97, CO2 32, anion gap 7, BUN 13, creatinine 0.53. LDH is 1187, and C-reactive protein is 19. Chest x-ray was reviewed and again showed the right-sided pneumothorax. In addition, the patient has bilateral airspace disease. Objective - Vital Signs Vital signs: Vital Signs Temp 98.0 F 12/08/20 12:00 Pulse 69 12/08/20 12:00 Resp 19 12/08/20 12:00 BP 136/92 12/08/20 12:00 Pulse Ox 92 L 12/08/20 12:00 Intake & Output 12/07/20 12/08/20 12/08/20 18:59 06:59 18:59 Intake Total 437 110 60 Output Total 1100 1410 765 Balance -663 1300 -705 Weight 57.9 kg Intake: IV 120 110 60 0.9 Normal Saline @ 10mL/ 120 110 60 hr Blood Product 317 Ffp Convalescent Plasma 317 Cpd Unit [id number] Output: Urine 1100 1410 765 Other: Voiding Method Indwelling Catheter Indwelling Catheter Indwelling Catheter - Exam No acute distress, oriented 3. Currently on 15 L high flow nasal cannula, and nonrebreather mask. No conversational dyspnea or use of accessory muscles. HEENT examination is grossly unremarkable. Mucous membranes are moist. No oral lesions. Neck supple. Full range of motion. No adenopathy thyromegaly or neck vein distention. Cardiovascular examination reveals regular rhythm rate. S1-S2 normal. No S3 or S4. No discernible murmur noted. Heart rate 69 bpm. Lungs reveal bibasilar crackles and rhonchi. There are no wheezes. Breath sounds equal bilaterally. She does not take deep breaths and when she does, she does cough. Thora-vent is noted in the right anterior chest area. Abdomen soft bowel sounds are heard. No masses or tenderness. Extremities are intact. No cyanosis clubbing or edema. Skin is without rash or lesion. Neurologic examination is brief but nonfocal. - Labs CBC & Chem 7: 12/08/20 04:06 12/08/20 04:06 Labs: Abnormal Lab Results - Last 24 Hours (Table) 12/07/20 12/07/20 12/07/20 Range/Units 13:14 17:28 20:20 Hgb (11.4-16.0) gm/dL Hct (34.0-46.0) % MCV (80.0-100.0) fL RDW (11.5-15.5) % D-Dimer (<0.60) mg/L FEU Sodium (137-145) mmol/L Chloride (98-107) mmol/L Carbon Dioxide (22-30) mmol/L POC Glucose (mg/dL) 158 H 144 H 128 H (75-99) mg/dL Calcium (8.4-10.2) mg/dL AST (14-36) U/L Lactate Dehydrogenase (313-618) U/L C-Reactive Protein (<10.0) mg/L Total Protein (6.3-8.2) g/dL Albumin (3.5-5.0) g/dL 12/08/20 12/08/20 12/08/20 Range/Units 04:06 04:06 04:06 Hgb 10.4 L (11.4-16.0) gm/dL Hct 29.2 L (34.0-46.0) % MCV 77.0 L (80.0-100.0) fL RDW 15.8 H (11.5-15.5) % D-Dimer 1.76 H (<0.60) mg/L FEU Sodium 136 L (137-145) mmol/L Chloride 97 L (98-107) mmol/L Carbon Dioxide 32 H (22-30) mmol/L POC Glucose (mg/dL) (75-99) mg/dL Calcium 8.1 L (8.4-10.2) mg/dL AST 47 H (14-36) U/L Lactate Dehydrogenase 1187 H (313-618) U/L C-Reactive Protein 19.0 H (<10.0) mg/L Total Protein 6.1 L (6.3-8.2) g/dL Albumin 3.4 L (3.5-5.0) g/dL 12/08/20 Range/Units 11:17 Hgb (11.4-16.0) gm/dL Hct (34.0-46.0) % MCV (80.0-100.0) fL RDW (11.5-15.5) % D-Dimer (<0.60) mg/L FEU Sodium (137-145) mmol/L Chloride (98-107) mmol/L Carbon Dioxide (22-30) mmol/L POC Glucose (mg/dL) 154 H (75-99) mg/dL Calcium (8.4-10.2) mg/dL AST (14-36) U/L Lactate Dehydrogenase (313-618) U/L C-Reactive Protein (<10.0) mg/L Total Protein (6.3-8.2) g/dL Albumin (3.5-5.0) g/dL Microbiology - Last 24 Hours (Table) 12/02/20 10:45 Blood Culture - Preliminary Blood No Growth after 120 hours 12/02/20 10:40 Blood Culture - Preliminary Blood No Growth after 120 hours Assessment and Plan Assessment: Acute hypoxemic respiratory failure secondary to COVID 19 pneumonia. Status post right-sided spontaneous pneumothorax, with placement of Thora-vent on 12/07/2020. Hypovolemic hyponatremia. Type 2 diabetes mellitus. History of breast, thyroid, and bladder cancer. History of gastroesophageal reflux disease. History of obstructive sleep apnea syndrome. Plan: Plan dated 12/06/2020. The patient did not qualify for REM, as she was outside the window. She also did not qualify for, convalescent plasma or TOCI. She continues on vitamin C, vitamin D3, and zinc. In addition, she continues on Decadron, and Lovenox. Her oxygenation is borderline. She is on 5 L. She hasn't gotten out of bed. I told her she needed to get out of bed and sit up in the chair. In addition, while in bed, she needs to change her positions frequently. She seems not motivated to get better and may be even a little depressed. Additional recommendations and suggestions are forthcoming. Prognosis is guarded. We will continue to follow along and make recommendations were appropriate. Plan dated 12/08/2020. The patient did receive both TOCI and CP. The pneumothorax on the right side is a bit smaller. The patient is still quite short of breath and still receiving high concentrations of oxygen, it is both on 15 L high flow nasal cannula and a nonrebreather mask. Saline is running at 10 mL an hour. I did explain to the patient, she may eventually are a chest tube if the lung does not fully expand. Additional recommendations and suggestions are forthcoming. The patient angel luis nues on vitamins, specifically vitamin C, vitamin D3, and zinc. In addition, she is on Decadron and Lovenox. Prognosis is guarded. Time with Patient: Greater than 30
[2020-12-08 15:14] VITALS: BMI 20.6
[2020-12-08 16:53] LABS: Glucose,Whole Blood 137 mg/dL (75-99)
--- NOTE | 2020-12-08 18:31 | ECHOF ---
Referral Reason:fluid overload MEASUREMENTS -------- HEIGHT: 167.6 cm WEIGHT: 116.6 kg BP: 149/85 IVSd: 0.8 cm (0.6 - 1.1) LVIDd: 3.7 cm (3.9 - 5.3) LVPWd: 0.9 cm (0.6 - 1.1) EDV(Teich): 58 ml IVSs: 1.0 cm LVIDs: 2.3 cm LVPWs: 0.9 cm %IVS Thck: 27 % ESV(Teich): 19 ml EF(Teich): 67 % %FS: 37 % SV(Teich): 39 ml RVIDd: 2.6 cm (< 3.3) IVC: 15.88 mm LALs A4C: 4.9 cm LAAs A4C: 17.8 cm LAESV A-L A4C: 55 ml LAESV MOD A4C: 52 ml LALs A2C: 5.1 cm LAAs A2C: 18.8 cm LAESV A-L A2C: 58 ml LAESV MOD A2C: 54 ml LAESV(A-L): 58 ml LAESV Index (A-L): 26.14 ml/m Ao Diam: 3.3 cm (2.0 - 3.7) LA Diam: 3.6 cm (2.7 - 3.8) AV Cusp: 2.2 cm (1.5 - 2.6) EPSS: 1.5 cm MV E Samy: 0.69 m/s MV DecT: 238 ms MV Dec [place]: 2.9 m/s MV A Samy: 0.73 m/s MV E/A Ratio: 0.95 MV PHT: 69 ms MR Vmax: 1.15 m/s MR maxP.33 mmHg AV Vmax: 1.15 m/s AV maxP.25 mmHg AR Vmax: 1.51 m/s AR maxP.14 mmHg AR PHT: 964 ms AR Dec Time: 3323 ms AR Dec [place]: 0.5 m/s TR Vmax: 1.15 m/s TR maxP.33 mmHg RAP: 5.00 mmHg RVSP: 10.33 mmHg MV EF SLOPE: 57.87 mm/s (70 - 150) MV EXCURSION: 12.84 mm (> 18.000) FINDINGS -------- This was a technically adequate study. The left ventricular size is normal. Left ventricular wall thickness is normal. Overall left vent ricular systolic function is normal with, an EF between 55 - 60 %. The diastolic filling pattern is normal for the age of the patient 10.91. The right ventricle is normal in size. The left atrial size is normal. Normal LA size by volume 22+/-6 ml/m2. The right atrial size is normal. The aortic valve is trileaflet and appears structurally normal. The mitral valve is normal. There is trace mitral regurgitation. The tricuspid valve appears structurally normal. Trace tricuspid regurgitation present. Right florecita tricular systolic pressure is normal at < 35 mmHg. There is no pulmonic regurgitation present. The aortic root size is normal. There is a trivial pericardial effusion present. CONCLUSIONS -------- 1. The left ventricular size is normal. 2. Left ventricular wall thickness is normal. 3. Overall left ventricular systolic function is normal with, an EF between 55 - 60 %. 4. The diastolic filling pattern is normal for the age of the patient 10.91 5. There is trace mitral regurgitation. 6. Trace tricuspid regurgitation present. 7. There is a trivial pericardial effusion present. REFRIGERATION MECHANIC HELPER: Deidre Rubin RDCS
[2020-12-08 20:08] LABS: Glucose,Whole Blood 162 mg/dL (75-99)
--- NOTE | 2020-12-08 20:33 | P.PN ---
Progress Note - Text Progress Note Date: 12/08/20 Presenting complaint: shortness of breath History of presenting complaint 60-year-old female with a history of diabetes mellitus type 2 controlled without insulin, GERD, stage I breast cancer with history of thyroid cancer and bladder cancer in remission who presented to the emergency department secondary to fever, fatigue, and vomiting. had been diagnosed with Covid 19 one week ago at urgent care, and had started symptoms 8 days prior to presentation. In the ER she underwent an extensive evaluation. CTA chest was negative for PE but was consistent with atypical pneumonia. Pulse ox-88% on room air.fever of 103 and pulse 115. LDH 704, CRP 204.9, pro calcitonin 0.17. She was admitted and started on Decadron. She is not a candidate for Remdesivir due to symptoms starting greater than 7 days prior to admission. Pulmonary started her on Colchicine she was unable to tolerate due to diarrhea. Fevers improved after 12/04. O2 went from 4 to 5L 12/05. On 12/06/20 her oxygen requirements went up acutely. She was requiring 15L NC. She was started on Tocilizumab. CXR showed worsening infiltrates and she was transferred to he ICU for closer monitoring. morning CXR on 12/07 revealed a pneumothorax and a thoravent was placed. Today-ICU: Laying in bed in bed. Telemetry-sinus rhythm. Tired. Has got a cough. Eating. Remains on high flow nasal cannula 15 L at 100%. Awake Review of systems: Was done for constitutional, cardiovascular, GI, pulmonary. relevant finding as above Active Medications Acetaminophen (Acetaminophen Tab 325 Mg Tab) 650 mg PO Q4HR PRN PRN Reason: Fever and/ or Pain Last Admin: 12/05/20 08:47 Dose: 650 mg Documented by: Albuterol Sulfate (Albuterol Hfa Inhaler) 2 puff INHALATION RT-QID PRN PRN Reason: Shortness Of Breath Or Wheezing Last Admin: 12/08/20 11:12 Dose: 2 puff Documented by: Alprazolam (Alprazolam 0.5 Mg Tab) 0.5 mg PO HS PRN PRN Reason: Anxiety Last Admin: 12/07/20 20:43 Dose: 0.5 mg Documented by: Ascorbic Acid (Ascorbic Acid 500 Mg Tab) 1,000 mg PO DAILY [facility] Last Admin: 12/08/20 08:37 Dose: 1,000 mg Documented by: Aspirin (Aspirin 81 Mg) 81 mg PO DAILY [facility] Last Admin: 12/08/20 08:37 Dose: 81 mg Documented by: Cholecalciferol (Cholecalciferol 25 Mcg (1000 Iu) Tablet) 75 mcg PO DAILY [facility] Last Admin: 12/08/20 08:38 Dose: 75 mcg Documented by: Dexamethasone Sodium Phosphate (Dexamethasone Sod Phosphate 10 Mg/Ml 1 Ml Vial) 6 mg IV DAILY [facility] Last Admin: 12/08/20 08:36 Dose: 6 mg Documented by: Enoxaparin Sodium (Enoxaparin 40 Mg/0.4 Ml Syringe) 40 mg SQ DAILY [facility] Last Admin: 12/08/20 08:36 Dose: 40 mg Documented by: Insulin Aspart (Insulin Aspart (Novolog) 100 Unit/Ml Vial) 0 unit SQ ACHS [facility]; Protocol Last Admin: 12/08/20 17:26 Dose: Not Given Documented by: Levothyroxine Sodium (Levothyroxine 75 Mcg Tab) 150 mcg PO DAILY@0630 [facility] Last Admin: 12/08/20 08:38 Dose: 150 mcg Documented by: Losartan Potassium (Losartan 25 Mg Tab) 25 mg PO DAILY [facility] Last Admin: 12/08/20 08:37 Dose: 25 mg Documented by: Melatonin (Melatonin 5 Mg Tablet) 5 mg PO HS [facility] Last Admin: 12/07/20 20:43 Dose: 5 mg Documented by: Naloxone HCl (Naloxone 0.4 Mg/Ml 1 Ml Vial) 0.2 mg IV Q2M PRN PRN Reason: Opioid Reversal Ondansetron HCl (Ondansetron 4 Mg/2 Ml Vial) 4 mg IVP Q6HR PRN PRN Reason: Nausea And Vomiting Last Admin: 12/07/20 08:01 Dose: 4 mg Documented by: Oxybutynin Chloride (Oxybutynin Chloride 5 Mg Tab) 5 mg PO BID [facility] Last Admin: 12/08/20 08:37 Dose: Not Given Documented by: Pantoprazole Sodium (Pantoprazole 40 Mg Tablet) 40 mg PO DAILY@0730 [facility] Last Admin: 12/08/20 08:39 Dose: 40 mg Documented by: Propranolol HCl (Propranolol La 60 Mg Cap.Sa.24h) 60 mg PO DAILY [facility] Last Admin: 12/08/20 08:37 Dose: 60 mg Documented by: Venlafaxine HCl (Venlafaxine Hcl 75 Mg Tab) 75 mg PO DAILY [facility] Last Admin: 12/08/20 08:37 Dose: 75 mg Documented by: Zinc Sulfate (Zinc Sulfate 220 Mg Cap) 220 mg PO DAILY [facility] Last Admin: 12/08/20 08:37 Dose: 220 mg Documented by: On examination: VITAL SIGNS: 97.4, 51, 24, 151 bun 93, 98% on 15 L high flow cannula at 100% GENERAL APPEARANCE: Reclining in bed, tired, awake. . NEUROLOGICAL: Cranial nerves grossly intact. Moving all 4 limbs PSYCHIATRY: Alert and oriented x3. Mood and affect normal. Rest of exam as per pulmonary and nursing Investigations: December 08: WBC 7.2 hemoglobin 10.4 platelets 386 sodium 136 potassium 3.7 creatinine 0.53 d-dimer 1.76 CRP 19 Chest x-ray film personally reviewed by me-[December 08] bilateral infiltrates with right-sided apical pneumothorax 2-D echocardiogram: EF 55-60% Computed tomography scan chest and you for PE: Patchy peripheral infiltrates. Fatty infiltration of the liver. No PE Assessment and plan Covid 19 pneumonitis, acute hypoxic respiratory failure-worsening -IV Decadron, subcu Lovenox, vitamin C, vitamin D, zinc [Colchicine stopped due to diarrhea, out of the window for REM.] - Toci on 12/06 and Convalescent plasma 12/07 Right pneumonthorax, secondary to COVID 19 - thoravent in place, follow x-ray Diabetes mellitus type 2 -Hold trulicity and metformin. Follow Accu-Cheks Hypothyroidism -Continue with Synthroid Microcytic anemia, cause unknown - outpatient follow-up as ferritin likely falsely elevated due to COVID-19 Breast cancer stage I -Has outpatient appointment on 12/17 for surgical procedure. Hyponatremia secondary to dehydration, improved Depression: -Continue with Effexor GERD: -Continue with Protonix Insomnia: -Continue melatonin Essential hypertension: -Increased dose of Cozaar. VERNA Inderal [place] Patient remains significantly ill. In the ICU. Follow-up in activities assistant. Discussed with the patient
[2020-12-08] MEDS: MELATONIN 5 MG TABLET PO SCH (21:59)
[2020-12-08] MEDS: ALPRAZolam 0.5 MG TAB PO PRN (21:59)
[2020-12-09 04:36] LABS: Basophils % (A) 0 %; Eosinophils # (A) 0.2 k/uL (0-0.7); Eosinophils % (A) 3 %; HGB 11.1 gm/dL (11.4-16.0); Lymphocytes # (A) 1.6 k/uL (1.0-4.8); Lymphocytes % (A) 23 %; MCH 25.2 pg (25.0-35.0); MCHC 32.6 g/dL (31.0-37.0); MCV 77.3 fL (80.0-100.0); Mean Platelet Volume 7.5; Microcytosis Slight; Monocytes # (A) 0.6 k/uL (0-1.0); Monocytes % (A) 8 %; Neutrophils # (A) 4.4 k/uL (1.3-7.7); Neutrophils % (A) 63 %; Platelet Count 425 k/uL (150-450); RBC 4.39 m/uL (3.80-5.40); RDW 15.9 % (11.5-15.5)
[2020-12-09 04:58] LABS: ALT 31 U/L (4-34); AST 41 U/L (14-36); African American GFR (CKD) >90 (>60 ml/min/1.73 sqM); Albumin 3.5 g/dL (3.5-5.0); Alkaline Phosphatase 55 U/L (38-126); Anion Gap 6 mmol/L; Blood Urea Nitrogen 20 mg/dL (7-17); C Reactive Protein 13.3 mg/L (<10.0); Calcium 8.1 mg/dL (8.4-10.2); Carbon Dioxide 31 mmol/L (22-30); Chloride 99 mmol/L (98-107); Glucose 80 mg/dL (74-99); Non-African American GFR(CKD) >90 (>60 ml/min/1.73 sqM); Sodium 136 mmol/L (137-145); Total Bilirubin 0.6 mg/dL (0.2-1.3); Total Protein 6.3 g/dL (6.3-8.2)
[2020-12-09] MEDS: INSULIN ASPART (NovoLOG) 100 UNIT/ML VIAL SQ SCH ×4 (06:36→21:06)
[2020-12-09 06:45] LABS: Glucose,Whole Blood 100 mg/dL (75-99)
[2020-12-09] MEDS: ALBUTEROL HFA INHALER INHALATION PRN ×2 (06:53→15:49)
[2020-12-09] MEDS: LEVOTHYROXINE 75 MCG TAB PO SCH (08:05)
[2020-12-09] MEDS: ASPIRIN 81 MG PO SCH (08:06)
[2020-12-09] MEDS: ASCORBIC ACID 500 MG TAB PO SCH (08:06)
[2020-12-09] MEDS: PANTOPRAZOLE 40 MG TABLET PO SCH (08:06)
[2020-12-09] MEDS: CHLORTHALIDONE 25 MG TAB PO SCH (08:06)
[2020-12-09] MEDS: ZINC SULFATE 220 MG CAP PO SCH (08:06)
[2020-12-09] MEDS: CHOLECALCIFEROL 25 MCG (1000 IU) TABLET PO SCH (08:06)
[2020-12-09] MEDS: DEXAMETHASONE SOD PHOSPHATE 10 MG/ML 1 ML VIAL IV SCH (08:06)
[2020-12-09] MEDS: ENOXAPARIN 40 MG/0.4 ML SYRINGE SQ SCH (08:07)
[2020-12-09] MEDS: OXYBUTYNIN CHLORIDE 5 MG TAB PO SCH ×2 (08:07→20:59)
[2020-12-09] MEDS: VENLAFAXINE HCL 75 MG TAB PO SCH (08:07)
[2020-12-09] MEDS: LOSARTAN 50 MG TAB PO SCH (08:22)
[2020-12-09] MEDS ORDERED: LIDOCAINE 1% INJ 10MG/ML (20 ML MDV) ONE ×2 (08:55→09:58)
--- NOTE | 2020-12-09 09:58 | XR ---
EXAMINATION TYPE: XR chest 1V portable DATE OF EXAM: 12/09/2020 COMPARISON: 12/08/2020 INDICATION: Pneumothorax TECHNIQUE: Single frontal view of the chest is obtained. FINDINGS: The heart size is normal. The pulmonary vasculature is normal. Diffuse increased lung markings are present bilaterally. There is an increasing right pneumothorax. Right-sided chest tube remains in position. IMPRESSION: 1. Increasing right-sided pneumothorax.
--- NOTE | 2020-12-09 10:02 | XR ---
EXAMINATION TYPE: XR chest 1V portable DATE OF EXAM: 12/09/2020 COMPARISON: Earlier exam INDICATION: Pneumothorax TECHNIQUE: Single frontal view of the chest is obtained. FINDINGS: The heart size is normal. The pulmonary vasculature is normal. Patchy infiltrates present bilaterally are stable. On the enlarging right pneumothorax appears stable from earlier in the morning. There is adjustment o f the right-sided thoravent. Catheter tip is directed to the right apex. IMPRESSION: 1. Adjustment of fluoroscopy vent catheter with the catheter tip within the right apex of the lung fi eld. Pneumothorax size appears similar to comparison and large prior day.
[2020-12-09] MEDS ORDERED: HYDROmorphone 1 MG/ML 1 ML SYRINGE IVP STA (10:10)
[2020-12-09] MEDS ORDERED: HYDROmorphone 1 MG/ML 1 ML SYRINGE ONE (10:11)
[2020-12-09 11:06] LABS: Glucose,Whole Blood 182 mg/dL (75-99)
--- NOTE | 2020-12-09 11:23 | P.PN ---
Subjective Progress Note Date: 12/09/20 Principal diagnosis: Shortness of breath. Patient was reevaluated today on 12/04/2020, patient remains on the regular medical floor, she developed diarrhea today, and I have recommended stopping colchicine. Patient remains on 4 L nasal cannula, and O2 saturations 90%, she was on CPAP which she normally uses at night and she was placed back on cannula this morning. Still feels generally weak, had diarrhea this morning, occasional cough, some shortness of breath upon activity. CBC is relatively normal except for hemoglobin of 9.9. Basic metabolic profile is normal. LDH is 502, CT of the chest showed obviously evidence of atypical pneumonia and there was no evidence of pulmonary embolism on admission. Reevaluated today on 12/05/2020, patient is about the same, maybe she feels a bit worse. Continues to have cough, shortness of breath, fever, generalized weakness and fatigue. She is now on 5 L nasal cannula, and her O2 saturation is in the high 80s and low 90s. Last LDH was 521, and this was today. C-reactive protein is 11 clinically however the patient is not doing great Progress note dated 12/06/2020. This is a 60-year-old female that was admitted with a diagnosis of acute hypoxemic respiratory failure secondary to COVID 19 pneumonia. She also has a history of thyroid cancer, diabetes mellitus, bladder cancer, GERD, and sleep apnea syndrome. When she was admitted, she had 9 days of symptoms of shortness of breath, fever, chills, poor appetite, nausea, vomiting, diarrhea, nonproductive cough. CT angiogram the chest did not reveal pulmonary embolism. Currently, she is on 5 L nasal cannula. She's not receiving any IV fluids. She has not been out of bed. I told her she needed to get up and sit in a chair, and while in bed, focus on right side down, left side down, supine positioning, and prone positioning, to improve her oxygenation. She does not seem to be particularly motivated. Labs today show a white count of 7.99, hemoglobin 9.6, hematocrit 31.0, platelet count 302,000. Sodium, potassium, chloride, CO2, anion gap, BUN, and creatinine were all normal. LDH was 498. D-dimer was 1.26. Progress note dated 12/08/2020. This is a 60-year-old female that was admitted with a diagnosis of acute hypoxemic respiratory failure secondary to COVID 19 pneumonia. She also has a history of thyroid cancer, diabetes mellitus, bladder cancer, GERD, and sleep apnea syndrome. When she was admitted, she had 9 days of symptoms of shortness of breath, fever, chills, poor appetite, nausea, vomiting, diarrhea, nonproductive cough. CT angiogram the chest did not reveal pulmonary embolism. The patient was initially admitted on December 02. She came to the ICU on December 06. She developed a right-sided pneumothorax, and a Thora-vent was placed. Initially, it was not functional, but is currently working. Her pneumothorax on the right side is improved. She still has some apical pneumothorax present. Currently, she is on a combination of both 15 L high flow nasal cannula, and a nonrebreather mask. The patient's getting saline at 10 mL an hour. She did receive both TOCI and CP. White count 7.2, hemoglobin 10.4, hematocrit 29.2, pl atelet count 386,000. D-dimer is 1.76. Sodium 136, potassium 3.7, chlorides 97, CO2 32, anion gap 7, BUN 13, creatinine 0.53. LDH is 1187, and C-reactive protein is 19. Chest x-ray was reviewed and again showed the right-sided pneumothorax. In addition, the patient has bilateral airspace disease. Progress note dated 12/09/2020. 60-year-old female again seen today in the ICU. She is in room 255. Today, she right-sided chest tube was inserted. A repeat thoracentesis insertion, failed to expand the right lung. The patient was admitted with a diagnosis of acute hypoxemic respiratory failure secondary to coronavirus infection, and pneumonia. She also has a history of thyroid cancer, diabetes mellitus, bladder cancer, GERD, and sleep apnea syndrome. The patient's currently on 15 L high flow nasal cannula. She's getting saline at 10 mL an hour. The chest tube insertion seemed to better expand the right lung, although there was still an apical pneumothorax. We did ask cardiothoracic surgery to advance the tube for us. White count 7, hemoglobin 9.1, hematocrit 34, platelet count 425,000. D-dimer is 1.26. Sodium 136, potassium 4, chlorides 99, CO2 31, anion gap 6, BUN 20, and creatinine 0.51. Multiple chest x-rays are reviewed. Objective - Vital Signs Vital signs: Vital Signs Temp 98.1 F 12/09/20 04:00 Pulse 51 L 12/09/20 08:00 Resp 10 L 12/09/20 08:00 BP 132/81 12/09/20 08:00 Pulse Ox 99 12/09/20 08:00 Intake & Output 12/08/20 12/09/20 12/09/20 18:59 06:59 18:59 Intake Total 120 120 10 Output Total 1105 475 30 Balance -985 -355 -20 Weight 57.9 kg 111.2 kg Intake: IV 120 120 10 0.9 Normal Saline @ 10mL/ 120 120 10 hr Output: Urine 1105 475 30 Other: Voiding Method Indwelling Catheter Indwelling Catheter Indwelling Catheter - Exam No acute distress, oriented 3. Currently on 15 L high flow nasal cannula. No conversational dyspnea or use of accessory muscles. HEENT examination is grossly unremarkable. Mucous membranes are moist. No oral lesions. Neck supple. Full range of motion. No adenopathy thyromegaly or neck vein distention. Cardiovascular examination reveals regular rhythm rate. S1-S2 normal. No S3 or S4. No discernible murmur noted. Heart rate 51 bpm. Lungs reveal bibasilar crackles and rhonchi. There are no wheezes. Breath soun ds equal bilaterally. She does not take deep breaths and when she does, she does cough. Thora-vent is noted in the right anterior chest area. Right chest tube inserted. Abdomen soft bowel sounds are heard. No masses or tenderness. Extremities are intact. No cyanosis clubbing or edema. Skin is without rash or lesion. Neurologic examination is brief but nonfocal. - Labs CBC & Chem 7: 12/09/20 03:32 12/09/20 03:32 Labs: Abnormal Lab Results - Last 24 Hours (Table) 12/08/20 12/08/20 12/08/20 Range/Units 11:17 16:52 20:07 Hgb (11.4-16.0) gm/dL MCV (80.0-100.0) fL RDW (11.5-15.5) % D-Dimer (<0.60) mg/L FEU Sodium (137-145) mmol/L Carbon Dioxide (22-30) mmol/L BUN (7-17) mg/dL Creatinine (0.52-1.04) mg/dL POC Glucose (mg/dL) 154 H 137 H 162 H (75-99) mg/dL Calcium (8.4-10.2) mg/dL AST (14-36) U/L C-Reactive Protein (<10.0) mg/L 12/09/20 12/09/20 12/09/20 Range/Units 03:32 03:32 03:32 Hgb 11.1 L (11.4-16.0) gm/dL MCV 77.3 L (80.0-100.0) fL RDW 15.9 H (11.5-15.5) % D-Dimer 1.26 H (<0.60) mg/L FEU Sodium 136 L (137-145) mmol/L Carbon Dioxide 31 H (22-30) mmol/L BUN 20 H (7-17) mg/dL Creatinine 0.51 L (0.52-1.04) mg/dL POC Glucose (mg/dL) (75-99) mg/dL Calcium 8.1 L (8.4-10.2) mg/dL AST 41 H (14-36) U/L C-Reactive Protein 13.3 H (<10.0) mg/L 12/09/20 12/09/20 Range/Units 06:43 11:05 Hgb (11.4-16.0) gm/dL MCV (80.0-100.0) fL RDW (11.5-15.5) % D-Dimer (<0.60) mg/L FEU Sodium (137-145) mmol/L Carbon Dioxide (22-30) mmol/L BUN (7-17) mg/dL Creatinine (0.52-1.04) mg/dL POC Glucose (mg/dL) 100 H 182 H (75-99) mg/dL Calcium (8.4-10.2) mg/dL AST (14-36) U/L C-Reactive Protein (<10.0) mg/L Microbiology - Last 24 Hours (Table) 12/02/20 10:45 Blood Culture - Final Blood No Growth after 144 hours 12/02/20 10:40 Blood Culture - Final Blood No Growth after 144 hours Assessment and Plan Assessment: Acute hypoxemic respiratory failure secondary to COVID 19 pneumonia. Status post right-sided spontaneous pneumothorax, with placement of Thora-vent on 12/07/2020. Status post #28-Libyan chest tube inserted, on 12/09/2020. Hypovolemic hyponatremia. Type 2 diabetes mellitus. History of breast, thyroid, and bladder cancer. History of gastroesophageal reflux disease. History of obstructive sleep apnea syndrome. Plan: Plan dated 12/06/2020. The patient did not qualify for REM, as she was outside the window. She also did not qualify for, convalescent plasma or TOCI. She continues on vitamin C, vitamin D3, and zinc. In addition, she continues on Decadron, and Lovenox. Her oxygenation is borderline. She is on 5 L. She hasn't gotten out of bed. I told her she needed to get out of bed and sit up in the chair. In addition, while in bed, she needs to change her positions frequently. She seems not mot ivated to get better and may be even a little depressed. Additional recommendations and suggestions are forthcoming. Prognosis is guarded. We will continue to follow along and make recommendations were appropriate. Plan dated 12/08/2020. The patient did receive both TOCI and CP. The pneumothorax on the right side is a bit smaller. The patient is still quite short of breath and still receiving high concentrations of oxygen, it is both on 15 L high flow nasal cannula and a nonrebreather mask. Saline is running at 10 mL an hour. I did explain to the patient, she may eventually are a chest tube if the lung does not fully expand. Additional recommendations and suggestions are forthcoming. The patient continues on vitamins, specifically vitamin C, vitamin D3, and zinc. In addition, she is on Decadron and Lovenox. Prognosis is guarded. Plan dated 12/09/2020. The patient remains on 15 L high flow nasal oxygen. A right-sided chest tube was placed. A #28-Libyan chest tube was used. The right lung seemed to expand better. I asked cardiothoracic surgery to advance the tube for us. We will continue to follow. Prognosis is guarded. The patient remains on all appropriate medications including vitamin C vitamin D3, zinc, Decadron, and Lovenox. Additional recommendations and suggestions are forthcoming. Prognosis is certainly guarded. Hopefully the right lung will fully expand. Time with Patient: Greater than 30
--- NOTE | 2020-12-09 11:24 | PCN ---
PROCEDURE NOTE PROCEDURE: Right-sided chest tube. PREOPERATIVE DIAGNOSIS: Right pneumothorax. POSTOPERATIVE DIAGNOSIS: Right pneumothorax. There was informed consent. OPERATORS: Dr. Galindo and Christin Randle. DESCRIPTION OF PROCEDURE: A #28-Faroese tube was inserted between the anterior and middle axillary line at the 5th intercostal space. There was no immediate complication. A chest x-ray following the insertion showed that the pneumothorax had improved a bit. The chest x-ray was improved. There was no immediate complication. The patient tolerated the procedure well. No additional recommendations are made. MMODL / IJN: [id number] /
--- NOTE | 2020-12-09 12:00 | XR ---
EXAMINATION TYPE: XR chest 1V portable DATE OF EXAM: 12/09/2020 COMPARISON: 12/09/2020 INDICATION: Right-sided chest tube placement TECHNIQUE: Single frontal view of the chest is obtained. FINDINGS: The heart size is normal. The pulmonary vasculature is normal. Patchy infiltrates within the mid and lower lung hearn. There is a right apical pneumothorax. This is diminished from comparison. There is interval placement of a right-sided chest tube which appears borderline within the chest. Correlate for function. IMPRESSION: 1. Patchy bilateral lung infiltrates, stable. 2. Diminished right pneumothorax. 3. Right-sided chest tube placement. This could be advanced for more typical placement.
[2020-12-09 16:56] LABS: Glucose,Whole Blood 178 mg/dL (75-99)
--- NOTE | 2020-12-09 17:11 | XR ---
EXAMINATION TYPE: XR chest 1V portable DATE OF EXAM: 12/09/2020 COMPARISON: 12/09/2020 HISTORY: Chest tube placement TECHNIQUE: Single frontal view of the chest is obtained. FINDINGS: Diffuse bilateral airspace disease noted. Chest tube seen along the right lateral margin o f the chest. Small apical pneumothorax not excluded. Bilateral patchy airspace disease seen. Heart si ze is mildly prominent. IMPRESSION: 1. Larger chest tube appears in similar position. Additional possible right apical smaller chest tube no longer identified. Could not exclude a small right apical pneumothorax. 2. Bilateral diffuse infiltrates
--- NOTE | 2020-12-09 19:09 | P.PN ---
Progress Note - Text Progress Note Date: 12/09/20 Presenting complaint: shortness of breath History of presenting complaint 60-year-old female with a history of diabetes mellitus type 2 controlled without insulin, GERD, stage I breast cancer with history of thyroid cancer and bladder cancer in remission who presented to the emergency department secondary to fever, fatigue, and vomiting. had been diagnosed with Covid 19 one week ago at urgent care, and had started symptoms 8 days prior to presentation. In the ER she underwent an extensive evaluation. CTA chest was negative for PE but was consistent with atypical pneumonia. Pulse ox-88% on room air.fever of 103 and pulse 115. LDH 704, CRP 204.9, pro calcitonin 0.17. She was admitted and started on Decadron. She is not a candidate for Remdesivir due to symptoms starting greater than 7 days prior to admission. Pulmonary started her on Colchicine she was unable to tolerate due to diarrhea. Fevers improved after 12/04. O2 went from 4 to 5L 12/05. On 12/06/20 her oxygen requirements went up acutely. She was requiring 15L NC. She was started on Tocilizumab. CXR showed worsening infiltrates and she was transferred to he ICU for closer monitoring. morning CXR on 12/07 revealed a pneumothorax and a thoravent was placed. Today-ICU: Pneumothorax found to be worsening this morning. Thora-vent replace. No improvement. Right chest wall tube placed. Oral intake better. Telemetry sinus rhythm. On 15 L high flow oxygen with a pulse ox of 99%. Awake a bit anxious Review of systems: Was done for constitutional, cardiovascular, GI, pulmonary. relevant finding as above Active Medications Acetaminophen (Acetaminophen Tab 325 Mg Tab) 650 mg PO Q4HR PRN PRN Reason: Fever and/ or Pain Last Admin: 12/05/20 08:47 Dose: 650 mg Documented by: Albuterol Sulfate (Albuterol Hfa Inhaler) 2 puff INHALATION RT-QID PRN PRN Reason: Shortness Of Breath Or Wheezing Last Admin: 12/09/20 15:49 Dose: 2 puff Documented by: Alprazolam (Alprazolam 0.5 Mg Tab) 0.5 mg PO HS PRN PRN Reason: Anxiety Last Admin: 12/08/20 21:59 Dose: 0.5 mg Documented by: Ascorbic Acid (Ascorbic Acid 500 Mg Tab) 1,000 mg PO DAILY [facility] Last Admin: 12/09/20 08:06 Dose: 1,000 mg Documented by: Aspirin (Aspirin 81 Mg) 81 mg PO DAILY [facility] Last Admin: 12/09/20 08:06 Dose: 81 mg Documented by: Chlorthalidone (Chlorthalidone 25 Mg Tab) 25 mg PO DAILY [facility] Last Admin: 12/09/20 08:06 Dose: 25 mg Documented by: Cholecalciferol (Cholecalciferol 25 Mcg (1000 Iu) Tablet) 75 mcg PO DAILY [facility] Last Admin: 12/09/20 08:06 Dose: 75 mcg Documented by: Dexamethasone Sodium Phosphate (Dexamethasone Sod Phosphate 10 Mg/Ml 1 Ml Vial) 6 mg IV DAILY [facility] Last Admin: 12/09/20 08:06 Dose: 6 mg Documented by: Enoxaparin Sodium (Enoxaparin 40 Mg/0.4 Ml Syringe) 40 mg SQ DAILY [facility] Last Admin: 12/09/20 08:07 Dose: 40 mg Documented by: Insulin Aspart (Insulin Aspart (Novolog) 100 Unit/Ml Vial) 0 unit SQ [facility]; Protocol Last Admin: 12/09/20 17:42 Dose: 3 unit Documented by: Levothyroxine Sodium (Levothyroxine 75 Mcg Tab) 150 mcg PO DAILY@0630 [facility] Last Admin: 12/09/20 08:05 Dose: 150 mcg Documented by: Losartan Potassium (Losartan 50 Mg Tab) 50 mg PO DAILY [facility] Last Admin: 12/09/20 08:22 Dose: Not Given Documented by: Melatonin (Melatonin 5 Mg Tablet) 5 mg PO HS [facility] Last Admin: 12/08/20 21:59 Dose: 5 mg Documented by: Naloxone HCl (Naloxone 0.4 Mg/Ml 1 Ml Vial) 0.2 mg IV Q2M PRN PRN Reason: Opioid Reversal Ondansetron HCl (Ondansetron 4 Mg/2 Ml Vial) 4 mg IVP Q6HR PRN PRN Reason: Nausea And Vomiting Last Admin: 12/07/20 08:01 Dose: 4 mg Documented by: Oxybutynin Chloride (Oxybutynin Chloride 5 Mg Tab) 5 mg PO BID [facility] Last Admin: 12/09/20 08:07 Dose: 5 mg Documented by: Pantoprazole Sodium (Pantoprazole 40 Mg Tablet) 40 mg PO DAILY@0730 [facility] Last Admin: 12/09/20 08:06 Dose: 40 mg Documented by: Venlafaxine HCl (Venlafaxine Hcl 75 Mg Tab) 75 mg PO DAILY [facility] Last Admin: 12/09/20 08:07 Dose: 75 mg Documented by: Zinc Sulfate (Zinc Sulfate 220 Mg Cap) 220 mg PO DAILY [facility] Last Admin: 12/09/20 08:06 Dose: 220 mg Documented by: On examination: VITAL SIGNS: Afebrile, 57, 22, 110/79, 99% on 15 L nasal cannula GENERAL APPEARANCE: Reclining in bed, tired, awake. . NEUROLOGICAL: Cranial nerves grossly intact. Moving all 4 limbs PSYCHIATRY: Alert and oriented x3. Mood and affect normal. PULMONARY: Respiratory effort increased. Accessory muscles are working Rest of exam as per pulmonary and nursing Investigations: December 09: White count 7 hemoglobin 11.1 platelets 425 d-dimer 1.26 potassium 4 creatinine 0.51 CRP 13.3 December 08: WBC 7.2 hemoglobin 10.4 platelets 386 sodium 136 potassium 3.7 creatinine 0.53 d-dimer 1.76 CRP 19 Chest x-ray film personally reviewed by me-[December 08] bilateral infiltrates with right-sided apical pneumothorax 2-D echocardiogram: EF 55-60% Computed tomography scan chest and you for PE: Patchy peripheral infiltrates. Fatty infiltration of the liver. No PE Assessment and plan Covid 19 pneumonitis, acute hypoxic respiratory slow to respond -IV Decadron, subcu Lovenox, vitamin C, vitamin D, zinc [Colchicine stopped due to diarrhea, out of the window for REM.] - Toci on 12/06 and Convalescent plasma 12/07 Right pneumonthorax, secondary to COVID 19 - thoravent in place, replaced. No improvement. Removed. Right chest wall to placed on December 09 Diabetes mellitus type 2 -Hold trulicity and metformin. Follow Accu-Cheks Hypothyroidism -Continue with Synthroid Microcytic anemia, cause unknown - outpatient follow-up as ferritin likely falsely elevated due to COVID-19 Breast cancer stage I -Has outpatient appointment on 12/17 for surgical procedure. Hyponatremia secondary to dehydration, improved Depression: -Continue with Effexor GERD: -Continue with Protonix Insomnia: -Continue melatonin Essential hypertension: -Increased dose of Cozaar. VERNA MIR Discussed with the patient, follows with director of digital marketing
[2020-12-09] MEDS: MELATONIN 5 MG TABLET PO SCH (20:59)
[2020-12-09 21:04] LABS: Glucose,Whole Blood 135 mg/dL (75-99)
--- NOTE | 2020-12-09 23:35 | OP ---
OPERATIVE REPORT OPERATIVE REPORT: Removal of old ThoraVent and placement of a new ThoraVent. PREOPERATIVE DIAGNOSIS: Right-sided pneumothorax. The right-sided ThoraVent does not seem to be functional. POSTOPERATIVE DIAGNOSIS: Right-sided pneumothorax. The right-sided ThoraVent does not seem to be functional. ANESTHESIA USED: Twenty mL of 1% lidocaine. PROCEDURE DESCRIPTION: The patient was placed in a semi-upright position. The area around the old ThoraVent was cleaned and prepared in a sterile fashion. Then the old ThoraVent was removed. The area at the same site, which is the third intercostal space and midclavicular line, was prepared in a sterile fashion and anesthetized locally with lidocaine. After adequate anesthesia was maintained, a ThoraVent 13-Romanian was used, and was inserted at the same site, advanced with a trocar and the catheter in place, advanced until the pleural space was entered. As the space was entered, the catheter was advanced over the trocar, and the trocar was removed. There was slight movement of the diaphragm on the ThoraVent, and then the ThoraVent was connected to Pleur-Evac. Follow-up chest x- ray showed adequate placement of the ThoraVent, but no significant expansion of the right lung. The ThoraVent was secured and kept in place. However, considering that the lung did not expand much, Dr. Galindo went ahead and placed a 28 [place] tube in the right pleural space. Please refer to his operative report. MMODL / IJN: [id number] /
[2020-12-10 06:36] LABS: Glucose,Whole Blood 104 mg/dL (75-99)
--- NOTE | 2020-12-10 07:22 | XR ---
EXAMINATION TYPE: XR chest 1V portable DATE OF EXAM: 12/10/2020 COMPARISON: 12/09/2020 HISTORY: SOB, Follow Up FINDINGS: Right-sided chest tube is again noted. Approximately 10% right-sided pneumothorax suspected. Subcutan eous emphysema noted. Patchy perihilar and basilar infiltrates. Stable appearance of the cardio-media stinal structures at this time. IMPRESSION: 1. Stable portable chest. Clinical correlation and follow up until resolution is recommended.
[2020-12-10] MEDS: INSULIN ASPART (NovoLOG) 100 UNIT/ML VIAL SQ SCH ×4 (07:29→20:41)
[2020-12-10] MEDS: ENOXAPARIN 40 MG/0.4 ML SYRINGE SQ SCH (08:59)
[2020-12-10] MEDS: CHLORTHALIDONE 25 MG TAB PO SCH (08:59)
[2020-12-10] MEDS: OXYBUTYNIN CHLORIDE 5 MG TAB PO SCH ×2 (09:00→20:41)
[2020-12-10] MEDS: PANTOPRAZOLE 40 MG TABLET PO SCH (09:00)
[2020-12-10] MEDS: VENLAFAXINE HCL 75 MG TAB PO SCH (09:00)
[2020-12-10] MEDS: ASPIRIN 81 MG PO SCH (09:00)
[2020-12-10] MEDS: CHOLECALCIFEROL 25 MCG (1000 IU) TABLET PO SCH (09:00)
[2020-12-10] MEDS: ASCORBIC ACID 500 MG TAB PO SCH (09:01)
[2020-12-10] MEDS: DEXAMETHASONE SOD PHOSPHATE 10 MG/ML 1 ML VIAL IV SCH (09:01)
[2020-12-10] MEDS: LEVOTHYROXINE 75 MCG TAB PO SCH (09:01)
[2020-12-10] MEDS: ZINC SULFATE 220 MG CAP PO SCH (09:01)
[2020-12-10 09:43] LABS: ALT 37 U/L (4-34); AST 42 U/L (14-36); African American GFR (CKD) >90 (>60 ml/min/1.73 sqM); Albumin 3.3 g/dL (3.5-5.0); Alkaline Phosphatase 55 U/L (38-126); Anion Gap 5 mmol/L; Anisocytosis Slight; Basophils % (A) 0 %; Blood Urea Nitrogen 22 mg/dL (7-17); Calcium 8.2 mg/dL (8.4-10.2); Carbon Dioxide 32 mmol/L (22-30); Chloride 99 mmol/L (98-107); Eosinophils # (A) 0.3 k/uL (0-0.7); Eosinophils % (A) 4 %; Glucose 216 mg/dL (74-99); HCT 33.2 % (34.0-46.0); HGB 11.1 gm/dL (11.4-16.0); Lymphocytes # (A) 1.6 k/uL (1.0-4.8); Lymphocytes % (A) 25 %; MCHC 33.4 g/dL (31.0-37.0); Mean Platelet Volume 7.3; Microcytosis Slight; Monocytes # (A) 0.5 k/uL (0-1.0); Monocytes % (A) 8 %; Neutrophils % (A) 61 %; Non-African American GFR(CKD) >90 (>60 ml/min/1.73 sqM); Platelet Count 495 k/uL (150-450); Potassium 3.4 mmol/L (3.5-5.1); RBC 4.26 m/uL (3.80-5.40); RDW 16.1 % (11.5-15.5); Sodium 136 mmol/L (137-145); Total Bilirubin 0.5 mg/dL (0.2-1.3); Total Protein 5.8 g/dL (6.3-8.2); WBC 6.6 k/uL (3.8-10.6)
[2020-12-10] MEDS: ACETAMINOPHEN TAB 325 MG TAB PO PRN (10:05)
[2020-12-10] MEDS: LOSARTAN 50 MG TAB PO SCH (10:06)
[2020-12-10 10:11] LABS: Partial Thromboplastin Time 21.6 sec (22.0-30.0)
[2020-12-10 11:26] LABS: Glucose,Whole Blood 206 mg/dL (75-99)
--- NOTE | 2020-12-10 12:11 | P.PN ---
Subjective Progress Note Date: 12/10/20 Principal diagnosis: CoVID 19 pneumonia Patient was reevaluated today on 12/04/2020, patient remains on the regular medical floor, she developed diarrhea today, and I have recommended stopping colchicine. Patient remains on 4 L nasal cannula, and O2 saturations 90%, she was on CPAP which she normally uses at night and she was placed back on cannula this morning. Still feels generally weak, had diarrhea this morning, occasional cough, some shortness of breath upon activity. CBC is relatively normal except for hemoglobin of 9.9. Basic metabolic profile is normal. LDH is 502, CT of the chest showed obviously evidence of atypical pneumonia and there was no evidence of pulmonary embolism on admission. Reevaluated today on 12/05/2020, patient is about the same, maybe she feels a bit worse. Continues to have cough, shortness of breath, fever, generalized weakness and fatigue. She is now on 5 L nasal cannula, and her O2 saturation is in the high 80s and low 90s. Last LDH was 521, and this was today. C-reactive protein is 11 clinically however the patient is not doing great Progress note dated 12/06/2020. This is a 60-year-old female that was admitted with a diagnosis of acute hypoxemic respiratory failure secondary to COVID 19 pneumonia. She also has a history of thyroid cancer, diabetes mellitus, bladder cancer, GERD, and sleep apnea syndrome. When she was admitted, she had 9 days of symptoms of shortness of breath, fever, chills, poor appetite, nausea, vomiting, diarrhea, nonproductive cough. CT angiogram the chest did not reveal pulmonary embolism. Currently, she is on 5 L nasal cannula. She's not receiving any IV fluids. She has not been out of bed. I told her she needed to get up and sit in a chair, and while in bed, focus on right side down, left side down, supine positioning, and prone positioning, to improve her oxygenation. She does not seem to be particularly motivated. Labs today show a white count of 7.99, hemoglobin 9.6, hematocrit 31.0, platelet count 302,000. Sodium, potassium, chloride, CO2, anion gap, BUN, and creatinine were all normal. LDH was 498. D-dimer was 1.26. The patient is seen today 12/07/2020 follow-up in the intensive care unit. She was transferred here yesterday afternoon after developing increasing shortness of breath, worsening chest x-ray and higher oxygen requirements. She was given tocilizumab and convalescent plasma have been ordered. She is seen today in follow-up in the intensive care unit. She is currently sitting up in bed. Awake and alert. In mild respiratory distress. She was on 15 L high flow nasal cannula along with the 100% nonrebreather mask. She utilized BiPAP throughout the evening. She has 0.9 NS KVO . Her main complaint today is that of nausea. Chest x-ray today shows a moderate to large right-sided pneumothorax with partial collapse of the lung. There is persistent diffuse dense opacities throughout the visualized bilaterally. Right-sided thora vent was placed by Dr. Pereira. This required repositioning and follow-up chest x-ray showed improvement in the pneumothorax. Current saturations in the mid 90s. White count 8.8. Hemoglobin 10.4. D-dimer 1.81. Sodium 1:30. Potassium 4.4. Creatinine 0.66. LDH tolerated. C-reactive protein 31.8. She is continued on dexamethasone, Lovenox, vitamin supplements. Progress note dated 12/08/2020. This is a 60-year-old female that was admitted with a diagnosis of acute hypoxemic respiratory failure secondary to COVID 19 pneumonia. She also has a history of thyroid cancer, diabetes mellitus, bladder cancer, GERD, and sleep apnea syndrome. When she was admitted, she had 9 days of symptoms of shortness of breath, fever, chills, poor appetite, nausea, vomiting, diarrhea, nonproductive cough. CT angiogram the chest did not reveal pulmonary embolism. The patient was initially admitted on December 02. She came to the ICU on December 06. She developed a right-sided pneumothorax, and a Thora-vent was placed. Initially, it was not functional, but is currently working. Her pneumothorax on the right side is improved. She still has some apical pneumothorax present. Currently, she is on a combination of both 15 L high flow nasal cannula, and a nonrebreather mask. The patient's getting saline at 10 mL an hour. She did receive both TOCI and CP. White count 7.2, hemoglobin 10.4, hematocrit 29.2, platelet count 386,000. D-dimer is 1.76. Sodium 136, potassium 3.7, chlorides 97, CO2 32, anion gap 7, BUN 13, creatinine 0.53. LDH is 1187, and C-reactive protein is 19. Chest x-ray was reviewed and again showed the right-sided pneumothorax. In addition, the patient has bilateral airspace disease. Progress note dated 12/09/2020. 60-year-old female again seen today in the ICU. She is in room 255. Today, she right-sided chest tube was inserted. A repeat thoracentesis insertion, failed to expand the right lung. The patient was admitted with a diagnosis of acute hypoxemic respiratory failure secondary to coronavirus infection, and pneumonia. She also has a history of thyroid cancer, diabetes mellitus, bladder cancer, GERD, and sleep apnea syndrome. The patient's currently on 15 L high flow nasal cannula. She's getting saline at 10 mL an hour. The chest tube insertion s eemed to better expand the right lung, although there was still an apical pneumothorax. We did ask cardiothoracic surgery to advance the tube for us. White count 7, hemoglobin 9.1, hematocrit 34, platelet count 425,000. D-dimer is 1.26. Sodium 136, potassium 4, chlorides 99, CO2 31, anion gap 6, BUN 20, and creatinine 0.51. Multiple chest x-rays are reviewed. The patient is seen today 12/10/2020 and follow-up in the intensive care unit. She is currently sitting up in bed. Awake and alert. She remains on 10 L high flow nasal cannula to maintain O2 saturation in the low 90s. She is 0.9 normal saline at 10 MLS per hour. Right-sided chest tube remains in place. No air leak present. Chest x-ray reveals 10% right-sided pneumothorax suspected. Otherwise stable. White count 6.6. Hemoglobin 11.1. Platelets 495. D-dimer 0.87. Sodium 136. Potassium 3.4. Creatinine 0.70. AST 42. ALT 37. She remains on dexamethasone, Lovenox, vitamin supplements. Objective - Vital Signs Vital signs: Vital Signs Temp 98.6 F 12/10/20 08:00 Pulse 59 L 12/10/20 10:00 Resp 16 12/10/20 10:00 BP 113/69 12/10/20 10:00 Pulse Ox 96 12/10/20 10:00 Intake & Output 12/09/20 12/10/20 12/10/20 18:59 06:59 18:59 Intake Total 680 110 280 Output Total 805 670 165 Balance -125 -560 115 Weight 108.7 kg Intake: IV 120 110 40 0.9 Normal Saline @ 10mL/ 120 110 40 hr Oral 560 240 Output: Chest Tube Drainage 205 Chest Tube Right Mid- 205 Axillary Chest Urine 805 465 165 Other: Voiding Method Indwelling Catheter Indwelling Catheter Indwelling Catheter - Exam GENERAL EXAM: Alert, very pleasant 60-year-old female patient currently on 10 L high flow nasal cannula, in mild respiratory distress. HEAD: Normocephalic. EYES: Normal reaction of pupils, equal size. NOSE: Clear with pink turbinates. THROAT: No erythema or exudates. NECK: No masses, no JVD. CHEST: No chest wall deformity. LUNGS: Equal air entry with bibasilar crackles, diminished in the right lung. CVS: S1 and S2 normal with no audible murmur, regular rhythm. ABDOMEN: No hepatosplenomegaly, normal bowel sounds, no guarding or rigidity. SPINE: No scoliosis or deformity SKIN: No rashes CENTRAL NERVOUS SYSTEM: No focal deficits, tone is normal in all 4 extremities. EXTREMITIES: There is no peripheral edema. No clubbing, no cyanosis. Peripheral pulses are intact. - Labs CBC & Chem 7: 12/10/20 09:08 12/10/20 09:08 Labs: Abnormal Lab Results - Last 24 Hours (Table) 12/09/20 12/09/20 12/10/20 Range/Units 16:55 21:02 06:35 Hgb (11.4-16.0) gm/dL Hct (34.0-46.0) % MCV (80.0-100.0) fL RDW (11.5-15.5) % Plt Count (150-450) k/uL APTT (22.0-30.0) sec D-Dimer (<0.60) mg/L FEU Sodium (137-145) mmol/L Potassium (3.5-5.1) mmol/L Carbon Dioxide (22-30) mmol/L BUN (7-17) mg/dL Glucose (74-99) mg/dL POC Glucose (mg/dL) 178 H 135 H 104 H (75-99) mg/dL Calcium (8.4-10.2) mg/dL AST (14-36) U/L ALT (4-34) U/L Total Protein (6.3-8.2) g/dL Albumin (3.5-5.0) g/dL 12/10/20 12/10/20 12/10/20 Range/Units 09:08 09:08 09:08 Hgb 11.1 L (11.4-16.0) gm/dL Hct 33.2 L (34.0-46.0) % MCV 78.0 L (80.0-100.0) fL RDW 16.1 H (11.5-15.5) % Plt Count 495 H (150-450) k/uL APTT 21.6 L (22.0-30.0) sec D-Dimer 0.87 H (<0.60) mg/L FEU Sodium 136 L (137-145) mmol/L Potassium 3.4 L (3.5-5.1) mmol/L Carbon Dioxide 32 H (22-30) mmol/L BUN 22 H (7-17) mg/dL Glucose 216 H (74-99) mg/dL POC Glucose (mg/dL) (75-99) mg/dL Calcium 8.2 L (8.4-10.2) mg/dL AST 42 H (14-36) U/L ALT 37 H (4-34) U/L Total Protein 5.8 L (6.3-8.2) g/dL Albumin 3.3 L (3.5-5.0) g/dL 12/10/20 Range/Units 11:25 Hgb (11.4-16.0) gm/dL Hct (34.0-46.0) % MCV (80.0-100.0) fL RDW (11.5-15.5) % Plt Count (150-450) k/uL APTT (22.0-30.0) sec D-Dimer (<0.60) mg/L FEU Sodium (137-145) mmol/L Potassium (3.5-5.1) mmol/L Carbon Dioxide (22-30) mmol/L BUN (7-17) mg/dL Glucose (74-99) mg/dL POC Glucose (mg/dL) 206 H (75-99) mg/dL Calcium (8.4-10.2) mg/dL AST (14-36) U/L ALT (4-34) U/L Total Protein (6.3-8.2) g/dL Albumin (3.5-5.0) g/dL Assessment and Plan Assessment: 1 Acute hypoxemic respiratory failure secondary to CoVID 19 pneumonia. Received Tocilizumab on 12/06/2020, convalescent plasma x 1 2 Acute right-sided spontaneous pneumothorax secondary to above, status post Thora-Vent placement on 12/07/2020, subsequent chest tube placed 12/09/2020 3 Diabetes mellitus 4 History of breast, thyroid, bladder cancer 5 History of gastroesophageal reflux disease 6 History of obstructive sleep apnea Plan: The patient was seen and evaluated by Dr. Galindo Chest x-ray and labs reviewed 10% pneumothorax in the right apex, chest tube remains in place Tocilizumab given on 12/06/2020 1 unit of convalescent plasma given Continued on dexamethasone, Lovenox, vitamin supplements Titrate down the FiO2 as tolerated Follow-up chest x-ray and labs in the a.m. Transfer to the regular medical floor today. I, the cosigning physician, performed a history & physical examination of the patient. Lungs sounds with crackles in the bilateral posterior bases, diminished in the right. Maintaining good O2 saturations in the 90s on 10 L high flownasal canula. I discussed the assessment and plan of care with my nurse practitioner, Cindy Delgadillo. I attest to the above note as dictated by her.
--- NOTE | 2020-12-10 15:38 | P.PN ---
Progress Note - Text Progress Note Date: 12/10/20 Presenting complaint: shortness of breath History of presenting complaint 60-year-old female with a history of diabetes mellitus type 2 controlled without insulin, GERD, stage I breast cancer with history of thyroid cancer and bladder cancer in remission who presented to the emergency department secondary to fever, fatigue, and vomiting. had been diagnosed with Covid 19 one week ago at urgent care, and had started symptoms 8 days prior to presentation. In the ER she underwent an extensive evaluation. CTA chest was negative for PE but was consistent with atypical pneumonia. Pulse ox-88% on room air.fever of 103 and pulse 115. LDH 704, CRP 204.9, pro calcitonin 0.17. She was admitted and started on Decadron. She is not a candidate for Remdesivir due to symptoms starting greater than 7 days prior to admission. Pulmonary started her on Colchicine she was unable to tolerate due to diarrhea. Fevers improved after 12/04. O2 went from 4 to 5L 12/05. On 12/06/20 her oxygen requirements went up acutely. She was requiring 15L NC. She was started on Tocilizumab. CXR showed worsening infiltrates and she was transferred to he ICU for closer monitoring. morning CXR on 12/07 revealed a pneumothorax and a thoravent was placed. December 09: Pneumothorax found to be worsening Thora-vent replace. No improvement. Right chest wall tube placed. Today: Sitting up in a chair. Right chest tube in place. Oral intake better. On 9 L nasal cannula Review of systems: Was done for constitutional, cardiovascular, GI, pulmonary. relevant finding as above Active Medications Acetaminophen (Acetaminophen Tab 325 Mg Tab) 650 mg PO Q4HR PRN PRN Reason: Fever and/ or Pain Last Admin: 12/10/20 10:05 Dose: 650 mg Documented by: Albuterol Sulfate (Albuterol Hfa Inhaler) 2 puff INHALATION RT-QID PRN PRN Reason: Shortness Of Breath Or Wheezing Last Admin: 12/09/20 15:49 Dose: 2 puff Documented by: Alprazolam (Alprazolam 0.5 Mg Tab) 0.5 mg PO HS PRN PRN Reason: Anxiety Last Admin: 12/08/20 21:59 Dose: 0.5 mg Documented by: Ascorbic Acid (Ascorbic Acid 500 Mg Tab) 1,000 mg PO DAILY [facility] Last Admin: 12/10/20 09:01 Dose: 1,000 mg Documented by: Aspirin (Aspirin 81 Mg) 81 mg PO DAILY [facility] Last Admin: 12/10/20 09:00 Dose: 81 mg Documented by: Chlorthalidone (Chlorthalidone 25 Mg Tab) 25 mg PO DAILY [facility] Last Admin: 12/10/20 08:59 Dose: 25 mg Documented by: Cholecalciferol (Cholecalciferol 25 Mcg (1000 Iu) Tablet) 75 mcg PO DAILY [facility] Last Admin: 12/10/20 09:00 Dose: 75 mcg Documented by: Dexamethasone Sodium Phosphate (Dexamethasone Sod Phosphate 10 Mg/Ml 1 Ml Vial) 6 mg IV DAILY [facility] Last Admin: 12/10/20 09:01 Dose: 6 mg Documented by: Enoxaparin Sodium (Enoxaparin 40 Mg/0.4 Ml Syringe) 40 mg SQ DAILY [facility] Last Admin: 12/10/20 08:59 Dose: 40 mg Documented by: Insulin Aspart (Insulin Aspart (Novolog) 100 Unit/Ml Vial) 0 unit SQ [facility]; Protocol Last Admin: 12/10/20 12:25 Dose: 4 unit Documented by: Levothyroxine Sodium (Levothyroxine 75 Mcg Tab) 150 mcg PO DAILY@0630 [facility] Last Admin: 12/10/20 09:01 Dose: 150 mcg Documented by: Losartan Potassium (Losartan 50 Mg Tab) 50 mg PO DAILY [facility] Last Admin: 12/10/20 10:06 Dose: Not Given Documented by: Melatonin (Melatonin 5 Mg Tablet) 5 mg PO HS [facility] Last Admin: 12/09/20 20:59 Dose: 5 mg Documented by: Naloxone HCl (Naloxone 0.4 Mg/Ml 1 Ml Vial) 0.2 mg IV Q2M PRN PRN Reason: Opioid Reversal Ondansetron HCl (Ondansetron 4 Mg/2 Ml Vial) 4 mg IVP Q6HR PRN PRN Reason: Nausea And Vomiting Last Admin: 12/07/20 08:01 Dose: 4 mg Documented by: Oxybutynin Chloride (Oxybutynin Chloride 5 Mg Tab) 5 mg PO BID [facility] Last Admin: 12/10/20 09:00 Dose: 5 mg Documented by: Pantoprazole Sodium (Pantoprazole 40 Mg Tablet) 40 mg PO DAILY@0730 [facility] Last Admin: 12/10/20 09:00 Dose: 40 mg Documented by: Sodium Chloride (Sodium Chloride 0.9% Flush 10 Ml Syringe) 10 ml IV BID [facility] Venlafaxine HCl (Venlafaxine Hcl 75 Mg Tab) 75 mg PO DAILY [facility] Last Admin: 12/10/20 09:00 Dose: 75 mg Documented by: Zinc Sulfate (Zinc Sulfate 220 Mg Cap) 220 mg PO DAILY [facility] Last Admin: 12/10/20 09:01 Dose: 220 mg Documented by: On examination: VITAL SIGNS: 98.5, 84, 22, 111/72, 96% on 9 L GENERAL APPEARANCE: Sitting up in a chair, awake. Nasal cannula. NEUROLOGICAL: Cranial nerves grossly intact. Moving all 4 limbs PSYCHIATRY: Alert and oriented x3. Mood and affect normal. PULMONARY: Respiratory effort increased. Rest of exam as per pulmonary and nursing Investigations: December 10: WBC 6.6 hemoglobin 11.1 platelets 495 potassium 3.4 creatinine 0.70 d- dimer 0.87.Chest x-ray film personally reviewed by me-small pneumothorax right apex. Bilateral infiltrates December 09: White count 7 hemoglobin 11.1 platelets 425 d-dimer 1.26 potassium 4 creatinine 0.51 CRP 13.3 December 08: WBC 7.2 hemoglobin 10.4 platelets 386 sodium 136 potassium 3.7 creatinine 0.53 d-dimer 1.76 CRP 19 Chest x-ray film personally reviewed by me-[December 08] bilateral infiltrates with right-sided apical pneumothorax 2-D echocardiogram: EF 55-60% Computed tomography scan chest and you for PE: Patchy peripheral infiltrates. Fatty infiltration of the liver. No PE Assessment and plan: Covid 19 pneumonitis, acute hypoxic respiratory slow to respond -IV Decadron, subcu Lovenox, vitamin C, vitamin D, zinc [Colchicine stopped due to diarrhea, out of the window for REM.] - Toci on 12/06 and Convalescent plasma 12/07 Acute hypoxic respiratory failure due to COVID 19 pneumonia, slow to respond -Currently on 9 L of nasal cannula Right pneumonthorax, secondary to COVID 19 - thoravent in place, replaced. No improvement. Removed. Right chest wall to placed on December 09. Currently about 10% Diabetes mellitus type 2 -Hold trulicity and metformin. Follow Accu-Cheks Hypothyroidism -Continue with Synthroid Microcytic anemia, cause unknown - outpatient follow-up as ferritin likely falsely elevated due to COVID-19 Breast cancer stage I -Has outpatient appointment on 12/17 for surgical procedure. Hyponatremia secondary to dehydration, improved Depression: -Continue with Effexor GERD: -Continue with Protonix Insomnia: -Continue melatonin Essential hypertension: -Increased dose of Cozaar. VERNA MIR Care was discussed with the patient. Dr. Henry is moving the patient out of the ICU to the medical floor.
[2020-12-10 17:38] LABS: Glucose,Whole Blood 132 mg/dL (75-99)
[2020-12-10 20:22] LABS: Glucose,Whole Blood 203 mg/dL (75-99)
[2020-12-10] MEDS: MELATONIN 5 MG TABLET PO SCH (20:41)
[2020-12-11] MEDS: LEVOTHYROXINE 75 MCG TAB PO SCH (05:44)
[2020-12-11 07:47] LABS: Glucose,Whole Blood 112 mg/dL (75-99)
[2020-12-11] MEDS: CHOLECALCIFEROL 25 MCG (1000 IU) TABLET PO SCH (07:58)
[2020-12-11] MEDS: PANTOPRAZOLE 40 MG TABLET PO SCH (07:59)
[2020-12-11] MEDS: CHLORTHALIDONE 25 MG TAB PO SCH (07:59)
[2020-12-11] MEDS: DEXAMETHASONE SOD PHOSPHATE 10 MG/ML 1 ML VIAL IV SCH (07:59)
[2020-12-11] MEDS: ASCORBIC ACID 500 MG TAB PO SCH (07:59)
[2020-12-11] MEDS: OXYBUTYNIN CHLORIDE 5 MG TAB PO SCH ×2 (07:59→20:15)
[2020-12-11] MEDS: VENLAFAXINE HCL 75 MG TAB PO SCH (07:59)
[2020-12-11] MEDS: ASPIRIN 81 MG PO SCH (07:59)
[2020-12-11] MEDS: ZINC SULFATE 220 MG CAP PO SCH (08:00)
[2020-12-11] MEDS: LOSARTAN 50 MG TAB PO SCH ×2 (08:00→08:01)
[2020-12-11] MEDS: ENOXAPARIN 40 MG/0.4 ML SYRINGE SQ SCH (08:00)
[2020-12-11] MEDS: ALBUTEROL HFA INHALER INHALATION PRN ×4 (08:49→20:11)
--- NOTE | 2020-12-11 09:16 | XR ---
EXAMINATION TYPE: XR chest 1V portable DATE OF EXAM: 12/11/2020 HISTORY: Pneumothorax follow-up COMPARISON: 12/10/2020 TECHNIQUE: Single view of the chest is submitted. FINDINGS: Demonstrated are scattered senescent parenchymal change. Right-sided chest tube unchanged in position. Diminution in size of right apical pneumothorax estimat ed at less than 8%. Improving subcutaneous emphysema. Improving patchy infiltrates. The heart is stable. Hilar and mediastinal structures are within normal limits. Degenerative changes are seen of the dorsal spine. IMPRESSION: 1. Right-sided chest tube unchanged in position. Diminution in size of right apical pneumothorax est imated at less than 8%. Improving subcutaneous emphysema. Improving patchy infiltrates.
[2020-12-11] MEDS: INSULIN ASPART (NovoLOG) 100 UNIT/ML VIAL SQ SCH ×4 (09:57→21:36)
--- NOTE | 2020-12-11 10:38 | P.PN ---
Subjective Progress Note Date: 12/11/20 Principal diagnosis: Acute hypoxic respiratory failure secondary to acute covid 19 pneumonitis. This is a 60-year-old female with history of thyroid cancer, diabetes, bladder cancer, GERD, obstructive sleep apnea syndrome, patient was admitted yesterday with 9 days symptoms of shortness of breath, fever, chills, poor appetite, nausea, and occasional vomiting, intermittent episodes of diarrhea, and nonproductive cough. Patient tested positive about a week ago at the [facility] for olguin virus with positive PCR. Patient was advised to take Tylenol ibuprofen at home, and there was minimal relief. Patient continues to worsen, more symptoms of cough, or symptoms of shortness of breath, seen in the ER yesterday, and chest x-ray showed bilateral pneumonia consistent with acute covid [address] angiogram of the chest showed no evidence of pulmonary embolism. Patient was admitted, and this consult was initiated. Patient was reevaluated today on 12/04/2020, patient remains on the regular medical floor, she developed diarrhea today, and I have recommended stopping colchicine. Patient remains on 4 L nasal cannula, and O2 saturations 90%, she was on CPAP which she normally uses at night and she was placed back on cannula this morning. Still feels generally weak, had diarrhea this morning, occasional cough, some shortness of breath upon activity. CBC is relatively normal except for hemoglobin of 9.9. Basic metabolic profile is normal. LDH is 502, CT of the chest showed obviously evidence of atypical pneumonia and there was no evidence of pulmonary embolism on admission. Reevaluated today on 12/05/2020, patient is about the same, maybe she feels a bit worse. Continues to have cough, shortness of breath, fever, generalized weakness and fatigue. She is now on 5 L nasal cannula, and her O2 saturation is in the high 80s and low 90s. Last LDH was 521, and this was today. C-reactive protein is 11 clinically however the patient is not doing great Reevaluated today on 12/11/2020, patient is now on the regular medical floor, continues to be on 8 L high flow nasal cannula, and we cut it down to 4 L today. O2 saturation is 98%. Chest x-ray continues to show small tiny right-sided apical pneumothorax. Her infiltrates seem to be improving. Medically the patient is doing better, continues to have a right-sided chest tube in place, minimal air leak noted today. Hence the tube is not quite ready to be removed yet. We will likely clamp it tomorrow, and if no change in the pneumothorax he it could be discontinued within the next 48 hours. Clinically the patient is feeling better. No labs were done today. Objective - Vital Signs Vital signs: Vital Signs Temp 98.2 F 12/11/20 07:35 Pulse 75 12/11/20 07:35 Resp 20 12/11/20 08:00 BP 106/68 12/11/20 07:35 Pulse Ox 98 12/11/20 07:35 Intake & Output 12/10/20 12/11/20 12/11/20 18:59 06:59 18:59 Intake Total 520 240 Output Total 365 800 Balance 155 -800 240 Weight 102.2 kg Intake: IV 40 0.9 Normal Saline @ 10mL/ 40 hr Oral 480 240 Output: Urine 365 800 Other: Voiding Method Indwelling Catheter Indwelling Catheter - Exam Physical Exam: Revealed a 60-year-old female in no distress, on 4 L nasal cannula. Head: Atraumatic, normocephalic. HEENT:[Neck is supple.] [No neck masses.] [No thyromegaly.] [No JVD.] Chest: [] Called chest expansion crackles and rhonchi at the bases. No whee zing. Right-sided chest tube is noted with very tiny minimal intermittent air leak. Cardiac Exam: [Normal S1 and S2, no S3 gallop, no murmur.] Abdomen: [Soft, nontender, no megaly, no rebound, no guarding, normal bowel sounds.] Extremities: [No clubbing, no edema, no cyanosis.] Neurological Exam: [No focal neurologic deficit.] Alert and oriented 3, no gross focal deficits. Psychiatric: Normal mood affect and normal mental status examination. Skin: No rashes. Musculoskeletal: No deformities and no limitation in range of motion - Labs CBC & Chem 7: 12/10/20 09:08 12/10/20 09:08 Labs: Abnormal Lab Results - Last 24 Hours (Table) 12/10/20 12/10/20 12/10/20 Range/Units 11:25 17:36 20:20 POC Glucose (mg/dL) 206 H 132 H 203 H (75-99) mg/dL 12/11/20 Range/Units 07:38 POC Glucose (mg/dL) 112 H (75-99) mg/dL Assessment and Plan Assessment: Impression: Acute hypoxic respiratory failure secondary to acute covid 19 pneumonitis. Hypovolemic hyponatremia Type 2 diabetes Elevated d-dimer History of of multiple cancers including breast thyroid and bladder. Acute right sided spontaneous pneumothorax. Requiring thoravent placement 2, and later required a right sided chest tube. Recommendation: Continue present Covid 19 cocktail. Continue Decadron. Continue Lovenox. Continue ascorbic acid. Continue Cozaar. Continue aspirin. Patient was out of the window for REM. Patient did not receive convalescent plasma Continue to titrate oxygen down accordingly and maintaining O2 saturation above 90%. Repeat chest x-ray in a.m. and follow-up on pneumothorax. Requested thoracic surgery consult to follow-up on the pneumothorax. But no consult noted on the chart We'll continue to follow. Time with Patient: Less than 30
[2020-12-11 12:04] LABS: Glucose,Whole Blood 174 mg/dL (75-99)
--- NOTE | 2020-12-11 14:21 | P.GSCN ---
History of Present Illness Consult date: 12/11/20 Reason for Consult: Right-sided pneumothorax Requesting physician: Devorah Pereira History of present illness: This is a 60-year-old overweight female patient of Dr. Singh Otto. She has a previous medical history of hypertension, type 2 diabetes, hypothyroidism, anemia, multiple cancers, and depression. She presented to [facility] emergency room 12/02/2020 with signs and symptoms consistent with Covid includ ing shortness of breath, cough, fevers, chest tightness, nausea, and inability to take a deep breath. Upon arrival she was found to be hypoxic at 88% oxygen saturation on room air, febrile and tachycardic. Her Covid PCR was positive, she was admitted for close monitoring and treatment unit with consultation placed to Dr. Pereira for pulmonology. She was placed on the medical surgical floor, however on 12/06/2020 she developed increasing shortness of breath, worsening chest x-ray, and higher oxygen requirements. She was then transferred to the intensive care unit. The next morning her chest x-ray revealed moderate to large right-sided pneumothorax and a thoravent was placed by Dr. Pereira. Right lung had started to re-expand, however on December 09 she was noted to have an increasing right-sided pneumothorax again, thoravent was replaced without good re-expansion, subsequently a right-sided pleural thoracostomy tube was placed by Dr. Galindo. She began to improve, her oxygen was titrated down to 4 L nasal cannula yesterday, and she was transferred out of the ICU back to the medical surgical floor. This morning tiny right-sided pneumothorax remains, there was no air leak noted in the chest tube. Consultation was placed to cardiothoracic surgery for recommendations and chest tube management. Review of Systems Review of systems was completed and was negative except as noted - Constitutional Reports as per HPI, Reports chills, Reports fatigue, Reports fever - Cardiovascular Reports as per HPI, Reports chest pain - Respiratory Reports as per HPI, Reports cough, Reports dyspnea Past Medical History Past Medical History: Cancer, Diabetes Mellitus, GERD/Reflux, Sleep Apnea/CPAP/BIPAP, Thyroid Disorder Additional Past Medical History / Comment(s): THYROID CANCER 10/30/14; breast cancer; type 2 Diabetes History of Any Multi-Drug Resistant Organisms: None Reported Past Surgical History: Cholecystectomy, Hysterectomy, Orthopedic Surgery, Tonsillectomy Additional Past Surgical History / Comment(s): thyroidectomy, left knees replacment. Past Anesthesia/Blood Transfusion Reactions: No Reported Reaction Past Psychological History: Depression Smoking Status: Never smoker Past Alcohol Use History: None Reported Past Drug Use History: None Reported - Past Family History Mother Family Medical History: Cancer Additional Family Medical History / Comment(s): uterine CA and esoghagus Father Family Medical History: Cancer Medications and Allergies Home Medications Medication Instructions Recorded Confirmed Type Venlafaxine HCl [Effexor] 75 mg PO DAILY 10/17/14 12/02/20 History ALPRAZolam [Xanax] 0.5 mg PO HS PRN 08/18/16 12/02/20 History Levothyroxine Sodium [Levo-T] 150 mcg PO DAILY 08/18/16 12/02/20 History Dulaglutide [Trulicity] 1.5 mg SQ WE 06/05/20 12/02/20 History Oxybutynin Chloride 5 mg PO BID 06/05/20 12/02/20 History Losartan Potassium [Cozaar] 25 mg PO DAILY 06/06/20 12/02/20 History Ergocalciferol (Vitamin D2) 1,250 mcg PO LEÓN 12/02/20 12/02/20 History [Vitamin D2 (50,000 Iu)] Omeprazole [PriLOSEC] 40 mg PO DAILY 12/02/20 12/02/20 History Propranolol HCl [Propranolol HCl 60 mg PO DAILY 12/02/20 12/02/20 History ER] metFORMIN HCL ER [Glucophage Xr] 1,000 mg PO BID 12/02/20 12/02/20 History Allergies Allergy/AdvReac Type Severity Reaction Status Date / Time Penicillins Allergy Itching Verified 12/02/20 09:26 Surgical - Exam Vital Signs Temp Pulse Resp BP Pulse Ox 103 F H 115 H 18 125/72 88 L 12/02/20 07:04 12/02/20 07:04 12/02/20 07:04 12/02/20 07:04 12/02/20 07:04 CONSTITUTIONAL: Awake and alert, appears comfortable, cooperative, well- developed, well-nourished, no pain, no acute distress EYES: Pupils equal, round, reactive to light, normal ocular movement ENT: Moist mucous membranes without oral lesions present NECK: No masses, no bruits, trachea midline RESPIRATORY: Lungs sounds diminished to auscultation bilaterally. Respirations even, nonlabored. Currently on 4 L nasal cannula with oxygen saturation in the 90s %. Strong cough. No chest wall deformities. No clubbing or cyanosis present CARDIOVASCULAR: S1, S2 present. Regular rate and rhythm, sinus rhythm on telemetry. Palpable peripheral pulses bilaterally. No edema present. No calf pain or tenderness noted. GASTROINTESTINAL: Abdomen soft, nontender, nondistended without masses or organomegaly noted. There is no rebound or guarding present. Active bowel sounds present 4 quadrants. GENITOURINARY: Deferred INTEGUMENTARY: Skin is warm and dry with evidence of good perfusion. NEUROLOGIC: Cranial nerves II through XII intact, normal coordination, no obvious motor or sensory deficits, speech is normal MUSKULOSKELETAL: Able to move all extremities, strength equal bilaterally, norm al posture PSYCHIATRIC: Alert and oriented to person place and time, appropriate affect, intact judgment and insight Results - Labs 12/10/20 09:08 12/10/20 09:08 Abnormal Lab Results - Last 24 Hours (Table) 12/10/20 12/10/20 12/11/20 Range/Units 17:36 20:20 07:38 POC Glucose (mg/dL) 132 H 203 H 112 H (75-99) mg/dL 12/11/20 Range/Units 11:58 POC Glucose (mg/dL) 174 H (75-99) mg/dL - Imaging Chest x-ray: report reviewed, image reviewed CT scan - chest: report reviewed, image reviewed Assessment and Plan Assessment: 1. Covid 19 pneumonia 2. Acute hypoxic respiratory failure secondary to above 3. Right-sided spontaneous pneumothorax status post thoravent placement 2 with subsequent right pleural thoracostomy tube placement 4. Shortness of breath 5. History of hypertension 6. Type 2 diabetes 7. Hypothyroidism 8. Anemia 9. History of multiple cancers 10. Depression Plan: The patient was seen and examined in the bedside. Chart/diagnostics were reviewed. Will discuss the case in detail with Dr. Kearns. Likely will recommend to continue chest tube to wall suction for another 24 hours, may placed to waterseal tomorrow, and eventually will clamp chest tube with subsequent removal when safe to do so. The patient is currently in no distress, oxygen has been titrated down, there is no air leak present in the right pleural chest tube, and the patient states that she is feeling better since admission. She was encouraged to continue using incentive spirometer and to get out of bed and ambulate around the room as tolerated. Will follow daily chest x-rays, and monitor for resolution of pneumothorax. Management of other medical comorbidities per primary care service. More recommendations to follow. Thank you Dr. Pereira for this consult Time with Patient: Greater than 30
[2020-12-11 17:26] LABS: Glucose,Whole Blood 140 mg/dL (75-99)
[2020-12-11] MEDS: MELATONIN 5 MG TABLET PO SCH (20:15)
[2020-12-11 20:51] LABS: Glucose,Whole Blood 176 mg/dL (75-99)
--- NOTE | 2020-12-11 23:05 | P.PN ---
Progress Note - Text Progress Note Date: 12/11/20 Presenting complaint: shortness of breath History of presenting complaint 60-year-old female with a history of diabetes mellitus type 2 controlled without insulin, GERD, stage I breast cancer with history of thyroid cancer and bladder cancer in remission who presented to the emergency department secondary to fever, fatigue, and vomiting. had been diagnosed with Covid 19 one week ago at urgent care, and had started symptoms 8 days prior to presentation. In the ER she underwent an extensive evaluation. CTA chest was negative for PE but was consistent with atypical pneumonia. Pulse ox-88% on room air.fever of 103 and pulse 115. LDH 704, CRP 204.9, pro calcitonin 0.17. She was admitted and started on Decadron. She is not a candidate for Remdesivir due to symptoms starting greater than 7 days prior to admission. Pulmonary started her on Colchicine she was unable to tolerate due to diarrhea. Fevers improved after 12/04. O2 went from 4 to 5L 12/05. On 12/06/20 her oxygen requirements went up acutely. She was requiring 15L NC. She was started on Tocilizumab. CXR showed worsening infiltrates and she was transferred to he ICU for closer monitoring. morning CXR on 12/07 revealed a pneumothorax and a thoravent was placed. December 09: Pneumothorax found to be worsening Thora-vent replace. No improvement. Right chest wall tube placed. Today: up in a chair. Right chest tube in place. Eating fair. On 8 L nasal cannula Review of systems: Was done for constitutional, cardiovascular, GI, pulmonary. relevant finding as above Active Medications Acetaminophen (Acetaminophen Tab 325 Mg Tab) 650 mg PO Q4HR PRN PRN Reason: Fever and/ or Pain Last Admin: 12/10/20 10:05 Dose: 650 mg Documented by: Albuterol Sulfate (Albuterol Hfa Inhaler) 2 puff INHALATION RT-QID PRN PRN Reason: Shortness Of Breath Or Wheezing Last Admin: 12/11/20 20:11 Dose: 2 puff Documented by: Alprazolam (Alprazolam 0.5 Mg Tab) 0.5 mg PO HS PRN PRN Reason: Anxiety Last Admin: 12/08/20 21:59 Dose: 0.5 mg Documented by: Ascorbic Acid (Ascorbic Acid 500 Mg Tab) 1,000 mg PO DAILY CHUY Last Admin: 12/11/20 07:59 Dose: 1,000 mg Documented by: Aspirin (Aspirin 81 Mg) 81 mg PO DAILY [facility] Last Admin: 12/11/20 07:59 Dose: 81 mg Documented by: Chlorthalidone (Chlorthalidone 25 Mg Tab) 25 mg PO DAILY [facility] Last Admin: 12/11/20 07:59 Dose: 25 mg Documented by: Cholecalciferol (Cholecalciferol 25 Mcg (1000 Iu) Tablet) 75 mcg PO DAILY [facility] Last Admin: 12/11/20 07:58 Dose: 75 mcg Documented by: Dexamethasone Sodium Phosphate (Dexamethasone Sod Phosphate 10 Mg/Ml 1 Ml Vial) 6 mg IV DAILY [facility] Last Admin: 12/11/20 07:59 Dose: 6 mg Documented by: Enoxaparin Sodium (Enoxaparin 40 Mg/0.4 Ml Syringe) 40 mg SQ DAILY [facility] Last Admin: 12/11/20 08:00 Dose: 40 mg Documented by: Insulin Aspart (Insulin Aspart (Novolog) 100 Unit/Ml Vial) 0 unit SQ [facility]; Protocol Last Admin: 12/11/20 21:36 Dose: 3 unit Documented by: Levothyroxine Sodium (Levothyroxine 75 Mcg Tab) 150 mcg PO DAILY@0630 [facility] Last Admin: 12/11/20 05:44 Dose: 150 mcg Documented by: Losartan Potassium (Losartan 50 Mg Tab) 50 mg PO DAILY [facility] Last Admin: 12/11/20 08:01 Dose: Not Given Documented by: Melatonin (Melatonin 5 Mg Tablet) 5 mg PO HS [facility] Last Admin: 12/11/20 20:15 Dose: 5 mg Documented by: Naloxone HCl (Naloxone 0.4 Mg/Ml 1 Ml Vial) 0.2 mg IV Q2M PRN PRN Reason: Opioid Reversal Ondansetron HCl (Ondansetron 4 Mg/2 Ml Vial) 4 mg IVP Q6HR PRN PRN Reason: Nausea And Vomiting Last Admin: 12/07/20 08:01 Dose: 4 mg Documented by: Oxybutynin Chloride (Oxybutynin Chloride 5 Mg Tab) 5 mg PO BID [facility] Last Admin: 12/11/20 20:15 Dose: 5 mg Documented by: Pantoprazole Sodium (Pantoprazole 40 Mg Tablet) 40 mg PO DAILY@0730 [facility] Last Admin: 12/11/20 07:59 Dose: 40 mg Documented by: Sodium Chloride (Sodium Chloride 0.9% Flush 10 Ml Syringe) 10 ml IV BID [facility] Last Admin: 12/11/20 20:15 Dose: 10 ml Documented by: Venlafaxine HCl (Venlafaxine Hcl 75 Mg Tab) 75 mg PO DAILY [facility] Last Admin: 12/11/20 07:59 Dose: 75 mg Documented by: Zinc Sulfate (Zinc Sulfate 220 Mg Cap) 220 mg PO DAILY [facility] Last Admin: 12/11/20 08:00 Dose: 220 mg Documented by: On examination: VITAL SIGNS: 98.2, 75, 18, 106/68, 98% on 8 L GENERAL APPEARANCE: Sitting up in a chair, awake. Nasal cannula. NEUROLOGICAL: Cranial nerves grossly intact. Moving all 4 limbs PSYCHIATRY: Alert and oriented x3. Mood and affect normal. PULMONARY: Respiratory effort increased. Rest of exam as per pulmonary and nursing Investigations: December 10: WBC 6.6 hemoglobin 11.1 platelets 495 potassium 3.4 creatinine 0.70 d- dimer 0.87.Chest x-ray film personally reviewed by me-small pneumothorax right apex. Bilateral infiltrates December 09: White count 7 hemoglobin 11.1 platelets 425 d-dimer 1.26 potassium 4 creatinine 0.51 CRP 13.3 December 08: WBC 7.2 hemoglobin 10.4 platelets 386 sodium 136 potassium 3.7 creatinine 0.53 d-dimer 1.76 CRP 19 Chest x-ray film personally reviewed by me-[December 08] bilateral infiltrates with right-sided apical pneumothorax 2-D echocardiogram: EF 55-60% Computed tomography scan chest and you for PE: Patchy peripheral infiltrates. Fatty infiltration of the liver. No PE Assessment and plan: Covid 19 pneumonitis, acute hypoxic respiratory slow to respond -IV Decadron, subcu Lovenox, vitamin C, vitamin D, zinc [Colchicine stopped due to diarrhea, out of the window for REM.] - Toci on 12/06 and Convalescent plasma 12/07 Acute hypoxic respiratory failure due to COVID 19 pneumonia, slow to respond -Currently on 8 L of nasal cannula Right pneumonthorax, secondary to COVID 19 - thoravent in place, replaced. No improvement. Removed. Right chest wall to placed on December 09. Currently about less than 8% Diabetes mellitus type 2 -Hold trulicity and metformin. Follow Accu-Cheks Hypothyroidism -Continue with Synthroid Microcytic anemia, cause unknown - outpatient follow-up as ferritin likely falsely elevated due to COVID-19 Breast cancer stage I -Has outpatient appointment on 12/17 for surgical procedure. Hyponatremia secondary to dehydration, improved Depression: -Continue with Effexor GERD: -Continue with Protonix Insomnia: -Continue melatonin Essential hypertension: -Increased dose of Cozaar. VERNA MIR. Blood pressure running on the lower side. Cutback to dose of Cozaar Care was discussed with the patient. Cutback doses of Cozaar. Titrate down FiO2.
[2020-12-12] MEDS: LEVOTHYROXINE 75 MCG TAB PO SCH (05:31)
[2020-12-12] MEDS: INSULIN ASPART (NovoLOG) 100 UNIT/ML VIAL SQ SCH ×4 (08:31→21:34)
[2020-12-12 08:52] LABS: Glucose,Whole Blood 129 mg/dL (75-99)
[2020-12-12] MEDS: ALBUTEROL HFA INHALER INHALATION PRN ×2 (09:04→16:05)
[2020-12-12] MEDS: ASPIRIN 81 MG PO SCH (09:33)
[2020-12-12] MEDS: ZINC SULFATE 220 MG CAP PO SCH (09:33)
[2020-12-12] MEDS: DEXAMETHASONE SOD PHOSPHATE 10 MG/ML 1 ML VIAL IV SCH (09:33)
[2020-12-12] MEDS: LOSARTAN 25 MG TAB PO SCH (09:33)
[2020-12-12] MEDS: ENOXAPARIN 40 MG/0.4 ML SYRINGE SQ SCH (09:33)
[2020-12-12] MEDS: CHOLECALCIFEROL 25 MCG (1000 IU) TABLET PO SCH (09:33)
[2020-12-12] MEDS: PANTOPRAZOLE 40 MG TABLET PO SCH (09:33)
[2020-12-12] MEDS: ASCORBIC ACID 500 MG TAB PO SCH (09:33)
[2020-12-12] MEDS: OXYBUTYNIN CHLORIDE 5 MG TAB PO SCH ×2 (09:34→23:19)
[2020-12-12] MEDS: CHLORTHALIDONE 25 MG TAB PO SCH (09:34)
[2020-12-12] MEDS: VENLAFAXINE HCL 75 MG TAB PO SCH (09:34)
--- NOTE | 2020-12-12 10:39 | XR ---
EXAMINATION TYPE: XR chest 1V portable DATE OF EXAM: 12/12/2020 Comparison: 12/11/2020 Clinical History: 60-year-old female right pneumothorax Findings: Heart normal size. Bilateral interstitial and patchy opacities especially in the mid and lower lungs relatively unchanged. Right-sided chest tube remains in place. The previous small right apical pneumo thorax is no longer seen. Some mild subcutaneous emphysema remains at the right axilla. Impression: Patchy mid and lower lung infiltrates are similar. Right-sided chest tube in place. Previous small ri ght apical pneumothorax appears to have resolved.
--- NOTE | 2020-12-12 12:09 | P.PN ---
Subjective Progress Note Date: 12/12/20 Principal diagnosis: Acute hypoxic respiratory failure secondary to acute covid 19 pneumonitis. This is a 60-year-old female with history of thyroid cancer, diabetes, bladder cancer, GERD, obstructive sleep apnea syndrome, patient was admitted yesterday with 9 days symptoms of shortness of breath, fever, chills, poor appetite, nausea, and occasional vomiting, intermittent episodes of diarrhea, and nonproductive cough. Patient tested positive about a week ago at the urgent [facility] for olguin virus with positive PCR. Patient was advised to take Tylenol ibuprofen at home, and there was minimal relief. Patient continues to worsen, more symptoms of cough, or symptoms of shortness of breath, seen in the ER yesterday, and chest x-ray showed bilateral pneumonia consistent with acute covid [address] angiogram of the chest showed no evidence of pulmonary embolism. Patient was admitted, and this consult was initiated. Patient was reevaluated today on 12/04/2020, patient remains on the regular medical floor, she developed diarrhea today, and I have recommended stopping colchicine. Patient remains on 4 L nasal cannula, and O2 saturations 90%, she was on CPAP which she normally uses at night and she was placed back on cannula this morning. Still feels generally weak, had diarrhea this morning, occasional cough, some shortness of breath upon activity. CBC is relatively normal except for hemoglobin of 9.9. Basic metabolic profile is normal. LDH is 502, CT of the chest showed obviously evidence of atypical pneumonia and there was no evidence of pulmonary embolism on admission. Reevaluated today on 12/05/2020, patient is about the same, maybe she feels a bit worse. Continues to have cough, shortness of breath, fever, generalized weakness and fatigue. She is now on 5 L nasal cannula, and her O2 saturation is in the high 80s and low 90s. Last LDH was 521, and this was today. C-reactive protein is 11 clinically however the patient is not doing great Reevaluated today on 12/11/2020, patient is now on the regular medical floor, continues to be on 8 L high flow nasal cannula, and we cut it down to 4 L today. O2 saturation is 98%. Chest x-ray continues to show small tiny right-sided apical pneumothorax. Her infiltrates seem to be improving. Medically the patient is doing better, continues to have a right-sided chest tube in place, minimal air leak noted today. Hence the tube is not quite ready to be removed yet. We will likely clamp it tomorrow, and if no change in the pneumothorax he it could be discontinued within the next 48 hours. Clinically the patient is feeling better. No labs were done today. Reevaluated today on 12/12/2020, patient is doing much better, breathing a lot easier, she is now only on 4 L nasal cannula with O2 saturation in the low 90s. Chest tube remains in place, no air leak noted, hence wall suction was discontinued. Patient is now off suction and hopefully we could have a repeat chest x-ray in a.m., possibly clamp tomorrow for few hours, and if no pneumothorax the chest tube will be removed. Objective - Vital Signs Vital signs: Vital Signs Temp 99.7 F H 12/12/20 07:00 Pulse 73 12/12/20 07:46 Resp 20 12/12/20 07:46 BP 110/82 12/12/20 07:00 Pulse Ox 96 12/12/20 02:02 Intake & Output 12/11/20 12/12/20 12/12/20 18:59 06:59 18:59 Intake Total 480 480 Output Total 350 475 475 Balance 130 -475 5 Weight 108 kg Intake: Oral 480 480 Output: Urine 350 475 475 Other: Voiding Method Indwelling Catheter Indwelling Catheter # Voids 1 1 # Bowel Movements 0 0 - Exam Physical Exam: Revealed a 60-year-old female in no distress, on 4 L nasal cannula. Head: Atraumatic, normocephalic. HEENT:[Neck is supple.] [No neck masses.] [No thyromegaly.] [No JVD.] Chest: [] Called chest expansion crackles and rhonchi at the bases. No wheezing. Right-sided chest tube is noted with very tiny minimal intermittent air leak. Cardiac Exam: [Normal S1 and S2, no S3 gallop, no murmur.] Abdomen: [Soft, nontender, no megaly, no rebound, no guarding, normal bowel sounds.] Extremities: [No clubbing, no edema, no cyanosis.] Neurological Exam: [No focal neurologic deficit.] Alert and oriented 3, no gross focal deficits. Psychiatric: Normal mood affect and normal mental status examination. Skin: No rashes. Musculoskeletal: No deformities and no limitation in range of motion - Labs CBC & Chem 7: 12/10/20 09:08 12/10/20 09:08 Labs: Abnormal Lab Results - Last 24 Hours (Table) 12/11/20 12/11/20 12/12/20 Range/Units 17:16 20:50 08:47 POC Glucose (mg/dL) 140 H 176 H 129 H (75-99) mg/dL Assessment and Plan Assessment: Impression: Acute hypoxic respiratory failure secondary to acute covid 19 pneumonitis. Hypovolemic hyponatremia Type 2 diabetes Elevated d-dimer History of of multiple cancers including breast thyroid and bladder. Acute right sided spontaneous pneumothorax. Requiring thoravent placement 2, and later required a right sided chest tube. Recommendation: Continue present Covid 19 cocktail. Continue Decadron. Continue Lovenox. Continue ascorbic acid. Continue Cozaar. Continue aspirin. Patient was out of the window for REM. Patient did not receive convalescent plasma Continue to titrate oxygen down accordingly and maintaining O2 saturation above 90%. Discontinue suction on the chest tube, and possibly clamp the tube tomorrow and remove it. Later on yet tomorrow and the patient could be discharged home. Time with Patient: Less than 30
[2020-12-12 12:24] LABS: Glucose,Whole Blood 187 mg/dL (75-99)
--- NOTE | 2020-12-12 12:28 | P.PN ---
Subjective Progress Note Date: 12/12/20 Principal diagnosis: Covid 19 pneumonia, acute hypoxic respiratory failure, right-sided spontaneous pneumothorax status post thoravent placement 2 with subsequent right pleural th oracostomy tube placement, shortness of breath. Previous medical history of hypertension, type 2 diabetes, hypothyroidism, anemia, multiple cancers, depression The patient is currently sitting up in a recliner in no acute distress. Denies chest pain, states shortness of breath continues to improve. Remains on 4 L nasal cannula with good oxygen saturations. Right-sided pleural chest tube remains in place, no air leak present. Chest x-ray reviewed with Dr. Kearns. Objective - Vital Signs Vital signs: Vital Signs Temp 99.7 F H 12/12/20 07:00 Pulse 73 12/12/20 07:46 Resp 20 12/12/20 07:46 BP 110/82 12/12/20 07:00 Pulse Ox 96 12/12/20 02:02 Intake & Output 12/11/20 12/12/20 12/12/20 18:59 06:59 18:59 Intake Total 480 480 Output Total 350 475 475 Balance 130 -475 5 Weight 108 kg Intake: Oral 480 480 Output: Urine 350 475 475 Other: Voiding Method Indwelling Catheter Indwelling Catheter # Voids 1 1 # Bowel Movements 0 0 - Exam CONSTITUTIONAL: Appears comfortable, cooperative, no acute distress RESPIRATORY: Lungs sounds diminished bilaterally. Respirations even, nonlabored. Currently on 4 L nasal cannula with oxygen saturation 96%. Strong cough. CARDIOVASCULAR: S1, S2 present. Regular rate and rhythm. Palpable peripheral pulses bilaterally. No edema present. No calf pain or tenderness noted. GASTROINTESTINAL: Abdomen soft, nontender, nondistended. Active bowel sounds present 4 quadrants. Tolerating diet. GENITOURINARY: Becerril present draining blood tinged urine INTEGUMENTARY: Skin is warm and dry with evidence of good perfusion. Thoracic incision well approximated and covered with dry intact dressing. NEUROLOGIC: Cranial nerves II through XII intact MUSKULOSKELETAL: Able to move all extremities, strength equal bilaterally, gait normal PSYCHIATRIC: Alert and oriented to person place and time, appropriate affect, intact judgment and insight INVASIVE LINES AND TUBES: Right pleural chest tubes present and connected to wall suction, no air leak present - Allied health notes Allied health notes reviewed: nursing - Labs CBC & Chem 7: 12/10/20 09:08 12/10/20 09:08 Labs: Abnormal Lab Results - Last 24 Hours (Table) 12/11/20 12/11/20 12/11/20 Range/Units 11:58 17:16 20:50 POC Glucose (mg/dL) 174 H 140 H 176 H (75-99) mg/dL 12/12/20 Range/Units 08:47 POC Glucose (mg/dL) 129 H (75-99) mg/dL - Imaging and Cardiology Chest x-ray: report reviewed, image reviewed Assessment and Plan Assessment: 1. Covid 19 pneumonia 2. Acute hypoxic respiratory failure secondary to above 3. Right-sided spontaneous pneumothorax status post thoravent placement 2 with subsequent right pleural thoracostomy tube placement 4. Shortness of breath 5. History of hypertension 6. Type 2 diabetes 7. Hypothyroidism 8. Anemia 9. History of multiple cancers 10. Depression Plan: 1. Chest tube clamped. Will unclamp in 2 hours, if no air leak present will discontinue chest tube 2. Wean O2 as tolerated. Incentive spirometry ordered and encouraged 3. Increase activity, ambulate in room as tolerated 4. Will monitor chest x-rays 5. Medical management of other comorbidities per primary care service 6. More recommendations to follow Time with Patient: Greater than 30
[2020-12-12 17:58] LABS: Glucose,Whole Blood 156 mg/dL (75-99)
[2020-12-12 19:40] LABS: LD Isoenzymes 1 18 % (19-38); LD Isoenzymes 2 37 % (30-43); LD Isoenzymes 3 25 % (16-26); LD Isoenzymes 4 10 % (3-12); LD Isoenzymes 5 10 % (3-14); Lactacte Dehydrogenase(LD) ISO 403 U/L (120-250)
[2020-12-12 21:21] LABS: Glucose,Whole Blood 128 mg/dL (75-99)
--- NOTE | 2020-12-12 22:29 | P.PN ---
Progress Note - Text Progress Note Date: 12/12/20 History of presenting complaint 60-year-old female with a history of diabetes mellitus type 2 controlled without insulin, GERD, stage I breast cancer with history of thyroid cancer and bladder cancer in remission who presented to the emergency department secondary to fever, fatigue, and vomiting. had been diagnosed with Covid 19 one week ago at urgent care, and had started symptoms 8 days prior to presentation. In the ER she underwent an extensive evaluation. CTA chest was negative for PE but was consistent with atypical pneumonia. Pulse ox-88% on room air.fever of 103 and pulse 115. LDH 704, CRP 204.9, pro calcitonin 0.17. She was admitted and started on Decadron. She is not a candidate for Remdesivir due to symptoms starting greater than 7 days prior to admission. Pulmonary started her on Colchicine she was unable to tolerate due to diarrhea. Fevers improved after 12/04. O2 went from 4 to 5L 12/05. On 12/06/20 her oxygen requirements went up acutely. She was requiring 15L NC. She was started on Tocilizumab. CXR showed worsening infiltrates and she was transferred to he ICU for closer monitoring. morning CXR on 12/07 revealed a pneumothorax and a thoravent was placed. December 09: Pneumothorax found to be worsening Thora-vent replace. No improvement. Right chest wall tube placed. Today: up in a chair. Saw the patient this morning. Plan is for cardiothoracic to remove the chest tube later today. Patient feeling better. Oral intake better. Review of systems: Was done for constitutional, cardiovascular, GI, pulmonary. relevant finding as above Active Medications Acetaminophen (Acetaminophen Tab 325 Mg Tab) 650 mg PO Q4HR PRN PRN Reason: Fever and/ or Pain Last Admin: 12/10/20 10:05 Dose: 650 mg Documented by: Albuterol Sulfate (Albuterol Hfa Inhaler) 2 puff INHALATION RT-QID PRN PRN Reason: Shortness Of Breath Or Wheezing Last Admin: 12/12/20 16:05 Dose: 2 puff Documented by: Alprazolam (Alprazolam 0.5 Mg Tab) 0.5 mg PO HS PRN PRN Reason: Anxiety Last Admin: 12/08/20 21:59 Dose: 0.5 mg Documented by: Ascorbic Acid (Ascorbic Acid 500 Mg Tab) 1,000 mg PO DAILY [facility] Last Admin: 12/12/20 09:33 Dose: 1,000 mg Documented by: Aspirin (Aspirin 81 Mg) 81 mg PO DAILY [facility] Last Admin: 12/12/20 09:33 Dose: 81 mg Documented by: Chlorthalidone (Chlorthalidone 25 Mg Tab) 25 mg PO DAILY [facility] Last Admin: 12/12/20 09:34 Dose: 25 mg Documented by: Cholecalciferol (Cholecalciferol 25 Mcg (1000 Iu) Tablet) 75 mcg PO DAILY [facility] Last Admin: 12/12/20 09:33 Dose: 75 mcg Documented by: Dexamethasone Sodium Phosphate (Dexamethasone Sod Phosphate 10 Mg/Ml 1 Ml Vial) 6 mg IV DAILY [facility] Last Admin: 12/12/20 09:33 Dose: 6 mg Documented by: Enoxaparin Sodium (Enoxaparin 40 Mg/0.4 Ml Syringe) 40 mg SQ DAILY [facility] Last Admin: 12/12/20 09:33 Dose: 40 mg Documented by: Insulin Aspart (Insulin Aspart (Novolog) 100 Unit/Ml Vial) 0 unit SQ [facility]; Protocol Last Admin: 12/12/20 21:34 Dose: Not Given Documented by: Levothyroxine Sodium (Levothyroxine 75 Mcg Tab) 150 mcg PO DAILY@0630 [facility] Last Admin: 12/12/20 05:31 Dose: 150 mcg Documented by: Losartan Potassium (Losartan 25 Mg Tab) 25 mg PO DAILY [facility] Last Admin: 12/12/20 09:33 Dose: 25 mg Documented by: Melatonin (Melatonin 5 Mg Tablet) 5 mg PO HS [facility] Last Admin: 12/11/20 20:15 Dose: 5 mg Documented by: Naloxone HCl (Naloxone 0.4 Mg/Ml 1 Ml Vial) 0.2 mg IV Q2M PRN PRN Reason: Opioid Reversal Ondansetron HCl (Ondansetron 4 Mg/2 Ml Vial) 4 mg IVP Q6HR PRN PRN Reason: Nausea And Vomiting Last Admin: 12/07/20 08:01 Dose: 4 mg Documented by: Oxybutynin Chloride (Oxybutynin Chloride 5 Mg Tab) 5 mg PO BID [facility] Last Admin: 12/12/20 09:34 Dose: 5 mg Documented by: Pantoprazole Sodium (Pantoprazole 40 Mg Tablet) 40 mg PO DAILY@0730 [facility] Last Admin: 12/12/20 09:33 Dose: 40 mg Documented by: Sodium Chloride (Sodium Chloride 0.9% Flush 10 Ml Syringe) 10 ml IV BID [facility] Last Admin: 12/12/20 09:34 Dose: 10 ml Documented by: Venlafaxine HCl (Venlafaxine Hcl 75 Mg Tab) 75 mg PO DAILY [facility] Last Admin: 12/12/20 09:34 Dose: 75 mg Documented by: Zinc Sulfate (Zinc Sulfate 220 Mg Cap) 220 mg PO DAILY [facility] Last Admin: 12/12/20 09:33 Dose: 220 mg Documented by: On examination: VITAL SIGNS: 98.1, 70, 20, 96/63, 96% on 4 L GENERAL APPEARANCE: Sitting up in a chair, awake. Nasal cannula. NEUROLOGICAL: Cranial nerves grossly intact. Moving all 4 limbs CHEST wall: Right chest wall tube PSYCHIATRY: Alert and oriented x3. Mood and affect normal. PULMONARY: Respiratory effort increased. Rest of exam as per pulmonary and nursing Investigations: December 10: WBC 6.6 hemoglobin 11.1 platelets 495 potassium 3.4 creatinine 0.70 d- dimer 0.87.Chest x-ray film personally reviewed by me-small pneumothorax right apex. Bilateral infiltrates December 09: White count 7 hemoglobin 11.1 platelets 425 d-dimer 1.26 potassium 4 creatinine 0.51 CRP 13.3 December 08: WBC 7.2 hemoglobin 10.4 platelets 386 sodium 136 potassium 3.7 creatinine 0.53 d-dimer 1.76 CRP 19 Chest x-ray film personally reviewed by me-[December 08] bilateral infiltrates with right-sided apical pneumothorax 2-D echocardiogram: EF 55-60% Computed tomography scan chest and you for PE: Patchy peripheral infiltrates. Fatty infiltration of the liver. No PE Assessment and plan: Covid 19 pneumonitis, acute hypoxic respiratory slow to respond -IV Decadron, subcu Lovenox, vitamin C, vitamin D, zinc [Colchicine stopped due to diarrhea, out of the window for REM.] - Toci on 12/06 and Convalescent plasma 12/07 Acute hypoxic respiratory failure due to COVID 19 pneumonia, slow to respond -Currently on 4 L of nasal cannula Right pneumonthorax, secondary to COVID 19 - thoravent in place, replaced. No improvement. Removed. Right chest wall to placed on December 09. Currently about less than 8%. Plan for chest tube to come out later today. Diabetes mellitus type 2 -Hold trulicity and metformin. Follow Accu-Cheks Hypothyroidism -Continue with Synthroid Microcytic anemia, cause unknown - outpatient follow-up as ferritin likely falsely elevated due to COVID-19 Breast cancer stage I -Has outpatient appointment on 12/17 for surgical procedure. Hyponatremia secondary to dehydration, improved Depression: -Continue with Effexor GERD: -Continue with Protonix Insomnia: -Continue melatonin Essential hypertension: -Increased dose of Cozaar. DC Inderal [place]. Blood pressure running on the lower side. Cutback to dose of Cozaar Auction requirement coming down. Chest tube to be removed by cardiothoracic. Follow. DC chlorthalidone
[2020-12-12] MEDS: MELATONIN 5 MG TABLET PO SCH (23:19)
[2020-12-13 04:19] VITALS: RESP 16
[2020-12-13] MEDS: LEVOTHYROXINE 75 MCG TAB PO SCH (05:37)
[2020-12-13 07:49] VITALS: TEMP 97.5
[2020-12-13 07:52] LABS: Glucose,Whole Blood 108 mg/dL (75-99)
[2020-12-13] MEDS: ALBUTEROL HFA INHALER INHALATION PRN ×2 (08:07→12:08)
--- NOTE | 2020-12-13 08:39 | P.PN ---
Subjective Progress Note Date: 12/13/20 Principal diagnosis: Covid 19 pneumonia, acute hypoxic respiratory failure, right-sided spontaneous pneumothorax status post thoravent placement 2 with subsequent right pleural th oracostomy tube placement, shortness of breath. Previous medical history of hypertension, type 2 diabetes, hypothyroidism, anemia, multiple cancers, depression The patient is currently sitting up in a recliner in no acute distress. Denies chest pain, states shortness of breath continues to improve. Remains on 4 L nasal cannula with oxygen saturation in the mid 90s. Right-sided pleural chest tube discontinued yesterday without incident. Chest x-ray reviewed this morning, stable. Objective - Vital Signs Vital signs: Vital Signs Temp 97.5 F L 12/13/20 07:47 Pulse 86 12/13/20 07:47 Resp 16 12/13/20 07:47 BP 105/72 12/13/20 07:47 Pulse Ox 96 12/13/20 07:47 Intake & Output 12/12/20 12/13/20 12/13/20 18:59 06:59 18:59 Intake Total 480 Output Total 475 1200 Balance 5 -1200 Weight 108 kg Intake: Oral 480 Output: Urine 475 1200 Other: Voiding Method Indwelling Catheter Indwelling Catheter # Voids 1 1 # Bowel Movements 0 - Exam CONSTITUTIONAL: Appears comfortable, cooperative, no acute distress RESPIRATORY: Lungs sounds diminished bilaterally. Respirations even, nonlabored. Currently on 4 L nasal cannula with oxygen saturation 96%. Strong cough. CARDIOVASCULAR: S1, S2 present. Regular rate and rhythm. Palpable peripheral pulses bilaterally. No edema present. No calf pain or tenderness noted. GASTROINTESTINAL: Abdomen soft, nontender, nondistended. Active bowel sounds p resent 4 quadrants. Tolerating diet. GENITOURINARY: Becerril present draining blood tinged urine INTEGUMENTARY: Skin is warm and dry with evidence of good perfusion. Thoracic incision well approximated and covered with dry intact dressing. NEUROLOGIC: Cranial nerves II through XII intact MUSKULOSKELETAL: Able to move all extremities, strength equal bilaterally, gait normal PSYCHIATRIC: Alert and oriented to person place and time, appropriate affect, intact judgment and insight - Allied health notes Allied health notes reviewed: nursing - Labs CBC & Chem 7: 12/10/20 09:08 12/10/20 09:08 Labs: Abnormal Lab Results - Last 24 Hours (Table) 04/02/2312/12/20 12/12/20 Range/Units 03:32 08:47 12:22 POC Glucose (mg/dL) 129 H 187 H (75-99) mg/dL LD Isoenzymes 403 H (120-250) U/L LD 1 18 L (19-38) % 12/12/20 12/12/20 12/13/20 Range/Units 17:49 21:19 07:49 POC Glucose (mg/dL) 156 H 128 H 108 H (75-99) mg/dL LD Isoenzymes (120-250) U/L LD 1 (19-38) % - Imaging and Cardiology Chest x-ray: image reviewed Assessment and Plan Assessment: 1. Covid 19 pneumonia 2. Acute hypoxic respiratory failure secondary to above 3. Right-sided spontaneous pneumothorax status post thoravent placement 2 with subsequent right pleural thoracostomy tube placement 4. Shortness of breath 5. History of hypertension 6. Type 2 diabetes 7. Hypothyroidism 8. Anemia 9. History of multiple cancers 10. Depression Plan: 1. Wean O2 as tolerated. Incentive spirometry ordered and encouraged 2. Increase activity, ambulate in room as tolerated 3. Medical management of other comorbidities per primary care service 4. Patient may be discharged from cardiothoracic standpoint. Will sign off, please call with any further concerns Time with Patient: Greater than 30
[2020-12-13] MEDS: INSULIN ASPART (NovoLOG) 100 UNIT/ML VIAL SQ SCH ×3 (08:51→17:51)
[2020-12-13] MEDS: ZINC SULFATE 220 MG CAP PO SCH (08:52)
[2020-12-13] MEDS: OXYBUTYNIN CHLORIDE 5 MG TAB PO SCH (08:52)
[2020-12-13] MEDS: CHOLECALCIFEROL 25 MCG (1000 IU) TABLET PO SCH (08:52)
[2020-12-13] MEDS: LOSARTAN 25 MG TAB PO SCH (08:52)
[2020-12-13] MEDS: ENOXAPARIN 40 MG/0.4 ML SYRINGE SQ SCH (08:52)
[2020-12-13] MEDS: PANTOPRAZOLE 40 MG TABLET PO SCH (08:52)
[2020-12-13] MEDS: VENLAFAXINE HCL 75 MG TAB PO SCH (08:53)
[2020-12-13] MEDS: DEXAMETHASONE SOD PHOSPHATE 10 MG/ML 1 ML VIAL IV SCH (08:53)
[2020-12-13] MEDS: ASCORBIC ACID 500 MG TAB PO SCH (08:53)
[2020-12-13] MEDS: ASPIRIN 81 MG PO SCH (08:53)
--- NOTE | 2020-12-13 09:10 | XR ---
EXAMINATION TYPE: XR chest 1V portable DATE OF EXAM: 12/13/2020 COMPARISON: 12/12/2020 INDICATION: Pneumothorax TECHNIQUE: Single frontal view of the chest is obtained. FINDINGS: The heart size is normal. The pulmonary vasculature is normal. Mild subsegmental infiltrate may be present. Findings are improved from comparison. IMPRESSION: 1. Residual subsegmental infiltrates are nonspecific can be compatible with atypical pneumonia or ate lectasis. Findings are improved from comparison.
--- NOTE | 2020-12-13 10:25 | P.PN ---
Subjective Progress Note Date: 12/13/20 Principal diagnosis: Acute hypoxic respiratory failure secondary to acute covid 19 pneumonitis. This is a 60-year-old female with history of thyroid cancer, diabetes, bladder cancer, GERD, obstructive sleep apnea syndrome, patient was admitted yesterday with 9 days symptoms of shortness of breath, fever, chills, poor appetite, nausea, and occasional vomiting, intermittent episodes of diarrhea, and nonproductive cough. Patient tested positive about a week ago at the urgent [facility] for olguin virus with positive PCR. Patient was advised to take Tylenol ibuprofen at home, and there was minimal relief. Patient continues to worsen, more symptoms of cough, or symptoms of shortness of breath, seen in the ER yesterday, and chest x-ray showed bilateral pneumonia consistent with acute covid [address] angiogram of the chest showed no evidence of pulmonary embolism. Patient was admitted, and this consult was initiated. Patient was reevaluated today on 12/04/2020, patient remains on the regular medical floor, she developed diarrhea today, and I have recommended stopping colchicine. Patient remains on 4 L nasal cannula, and O2 saturations 90%, she was on CPAP which she normally uses at night and she was placed back on cannula this morning. Still feels generally weak, had diarrhea this morning, occasional cough, some shortness of breath upon activity. CBC is relatively normal except for hemoglobin of 9.9. Basic metabolic profile is normal. LDH is 502, CT of the chest showed obviously evidence of atypical pneumonia and there was no evidence of pulmonary embolism on admission. Reevaluated today on 12/05/2020, patient is about the same, maybe she feels a bit worse. Continues to have cough, shortness of breath, fever, generalized weakness and fatigue. She is now on 5 L nasal cannula, and her O2 saturation is in the high 80s and low 90s. Last LDH was 521, and this was today. C-reactive protein is 11 clinically however the patient is not doing great Reevaluated today on 12/11/2020, patient is now on the regular medical floor, continues to be on 8 L high flow nasal cannula, and we cut it down to 4 L today. O2 saturation is 98%. Chest x-ray continues to show small tiny right-sided apical pneumothorax. Her infiltrates seem to be improving. Medically the patient is doing better, continues to have a right-sided chest tube in place, minimal air leak noted today. Hence the tube is not quite ready to be removed yet. We will likely clamp it tomorrow, and if no change in the pneumothorax he it could be discontinued within the next 48 hours. Clinically the patient is feeling better. No labs were done today. Reevaluated today on 12/12/2020, patient is doing much better, breathing a lot easier, she is now only on 4 L nasal cannula with O2 saturation in the low 90s. Chest tube remains in place, no air leak noted, hence wall suction was discontinued. Patient is now off suction and hopefully we could have a repeat chest x-ray in a.m., possibly clamp tomorrow for few hours, and if no pneumothorax the chest tube will be removed. Patient was reevaluated today on 12/13/2020, patient is doing great, her chest tube has been removed, chest x-ray showed no evidence of pneumothorax. Patient is down to 2 L nasal cannula, and her O2 saturation was 96%. No cough no wheezing no shortness of breath, I believe the patient could be discharged home today. Objective - Vital Signs Vital signs: Vital Signs Temp 97.5 F L 12/13/20 07:47 Pulse 86 12/13/20 07:47 Resp 16 12/13/20 07:47 BP 105/72 12/13/20 07:47 Pulse Ox 96 12/13/20 07:47 Intake & Output 12/12/20 12/13/20 12/13/20 18:59 06:59 18:59 Intake Total 480 Output Total 475 1200 Balance 5 -1200 Weight 108 kg Intake: Oral 480 Output: Urine 475 1200 Other: Voiding Method Indwelling Catheter Indwelling Catheter # Voids 1 1 # Bowel Movements 0 - Exam Physical Exam: Revealed a 60-year-old female in no distress, on 2 L nasal cannula. Head: Atraumatic, normocephalic. HEENT:[Neck is supple.] [No neck masses.] [No thyromegaly.] [No JVD.] Chest: Chest tube has been removed. Very minimal crackles at the bases symmetrical chest expansion no rhonchi no wheezes Cardiac Exam: [Normal S1 and S2, no S3 gallop, no murmur.] Abdomen: [Soft, nontender, no megaly, no rebound, no guarding, normal bowel sounds.] Extremities: [No clubbing, no edema, no cyanosis.] Neurological Exam: [No focal neurologic deficit.] Alert and oriented 3, no gross focal deficits. Psychiatric: Normal mood affect and normal mental status examination. Skin: No rashes. Musculoskeletal: No deformities and no limitation in range of motion - Labs CBC & Chem 7: 12/10/20 09:08 12/10/20 09:08 Labs: Abnormal Lab Results - Last 24 Hours (Table) 12/09/20 12/12/20 12/12/20 Range/Units 03:32 12:22 17:49 POC Glucose (mg/dL) 187 H 156 H (75-99) mg/dL LD Isoenzymes 403 H (120-250) U/L LD 1 18 L (19-38) % 12/12/20 12/13/20 Range/Units 21:19 07:49 POC Glucose (mg/dL) 128 H 108 H (75-99) mg/dL LD Isoenzymes (120-250) U/L LD 1 (19-38) % Assessment and Plan Assessment: Impression: Acute hypoxic respiratory failure secondary to acute covid 19 pneumonitis. Hypovolemic hyponatremia Type 2 diabetes Elevated d-dimer History of of multiple cancers including breast thyroid and bladder. Acute right sided spontaneous pneumothorax. Requiring thoravent placement 2, and later required a right sided chest tube. Her chest tube was removed by thoracic surgery today, and her chest x-ray is reassuring. Recommendation: Patient was cleared from our perspective to be discharged home today. May or may not need home oxygen she should be tested whether she needs oxygen Continue the cocktail for Covid 19 Follow-up on outpatient basis Again cleared to go home today Time with Patient: Less than 30
[2020-12-13 11:48] LABS: Glucose,Whole Blood 259 mg/dL (75-99)
[2020-12-13 15:29] VITALS: BP 96/60; PULSE 71
[2020-12-13 17:11] LABS: Glucose,Whole Blood 223 mg/dL (75-99)
--- NOTE | 2020-12-14 22:12 | P.DS ---
Providers Date of admission: 12/02/20 09:08 Expected date of discharge: 12/13/20 Attending physician: Augustin Otto Consults: 12/02/20 13:03 Consult Physician Routine Consulting Provider: Devorah Pereira Consult Reason/Comments: COVID Do you want consulting provider notified?: Yes 12/11/20 10:38 Consult Physician Routine Consulting Provider: Karlos Lemon Consult Reason/Comments: spont ptx Do you want consulting provider notified?: Yes, Notify in am Primary care physician: [facility] Course: History of presenting complaint 60-year-old female with a history of diabetes mellitus type 2 controlled without insulin, GERD, stage I breast cancer with history of thyroid cancer and bladder cancer in remission who presented to the emergency department secondary to fever, fatigue, and vomiting. had been diagnosed with Covid 19 one week ago at urgent care, and had started symptoms 8 days prior to presentation. In the ER she underwent an extensive evaluation. CTA chest was negative for PE but was consistent with atypical pneumonia. Pulse ox-88% on room air.fever of 103 and pulse 115. LDH 704, CRP 204.9, pro calcitonin 0.17. She was admitted and started on Decadron. She is not a candidate for Remdesivir due to symptoms starting greater than 7 days prior to admission. Pulmonary started her on Colchicine she was unable to tolerate due to diarrhea. Fevers improved after 12/04. O2 went from 4 to 5L 12/05. On 12/06/20 her oxygen requirements went up acutely. She was requiring 15L NC. She was started on Tocilizumab. CXR showed worsening infiltrates and she was transferred to he ICU for closer monitoring. morning CXR on 12/07 revealed a pneumothorax and a thoravent was placed. December 09: Pneumothorax found to be worsening Thora-vent replace. No improve ment. Right chest wall tube placed. -Improved. Removed Today: Breathing well. No new issues. Pulse ox 86% room air and 95% on 2 L. Home oxygen being arranged. Discussed with the patient. Discussion and discharge planning more than 35 minutes Consultation: Dr. Pereira and partners from pulmonary Cardiothoracic surgery On examination: VITAL SIGNS: 97.5, 71, 16, 96/60, 95% on 2 L GENERAL APPEARANCE: Sitting up in a chair, awake. Nasal cannula. NEUROLOGICAL: Cranial nerves grossly intact. Moving all 4 limbs CHEST wall: Chest tube removed PSYCHIATRY: Alert and oriented x3. Mood and affect normal. PULMONARY: Respiratory effort increased. Rest of exam as per pulmonary and nursing Investigations: December 10: WBC 6.6 hemoglobin 11.1 platelets 495 potassium 3.4 creatinine 0.70 d- dimer 0.87.Chest x-ray film personally reviewed by me-small pneumothorax right apex. Bilateral infiltrates December 09: White count 7 hemoglobin 11.1 platelets 425 d-dimer 1.26 potassium 4 creatinine 0.51 CRP 13.3 December 08: WBC 7.2 hemoglobin 10.4 platelets 386 sodium 136 potassium 3.7 creatinine 0.53 d-dimer 1.76 CRP 19 Chest x-ray film personally reviewed by me-[December 08] bilateral infiltrates with right-sided apical pneumothorax 2-D echocardiogram: EF 55-60% Computed tomography scan chest and you for PE: Patchy peripheral infiltrates. Fatty infiltration of the liver. No PE Assessment and plan: Covid 19 pneumonitis, acute hypoxic respiratory -IV Decadron, subcu Lovenox, vitamin C, vitamin D, zinc [Colchicine stopped due to diarrhea, out of the window for REM.] - Toci on 12/06 and Convalescent plasma 12/07 Acute hypoxic respiratory failure due to COVID 19 pneumonia, improving -Currently on 2 L of nasal cannula Right pneumonthorax, secondary to COVID 19 - thoravent in place, replaced. No improvement. Removed. Right chest wall to placed on December 09. Currently about less than 8%. Chest tube removed Diabetes mellitus type 2 -Hold trulicity and metformin. Follow Accu-Cheks Hypothyroidism -Continue with Synthroid Microcytic anemia, cause unknown - outpatient follow-up as ferritin likely falsely elevated due to COVID-19 Breast cancer stage I -Has outpatient appointment on 12/17 for surgical procedure. Hyponatremia secondary to dehydration, improved Depression: -Continue with Effexor GERD: -Continue with Protonix Insomnia: -Continue melatonin Essential hypertension: -Jossy. VERNA DODSON Disposition: Home Patient Condition at Discharge: Stable Plan - Discharge Summary Discharge Rx Participant: No New Discharge Prescriptions: New Aspirin 81 mg PO DAILY chew Ascorbic Acid [Vitamin C] 1,000 mg PO DAILY #60 tab Cholecalciferol [Vitamin D3 (25 Mcg = 1000 Iu)] 75 mcg PO DAILY #90 tablet Rivaroxaban [Xarelto] 2.5 mg PO DAILY #30 tablet Zinc Sulfate [Orazinc] 220 mg PO DAILY #30 cap Albuterol Inhaler [Ventolin Hfa Inhaler] 2 puff INHALATION RT-QID PRN #1 puff PRN Reason: Shortness Of Breath Or Wheezing predniSONE 10 mg PO DAILY #30 tab Continue Venlafaxine HCl [Effexor] 75 mg PO DAILY ALPRAZolam [Xanax] 0.5 mg PO HS PRN PRN Reason: Anxiety Levothyroxine Sodium [Levo-T] 150 mcg PO DAILY Oxybutynin Chloride 5 mg PO BID Dulaglutide [Trulicity] 1.5 mg SQ WE Losartan Potassium [Cozaar] 25 mg PO DAILY Omeprazole [PriLOSEC] 40 mg PO DAILY Ergocalciferol (Vitamin D2) [Vitamin D2 (50,000 Iu)] 1,250 mcg PO LEÓN metFORMIN HCL ER [Glucophage Xr] 1,000 mg PO BID Discontinued Propranolol HCl [Propranolol HCl ER] 60 mg PO DAILY Discharge Medication List Venlafaxine HCl [Effexor] 75 mg PO DAILY 10/17/14 [History] ALPRAZolam [Xanax] 0.5 mg PO HS PRN 08/18/16 [History] Levothyroxine Sodium [Levo-T] 150 mcg PO DAILY 08/18/16 [History] Dulaglutide [Trulicity] 1.5 mg SQ WE 06/05/20 [History] Oxybutynin Chloride 5 mg PO BID 06/05/20 [History] Losartan Potassium [Cozaar] 25 mg PO DAILY 06/06/20 [History] Ergocalciferol (Vitamin D2) [Vitamin D2 (50,000 Iu)] 1,250 mcg PO LEÓN 12/02/20 [History] Omeprazole [PriLOSEC] 40 mg PO DAILY 12/02/20 [History] metFORMIN HCL ER [Glucophage Xr] 1,000 mg PO BID 12/02/20 [History] Albuterol Inhaler [Ventolin Hfa Inhaler] 2 puff INHALATION RT-QID PRN #1 puff 12/13/20 [Rx] Ascorbic Acid [Vitamin C] 1,000 mg PO DAILY #60 tab 12/13/20 [Rx] Aspirin 81 mg PO DAILY chew 12/13/20 [Rx] Cholecalciferol [Vitamin D3 (25 Mcg = 1000 Iu)] 75 mcg PO DAILY #90 tablet 12/13/20 [Rx] Rivaroxaban [Xarelto] 2.5 mg PO DAILY #30 tablet 12/13/20 [Rx] Zinc Sulfate [Orazinc] 220 mg PO DAILY #30 cap 12/13/20 [Rx] predniSONE 10 mg PO DAILY #30 tab 12/13/20 [Rx] Follow up Appointment(s)/Referral(s): Devorah Pereira MD [STAFF PHYSICIAN] - 1 Week [facility] [NON-STAFF] - Singh Otto MD [Primary Care Provider] - 1-2 days [facility] Visiting Nurse, [NON-STAFF] - 1-2 Days Activity/Diet/Wound Care/Special Instructions: fio2 - 2l Discharge Disposition: HOME SELF-CARE
== END 2020-12-13 19:00 | disposition home health service (06) | DRG 871 ==
LOC: EC 06:55 → 4SSUR 09:08 → 6NMEDSUR 23:26 → 2SICU 12-06 15:58 → 6NMEDSUR 12-10 14:27
PROVIDERS: ADMIT Hospitalist; ATTEND Hospitalist
PROC: 5A09557 Assistance with Respiratory Ventilation, Greater than 96 Consecutive Hours, Continuous Positive Airway Pressure (ICD-10-PCS; 2020-12-02)
PROC: 5A09357 Assistance with Respiratory Ventilation, Less than 24 Consecutive Hours, Continuous Positive Airway Pressure (ICD-10-PCS; 2020-12-02)
PROC: XW033H5 Introduction of Tocilizumab into Peripheral Vein, Percutaneous Approach, New Technology Group 5 (ICD-10-PCS; principal; 2020-12-06)
PROC: 5A0955A Assistance with Respiratory Ventilation, Greater than 96 Consecutive Hours, High Flow/Velocity Cannula (ICD-10-PCS; 2020-12-06)
PROC: XW13325 Transfusion of Convalescent Plasma (Nonautologous) into Peripheral Vein, Percutaneous Approach, New Technology Group 5 (ICD-10-PCS; 2020-12-07)
PROC: 0W9930Z Drainage of Right Pleural Cavity with Drainage Device, Percutaneous Approach (ICD-10-PCS; 2020-12-07)
PROC: 0W9930Z Drainage of Right Pleural Cavity with Drainage Device, Percutaneous Approach (ICD-10-PCS; 2020-12-09)
PROC: 0W9930Z Drainage of Right Pleural Cavity with Drainage Device, Percutaneous Approach (ICD-10-PCS; 2020-12-09)
DX: A41.89 Other specified sepsis (principal); U07.1 COVID-19; J12.82 Pneumonia due to coronavirus disease 2019; J96.01 Acute respiratory failure with hypoxia; E87.1 Hypo-osmolality and hyponatremia; J93.83 Other pneumothorax; Z68.41 Body mass index [BMI] 40.0-44.9, adult; C50.919 Malignant neoplasm of unspecified site of unspecified female breast; E11.9 Type 2 diabetes mellitus without complications; E66.9 Obesity, unspecified; E86.1 Hypovolemia; D50.9 Iron deficiency anemia, unspecified; E86.0 Dehydration; G47.00 Insomnia, unspecified; R19.7 Diarrhea, unspecified; I10 Essential (primary) hypertension; K21.9 Gastro-esophageal reflux disease without esophagitis; G47.33 Obstructive sleep apnea (adult) (pediatric); E89.0 Postprocedural hypothyroidism; F32.9 Major depressive disorder, single episode, unspecified; Z79.84 Long term (current) use of oral hypoglycemic drugs; Z79.890 Hormone replacement therapy; Z79.899 Other long term (current) drug therapy; Z85.850 Personal history of malignant neoplasm of thyroid; Z85.51 Personal history of malignant neoplasm of bladder; Z90.49 Acquired absence of other specified parts of digestive tract; Z90.710 Acquired absence of both cervix and uterus; Z90.89 Acquired absence of other organs; Z87.19 Personal history of other diseases of the digestive system; Z87.42 Personal history of other diseases of the female genital tract; Z96.652 Presence of left artificial knee joint; Z98.890 Other specified postprocedural states; Z88.0 Allergy status to penicillin; Z80.49 Family history of malignant neoplasm of other genital organs; Z80.0 Family history of malignant neoplasm of digestive organs
CPT/HCPCS: 36415; 36600; 71045; 71275; 80048; 80053; 82728; 82805; 83605; 83615; 83625; 83735; 84145; 85025; 85027; 85379; 85610; 85730; 86140; 86850; 86900; 86901; 87040; 87635; 93005; 93306; 94640; 94660; 94760; 96361; 96374; 99285

== ENCOUNTER → 2021-01-07 | Outpatient (CLI) | payer BC, OTHER ==
[2021-01-08 00:21] LABS: Hemoglobin A1C 6.9 % (4.0-6.0)
[2021-01-08 10:16] LABS: African American GFR (CKD) 109.9 (60.0-200.0); Albumin 4.6 g/dL (3.80-4.90); Albumin/Globulin Ratio 2.88 (1.60-3.17); BUN/Creat Ratio 12.86 Ratio (12.00-20.00); Globulin 1.6 g/dL (1.6-3.3); Non-African American GFR(CKD) 94.8 (60.0-200.0); Potassium 4.8 mmol/L (3.5-5.5); Total Bilirubin 0.6 mg/dL (0.3-1.2); Total Protein 6.2 g/dL (6.2-8.2)
[2021-01-08 10:31] LABS: T4, Free (Free Thyroxine) 1.6 ng/dL (0.80-1.80)
== END | disposition home or self-care (01) ==
LOC: LABWHC1 13:02
PROVIDERS: ATTEND Internal Medicine
DX: E11.65 Type 2 diabetes mellitus with hyperglycemia (principal); E89.0 Postprocedural hypothyroidism; K76.0 Fatty (change of) liver, not elsewhere classified
CPT/HCPCS: 36415; 80053; 83036; 84439; 84443

== ENCOUNTER → 2021-02-25 | Outpatient (CLI) | payer BC, OTHER ==
[2021-02-25 10:26] LABS: African American GFR (CKD) >90 (>60 ml/min/1.73 sqM); Blood Urea Nitrogen 9 mg/dL (7-17); Non-African American GFR(CKD) >90 (>60 ml/min/1.73 sqM)
--- NOTE | 2021-02-25 11:27 | CT ---
CT CHEST FOR PULMONARY EMBOLISM. EXAMINATION TYPE: CT angio chest DATE OF EXAM: 02/25/2021 INDICATION: Abnormal coagulation profile CT DLP: 479.5 mGycm, Automated exposure control for dose reduction was used. CONTRAST: Patient injected with 100 ml mL of Isovue 370. COMPARISON: 12/15/2014 TECHNIQUE: CT of the chest is performed on a spiral scan at 2 mm thick sections. Study is performed with intravenous contrast timed for evaluation for pulmonary embolism. This will limit additional po rtions of the evaluation. 3-D MIP images reconstructed by the technologist are reviewed on the compu ter in the coronal and sagittal planes. FINDINGS: Contrast timing is suboptimal to nondiagnostic. Contrast is predominantly within the pulmonary veins at the time of this exam. No obvious persistent filling defects are evident to suggest an acute central pulmonary embolism. No mediastinal or hilar adenopathy enlarged by CT criteria is evident. The ascending aorta diameter at the level of the main pulmonary artery is 3.2 cm. The main pulmonary artery diameter at the bifur cation is 2.6 cm. Minimal pneumonitis changes in the periphery of the right lower lobe. Series [address] section through the upper abdomen are unremarkable. Thyroid is not identified. Lumpectomy changes in the left breast are identified. IMPRESSIONS: 1. Suboptimal to nondiagnostic study for pulmonary embolism. No obvious large central pulmonary embol i are evident. Consider repeat examination. 2. Minimal pneumonitis change right lung base.
== END | disposition home or self-care (01) ==
LOC: RADCTMAIN 09:31
PROVIDERS: ATTEND Family Medicine
DX: J18.9 Pneumonia, unspecified organism (principal)
CPT/HCPCS: 82565; 84520; 71275; 36415; Q9967

== ENCOUNTER → 2021-02-25 | Outpatient (CLI) | payer BC, OTHER ==
--- NOTE | 2021-02-25 13:34 | NM ---
EXAMINATION TYPE: NM pul vent and perfuse DATE OF EXAM: 02/25/2021 COMPARISON: CT angiogram of the chest 02/25/2021, recent chest x-ray is unavailable HISTORY: R79.1 abnormal coagulation profile, abnormal CT chest TECHNIQUE: Utilizing inhalation of 35.9 mCi Tc 99m DTPA aerosol and intravenous injection of 4.8 mCi of Tc 99m MAA, ventilation and perfusion images are acquired post injection in multiple projections. FINDINGS: Normal radiotracer distribution is noted in the lungs perfusion scanning. There is no evidence of mis matched defects. IMPRESSION: Low probability for pulmonary embolus
== END | disposition home or self-care (01) ==
LOC: RADNMMAIN 12:12
PROVIDERS: ATTEND Nurse Practitioner Adult Health
DX: R79.1 Abnormal coagulation profile (principal)
CPT/HCPCS: 78582; A9540; A9567

== ENCOUNTER → 2021-02-26 | Outpatient (CLI) | payer BC, OTHER ==
--- NOTE | 2021-02-26 14:14 | US ---
EXAMINATION TYPE: US kidneys/renal and bladder DATE OF EXAM: 02/26/2021 COMPARISON: 12/28/2012 CLINICAL HISTORY: R35.0 Frequency of micturition. Hematuria. EXAM MEASUREMENTS: Right Kidney: 12.0 x 5.5 x 5.8 cm Left Kidney: 11.4 x 5.8 x 4.2 cm Right Kidney: No hydronephrosis or masses seen Left Kidney: Stone seen mid renal collecting system measuring 1.7 x 1.0 x 1.2 cm. Bladder: Anechoic Bilateral Jets seen: No right Jets seen, left jet only. There is no evidence for hydronephrosis at this point in time. No masses are identified. The urinar y bladder is anechoic. IMPRESSION: 1. Left nephrolithiasis. 2. No right ureteral jet seen.
== END | disposition home or self-care (01) ==
LOC: RADUSWWP 12:44
PROVIDERS: ATTEND Family Medicine
DX: N20.0 Calculus of kidney (principal)
CPT/HCPCS: 76770

== ENCOUNTER → 2021-04-14 | Outpatient (CLI) | payer BC, OTHER ==
--- NOTE | 2021-04-14 14:07 | XR ---
EXAMINATION TYPE: XR KUB DATE OF EXAM: 04/14/2021 COMPARISON: 02/26/2021 ultrasound HISTORY: Pain TECHNIQUE: One view abdominal series FINDINGS: The osseous structures are intact. The bowel gas pattern is nonspecific. There is a calcification ov erlying the lower pole of the left kidney measuring approximately 7 mm. Scoliosis with multilevel hypertrophic and degenerative changes. Surgical clips right upper quadrant. Calcifications in pelvis likely vascular. Hypertrophic change of the acetabulum bilaterally. Occasio madelin be associated with femoral acetabular impingement. IMPRESSION: 1. Findings suggestive of 7 mm lower pole left renal calculus.
== END | disposition home or self-care (01) ==
LOC: RADXRMAIN 11:03
PROVIDERS: ATTEND Urology
DX: R10.9 Unspecified abdominal pain (principal)
CPT/HCPCS: 74018

== ENCOUNTER → 2021-04-15 | Outpatient (CLI) | payer BC, OTHER ==
[2021-04-15 11:18] LABS: Basophils # (A) 0.07 X 10*3/uL (0.00-0.10); Basophils % (A) 0.8 %; Eosinophils # (A) 0.34 X 10*3/uL (0.04-0.35); Eosinophils % (A) 3.8 %; HGB 12.5 g/dL (12.0-15.0); Lymphocytes # (A) 2.17 X 10*3/uL (0.90-5.00); Lymphocytes % (A) 24.5 %; MCH 23.3 pg (27.0-32.0); MCHC 29.1 g/dL (32.0-37.0); MCV 80.1 fL (80.0-97.0); Mean Platelet Volume 10.9 fL (9.5-12.2); Monocytes # (A) 0.72 X 10*3/uL (0.20-1.00); Monocytes % (A) 8.1 %; Neutrophils # (A) 5.51 X 10*3/uL (1.80-7.70); Neutrophils % (A) 62.5 %; Platelet Count 399 X 10*3/uL (140-440); RBC 5.37 X 10*6/uL (4.10-5.20); RDW 21.9 % (11.5-14.5); WBC 8.84 X 10*3/uL (4.50-10.00)
[2021-04-15 21:29] LABS: African American GFR (CKD) 93.5 (60.0-200.0); Anion Gap 16.5 mmol/L (4.00-12.00); BUN/Creat Ratio 13.75 Ratio (12.00-20.00); Calcium 10.2 mg/dL (8.7-10.3); Carbon Dioxide 20.5 mmol/L (21.6-31.8); Non-African American GFR(CKD) 80.7 (60.0-200.0); Potassium 4.4 mmol/L (3.5-5.5)
== END | disposition home or self-care (01) ==
LOC: LABWHC1 08:10
PROVIDERS: ATTEND Radiology Radiation Oncology
DX: C50.412 Malignant neoplasm of upper-outer quadrant of left female breast (principal); E89.0 Postprocedural hypothyroidism; Z17.0 Estrogen receptor positive status [ER+]
CPT/HCPCS: 36415; 80048; 85025

== ENCOUNTER → 2021-04-20 | Outpatient (CLI) | payer BC, OTHER ==
[2021-04-20 08:59] LABS: Anisocytosis Slight; Basophils # (A) 0.1 k/uL (0-0.2); Basophils % (A) 1 %; Eosinophils # (A) 0.3 k/uL (0-0.7); Eosinophils % (A) 3 %; HCT 41.1 % (34.0-46.0); HGB 12.7 gm/dL (11.4-16.0); Hypochromasia Slight; Lymphocytes # (A) 1.4 k/uL (1.0-4.8); Lymphocytes % (A) 16 %; MCH 24.9 pg (25.0-35.0); MCV 80.5 fL (80.0-100.0); Mean Platelet Volume 8.9; Microcytosis Slight; Monocytes # (A) 0.5 k/uL (0-1.0); Monocytes % (A) 6 %; Neutrophils # (A) 6.1 k/uL (1.3-7.7); Neutrophils % (A) 73 %; Platelet Count 318 k/uL (150-450); RBC 5.11 m/uL (3.80-5.40); RDW 19.5 % (11.5-15.5); WBC 8.4 k/uL (3.8-10.6)
[2021-04-20 09:08] LABS: African American GFR (CKD) >90 (>60 ml/min/1.73 sqM); Anion Gap 13 mmol/L; Blood Urea Nitrogen 12 mg/dL (7-17); Calcium 9.6 mg/dL (8.4-10.2); Carbon Dioxide 25 mmol/L (22-30); Chloride 102 mmol/L (98-107); Glucose 149 mg/dL (74-99); Non-African American GFR(CKD) >90 (>60 ml/min/1.73 sqM); Potassium 4.5 mmol/L (3.5-5.1); Sodium 140 mmol/L (137-145)
[2021-04-20 09:53] LABS: Appearance,Urine Clear (Clear); Bilirubin,Urine Negative (Negative); Blood,Urine Negative (Negative); Color,Urine Yellow; Glucose,Urine (UA) Negative (Negative); Ketones,Urine Negative (Negative); Leukocyte Esterase,Urine Small (Negative); Mucus,Urine Few /hpf; Nitrite,Urine Negative (Negative); Protein,Urine Negative (Negative); Specific Gravity,Urine 1.013 (1.001-1.035); Squamous Epithelial Cell,Urine <1 /hpf (0-4); Urobilinogen,Urine <2.0 mg/dL (<2.0); WBC,Urine 5 /hpf (0-5)
== END | disposition home or self-care (01) ==
LOC: LABPAT 08:33
PROVIDERS: ATTEND Urology
DX: Z01.812 Encounter for preprocedural laboratory examination (principal); N20.0 Calculus of kidney; R31.29 Other microscopic hematuria
CPT/HCPCS: 36415; 80048; 81001; 85025; 87086

== ENCOUNTER 2021-04-24 14:08 | Day surgery (SDC) | payer BC, OTHER ==
--- NOTE | 2021-04-20 08:58 | P.HPIHPCON ---
History of Present Illness H&P Date: 04/20/21 Chief Complaint: left flank pain, gross hematuria This is a 60-year-old female with history of a 7 mm left-sided lower pole stone. She symptomatic secondary to her stone. Option of ESWL and ureteroscopy was discussed with her. She agreed to proceed with left-sided ureteroscopy. Discussed with her the risk which include but not limited to bleeding, infection, injury to the ureter. She understood all the risk and agreed to proceed left-sided ureteroscopy, with holmium laser lithotripsy, stone basketing and stent insertion Consent for Procedure: I have explained the operation/procedure to the patient, including the risks, benefits, side effects, alternative therapies (including not receiving the proposed treatment or service), the likelihood of the patient achieving his/her goals, and potential recuperation problems for the procedure/sedation/analgesia, as well as any blood products, if indicated. I also explained to the patient the risks, benefits and side effects of the alternatives, as well as the risks related to not receiving the proposed procedure, care, treatment, or services. 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 Past Anesthesia/Blood Transfusion Reactions: No Reported Reaction Past Psychological History: Depression Smoking Status: Never smoker Past Alcohol Use History: None Reported Past Drug Use History: None Reported - Past Family History Mother Family Medical History: Cancer Additional Family Medical History / Comment(s): uterine CA and esoghagus Father Family Medical History: Cancer Medications and Allergies Home Medications Medication Instructions Recorded Confirmed Type Venlafaxine HCl [Effexor] 75 mg PO DAILY 10/17/14 12/02/20 History ALPRAZolam [Xanax] 0.5 mg PO HS PRN 08/18/16 12/02/20 History Levothyroxine Sodium [Levo-T] 150 mcg PO DAILY 08/18/16 12/02/20 History Dulaglutide [Trulicity] 1.5 mg SQ WE 06/05/20 12/02/20 History Oxybutynin Chloride 5 mg PO BID 06/05/20 12/02/20 History Losartan Potassium [Cozaar] 25 mg PO DAILY 06/06/20 12/02/20 History Ergocalciferol (Vitamin D2) 1,250 mcg PO LEÓN 12/02/20 12/02/20 History [Vitamin D2 (50,000 Iu)] Omeprazole [PriLOSEC] 40 mg PO DAILY 12/02/20 12/02/20 History metFORMIN HCL ER [Glucophage XR] 1,000 mg PO BID 12/02/20 12/02/20 History Albuterol Inhaler [Ventolin Hfa 2 puff INHALATION RT-QID PRN #1 12/13/20 Rx Inhaler] puff Ascorbic Acid [Vitamin C] 1,000 mg PO DAILY #60 tab 12/13/20 Rx Aspirin 81 mg PO DAILY chew 12/13/20 Rx Cholecalciferol [Vitamin D3 (25 75 mcg PO DAILY #90 tablet 12/13/20 Rx Mcg = 1000 Iu)] Rivaroxaban [Xarelto] 2.5 mg PO DAILY #30 tablet 12/13/20 Rx Zinc Sulfate [Orazinc] 220 mg PO DAILY #30 cap 12/13/20 Rx predniSONE 10 mg PO DAILY #30 tab 12/13/20 Rx Allergies Allergy/AdvReac Type Severity Reaction Status Date / Time Penicillins Allergy Itching Verified 12/02/20 09:26 Assessment and Plan Assessment: 60 yo female with hx of 7 mm left sided renal stone -OR for left-sided ureteroscopy, with holmium laser lithotripsy, stone basketing and stent insertion
[2021-04-21 14:45] VITALS: BMI 38.7
[~2021-04-24 14:08] MED LIST changes: -CIPROFLOXACIN/DEXTROSE PMX 400 MG in DEXTROSE/WATER 1 200ML.BAG IVPB ONE; -DEXAMETHASONE SOD PHOSPHATE 10 MG/ML 1 ML VIAL IV ONE; +DEXAMETHASONE SOD PHOSPHATE 4 MG/ML 1 ML VIAL IV ONE; +LACTATED RINGERS 1,000 ML IV SCH; +MIDAZOLAM 2 MG/2 ML VIAL IV PRN; -ONDANSETRON 4 MG/2 ML VIAL IVP PRN
[2021-04-24] MEDS ORDERED: LACTATED RINGERS 1,000 ML IV ONE (14:46)
--- NOTE | 2021-04-24 14:49 | XR ---
EXAMINATION TYPE: XR KUB DATE OF EXAM: 04/24/2021 2:44 PM CLINICAL HISTORY: Left-sided renal calculi. TECHNIQUE: Two supine KUB images of the abdomen are obtained. COMPARISON: Abdominal x-ray 10 days ago. FINDINGS: Stable approximately 9 mm stellate stone left kidney mid to slightly lower pole level at th e inferior L2 level. Cholecystectomy clips redemonstrated. Overall nonobstructive bowel gas pattern. Prominent spur right L1-L2 level again seen. IMPRESSION: As above.
[2021-04-24 14:59] LABS: Glucose,Whole Blood 101 mg/dL (75-99)
[2021-04-24] MEDS ORDERED: SUCCINYLCHOLINE CHLORIDE 100 MG/5 ML SYR IV ONE (16:18)
[2021-04-24] MEDS ORDERED: PROPOFOL 10 MG/ML 20 ML VIAL IV ONE (16:18)
[2021-04-24] MEDS ORDERED: MIDAZOLAM 2 MG/2 ML VIAL ONE (16:18)
[2021-04-24] MEDS ORDERED: fentaNYL (PF) 50 MCG/ML 2 ML AMP ONE (16:18)
[2021-04-24] MEDS ORDERED: LIDOCAINE 1% INJ 10MG/ML (20 ML MDV) ONE (16:18)
[2021-04-24] MEDS ORDERED: IOPAMIDOL-370 50ML BTL MISCELLANE ONE (16:49)
[2021-04-24 17:40] VITALS: TEMP 97.2
--- NOTE | 2021-04-24 17:48 | P.OP ---
Date of Procedure: 04/24/21 Preoperative Diagnosis: Left renal stone Postoperative Diagnosis: Same Procedure(s) Performed: Cystoscopy, left retrograde pyelogram, ureteroscopy, holmium laser lithotripsy, stone basketing and stent insertion Implants: 4.8-Chinese by 24 cm stent left on a string in the left ureter Anesthesia: CAROLEE Surgeon: Isaiah Doyle Estimated Blood Loss (ml): 5 Pathology: other (left renal stone) Condition: stable Disposition: PACU Indications for Procedure: This is a 60-year-old female with history of a 7 mm left-sided lower pole stone. She symptomatic secondary to her stone. Option of ESWL and ureteroscopy was discussed with her. She agreed to proceed with left-sided ureteroscopy. Discussed with her the risk which include but not limited to bleeding, infection, injury to the ureter. She understood all the risk and agreed to proceed left-sided ureteroscopy, with holmium laser lithotripsy, stone basketing and stent insertion Operative Findings: Large stone within the lower pole, Description of Procedure: Patient was brought to the operating room, general anesthesia was induced. She was prepped and draped in sterile fashion and placed in dorsal lithotomy position. Cystoscopy fitted with a 22-Chinese sheath was inserted per urethra, cystoscopy was performed which showed no abnormality within the bladder. Attention was then carried to the left ureteral orifice which was intubated with an open-ended catheter, retrograde pyelogram was performed showed no filling defect along the course of the ureter or hydronephrosis. At this time a sensor wire was advanced through the catheter and the catheter was removed with the wire in place. Next an 1113 Chinese access sheath was passed over the wire and into the proximal ureter. The flexible ureteroscope was inserted through the access sheath, renoscopy was performed which showed a stone within the lower pole of the kidney. Using the holmium laser the stone was dusted. Sizable fragments were removed using the stone basket. Repeat renoscopy showed no sizable fragments or injury to the kidney. Pullback ureteroscopy was performed which showed no evidence of a ureteral stone or injury to the ureter. As the ureteroscope was withdrawn and a sensor wire was advanced through. Next a ureteral stent was passed over the wire, the proximal curl was visualized on fluoroscopy and the distal curl was visualized using the cystoscope. The bladder was emptied at the end of the case. Patient tolerated the procedure well was taken to PACU in stable condition
[2021-04-24 18:21] LABS: Glucose,Whole Blood 123 mg/dL (75-99)
[2021-04-24] MEDS ORDERED: ENALAPRILAT 1.25 MG/ML 1 ML VIAL IVP ONE ×2 (18:29→18:42)
[2021-04-24] MEDS ORDERED: IV FLUID CONTINUATION 1,000 ML IV ONE (18:44)
[2021-04-24] MEDS ORDERED: hydrALAZINE HCL 20 MG/ML 1 ML VIAL ONE (19:14)
[2021-04-24] MEDS ORDERED: hydrALAZINE HCL 20 MG/ML 1 ML VIAL IVP ONE (19:17)
[2021-04-24] MEDS ORDERED: ONDANSETRON 4 MG/2 ML VIAL ONE (19:41)
[2021-04-24 19:44] VITALS: BP 149/82; PULSE 95; RESP 17
[2021-04-24] MEDS ORDERED: ONDANSETRON 4 MG/2 ML VIAL IVP ONE (19:45)
[2021-04-24] MEDS ORDERED: KETOROLAC 15 MG/ML 1 ML VIAL ONE (20:13)
[2021-04-24] MEDS ORDERED: KETOROLAC 15 MG/ML 1 ML VIAL IVP ONE (20:15)
--- NOTE | 2021-04-26 10:29 | FL ---
EXAMINATION TYPE: FL urography retrograde DATE OF EXAM: 04/24/2021 COMPARISON: NONE HISTORY: CYSTO. LEFT RENAL CALCULUS. TECHNIQUE: Fluoroscopy. FINDINGS: CYSTO. LEFT RENAL CALCULUS WITH STENT PLACEMENT. 1 min FL. 6 images saved. IMPRESSION: As Above.
== END 2021-04-24 20:33 ==
LOC: OR 14:08
PROVIDERS: ATTEND Urology
DX: N20.0 Calculus of kidney (principal); E07.9 Disorder of thyroid, unspecified; G47.33 Obstructive sleep apnea (adult) (pediatric); E11.9 Type 2 diabetes mellitus without complications; Z88.0 Allergy status to penicillin; Z79.82 Long term (current) use of aspirin; Z79.899 Other long term (current) drug therapy
CPT/HCPCS: 88300; 74420; 74018; 52356; C1769; J2250; J0360; J1100; J0690; J2405; J2001; J3010; J1885; J0330; J2704; Q9967; J1790

== ENCOUNTER → 2021-04-28 | Outpatient (CLI) | payer BC, OTHER ==
--- NOTE | 2021-04-28 15:53 | BD ---
EXAMINATION TYPE: Axial Bone Density DATE OF EXAM: 04/28/2021 COMPARISON: NONE CLINICAL HISTORY: 60 YR OLD FEMALE......IDC-10 CODE: Z79.830 POST DONALD Height: 66 Weight: 240 FRAX RISK QUESTIONS: Glucocorticoids (More than 3mos): NOT REGULARLY, (Ex: prednisone, prednisolone, methylprednisolone, dexamethasone, and hydrocortisone). History of Fracture in Adulthood: Secondary Osteoporosis: YES 3. Menopause before 45: YES Current Tobacco Use: QUIT 1 YR AGO RISK FACTORS HISTORY OF: Family History of Osteoporosis: YES, MOTHER NO FX Postmenopausal woman: YES, TOTAL HYST AT 39 YRS OLD If Premenopausal, do you have irregular periods: YES, FOR ABOUT 1-2 YRS, Take estrogen and/or progesterone medications: YES, FOR ABOUT 1-2 YRS NONE NOW, ON ANASTROZOLE NOW Hyperparathyroidism: NO Adrenal Insufficiency: NO MEDICATIONS: Prednisone or other steroids: YES, INHALER FOR COVID December, FOR A MONTH Thyroid Medications: YES, SYNTHROID, FOR ABOUT 6 YRS Additional Medications: ANASTROZOLE, BP MEDS, EFFEXOR, XANAX, HX OF RADIATION FOR LT BR CA, LAST DOSE 10 DAYS AGO, METFORMIN, TRULICITY, REFLUX MEDS, STATIN FOR CHOLESTEROL, VIT D, Additional History: LT TKR X2, HX OF COVID DECEMBER 2020, HYPERTENSION, LT BR CANCER, DIABETIC, CHOLESTE ROL AND REFLUX, HX OF BLADDER CA, HX OF KIDNEY STONES, THYROID CANCER 2014 EXAM MEASUREMENTS: Bone mineral densitometry was performed using the [employer] System. Bone mineral density as measured about the Lumbar spine is: ----- L1-L4(G/cm2): 1.097 T Score Values are as follows: ----- L1: -1.0 ----- L2: -0.4 ----- L3: -0.8 ----- L4: -0.7 ----- L1-L4: -0.7 Bone mineral density FIRST DEXA SCAN........BASELINE STUDY Bone mineral density about the R hip (g/cm2): 1.333 Bone mineral density about the L hip (g/cm2): 1.224 T Score values are as follows: -----R Neck: 1.5 -----L Neck: 0.9 -----R Total: 2.6 -----L Total: 1.7 Bone mineral density BASELINE STUDY FRAX%s: THERE IS A 4.9% CHANCE FOR A MAJOR OSTEOPOROTIC FX AND A 0.0% FOR HIP.....PROBABILITY FOR FX IN 10 YRS TIME IMPRESSION: Normal (Values between +1 and -1 indicate normal bone mass). Consider repeating this study in 5 year s or sooner if there is some new clinical indication. NOTE: T-SCORE=SD OF THE YOUNG ADULT MEAN.
== END | disposition home or self-care (01) ==
LOC: RADBDWWP 14:51
PROVIDERS: ATTEND Internal Medicine Hematology & Oncology
DX: Z78.0 Asymptomatic menopausal state (principal)
CPT/HCPCS: 77080

== ENCOUNTER → 2021-06-18 | Outpatient (CLI) | payer BC ==
[2021-06-18 17:40] LABS: African American GFR (CKD) >90 (>60 ml/min/1.73 sqM); Blood Urea Nitrogen 15 mg/dL (7-17); Non-African American GFR(CKD) 84 (>60 ml/min/1.73 sqM)
--- NOTE | 2021-06-18 18:31 | CT ---
EXAMINATION TYPE: CT angio chest DATE OF EXAM: 06/18/2021 6:13 PM COMPARISON: CT 02/25/2021. HISTORY: ELEVATED D-DIMER CT DLP: 561.4 mGycm Automated exposure control for dose reduction was used. CONTRAST: CTA scan of the thorax is performed with IV Contrast, patient injected with 100 mL of Isovue 370, pul monary embolism protocol. MIP images are created and reviewed. FINDINGS: LUNGS: There are mild bronchiectatic changes bilaterally. Reticular opacity at the medial left base. There are a few scattered cystic areas bilaterally. No, effusion or pneumothorax. OTHER: No addition al significant abnormality is seen. MEDIASTINUM: No mediastinal, hilar or axillary lymphadenopathy. Contrast opacifies the pulmonary awa rial vasculature without filling defect. OTHER: There is borderline hypoattenuating suggesting steatosis. IMPRESSION: 1. NO PULMONARY EMBOLUS. 2. SCATTERED MILD CYSTIC AND MILD BRONCHIECTATIC CHANGES IN THE LUNGS.
== END | disposition home or self-care (01) ==
LOC: RADCTMAIN 16:56
PROVIDERS: ATTEND Internal Medicine
DX: J47.9 Bronchiectasis, uncomplicated (principal)
CPT/HCPCS: 82565; 84520; 71275; 36415; Q9967

== ENCOUNTER → 2021-06-23 | Outpatient (CLI) | payer BC | END | disposition home or self-care (01) | LOC: LABWHC1 10:26 | PROVIDERS: ATTEND Urology | DX: N20.0 Calculus of kidney (principal) | CPT/HCPCS: 36415; 82310; 83970 ==

== ENCOUNTER → 2021-08-04 | Outpatient (CLI) | payer BC ==
[2021-08-04 11:55] LABS: Protein/Creatinine Ratio,Urine 0.222
[2021-08-04 16:58] LABS: ALT 36 U/L (8-44); AST 23 U/L (13-35); African American GFR (CKD) 103.9 (60.0-200.0); Albumin 4.5 g/dL (3.8-4.9); Albumin/Globulin Ratio 2.15 (1.60-3.17); Alkaline Phosphatase 67 U/L (41-126); BUN/Creat Ratio 18.66 Ratio (12.00-20.00); Blood Urea Nitrogen 13.6 mg/dL (9.0-27.0); Calcium 9.4 mg/dL (8.7-10.3); Carbon Dioxide 26.2 mmol/L (20.0-27.5); Chloride 100 mmol/L (96-109); Chol/HDL Ratio 2.01 Ratio; Globulin 2.1 g/dL (1.6-3.3); Glucose 123 mg/dL (70-110); LDL Cholesterol,Calculated 61.2 mg/dL (0.0-131.0); Non-African American GFR(CKD) 89.7 (60.0-200.0); Sodium 139 mmol/L (135-145); Total Protein 6.5 g/dL (6.2-8.2)
== END | disposition home or self-care (01) ==
LOC: LABWHC1 10:07
PROVIDERS: ATTEND Internal Medicine
DX: C73 Malignant neoplasm of thyroid gland (principal); E11.65 Type 2 diabetes mellitus with hyperglycemia; E89.0 Postprocedural hypothyroidism; E55.9 Vitamin D deficiency, unspecified
CPT/HCPCS: 36415; 80053; 80061; 82306; 82570; 83036; 84156; 84432; 84439; 84443; 86800

== ENCOUNTER 2021-09-12 09:40 | Emergency (ER) | payer BC ==
[2021-09-12 09:47] VITALS: BP 154/79; PULSE 86; RESP 20; TEMP 98
--- NOTE | 2021-09-12 10:10 | ED ---
Extremity Problem HPI - General Chief complaint: Extremity Problem,Nontraumatic Stated complaint: Left Leg Pain Time Seen by Provider: 09/12/21 09:45 Source: patient, RN notes reviewed, old records reviewed Mode of arrival: ambulatory Limitations: no limitations - History of Present Illness Initial comments: This is a 61-year-old female presents emergency Department complaining of left anterior guy pain. Patient states about 3 weeks ago she had a job and she started wearing heels ever since then she started having this pain in the anterior guy. Patient states he has no calf pain there's no posterior pain at all. Patient states is no bruising there's been no direct trauma or injury. Patient states it worsened when she stumbled and is in a and had to put more pressure on the foot. Patient states he feels much better when she lies around and doesn't move it and when she stands on it and tries to walk it's much worse. Patient states if she walks flat-footed it's much improved. - Related Data Home Medications Medication Instructions Recorded Confirmed Venlafaxine HCl [Effexor] 75 mg PO HS 10/17/14 09/12/21 ALPRAZolam [Xanax] 0.5 mg PO DAILY PRN 08/18/16 09/12/21 Levothyroxine Sodium [Levo-T] 150 mcg PO DAILY 08/18/16 09/12/21 Dulaglutide [Trulicity] 1.5 mg SQ LEÓN 06/05/20 09/12/21 Oxybutynin Chloride 5 mg PO BID 06/05/20 09/12/21 Losartan Potassium [Cozaar] 25 mg PO DAILY 06/06/20 09/12/21 Ergocalciferol (Vitamin D2) 1,250 mcg PO LEÓN 12/02/20 09/12/21 [Vitamin D2 (50,000 Iu)] Omeprazole [PriLOSEC] 40 mg PO HS 12/02/20 09/12/21 metFORMIN HCL ER [Glucophage XR] 1,000 mg PO BID 12/02/20 09/12/21 Anastrozole 1 mg PO DAILY 09/12/21 09/12/21 Ascorbic Acid [Vitamin C] 500 mg PO DAILY 09/12/21 09/12/21 Aspirin EC [Ecotrin] 325 mg PO DAILY 09/12/21 09/12/21 Celecoxib [CeleBREX] 200 mg PO BID 09/12/21 09/12/21 Famotidine 20 mg PO BID 09/12/21 09/12/21 Melatonin 10 mg PO HS 09/12/21 09/12/21 Metoprolol Tartrate [Lopressor] 25 mg PO BID 09/12/21 09/12/21 Rosuvastatin [Crestor] 10 mg PO HS 09/12/21 09/12/21 traMADol HCL [Ultram ER] 100 mg PO DAILY PRN 09/12/21 09/12/21 Previous Rx's Medication Instructions Recorded Zinc Sulfate [Orazinc] 220 mg PO DAILY #30 cap 12/13/20 Ketorolac [Toradol] 10 mg PO Q6HR #15 tab 09/12/21 Allergies Allergy/AdvReac Type Severity Reaction Status Date / Time Penicillins Allergy Itching Verified 09/12/21 11:41 lisinopril AdvReac Cough Verified 09/12/21 11:42 Review of Systems ROS Statement: Those systems with pertinent positive or pertinent negative responses have been documented in the HPI. ROS Other: All systems not noted in ROS Statement are negative. Past Medical History Past Medical History: Cancer, Diabetes Mellitus, GERD/Reflux, Sleep Apnea/CPAP/BIPAP, Thyroid Disorder Additional Past Medical History / Comment(s): THYROID CANCER 10/30/14; breast cancer; type 2 Diabetes History of Any Multi-Drug Resistant Organisms: None Reported Past Surgical History: Cholecystectomy, Hysterectomy, Orthopedic Surgery, Tonsillectomy Additional Past Surgical History / Comment(s): thyroidectomy, left knees replacment. Past Anesthesia/Blood Transfusion Reactions: No Reported Reaction Past Psychological History: Depression Smoking Status: Never smoker Past Alcohol Use History: None Reported Past Drug Use History: None Reported - Past Family History Mother Family Medical History: Cancer Additional Family Medical History / Comment(s): uterine CA and esoghagus Father Family Medical History: Cancer General Exam - General Exam Comments Initial Comments: GENERAL Patient is well-developed and well-nourished. Patient is in mild distress. EYES Patient's pupils are equal and round. Extraocular motion is intact SKIN Unremarkable NEURO The patient is alert and oriented 3 PYSCH Patient has normal interpersonal interactions. MUSCULOSKELETAL Patient's anterior guy is very tender to palpation is no swelling is no redness is no ecchymosis. Calves nontender no swelling or edema of leg Limitations: no limitations Course Vital Signs 09/12/21 09:45 Temperature 98 F Pulse Rate 86 Respiratory 20 Rate Blood Pressure 154/79 O2 Sat by Pulse 98 Oximetry Medical Decision Making - Medical Decision Making X-ray showed no acute abnormality. Patient did have some lucency around the pro sthesis and she will follow-up with an orthopedic surgeon for this. - Lab Data Result diagrams: 09/12/21 11:30 09/12/21 11:30 Lab Results 09/12/21 09/12/21 Range/Units 11:30 11:30 WBC 6.7 (3.8-10.6) k/uL RBC 4.12 (3.80-5.40) m/uL Hgb 12.0 (11.4-16.0) gm/dL Hct 37.1 (34.0-46.0) % MCV 90.1 (80.0-100.0) fL MCH 29.2 (25.0-35.0) pg MCHC 32.4 (31.0-37.0) g/dL RDW 15.2 (11.5-15.5) % Plt Count 307 (150-450) k/uL MPV 7.7 Neutrophils % 69 % Lymphocytes % 20 % Monocytes % 5 % Eosinophils % 3 % Basophils % 0 % Neutrophils # 4.6 (1.3-7.7) k/uL Lymphocytes # 1.3 (1.0-4.8) k/uL Monocytes # 0.4 (0-1.0) k/uL Eosinophils # 0.2 (0-0.7) k/uL Basophils # 0.0 (0-0.2) k/uL Hypochromasia Slight Sodium 138 (137-145) mmol/L Potassium 5.1 (3.5-5.1) mmol/L Chloride 105 (98-107) mmol/L Carbon Dioxide 23 (22-30) mmol/L Anion Gap 10 mmol/L BUN 19 H (7-17) mg/dL Creatinine 0.56 (0.52-1.04) mg/dL Est GFR (CKD-EPI)AfAm >90 (>60 ml/min/1.73 sqM) Est GFR (CKD-EPI)NonAf >90 (>60 ml/min/1.73 sqM) Glucose 115 H (74-99) mg/dL Calcium 8.8 (8.4-10.2) mg/dL Total Bilirubin 0.5 (0.2-1.3) mg/dL AST 55 H (14-36) U/L ALT 43 H (4-34) U/L Alkaline Phosphatase 67 (38-126) U/L C-Reactive Protein 0.7 (<1.0) mg/dL Total Protein 6.8 (6.3-8.2) g/dL Albumin 4.2 (3.5-5.0) g/dL Disposition Clinical Impression: Anterior guy splints Disposition: HOME SELF-CARE Condition: Good Prescriptions: Ketorolac [Toradol] 10 mg PO Q6HR #15 tab Is patient prescribed a controlled substance at d/c from ED?: No Referrals: Singh Otto MD [Primary Care Provider] - 1-2 days Time of Disposition: 12:01
--- NOTE | 2021-09-12 10:30 | XR ---
EXAMINATION TYPE: XR tibia fibula LT DATE OF EXAM: 09/12/2021 CLINICAL HISTORY: History of 2 knee replacements with pain localized to lower level of prosthesis TECHNIQUE: Two views of the left leg are obtained. COMPARISON: None. FINDINGS: [place] osseous structures are demineralized. There is no acute fracture or dislocation see n in the left tibia or fibula. Metallic hardware from total left knee arthroplasty is present. There is suspicious surrounding lucency in the proximal tibial component though this should be correlated w ith immediate postoperative images to assess for interval change to suggest loosening or infection. Visualized left ankle joint appears within normal limits. The overlying soft tissue appears unremarka ble. IMPRESSION: As above.
[2021-09-12 11:42] LABS: Basophils % (A) 0 %; Eosinophils # (A) 0.2 k/uL (0-0.7); Eosinophils % (A) 3 %; HCT 37.1 % (34.0-46.0); Hypochromasia Slight; Lymphocytes # (A) 1.3 k/uL (1.0-4.8); Lymphocytes % (A) 20 %; MCH 29.2 pg (25.0-35.0); MCHC 32.4 g/dL (31.0-37.0); MCV 90.1 fL (80.0-100.0); Mean Platelet Volume 7.7; Monocytes # (A) 0.4 k/uL (0-1.0); Monocytes % (A) 5 %; Neutrophils # (A) 4.6 k/uL (1.3-7.7); Neutrophils % (A) 69 %; Platelet Count 307 k/uL (150-450); RBC 4.12 m/uL (3.80-5.40); RDW 15.2 % (11.5-15.5); WBC 6.7 k/uL (3.8-10.6)
[2021-09-12 11:53] LABS: ALT 43 U/L (4-34); AST 55 U/L (14-36); African American GFR (CKD) >90 (>60 ml/min/1.73 sqM); Albumin 4.2 g/dL (3.5-5.0); Alkaline Phosphatase 67 U/L (38-126); Anion Gap 10 mmol/L; Blood Urea Nitrogen 19 mg/dL (7-17); C Reactive Protein 0.7 mg/dL (<1.0); Calcium 8.8 mg/dL (8.4-10.2); Carbon Dioxide 23 mmol/L (22-30); Chloride 105 mmol/L (98-107); Glucose 115 mg/dL (74-99); Non-African American GFR(CKD) >90 (>60 ml/min/1.73 sqM); Sodium 138 mmol/L (137-145); Total Bilirubin 0.5 mg/dL (0.2-1.3); Total Protein 6.8 g/dL (6.3-8.2)
[2021-09-12 11:55] LABS: Potassium 5.1 mmol/L (3.5-5.1)
== END 2021-09-12 12:30 | disposition home or self-care (01) ==
LOC: EC 09:40
DX: S86.892A Other injury of other muscle(s) and tendon(s) at lower leg level, left leg, initial encounter (principal); K21.9 Gastro-esophageal reflux disease without esophagitis; E11.9 Type 2 diabetes mellitus without complications; F32.A Depression, unspecified; Z79.84 Long term (current) use of oral hypoglycemic drugs; Z79.899 Other long term (current) drug therapy
CPT/HCPCS: 36415; 80053; 84145; 85025; 86140; 99283

== ENCOUNTER → 2021-10-22 | Outpatient (CLI) | payer BC ==
[2021-10-22 15:18] LABS: African American GFR (CKD) >90 (>60 ml/min/1.73 sqM); Blood Urea Nitrogen 12 mg/dL (7-17); Non-African American GFR(CKD) 86 (>60 ml/min/1.73 sqM)
--- NOTE | 2021-10-22 16:32 | CT ---
EXAMINATION TYPE: CT angio chest DATE OF EXAM: 10/22/2021 3:50 PM COMPARISON: CT dated 06/18/2021 HISTORY: Elevated d-dimer. CT DLP: 1232 mGycm Automated exposure control for dose reduction was used. CONTRAST: CTA scan of the thorax is performed with IV Contrast, patient injected with 100ml mL of Isovue 370, p ulmonary embolism protocol. MIP images were performed and reviewed. FINDINGS: The patient was injected twice following the pulmonary angiogram protocol for pulmonary embolism crabtree julián CT thoracic aortogram was performed without proper enhancement of the pulmonary arteries. This st udy is unfortunately nondiagnostic for pulmonary embolism. There is no obvious embolus within the pulmonary trunk or the main pulmonary arteries. Tiny filling d efects within the right lower lobe segmental arteries, possibly artifactual however tiny emboli canno t be excluded. The remainder of the visualized pulmonary arteries can't be assessed. No gross cardiomegaly. Coronary arterial calcifications. Left upper lobe and lingula subsegmental ate lectasis and groundglass opacity. Grossly unremarkable remainder of the lungs. Patent central airways . No pleural or pericardial effusion. No pathologically enlarged lymph nodes in the chest. Tiny left breast calcifications, please correlat e with mammography/breast ultrasound results. Suspected hepatic steatosis. Previous cholecystectomy. No aggressive bone lesion. IMPRESSION: Nondiagnostic CT scan to rule out pulmonary emboli in spite of attempting twice as detailed above. Th e described filling defects within the right lower lobe pulmonary arteries could be artifactual howev er tiny pulmonary emboli can't be excluded. Consider treating the patient if there is a high clinical probability of pulmonary embolism. Alternat ively, further V/Q scan or repeat CT pulmonary angiogram in 24 hours can be considered.
== END | disposition home or self-care (01) ==
LOC: RADCTMAIN 14:29
PROVIDERS: ATTEND Family Medicine
DX: I28.8 Other diseases of pulmonary vessels (principal); R79.1 Abnormal coagulation profile
CPT/HCPCS: 82565; 84520; 71275; Q9967

== ENCOUNTER → 2021-10-22 | Outpatient (CLI) | payer BC | END | disposition home or self-care (01) | LOC: LABWHC1 10:20 | PROVIDERS: ATTEND Nurse Practitioner Adult Health | DX: R06.00 Dyspnea, unspecified (principal) | CPT/HCPCS: 36415; 85379 ==

== ENCOUNTER → 2021-10-23 | Outpatient (CLI) | payer BC ==
--- NOTE | 2021-10-23 12:21 | NM ---
EXAMINATION TYPE: NM pul vent and perfuse DATE OF EXAM: 10/23/2021 COMPARISON: NONE HISTORY: R79.1 TECHNIQUE: Utilizing inhalation of 35.3 mCi Tc 99m DTPA aerosol and intravenous injection of 5.1 mCi of Tc 99m MAA, ventilation and perfusion images are acquired post injection in multiple projections. FINDINGS: Normal radiotracer distribution is noted in the lungs. There is no evidence of mismatched defects. IMPRESSION: Very low probability for pulmonary embolism.
== END | disposition home or self-care (01) ==
LOC: RADNMMAIN 10:44
PROVIDERS: ATTEND Family Medicine
DX: R79.1 Abnormal coagulation profile (principal)
CPT/HCPCS: 78582; A9540; A9567

== ENCOUNTER → 2021-11-06 | Outpatient (CLI) | payer BC ==
--- NOTE | 2021-11-08 13:52 | ECHOF ---
Referral Reason:R06.00 Dyspnea MEASUREMENTS -------- HEIGHT: 167.6 cm WEIGHT: 113.4 kg BP: IVSd: 1.4 cm (0.6 - 1.1) LVIDd: 3.6 cm (3.9 - 5.3) LVPWd: 1.3 cm (0.6 - 1.1) IVSs: 1.6 cm LVIDs: 1.6 cm LVPWs: 1.9 cm LAESV Index (A-L): 16.33 ml/m Ao Diam: 3.3 cm (2.0 - 3.7) AV Cusp: 2.2 cm (1.5 - 2.6) LA Diam: 3.9 cm (2.7 - 3.8) MV EXCURSION: 11.800 mm (> 18.000) MV EF SLOPE: 84 mm/s (70 - 150) EPSS: 0.5 cm MV E Samy: 0.92 m/s MV DecT: 226 ms MV A Samy: 1.07 m/s MV E/A Ratio: 0.86 AV maxP.45 mmHg AV meanP.85 mmHg RAP: 5.00 mmHg RVSP: 15.28 mmHg FINDINGS -------- This was a technically adequate study. The left ventricular size is normal. There is mild concentric left ventricular hypertrophy. Overa ll left ventricular systolic function is normal with, an EF between 55 - 60 %. Normal LAP Grade 1 D iastolic Dysfunction. The right ventricle is normal in size. The left atrial size is normal. Normal LA size by volume 22+/-6 ml/m2. The right atrial size is normal. The aortic valve was not well visualized. Peak/mean gradient across the Aortic Valve is 15.45mmHg / 7.85mmHg. The mitral valve is normal. Mild mitral regurgitation is present. The tricuspid valve appears structurally normal. Mild tricuspid regurgitation present. Right vent ricular systolic pressure is normal at < 35 mmHg. There is no pulmonic regurgitation present. The aortic root size is normal. Normal inferior vena cava with normal inspiratory collapse consistent with estimated right atrial pre ssure of 5 mmHg. There is no pericardial effusion. CONCLUSIONS -------- 1. The left ventricular size is normal. 2. There is mild concentric left ventricular hypertrophy. 3. Overall left ventricular systolic function is normal with, an EF between 55 - 60 %. 4. Normal LAP Grade 1 Diastolic Dysfunction. 5. Peak/mean gradient across the Aortic Valve is 15.45mmHg / 7.85mmHg. 6. Mild mitral regurgitation is present. 7. Mild tricuspid regurgitation present. 8. There is no pericardial effusion. WAREHOUSEMAN: Deidre Rubin RDCS
== END | disposition home or self-care (01) ==
LOC: RADECHMAIN 14:52
PROVIDERS: ATTEND Family Medicine
DX: I08.1 Rheumatic disorders of both mitral and tricuspid valves (principal)
CPT/HCPCS: 93306

== ENCOUNTER → 2021-12-01 | Outpatient (CLI) | payer BC ==
--- NOTE | 2021-12-01 10:25 | MM ---
Reason for exam: additional evaluation requested from prior study. Last mammogram was performed 3 years and 5 months ago. History: Patient is postmenopausal, has history of breast cancer at age 60, history of other cancer, and is nulliparous. Family history of breast cancer in paternal cousin. Malignant ultrasound-guided core biopsy of the left breast, 2020. Physical Findings: A clinical breast exam by your physician is recommended on an annual basis and results should be correlated with mammographic findings. MG 3D Diag Mammo W/Cad STEPH Bilateral CC and MLO view(s) were taken. Prior study comparison: July 28, 2020, mammogram, performed at [facility]. July 18, 2018, bilateral MG 3d screening mammo w/cad. The breast tissue is heterogeneously dense. This may lower the sensitivity of mammography. Post lumpectomy changes left breast. Skin thickening left breast post radiation. No significant changes when compared with prior studies. ASSESSMENT: Benign, BI-RAD 2 RECOMMENDATION: Follow-up diagnostic mammogram of both breasts in 1 year.
== END | disposition home or self-care (01) ==
LOC: RADMAMWWP 08:54
PROVIDERS: ATTEND Radiology Radiation Oncology
DX: R92.8 Other abnormal and inconclusive findings on diagnostic imaging of breast (principal); Z78.0 Asymptomatic menopausal state; Z85.3 Personal history of malignant neoplasm of breast; Z80.3 Family history of malignant neoplasm of breast
CPT/HCPCS: 77062; 77066

== ENCOUNTER → 2022-01-05 | Outpatient (CLI) | payer BC ==
[2022-01-05 15:54] LABS: ALT 44 U/L (8-44); AST 25 U/L (13-35); African American GFR (CKD) 109.6 (60.0-200.0); Albumin 4.6 g/dL (3.8-4.9); Albumin/Globulin Ratio 2.27 (1.60-3.17); Alkaline Phosphatase 84 U/L (41-126); BUN/Creat Ratio 24.42 Ratio (12.00-20.00); Blood Urea Nitrogen 16.9 mg/dL (9.0-27.0); Calcium 9.6 mg/dL (8.7-10.3); Carbon Dioxide 28.5 mmol/L (20.0-27.5); Chloride 101 mmol/L (96-109); Chol/HDL Ratio 3.62 Ratio; Glucose 122 mg/dL (70-110); LDL Cholesterol,Calculated 48.2 mg/dL (0.0-131.0); Non-African American GFR(CKD) 94.5 (60.0-200.0); Potassium 4.8 mmol/L (3.5-5.5); Sodium 140 mmol/L (135-145); Total Protein 6.6 g/dL (6.2-8.2)
== END | disposition home or self-care (01) ==
LOC: LABWHC1 08:57
PROVIDERS: ATTEND Internal Medicine
DX: C73 Malignant neoplasm of thyroid gland (principal); E11.65 Type 2 diabetes mellitus with hyperglycemia; E89.0 Postprocedural hypothyroidism; E55.9 Vitamin D deficiency, unspecified
CPT/HCPCS: 36415; 80053; 80061; 82043; 82306; 82570; 83036; 84432; 84439; 84443; 86800

== ENCOUNTER → 2022-02-24 | Outpatient (CLI) | payer BC ==
[2022-02-24 12:22] LABS: African American GFR (CKD) >90 (>60 ml/min/1.73 sqM); Blood Urea Nitrogen 11 mg/dL (7-17); Non-African American GFR(CKD) >90 (>60 ml/min/1.73 sqM)
--- NOTE | 2022-02-24 13:52 | CT ---
EXAMINATION TYPE: CT angio chest DATE OF EXAM: 02/24/2022 COMPARISON: CT dated 10/22/2021 HISTORY: Dyspnea CT DLP: 491.10 mGy.cm. Automated Exposure Control for Dose Reduction was Utilized. TECHNIQUE AND CONTRAST: CTA scan of the thorax is performed without and with IV Contrast, patient injected with 100 ml mL of Isovue 370, pulmonary embolism protocol. MIP Images are created on an independent workstation and r eviewed. FINDINGS: Artifactual images. No definite filling defect within the pulmonary trunk, main pulmonary arteries, l obar and segmental branches to suggest pulmonary embolism. Subsegmental branches are suboptimally ass essed. Coronary arterial calcification. Thickened left ventricular wall. Peripheral reticulations seen at the anterior aspect of the left upper lobe and lingula. Patent trach ea and main bronchi. No pleural or pericardial effusion. No pathologically enlarged lymph nodes in th e chest. Bulky liver. Previous cholecystectomy. Surgical clips are seen in the left breast with suspected scarring. Recommend correlation with left b reast ultrasound/mammography results. Skin thickening of the left breast. No gross aggressive bone le gini. IMPRESSION: With the limitation of the artifactual images, no major or central pulmonary embolism. Other findings as described above.
== END | disposition home or self-care (01) ==
LOC: RADCTMAIN 11:16
PROVIDERS: ATTEND Internal Medicine
DX: R06.09 Other forms of dyspnea (principal)
CPT/HCPCS: 82565; 84520; 71275; 36415; Q9967

== ENCOUNTER 2022-04-16 21:01 | Observation (INO) | payer BC ==
[2022-04-16] MEDS ORDERED: ONDANSETRON 4 MG/2 ML VIAL IVP STA (21:09)
[2022-04-16] MEDS ORDERED: SODIUM CHLORIDE 0.9% 1,000 ML IV STA (21:09)
--- NOTE | 2022-04-16 21:39 | ED ---
General Adult HPI - General Chief complaint: Nausea/Vomiting/Diarrhea Stated complaint: Vomiting Time Seen by Provider: 04/16/22 21:09 Source: patient Mode of arrival: ambulatory Limitations: no limitations - History of Present Illness Initial comments: Dictation was produced using [employer] dictation software. please excuse any grammatical, word or spelling errors. Chief Complaint: 61-year-old female presents to the ER for nausea vomiting History of Present Illness: 61 yo female presents emergency department for nausea and vomiting. Patient was diagnosed with urinary tract infection 4 days ago. She was put on Bactrim had a skin reaction. She went to follow-up with her primary care doctor who changed her medications to ciprofloxacin. Patient states that she is continuing to have some nausea. She has had some episodes of nonbilious nonbloody emesis. Denies any fever or constitutional symptoms. The ROS documented in this emergency department record has been reviewed and confirmed by me. Those systems with pertinent positive or negative responses have been documented in the HPI. All other systems are other negative and/or noncontributory. PHYSICAL EXAM: General Impression: Alert and oriented x3, not in acute distress HEENT: Normocephalic atraumatic, extra-ocular movements intact, pupils equal and reactive to light bilaterally, mucous membranes moist. Cardiovascular: Heart regular rate and rhythm Chest: Able to complete full sentences, no retractions, no tachypnea Abdomen: abdomen soft, non-tender, non-distended, no organomegaly Musculoskeletal: Pulses present and equal in all extremities, no peripheral edema Motor: no focal deficits noted Neurological: CN II-XII grossly intact, no focal motor or sensory deficits noted Skin: Intact with no visualized rashes Psych: Normal affect and mood ED course: 61-year-old female presents to the emergency room for for nausea after having been started on ciprofloxacin. Upon arrival are within acceptable limits. EKG shows no acute processes. Urinalysis is not available for review however culture and sensitivities are available from urinalysis obtained from 3 days ago showing urinalysis positive for E. coli without any drug sensitivities. Laboratory evaluation obtained. CBC unremarkable. Metabolic panel shows mild gap acidosis with a creatinine of 2.10. Patient does not have a history of chronic kidney disease. It is not entirely clear was causing patient's elevated renal markers however likely dehydration due to poor oral intake. Nonetheless patient given IV fluids will be admitted for kidney monitoring. EKG interpretation: Ventricular rate 77, sinus rhythm,. Interval 152, care is 94, QTC 429. No NJ prolongation, no QTC prolongation, no ST or T-wave changes noted. Overall, this EKG is unremarkable - Related Data Home Medications Medication Instructions Recorded Confirmed Venlafaxine HCl [Effexor] 75 mg PO HS 10/17/14 01/01/22 ALPRAZolam [Xanax] 0.5 mg PO DAILY PRN 08/18/16 01/01/22 Levothyroxine Sodium [Levo-T] 150 mcg PO DAILY 08/18/16 01/01/22 Dulaglutide [Trulicity] 1.5 mg SQ LEÓN 06/05/20 01/01/22 Oxybutynin Chloride 5 mg PO BID 06/05/20 01/01/22 Losartan Potassium [Cozaar] 25 mg PO DAILY 06/06/20 01/01/22 Ergocalciferol (Vitamin D2) 1,250 mcg PO LEÓN 12/02/20 01/01/22 [Vitamin D2 (50,000 Iu)] Omeprazole [PriLOSEC] 40 mg PO HS 12/02/20 01/01/22 metFORMIN HCL ER [Glucophage XR] 1,000 mg PO BID 12/02/20 01/01/22 Anastrozole 1 mg PO DAILY 09/12/21 01/01/22 Ascorbic Acid [Vitamin C] 500 mg PO DAILY 09/12/21 01/01/22 Aspirin EC [Ecotrin] 325 mg PO DAILY 09/12/21 01/01/22 Famotidine 20 mg PO BID 09/12/21 01/01/22 Melatonin [Melatonin ER] 10 mg PO HS 09/12/21 01/01/22 Metoprolol Tartrate [Lopressor] 25 mg PO BID 09/12/21 01/01/22 Rosuvastatin [Crestor] 10 mg PO HS 09/12/21 01/01/22 Magnesium 500 mg PO DAILY 12/18/21 01/01/22 Previous Rx's Medication Instructions Recorded Zinc Sulfate [Orazinc] 220 mg PO DAILY #30 cap 12/13/20 Allergies Allergy/AdvReac Type Severity Reaction Status Date / Time Penicillins Allergy Itching Verified 04/16/22 21:07 sulfamethoxazole Allergy Itching Verified 04/16/22 21:07 [From Bactrim] trimethoprim [From Bactrim] Allergy Itching Verified 04/16/22 21:07 lisinopril AdvReac Cough Verified 04/16/22 21:07 Review of Systems ROS Statement: Those systems with pertinent positive or pertinent negative responses have been documented in the HPI. ROS Other: All systems not noted in ROS Statement are negative. Past Medical History Past Medical History: Cancer, Diabetes Mellitus, GERD/Reflux, Pneumonia, Sleep Apnea/CPAP/BIPAP, Thyroid Disorder Additional Past Medical History / Comment(s): THYROID CANCER 10/30/14; breast cancer; type 2 Diabetes, lymph edema. COVID + AND IN HOSPITAL FOR 12 DAYS. History of Any Multi-Drug Resistant Organisms: None Reported Past Surgical History: Cholecystectomy, Hysterectomy, Orthopedic Surgery, To nsillectomy Additional Past Surgical History / Comment(s): thyroidectomy, left knees replacment. Past Anesthesia/Blood Transfusion Reactions: No Reported Reaction Past Psychological History: Depression Smoking Status: Never smoker - Past Family History Mother Family Medical History: Cancer Additional Family Medical History / Comment(s): uterine CA and esoghagus Father Family Medical History: Cancer General Exam Limitations: no limitations Course Vital Signs 04/16/22 21:02 Temperature 98.8 F Pulse Rate 87 Respiratory 20 Rate Blood Pressure 112/60 O2 Sat by Pulse 95 Oximetry Medical Decision Making - Lab Data Result diagrams: 04/16/22 21:31 04/16/22 21:31 Lab Results 04/16/22 04/16/22 Range/Units 21:31 21:31 WBC 5.6 (3.8-10.6) k/uL RBC 4.29 (3.80-5.40) m/uL Hgb 12.6 (11.4-16.0) gm/dL Hct 38.3 (34.0-46.0) % MCV 89.2 (80.0-100.0) fL MCH 29.3 (25.0-35.0) pg MCHC 32.9 (31.0-37.0) g/dL RDW 13.9 (11.5-15.5) % Plt Count 225 (150-450) k/uL MPV 8.1 Neutrophils % 80 % Lymphocytes % 5 % Monocytes % 5 % Eosinophils % 8 % Basophils % 0 % Neutrophils # 4.5 (1.3-7.7) k/uL Lymphocytes # 0.3 L (1.0-4.8) k/uL Monocytes # 0.3 (0-1.0) k/uL Eosinophils # 0.5 (0-0.7) k/uL Basophils # 0.0 (0-0.2) k/uL Sodium 133 L (137-145) mmol/L Potassium 4.5 (3.5-5.1) mmol/L Chloride 98 (98-107) mmol/L Carbon Dioxide 19 L (22-30) mmol/L Anion Gap 16 mmol/L BUN 26 H (7-17) mg/dL Creatinine 2.10 H (0.52-1.04) mg/dL Est GFR (CKD-EPI)AfAm 29 (>60 ml/min/1.73 sqM) Est GFR (CKD-EPI)NonAf 25 (>60 ml/min/1.73 sqM) Glucose 143 H (74-99) mg/dL Calcium 9.7 (8.4-10.2) mg/dL Disposition Clinical Impression: DELMER (acute kidney injury) Disposition: ADMITTED IP TO THIS HOSP Condition: Fair Referrals: Singh Otto MD [Primary Care Provider] - 1-2 days Decision Time: 22:38
[2022-04-16 21:45] LABS: Basophils % (A) 0 %; Eosinophils # (A) 0.5 k/uL (0-0.7); Eosinophils % (A) 8 %; HCT 38.3 % (34.0-46.0); HGB 12.6 gm/dL (11.4-16.0); Lymphocytes # (A) 0.3 k/uL (1.0-4.8); Lymphocytes % (A) 5 %; MCH 29.3 pg (25.0-35.0); MCHC 32.9 g/dL (31.0-37.0); MCV 89.2 fL (80.0-100.0); Mean Platelet Volume 8.1; Monocytes # (A) 0.3 k/uL (0-1.0); Monocytes % (A) 5 %; Neutrophils # (A) 4.5 k/uL (1.3-7.7); Neutrophils % (A) 80 %; Platelet Count 225 k/uL (150-450); RBC 4.29 m/uL (3.80-5.40); RDW 13.9 % (11.5-15.5); WBC 5.6 k/uL (3.8-10.6)
[2022-04-16 22:18] LABS: Calcium 9.7 mg/dL (8.4-10.2)
[2022-04-16 22:22] LABS: Potassium 4.5 mmol/L (3.5-5.1)
[2022-04-16] MEDS ORDERED: NALOXONE 0.4 MG/ML 1 ML VIAL IV PRN (22:29)
[2022-04-16] MEDS ORDERED: ACETAMINOPHEN TAB 325 MG TAB PO PRN (22:29)
[2022-04-16] MEDS ORDERED: cefTRIAXone IN SWFI 1,000 MG/10 ML SYRINGE IVP STA (22:31)
[2022-04-17] MEDS: SODIUM CHLORIDE 0.9% 1,000 ML IV SCH ×4 (03:03→23:30)
--- NOTE | 2022-04-17 03:22 | P.HPIM ---
History of Present Illness H&P Date: 04/16/22 The patient is a 61-year-old female with a PMH of bladder cancer status post resection now in remission, hypothyroidism, hypertension, hyperlipidemia, and type II DM who presents to the emergency room with complaints of nausea and vomiting. The patient reports that she was diagnosed with a UTI by her urologist as he was preparing to do a cystoscopy which he subsequent be canceled. The patient was started on Bactrim, which she reports was not well tolerated as she developed a rash and nausea. She was then seen by her PCP yesterday and was switched to ciprofloxacin first dose of which the patient took earlier today. She notes however continued nausea as well as poor appetite with dark urine. She also reports fever at home with T-max 102. She reports ongoing nausea without vomiting. EKG in the emergency room reveals sinus rhythm at 77 bpm. Laboratory evaluation was remarkable for a BUN 26 and creatinine 2.10, previously 0.6 on 02/24. Review of systems: Pertinent positives and negatives as discussed in HPI, a complete review of systems was performed and all other systems are negative. Physical examination: General: non toxic, no distress, appears at stated age, obese Derm: no unusual rashes/lesions, warm Head: atraumatic, normocephalic, symmetric Eyes: EOMI, no lid lag, anicteric sclera, pupils equal round reactive to light ENT: Nose and ears atraumatic Neck: No cervical lymphadenopathy, trachea midline, supple Mouth: no lip lesion, mucus membranes moist Cardiovascular: S1S2 reg, no murmur, positive dorsalis pedis pulse bilateral, no edema Lungs: CTA bilateral, no rhonchi, no rales, no accessory muscle use Abdominal: soft, nontender to palpation, no guarding, no CVA tenderness Ext: muscle strength 5 out of 5 in all 4 extremities grossly, no gross muscle atrophy, no contractures, Neuro: CN II-XI grossly intact, no gross focal neuro deficits Psych: Alert, oriented, appropriate affect Assessment/plan UTI, failed outpatient treatment -Continue with ceftriaxone -IV fluids -UA with reflex to culture Acute kidney injury -Likely due to poor oral intake -Continue with IV fluids -Hold home losartan Chronic conditions: Hypothyroidism, hyperlipidemia, hypertension, diabetes -Continue with home meds -Insulin sliding scale and blood glucose monitoring DVT prophylaxis -Heparin subcu The patient is admitted with an anticipated less than 2 midnight stay for sara luation of UTI CODE STATUS: Full Code Discussed with: Patient Anticipated discharge date: in am Anticipated discharge place: Home Past Medical History Past Medical History: Cancer, Diabetes Mellitus, GERD/Reflux, Pneumonia, Sleep Apnea/CPAP/BIPAP, Thyroid Disorder Additional Past Medical History / Comment(s): THYROID CANCER 10/30/14; breast cancer; type 2 Diabetes, lymph edema. COVID + AND IN HOSPITAL FOR 12 DAYS. History of Any Multi-Drug Resistant Organisms: None Reported Past Surgical History: Cholecystectomy, Hysterectomy, Orthopedic Surgery, Tonsillectomy Additional Past Surgical History / Comment(s): thyroidectomy, left knees replacment. Past Anesthesia/Blood Transfusion Reactions: No Reported Reaction Past Psychological History: Depression Smoking Status: Never smoker - Past Family History Mother Family Medical History: Cancer Additional Family Medical History / Comment(s): uterine CA and esoghagus Father Family Medical History: Cancer Medications and Allergies Home Medications Medication Instructions Recorded Confirmed Type Venlafaxine HCl [Effexor] 75 mg PO HS 10/17/14 04/16/22 History ALPRAZolam [Xanax] 0.5 mg PO DAILY PRN 08/18/16 04/16/22 History Levothyroxine Sodium [Levo-T] 150 mcg PO DAILY 08/18/16 04/16/22 History Dulaglutide [Trulicity] 1.5 mg SQ LEÓN 06/05/20 04/16/22 History Oxybutynin Chloride 5 mg PO BID 06/05/20 04/16/22 History Losartan Potassium [Cozaar] 25 mg PO DAILY 06/06/20 04/16/22 History Ergocalciferol (Vitamin D2) 1,250 mcg PO LEÓN 12/02/20 04/16/22 History [Vitamin D2 (50,000 Iu)] Omeprazole [PriLOSEC] 40 mg PO HS 12/02/20 04/16/22 History metFORMIN HCL ER [Glucophage XR] 1,000 mg PO BID 12/02/20 04/16/22 History Anastrozole 1 mg PO DAILY 09/12/21 04/16/22 History Ascorbic Acid [Vitamin C] 500 mg PO DAILY 09/12/21 04/16/22 History Aspirin EC [Ecotrin] 325 mg PO DAILY 09/12/21 04/16/22 History Famotidine 20 mg PO BID 09/12/21 04/16/22 History Melatonin [Melatonin ER] 10 mg PO HS 09/12/21 04/16/22 History Rosuvastatin [Crestor] 10 mg PO HS 09/12/21 04/16/22 History Magnesium 500 mg PO DAILY 12/18/21 04/16/22 History Ciprofloxacin HCl [Cipro] 500 mg PO BID 04/16/22 04/16/22 History Cyanocobalamin (Vitamin B-12) 1,000 mcg PO DAILY 04/16/22 04/16/22 History [Vitamin B-12] Ferrous Sulfate [Feosol] 325 mg PO DAILY 04/16/22 04/16/22 History Metoprolol Tartrate [Lopressor] 50 mg PO BID 04/16/22 04/16/22 History Zinc 50 mg PO DAILY 04/16/22 04/16/22 History Allergies Allergy/AdvReac Type Severity Reaction Status Date / Time Penicillins Allergy Rash/Hives Verified 04/16/22 23:26 sulfamethoxazole Allergy Itching Verified 04/16/22 23:26 [From Bactrim] trimethoprim [From Bactrim] Allergy Itching Verified 04/16/22 23:26 lisinopril AdvReac Cough Verified 04/16/22 23:26 Physical Exam Vitals: Vital Signs Temp Pulse Resp BP Pulse Ox 04/16/22 21:02 98.8 F 87 20 112/60 95 Intake and Output 04/16/22 04/16/22 04/17/22 14:59 22:59 06:59 Other: Weight 111.13 kg Results CBC & Chem 7: 04/16/22 21:31 04/16/22 21:31 Labs: Abnormal Lab Results - Last 24 Hours (Table) 04/16/22 04/16/22 Range/Units 21:31 21:31 Lymphocytes # 0.3 L (1.0-4.8) k/uL Sodium 133 L (137-145) mmol/L Carbon Dioxide 19 L (22-30) mmol/L BUN 26 H (7-17) mg/dL Creatinine 2.10 H (0.52-1.04) mg/dL Glucose 143 H (74-99) mg/dL
[2022-04-17] MEDS: LEVOTHYROXINE 75 MCG TAB PO SCH (07:06)
[2022-04-17 07:59] LABS: Glucose,Whole Blood 127 mg/dL (70-110)
[2022-04-17] MEDS: OXYBUTYNIN CHLORIDE 5 MG TAB PO SCH ×2 (08:05→20:25)
[2022-04-17] MEDS: METOPROLOL TARTRATE 50 MG TAB PO SCH ×2 (08:05→20:25)
[2022-04-17] MEDS: ASPIRIN 325 MG TAB PO SCH (08:05)
[2022-04-17] MEDS: HEPARIN SODIUM,PORCINE/PF 5,000 UNIT/0.5 ML SYRINGE SQ SCH ×3 (08:05→23:30)
[2022-04-17] MEDS: INSULIN ASPART (NovoLOG) 100 UNIT/ML VIAL SQ SCH ×4 (08:06→20:25)
[2022-04-17 12:03] LABS: African American GFR (CKD) 34.8 (60.0-200.0); Anion Gap 13.6 mmol/L (10.00-18.00); BUN/Creat Ratio 11.89 Ratio (12.00-20.00); Blood Urea Nitrogen 21.4 mg/dL (9.0-27.0); Calcium 9.4 mg/dL (8.7-10.3); Carbon Dioxide 22.4 mmol/L (20.0-27.5); Non-African American GFR(CKD) 30.1 (60.0-200.0); Potassium 4.2 mmol/L (3.5-5.5)
[2022-04-17 12:43] LABS: Glucose,Whole Blood 243 mg/dL (70-110)
--- NOTE | 2022-04-17 13:46 | P.NPCON ---
History of Present Illness - Reason for Consult Consult date: 04/17/22 acute renal failure - Chief Complaint Fevers, nausea vomiting - History of Present Illness 61-year-old white female coming to the hospital with the above complaints. She has history of bladder cancer diagnosed 2 years ago, follows with urology as outpatient. It was superficial and needed scraping and routine follow-up. Did not need chemo or radiation. She also has history of nephrolithiasis status post stone retrieval. Baseline creatinine 0.6 MG per DL. Last Tuesday, she was seen in urology office and had UTI with fevers. She was started on Bactrim, 2 days later still not feeling well went to PCP and Bactrim was switched to ciprofloxacin. She continues to have fevers, nausea vomiting and decided to come to the hospital last night. Creatinine was 2.2 on admission. She was started on fluids creatinine 1.8 MG per DL today. History of diabetes on metformin and trulicity, no retinopathy or neuropathy. No CAD or CVA. History of hypertension on losartan. On admission systolic blood pressure was in 100s. No recent contrast studies or NSAID use. Review of Systems Constitutional: Reports as per HPI Past Medical History Past Medical History: Cancer, Diabetes Mellitus, GERD/Reflux, Pneumonia, Sleep Apnea/CPAP/BIPAP, Thyroid Disorder Additional Past Medical History / Comment(s): THYROID CANCER 10/30/14; breast cancer; type 2 Diabetes, lymph edema. COVID + AND IN HOSPITAL FOR 12 DAYS. History of Any Multi-Drug Resistant Organisms: None Reported Past Surgical History: Cholecystectomy, Hysterectomy, Orthopedic Surgery, Tonsillectomy Additional Past Surgical History / Comment(s): thyroidectomy, left knees replacment. Past Anesthesia/Blood Transfusion Reactions: No Reported Reaction Past Psychological History: Depression Smoking Status: Never smoker - Past Family History Mother Family Medical History: Cancer Additional Family Medical History / Comment(s): uterine CA and esoghagus Father Family Medical History: Cancer Medications and Allergies Home Medications Medication Instructions Recorded Confirmed Type Venlafaxine HCl [Effexor] 75 mg PO HS 10/17/14 04/16/22 History ALPRAZolam [Xanax] 0.5 mg PO DAILY PRN 08/18/16 04/16/22 History Levothyroxine Sodium [Levo-T] 150 mcg PO DAILY 08/18/16 04/16/22 History Dulaglutide [Trulicity] 1.5 mg SQ LEÓN 06/05/20 04/16/22 History Oxybutynin Chloride 5 mg PO BID 06/05/20 04/16/22 History Losartan Potassium [Cozaar] 25 mg PO DAILY 06/06/20 04/16/22 History Ergocalciferol (Vitamin D2) 1,250 mcg PO LEÓN 12/02/20 04/16/22 History [Vitamin D2 (50,000 Iu)] Omeprazole [PriLOSEC] 40 mg PO HS 12/02/20 04/16/22 History metFORMIN HCL ER [Glucophage XR] 1,000 mg PO BID 12/02/20 04/16/22 History Anastrozole 1 mg PO DAILY 09/12/21 04/16/22 History Ascorbic Acid [Vitamin C] 500 mg PO DAILY 09/12/21 04/16/22 History Aspirin EC [Ecotrin] 325 mg PO DAILY 09/12/21 04/16/22 History Famotidine 20 mg PO BID 09/12/21 04/16/22 History Melatonin [Melatonin ER] 10 mg PO HS 09/12/21 04/16/22 History Rosuvastatin [Crestor] 10 mg PO HS 09/12/21 04/16/22 History Magnesium 500 mg PO DAILY 12/18/21 04/16/22 History Ciprofloxacin HCl [Cipro] 500 mg PO BID 04/16/22 04/16/22 History Cyanocobalamin (Vitamin B-12) 1,000 mcg PO DAILY 04/16/22 04/16/22 History [Vitamin B-12] Ferrous Sulfate [Feosol] 325 mg PO DAILY 04/16/22 04/16/22 History Metoprolol Tartrate [Lopressor] 50 mg PO BID 04/16/22 04/16/22 History Zinc 50 mg PO DAILY 04/16/22 04/16/22 History Allergies Allergy/AdvReac Type Severity Reaction Status Date / Time Penicillins Allergy Rash/Hives Verified 04/16/22 23:26 sulfamethoxazole Allergy Itching Verified 04/16/22 23:26 [From Bactrim] trimethoprim [From Bactrim] Allergy Itching Verified 04/16/22 23:26 lisinopril AdvReac Cough Verified 04/16/22 23:26 Physical Exam Vitals: Vital Signs Temp Pulse Resp BP Pulse Ox 04/17/22 05:29 91 20 126/79 04/17/22 00:20 84 16 100/64 04/16/22 21:02 98.8 F 87 20 112/60 95 Intake and Output 04/16/22 04/17/22 04/17/22 22:59 06:59 14:59 Other: Weight 111.13 kg No acute distress S1-S2 heard Lungs clear No edema Results - Lab Results Most recent lab results Calcium 9.4 mg/dL (8.7-10.3) 04/17/22 06:23 04/16/22 21:31 04/17/22 06:23 Assessment and Plan Assessment: #1 acute kidney injury secondary to hemodynamic ATN with low blood pressures and concomitant use of Cozaar. -Baseline creatinine 0.6 MG per DL. -Urine analysis pending #2 bladder carcinoma in situ status post creeping, currently in remission #3 diabetes on metformin. #4 hypertension, hypotensive on admission. #5 complicated UTI Plan: #1 agree with holding metformin and Cozaar. #2 ceftriaxone for UTI, awaiting urine cultures. #3 continue with normal saline at 75 ML's an hour. #4 check renal ultrasound for size and hydronephrosis/stones. #5 avoid nephrotoxic agents and hypotensive episodes #6 labs in the morning
[2022-04-17 16:10] LABS: Glucose,Whole Blood 139 mg/dL (70-110)
[2022-04-17 16:13] LABS: Appearance,Urine Clear (Clear); Bilirubin,Urine 1+ (Negative); Blood,Urine Negative (Negative); Color,Urine Yellow; Glucose,Urine (UA) Negative (Negative); Ketones,Urine Negative (Negative); Leukocyte Esterase,Urine Negative (Negative); Nitrite,Urine Negative (Negative); Protein,Urine Trace (Negative); Urobilinogen,Urine <2.0 mg/dL (<2.0)
--- NOTE | 2022-04-17 16:14 | US ---
EXAMINATION TYPE: US kidneys/renal and bladder DATE OF EXAM: 04/17/2022 COMPARISON: US 2020 CLINICAL HISTORY: hermes. Exam done portable EXAM MEASUREMENTS: Right Kidney: 12.9 x 5.8 x 5.5 cm Left Kidney: 13.6 x 5.1 x 6.1 cm Right Kidney: No hydronephrosis or masses seen Left Kidney: Mild pelviectasis. No evidence for hydronephrosis. Bladder: Normal in appearance. Bilateral Jets seen: yes There is no evidence for hydronephrosis at this point in time. No nephrolithiasis is seen. No soni s are identified. The urinary bladder is anechoic. Bilateral ureteral jets are seen. IMPRESSION: No evidence for hydronephrosis.
--- NOTE | 2022-04-17 17:23 | P.PN ---
Progress Note - Text Progress Note Date: 04/17/22 Patient seen and examined. No acute events overnight. Patient reports improvement in her symptoms since admission. She reports no fevers. She denies any abdominal pain, nausea or vomiting. General: [non toxic], [no distress], [appears at stated age] Derm: [warm], [dry] Head: [atraumatic], [normocephalic], [symmetric] Eyes: [EOMI], [no lid lag], [anicteric sclera] Mouth: [no lip lesion], [mucus membranes moist] Cardiovascular: [S1S2 reg], [no murmur] Lungs: [CTA bilateral], [no rhonchi, no rales] , [no accessory muscle use] Ext: [no gross muscle atrophy], [no edema], [no contractures] Neuro: [no focal neuro deficits] Psych: [Alert], [oriented], [appropriate affect] UTI, failed outpatient treatment -Continue with ceftriaxone -IV fluids -Urine culture pending Acute kidney injury -Likely due to poor oral intake -Renal US shows no hydronephrosis -Continue with IV fluids (decreased) -Repeat BMP tomorrow morning -Nephrology consulted - UCr, microalbumin, Luis Manuel pending -Hold home losartan Chronic conditions: Hypothyroidism, hyperlipidemia, hypertension, diabetes -Continue with home meds -Insulin sliding scale and blood glucose monitoring DVT prophylaxis -Heparin subcu The patient is admitted with an anticipated less than 2 midnight stay for evaluation of UTI CODE STATUS: Full Code Discussed with: Patient Anticipate DC home in 1-2 days if patient continues to show improvement.
[2022-04-17 19:55] LABS: Glucose,Whole Blood 192 mg/dL (70-110)
[2022-04-17] MEDS ORDERED: VENLAFAXINE HCL 75 MG TAB PO SCH (21:00)
[2022-04-17] MEDS ORDERED: ATORVASTATIN 20 MG TAB PO SCH (21:00)
[2022-04-17 23:02] LABS: Urine Creatinine 65.7 mg/dL (28.0-217.0)
[2022-04-18] MEDS: LEVOTHYROXINE 75 MCG TAB PO SCH (05:08)
[2022-04-18 07:20] LABS: Glucose,Whole Blood 123 mg/dL (70-110)
[2022-04-18 07:34] LABS: African American GFR (CKD) 63 (>60 ml/min/1.73 sqM); Anion Gap 12 mmol/L; Blood Urea Nitrogen 14 mg/dL (7-17); Calcium 9.1 mg/dL (8.4-10.2); Carbon Dioxide 18 mmol/L (22-30); Chloride 110 mmol/L (98-107); Glucose 142 mg/dL (74-99); Non-African American GFR(CKD) 55 (>60 ml/min/1.73 sqM); Potassium 4.3 mmol/L (3.5-5.1); Sodium 140 mmol/L (137-145)
[2022-04-18 07:48] VITALS: BP 141/91; PULSE 72; RESP 18; TEMP 99
[2022-04-18] MEDS: INSULIN ASPART (NovoLOG) 100 UNIT/ML VIAL SQ SCH (08:33)
[2022-04-18] MEDS: ASPIRIN 325 MG TAB PO SCH (08:53)
[2022-04-18] MEDS: OXYBUTYNIN CHLORIDE 5 MG TAB PO SCH (08:53)
[2022-04-18] MEDS: HEPARIN SODIUM,PORCINE/PF 5,000 UNIT/0.5 ML SYRINGE SQ SCH (08:53)
[2022-04-18] MEDS: METOPROLOL TARTRATE 50 MG TAB PO SCH (08:53)
--- NOTE | 2022-04-18 10:35 | P.DS ---
Providers Date of admission: 04/16/22 22:29 Expected date of discharge: 04/18/22 Attending physician: Nory Alfonso MD Consults: 04/16/22 22:29 Consult Physician Routine Consulting Provider: Dian Woodward Consult Reason/Comments: hermes Do you want consulting provider notified?: Yes Primary care physician: [facility] Hospital Course: The patient is a 61-year-old female with a PMH of bladder cancer status post resection now in remission, hypothyroidism, hypertension, hyperlipidemia, and type II DM who presents to the emergency room with complaints of nausea and vom iting. The patient reports that she was diagnosed with a UTI by her urologist as he was preparing to do a cystoscopy which he subsequent be canceled. The patient was started on Bactrim, which she reports was not well tolerated as she developed a rash and nausea. She was then seen by her PCP yesterday and was switched to ciprofloxacin first dose of which the patient took earlier today. She notes however continued nausea as well as poor appetite with dark urine. She also reports fever at home with T-max 102. She reports ongoing nausea without vomiting. EKG in the emergency room reveals sinus rhythm at 77 bpm. Laboratory evaluation was remarkable for a BUN 26 and creatinine 2.10, previously 0.6 on 02/24. Patient was started on Rocephin for concerns a UTI. Urinalysis and urine culture was collected and pending at the time of discharge. Her acute kidney injury significantly improved with IV hydration. Renal ultrasound was negative for hydronephrosis. Nephrology followed the patient during her hospitalization. Her creatinine on admission was 2.1 which trended down to 1.1 at the time of discharge. The case was discussed with her urologist Dr. Doyle who stated that her initial urine culture done in the outpatient setting was positive for E. coli pansensitive. Since she had an ALLERGY to Bactrim, she was discharged on 3 more days of Levaquin to complete a total of 5 days antibiotics. She is advised to follow-up with her PCP within 1-2 days of discharge. Advised to follow-up with urology within 1 week of discharge. Patient and family verbalized understanding of the plan. General: [non toxic], [no distress], [appears at stated age] Derm: [warm], [dry] Head: [atraumatic], [normocephalic], [symmetric] Eyes: [EOMI], [no lid lag], [anicteric sclera] Mouth: [no lip lesion], [mucus membranes moist] Cardiovascular: [S1S2 reg], [no murmur] Lungs: [CTA bilateral], [no rhonchi, no rales] , [no accessory muscle use] Ext: [no gross muscle atrophy], [no edema], [no contractures] Neuro: [no focal neuro deficits] Psych: [Alert], [oriented], [appropriate affect] Discharge Diagnosis: UTI, failed outpatient treatment Acute kidney injury Hyperchloremic metabolic acidosis likely related to infused IVF Chronic conditions: Hypothyroidism, hyperlipidemia, hypertension, diabetes Pertinent Studies: Renal ultrasound Urinalysis reflex to urine culture Patient Condition at Discharge: Stable Plan - Discharge Summary Discharge Rx Participant: Yes New Discharge Prescriptions: New Levofloxacin [Levaquin] 750 mg PO DAILY 3 Days #3 tab Continue Venlafaxine HCl [Effexor] 75 mg PO HS ALPRAZolam [Xanax] 0.5 mg PO DAILY PRN PRN Reason: Anxiety Levothyroxine Sodium [Levo-T] 150 mcg PO DAILY Oxybutynin Chloride 5 mg PO BID Dulaglutide [Trulicity] 1.5 mg SQ LEÓN Losartan Potassium [Cozaar] 25 mg PO DAILY Omeprazole [PriLOSEC] 40 mg PO HS Aspirin EC [Ecotrin] 325 mg PO DAILY Ascorbic Acid [Vitamin C] 500 mg PO DAILY Rosuvastatin [Crestor] 10 mg PO HS Famotidine 20 mg PO BID Melatonin [Melatonin ER] 10 mg PO HS Ferrous Sulfate [Iron (65 MG Elemental)] 325 mg PO DAILY Metoprolol Tartrate [Lopressor] 50 mg PO BID Zinc 50 mg PO DAILY Ergocalciferol (Vitamin D2) [Vitamin D2 (50,000 Iu)] 1,250 mcg PO LEÓN metFORMIN HCL ER [Glucophage XR] 1,000 mg PO BID Anastrozole 1 mg PO DAILY Magnesium 500 mg PO DAILY Cyanocobalamin (Vitamin B-12) [Vitamin B-12] 1,000 mcg PO DAILY Discontinued Ciprofloxacin HCl [Cipro] 500 mg PO BID Discharge Medication List Venlafaxine HCl [Effexor] 75 mg PO HS 10/17/14 [History] ALPRAZolam [Xanax] 0.5 mg PO DAILY PRN 12/14/16 [History] Levothyroxine Sodium [Levo-T] 150 mcg PO DAILY 08/18/16 [History] Dulaglutide [Trulicity] 1.5 mg SQ LEÓN 06/05/20 [History] Oxybutynin Chloride 5 mg PO BID 06/05/20 [History] Losartan Potassium [Cozaar] 25 mg PO DAILY 06/06/20 [History] Ergocalciferol (Vitamin D2) [Vitamin D2 (50,000 Iu)] 1,250 mcg PO LEÓN 12/02/20 [History] Omeprazole [PriLOSEC] 40 mg PO HS 12/02/20 [History] metFORMIN HCL ER [Glucophage XR] 1,000 mg PO BID 12/02/20 [History] Anastrozole 1 mg PO DAILY 09/12/21 [History] Ascorbic Acid [Vitamin C] 500 mg PO DAILY 09/12/21 [History] Aspirin EC [Ecotrin] 325 mg PO DAILY 09/12/21 [History] Famotidine 20 mg PO BID 09/12/21 [History] Melatonin [Melatonin ER] 10 mg PO HS 09/12/21 [History] Rosuvastatin [Crestor] 10 mg PO HS 09/12/21 [History] Magnesium 500 mg PO DAILY 12/18/21 [History] Cyanocobalamin (Vitamin B-12) [Vitamin B-12] 1,000 mcg PO DAILY 04/16/22 [History] Ferrous Sulfate [Iron (65 MG Elemental)] 325 mg PO DAILY 04/16/22 [History] Metoprolol Tartrate [Lopressor] 50 mg PO BID 04/16/22 [History] Zinc 50 mg PO DAILY 04/16/22 [History] Levofloxacin [Levaquin] 750 mg PO DAILY 3 Days #3 tab 04/18/22 [Rx] Follow up Appointment(s)/Referral(s): Isaiah Doyle MD [STAFF PHYSICIAN] - 1 Week Singh Otto MD [Primary Care Provider] - 1-2 days Activity/Diet/Wound Care/Special Instructions: Diet: Cardiac Follow-up with your PCP within 1-2 days of discharge. Follow-up with urology within 1 week of discharge. Take all medications as advised. Come back to the ED for worsening abdominal pain, intractable nausea and vomiting, chest pain, shortness of breath, palpitations or lightheadedness. Discharge Disposition: HOME SELF-CARE
== END 2022-04-18 11:11 | disposition home or self-care (01) ==
LOC: EC 21:01 → 6NMEDSUR 22:29
PROVIDERS: ADMIT Internal Medicine; ATTEND Internal Medicine
DX: N17.0 Acute kidney failure with tubular necrosis (principal); N14.1 Nephropathy induced by other drugs, medicaments and biological substances; T46.5X5A Adverse effect of other antihypertensive drugs, initial encounter; C67.9 Malignant neoplasm of bladder, unspecified; N39.0 Urinary tract infection, site not specified; E87.2 Acidosis; I10 Essential (primary) hypertension; E78.5 Hyperlipidemia, unspecified; E11.9 Type 2 diabetes mellitus without complications; E89.0 Postprocedural hypothyroidism; K21.9 Gastro-esophageal reflux disease without esophagitis; G47.30 Sleep apnea, unspecified; Z85.3 Personal history of malignant neoplasm of breast; Z86.16 Personal history of COVID-19; Z90.49 Acquired absence of other specified parts of digestive tract; Z90.710 Acquired absence of both cervix and uterus; Z96.652 Presence of left artificial knee joint; Z98.890 Other specified postprocedural states; F32.A Depression, unspecified; Z80.49 Family history of malignant neoplasm of other genital organs; Z79.84 Long term (current) use of oral hypoglycemic drugs; Z79.82 Long term (current) use of aspirin; Z79.899 Other long term (current) drug therapy
CPT/HCPCS: 96361 ×3; 96365; 96372 ×3; 96376; 96375; 99285; 36415; 93005; 84300; 82570 ×2; 80048 ×3; 85025; 81003; 87086; 82043; 76770; G0378 ×3; J2405; J0696 ×2; J1644 ×2

== ENCOUNTER → 2022-04-16 | Outpatient (CLI) | payer BC ==
--- NOTE | 2022-04-20 08:02 | XR ---
EXAMINATION TYPE: XR KUB DATE OF EXAM: 04/16/2022 HISTORY: Pain Comparison: None.Single KUB is submitted for interpretation. Findings: Right renal calculi: None Visualized. Right ureteral calculi: None Visualized. Left renal calculi: None Visualized. Left ureteral calculi: None Visualized. Pelvic calcifications: None Visualized. Bowel gas pattern is unremarkable. No free air. No mass effects. IMPRESSION: 1. No visible calculi at this time.
== END | disposition home or self-care (01) ==
LOC: RADXRMAIN 11:00
PROVIDERS: ATTEND Urology
DX: R10.9 Unspecified abdominal pain (principal)
CPT/HCPCS: 74018

== ENCOUNTER → 2022-07-21 | Outpatient (CLI) | payer OTHER ==
[2022-07-21 15:03] LABS: T4, Free (Free Thyroxine) 1.32 ng/dL (0.800-1.800)
== END | disposition home or self-care (01) ==
LOC: LABWHC1 09:30
PROVIDERS: ATTEND Internal Medicine
DX: E89.0 Postprocedural hypothyroidism (principal); E11.65 Type 2 diabetes mellitus with hyperglycemia
CPT/HCPCS: 36415; 83036; 84439; 84443

== ENCOUNTER → 2022-12-07 | Outpatient (CLI) | payer OTHER ==
--- NOTE | 2022-12-08 09:17 | MM ---
Reason for Exam: Screening (asymptomatic). Last mammogram was performed 1 year(s) and 1 month(s) ago. Patient History: Menarche at age 11. Patient has no children. Left ovary removed at age 39. Right ovary removed at age 39. Hysterectomy at age 39. Postmenopausal. Other cancer. Breast cancer, age 60. 2020, Malignant Ultrasound-Guided Core Biopsy on the left side. Paternal cousin had breast cancer. Prior Study Comparison: 07/18/2018 Bilateral Screening Mammogram, [facility]. 07/28/2020 Screening Mammogram, [facility]. 12/01/2021 Bilateral Diagnostic Mammogram, [facility]. Tissue Density: The breast tissue is heterogeneously dense. This may lower the sensitivity of mammography. Findings: Analyzed By CAD. Persistent distortion with surgical clips consistent with posttreatment change to the left breast upper outer aspect. There is no suspicious new group of microcalcifications or new suspicious mass in either breast. Overall Assessment: Benign, BI-RAD 2 Management: Diagnostic Mammogram of both breasts in 1 year. A clinical breast exam by your physician is recommended on an annual basis and results should be correlated with mammographic findings. Electronically signed and approved by: Elvin Feliciano M.D.
== END | disposition home or self-care (01) ==
LOC: RADMAMWWP 08:00
PROVIDERS: ATTEND Internal Medicine Hematology & Oncology
DX: Z12.31 Encounter for screening mammogram for malignant neoplasm of breast (principal); Z78.0 Asymptomatic menopausal state; Z80.3 Family history of malignant neoplasm of breast
CPT/HCPCS: 77063; 77067

== ENCOUNTER → 2023-01-07 | Outpatient (CLI) | payer OTHER ==
[2023-01-07 11:35] LABS: ALT 46 U/L (8-44); AST 32 U/L (13-35); African American GFR (CKD) 94.4 (60.0-200.0); Albumin 4.5 g/dL (3.8-4.9); Albumin/Globulin Ratio 2.11 (1.60-3.17); Alkaline Phosphatase 100 U/L (41-126); BUN/Creat Ratio 25.35 Ratio (12.00-20.00); Blood Urea Nitrogen 19.9 mg/dL (9.0-27.0); Calcium 9.1 mg/dL (8.7-10.3); Carbon Dioxide 26.3 mmol/L (20.0-27.5); Chloride 106 mmol/L (96-109); Chol/HDL Ratio 3.45 Ratio; Globulin 2.1 g/dL (1.6-3.3); Glucose 211 mg/dL (70-110); LDL Cholesterol,Calculated 69.2 mg/dL (0.0-131.0); Non-African American GFR(CKD) 81.4 (60.0-200.0); Potassium 5.1 mmol/L (3.5-5.5); Sodium 142 mmol/L (135-145); Total Protein 6.6 g/dL (6.2-8.2)
== END | disposition home or self-care (01) ==
LOC: LABWHC1 07:35
PROVIDERS: ATTEND Internal Medicine
DX: C73 Malignant neoplasm of thyroid gland (principal); E11.65 Type 2 diabetes mellitus with hyperglycemia; E89.0 Postprocedural hypothyroidism
CPT/HCPCS: 36415; 80053; 80061; 82043; 82570; 83036; 84432; 84439; 84443; 86800

== ENCOUNTER 2023-01-18 09:10 | Emergency (ER) | payer OTHER ==
[2023-01-18 09:19] VITALS: TEMP 98
[2023-01-18] MEDS ORDERED: ONDANSETRON 4 MG/2 ML VIAL IVP STA (09:46)
[2023-01-18] MEDS ORDERED: SODIUM CHLORIDE 0.9% 1,000 ML IV ONE (09:46)
--- NOTE | 2023-01-18 09:50 | ED ---
Abdominal Pain HPI - General Chief Complaint: Abdominal Pain Stated Complaint: UTI Time Seen by Provider: 01/18/23 09:30 Source: patient, RN notes reviewed Mode of arrival: ambulatory Limitations: no limitations - History of Present Illness Initial Comments: 62-year-old female presents emergency Department chief complaint of not feeling well. Patient states that she been dealing with a UTI and was she states she's had symptoms for one month. She is placed on ciprofloxacin yesterday by PCP. Patient states overnight she developed or back discomfort, nausea vomiting. Patient states that she had a UTI and was placed on Bactrim in the past and had renal failure so she was worried. No fever complaints of chest pain or shortness of breath no other associated symptoms - Related Data Home Medications Medication Instructions Recorded Confirmed Venlafaxine HCl [Effexor] 75 mg PO HS 10/17/14 12/16/22 ALPRAZolam [Xanax] 0.5 mg PO DAILY PRN 08/18/16 12/16/22 Levothyroxine Sodium [Levo-T] 150 mcg PO DAILY 08/18/16 12/16/22 Dulaglutide [Trulicity] 1.5 mg SQ LEÓN 06/05/20 12/16/22 Oxybutynin Chloride 5 mg PO BID 06/05/20 12/16/22 Losartan Potassium [Cozaar] 25 mg PO DAILY 06/06/20 12/16/22 Ergocalciferol (Vitamin D2) 1,250 mcg PO LEÓN 12/02/20 12/16/22 [Vitamin D2 (50,000 Iu)] Omeprazole [PriLOSEC] 40 mg PO HS 12/02/20 12/16/22 metFORMIN HCL ER [Glucophage XR] 1,000 mg PO BID 12/02/20 12/16/22 Anastrozole 1 mg PO DAILY 09/12/21 12/16/22 Ascorbic Acid [Vitamin C] 500 mg PO DAILY 09/12/21 12/16/22 Aspirin EC [Ecotrin] 325 mg PO DAILY 09/12/21 12/16/22 Famotidine 20 mg PO BID 09/12/21 12/16/22 Melatonin [Melatonin ER] 10 mg PO HS 09/12/21 12/16/22 Rosuvastatin [Crestor] 10 mg PO HS 09/12/21 12/16/22 Magnesium 500 mg PO DAILY 12/18/21 12/16/22 Cyanocobalamin (Vitamin B-12) 1,000 mcg PO DAILY 04/16/22 12/16/22 [Vitamin B-12] Ferrous Sulfate [Iron (65 MG 325 mg PO DAILY 04/16/22 12/16/22 Elemental)] Metoprolol Tartrate [Lopressor] 50 mg PO BID 04/16/22 12/16/22 Zinc 50 mg PO DAILY 04/16/22 12/16/22 Previous Rx's Medication Instructions Recorded Levofloxacin [Levaquin] 750 mg PO DAILY 3 Days #3 tab 04/18/22 Ondansetron Odt [Zofran Odt] 4 mg PO Q8HR PRN #10 tab 01/18/23 Allergies Allergy/AdvReac Type Severity Reaction Status Date / Time Penicillins Allergy Rash/Hives Verified 01/18/23 09:19 sulfamethoxazole Allergy Itching Verified 01/18/23 09:19 [From Bactrim] trimethoprim [From Bactrim] Allergy Itching Verified 01/18/23 09:19 lisinopril AdvReac Cough Verified 01/18/23 09:19 Review of Systems ROS Statement: Those systems with pertinent positive or pertinent negative responses have been documented in the HPI. ROS Other: All systems not noted in ROS Statement are negative. Past Medical History Past Medical History: Cancer, Diabetes Mellitus, GERD/Reflux, Pneumonia, Sleep Apnea/CPAP/BIPAP, Thyroid Disorder Additional Past Medical History / Comment(s): THYROID CANCER 10/30/14; breast cancer; type 2 Diabetes, lymph edema. COVID + AND IN HOSPITAL FOR 12 DAYS. History of Any Multi-Drug Resistant Organisms: None Reported Past Surgical History: Cholecystectomy, Hysterectomy, Orthopedic Surgery, Tonsillectomy Additional Past Surgical History / Comment(s): thyroidectomy, left knees replacment. Past Anesthesia/Blood Transfusion Reactions: No Reported Reaction Past Psychological History: Depression Smoking Status: Never smoker Past Alcohol Use History: None Reported Past Drug Use History: None Reported - Past Family History Mother Family Medical History: Cancer Additional Family Medical History / Comment(s): uterine CA and esoghagus Father Family Medical History: Cancer General Exam Limitations: no limitations General appearance: alert, in no apparent distress Head exam: Present: atraumatic, normocephalic, normal inspection Eye exam: Present: normal appearance, PERRL, EOMI. Absent: scleral icterus, conjunctival injection, periorbital swelling Respiratory exam: Present: normal lung sounds bilaterally. Absent: respiratory distress, wheezes, rales, rhonchi, stridor Cardiovascular Exam: Present: regular rate, normal rhythm, normal heart sounds. Absent: systolic murmur, diastolic murmur, rubs, gallop, clicks GI/Abdominal exam: Present: soft, normal bowel sounds. Absent: distended, tenderness, guarding, rebound, rigid Back exam: Absent: CVA tenderness (R), CVA tenderness (L) Neurological exam: Present: alert Course Vital Signs 01/18/23 09:16 Temperature 98 F Pulse Rate 72 Respiratory 20 Rate Blood Pressure 163/93 O2 Sat by Pulse 96 Oximetry Medical Decision Making - Medical Decision Making Was pt. sent in by a medical professional or institution (, PA, CHIEF OPERATING OFFICER, urgent care, hospital, or longterm...) When possible be specific @ -No Did you speak to anyone other than the patient for history (EMS, parent, family, police, friend...)? What history was obtained from this source @ -No Did you review nursing and triage notes (agree or disagree)? Why? @ -I reviewed and agree with nursing and triage notes Were old charts reviewed (outside hosp., previous admission, EMS record, old EKG, old radiological studies, urgent care reports/EKG's, longterm records)? Report findings @ -No old charts were reviewed Differential Diagnosis (chest pain, altered mental status, abdominal pain women, abdominal pain men, vaginal bleeding, weakness, fever, dyspnea, syncope, h eadache, dizziness, GI bleed, back pain, seizure, CVA, palpatations, mental health, musculoskeletal)? @ -Differential Abdominal Pain Women: Appendicitis, Cholecystitis, diverticulosis, ischemic bowel, pancreatitis, hepatitis, UTI, gastroenteritis, AAA, incarcerated hernia, bowel obstruction, constipation, inflammatory bowel, hepatitis, peptic ulcer disease, splenic infarction, perforated viscus, vulvitis, ovarian torsion, PID, kidney stone, placenta abruption, this is not meant to be an all-inclusive liste EKG interpreted by me (3pts min.). @ -[None X-rays interpreted by me (1pt min.). @ -None done CT interpreted by me (1pt min.). @ -None done U/S interpreted by me (1pt. min.). @ -None done What testing was considered but not performed or refused? (CT, X-rays, U/S, labs)? Why? @ -Considered CT though patient has no localized abdominal pain and labs are unremarkable. What meds were considered but not given or refused? Why? @ -None Did you discuss the management of the patient with other professionals (professionals i.e. Dr., PA, CHIEF OPERATING OFFICER, lab, RT, psych nurse, social services manager, travel professional, teacher, uniform patrol police officer, case specialist)? Give summary @ -No Was smoking cessation discussed for >3mins.? @ -No Was critical care preformed (if so, how long)? @ -No Were there social determinants of health that impacted care today? How? (Homelessness, low income, unemployed, alcoholism, drug addiction, transportation, low edu. Level, literacy, decrease access to med. care, penitentiary, rehab)? @ -No Was there de-escalation of care discussed even if they declined (Discuss DNR or withdrawal of care, Hospice)? DNR status @ -No What co-morbidities impacted this encounter? (DM, HTN, Smoking, COPD, CAD, Cancer, CVA, ARF, Chemo, Hep., AIDS, mental health diagnosis, sleep apnea, morbid obesity)? @ -None Was patient admitted / discharged? Hospital course, mention meds given and route, prescriptions, significant lab abnormalities, going to OR and other pertinent info. @ -Discharge patient ultrasound is unremarkable patient's urinalysis does not reveal any evidence of UTI. Patient was hydrated states that she feels greatly improved. Patient will be discharged patient is on current antibiotics for UTI. Undiagnosed new problem with uncertain prognosis? @ -No Drug Therapy requiring intensive monitoring for toxicity (Heparin, Nitro, Insu gary, Cardizem)? @ -No Were any procedures done? @ -No Diagnosis/symptom? @ -Abdominal pain Acute, or Chronic, or Acute on Chronic? @ -Acute Uncomplicated (without systemic symptoms) or Complicated (systemic symptoms)? @ -Uncomplicated Side effects of treatment? @ -No Exacerbation, Progression, or Severe Exacerbation? @ -No Poses a threat to life or bodily function? How? (Chest pain, USA, MA, pneumonia, PE, COPD, DKA, ARF, appy, cholecystitis, CVA, Diverticulitis, Homicidal, Suicidal, threat to staff... and all critical care pts) @ -No - Lab Data Result diagrams: 01/18/23 09:59 01/18/23 09:59 Lab Results 01/18/23 01/18/23 01/18/23 Range/Units 09:59 09:59 09:59 WBC 6.8 (3.8-10.6) k/uL RBC 4.43 (3.80-5.40) m/uL Hgb 13.1 (11.4-16.0) gm/dL Hct 39.1 (34.0-46.0) % MCV 88.2 (80.0-100.0) fL MCH 29.6 (25.0-35.0) pg MCHC 33.5 (31.0-37.0) g/dL RDW 13.7 (11.5-15.5) % Plt Count 248 (150-450) k/uL MPV 8.1 Neutrophils % 70 % Lymphocytes % 19 % Monocytes % 6 % Eosinophils % 3 % Basophils % 1 % Neutrophils # 4.7 (1.3-7.7) k/uL Lymphocytes # 1.3 (1.0-4.8) k/uL Monocytes # 0.4 (0-1.0) k/uL Eosinophils # 0.2 (0-0.7) k/uL Basophils # 0.1 (0-0.2) k/uL Sodium 137 (137-145) mmol/L Potassium 4.7 (3.5-5.1) mmol/L Chloride 97 L (98-107) mmol/L Carbon Dioxide 27 (22-30) mmol/L Anion Gap 13 mmol/L BUN 17 (7-17) mg/dL Creatinine 0.81 (0.52-1.04) mg/dL Est GFR (CKD-EPI)AfAm >90 (>60 ml/min/1.73 sqM) Est GFR (CKD-EPI)NonAf 79 (>60 ml/min/1.73 sqM) Glucose 182 H (74-99) mg/dL Calcium 9.4 (8.4-10.2) mg/dL Total Bilirubin 0.7 (0.2-1.3) mg/dL AST 41 H (14-36) U/L ALT 45 H (4-34) U/L Alkaline Phosphatase 102 (38-126) U/L Total Protein 7.3 (6.3-8.2) g/dL Albumin 4.6 (3.5-5.0) g/dL Urine Color Light Yellow Urine Appearance Clear (Clear) Urine pH 6.5 (5.0-8.0) Ur Specific Portal 1.006 (1.001-1.035) Urine Protein Negative (Negative) Urine Glucose (UA) Negative (Negative) Urine Ketones Negative (Negative) Urine Blood Negative (Negative) Urine Nitrite Negative (Negative) Urine Bilirubin Negative (Negative) Urine Urobilinogen <2.0 (<2.0) mg/dL Ur Leukocyte Esterase Trace H (Negative) Urine RBC <1 (0-5) /hpf Urine WBC 3 (0-5) /hpf Ur Squamous Epith Cells <1 (0-4) /hpf Urine Mucus Rare H (None) /hpf Disposition Clinical Impression: Abdominal pain Disposition: HOME SELF-CARE Condition: Stable Instructions (If sedation given, give patient instructions): Abdominal Pain (ED) Additional Instructions: Please return to the Emergency Department if symptoms worsen or any other concerns. Prescriptions: Ondansetron Odt [Zofran Odt] 4 mg PO Q8HR PRN #10 tab PRN Reason: Nausea Is patient prescribed a controlled substance at d/c from ED?: No Referrals: Singh Otto MD [Primary Care Provider] - 1-2 days Time of Disposition: 11:01
[2023-01-18 10:17] LABS: Basophils # (A) 0.1 k/uL (0-0.2); Basophils % (A) 1 %; Eosinophils # (A) 0.2 k/uL (0-0.7); Eosinophils % (A) 3 %; HCT 39.1 % (34.0-46.0); HGB 13.1 gm/dL (11.4-16.0); Lymphocytes # (A) 1.3 k/uL (1.0-4.8); Lymphocytes % (A) 19 %; MCH 29.6 pg (25.0-35.0); MCHC 33.5 g/dL (31.0-37.0); MCV 88.2 fL (80.0-100.0); Mean Platelet Volume 8.1; Monocytes # (A) 0.4 k/uL (0-1.0); Monocytes % (A) 6 %; Neutrophils # (A) 4.7 k/uL (1.3-7.7); Neutrophils % (A) 70 %; Platelet Count 248 k/uL (150-450); RBC 4.43 m/uL (3.80-5.40); RDW 13.7 % (11.5-15.5); WBC 6.8 k/uL (3.8-10.6)
[2023-01-18 10:28] LABS: ALT 45 U/L (4-34); AST 41 U/L (14-36); African American GFR (CKD) >90 (>60 ml/min/1.73 sqM); Albumin 4.6 g/dL (3.5-5.0); Alkaline Phosphatase 102 U/L (38-126); Anion Gap 13 mmol/L; Blood Urea Nitrogen 17 mg/dL (7-17); Calcium 9.4 mg/dL (8.4-10.2); Carbon Dioxide 27 mmol/L (22-30); Chloride 97 mmol/L (98-107); Glucose 182 mg/dL (74-99); Non-African American GFR(CKD) 79 (>60 ml/min/1.73 sqM); Potassium 4.7 mmol/L (3.5-5.1); Sodium 137 mmol/L (137-145); Total Bilirubin 0.7 mg/dL (0.2-1.3); Total Protein 7.3 g/dL (6.3-8.2)
[2023-01-18 10:41] LABS: Appearance,Urine Clear (Clear); Bilirubin,Urine Negative (Negative); Blood,Urine Negative (Negative); Color,Urine Light Yellow; Glucose,Urine (UA) Negative (Negative); Ketones,Urine Negative (Negative); Leukocyte Esterase,Urine Trace (Negative); Mucus,Urine Rare /hpf; Nitrite,Urine Negative (Negative); PH, Urine 6.5 (5.0-8.0); Protein,Urine Negative (Negative); RBC,Urine <1 /hpf (0-5); Specific Gravity,Urine 1.006 (1.001-1.035); Squamous Epithelial Cell,Urine <1 /hpf (0-4); Urobilinogen,Urine <2.0 mg/dL (<2.0); WBC,Urine 3 /hpf (0-5)
[2023-01-18 11:22] VITALS: BP 128/98; PULSE 74; RESP 16
== END 2023-01-18 11:22 | disposition home or self-care (01) ==
LOC: EC 09:10
DX: R10.9 Unspecified abdominal pain (principal); E11.9 Type 2 diabetes mellitus without complications; K21.9 Gastro-esophageal reflux disease without esophagitis; E07.9 Disorder of thyroid, unspecified; F32.A Depression, unspecified; Z79.85 Long-term (current) use of injectable non-insulin antidiabetic drugs; Z79.84 Long term (current) use of oral hypoglycemic drugs; Z79.890 Hormone replacement therapy; Z79.82 Long term (current) use of aspirin; Z79.899 Other long term (current) drug therapy; Z88.0 Allergy status to penicillin; Z88.1 Allergy status to other antibiotic agents; Z88.2 Allergy status to sulfonamides; Z88.8 Allergy status to other drugs, medicaments and biological substances; Z90.49 Acquired absence of other specified parts of digestive tract
CPT/HCPCS: 36415; 80053; 85025; 81001; 99284; 96374; 96361; J2405

== ENCOUNTER → 2023-03-21 | Outpatient (CLI) | payer OTHER ==
--- NOTE | 2023-03-21 11:35 | XR ---
EXAMINATION TYPE: XR KUB DATE OF EXAM: 03/21/2023 10:29 AM INDICATION: Patient age:Female; 62 years old; Reason for study: N20.1 calculus ureter; [facility]. COMPARISON: 04/16/2022 TECHNIQUE: One radiographic view of the abdomen was obtained. FINDINGS: Large stool burden throughout the colon. The bowel gas pattern is nonspecific without dilat ed loops of small or large bowel. There is no evidence for organomegaly or pneumoperitoneum. The oss eous structures are intact. No abnormal calcifications are present. Fecal material and gas are demon strated throughout the colon and rectum. Right upper quadrant cholecystectomy clips. Multilevel disc degeneration changes to the spine. IMPRESSION: 1. No calculus definitively visualized. 2. Large stool burden throughout the colon, Nonspecific bowel gas pattern without radiographic evide nce for acute process.
== END | disposition home or self-care (01) ==
LOC: RADXRMAIN 10:00
PROVIDERS: ATTEND Urology
DX: N20.1 Calculus of ureter (principal)
CPT/HCPCS: 74018

== ENCOUNTER → 2023-07-27 | Outpatient (CLI) | payer OTHER ==
[2023-07-27 17:31] LABS: T4, Free (Free Thyroxine) 1.56 ng/dL (0.80-1.80)
== END | disposition home or self-care (01) ==
LOC: LABWHC1 10:15
PROVIDERS: ATTEND Internal Medicine
DX: E89.0 Postprocedural hypothyroidism (principal); E11.65 Type 2 diabetes mellitus with hyperglycemia
CPT/HCPCS: 36415; 83036; 84439; 84443

== ENCOUNTER 2023-08-18 13:51 | Emergency (ER) | payer OTHER ==
--- NOTE | 2023-08-18 15:00 | ED ---
General Adult HPI - General Chief complaint: Fever Stated complaint: Covid POSITIVE Time Seen by Provider: 08/18/23 14:55 Source: patient Mode of arrival: ambulatory Limitations: no limitations - History of Present Illness Initial comments: The patient is a 63 year female with history of hypertension diabetes, depression presents to the emergency room for management of Covid. The patient states that she started to develop some symptoms yesterday and again at home test was positive. Complains of congestion, sore throat, mild cough and shortness breath. Patient was concerned because she had a bad experience with Covid a few years ago so she did not want to delay treatment. She comes in looking for treatment with the antiviral. Patient denies any hemoptysis. - Related Data Home Medications Medication Instructions Recorded Confirmed Venlafaxine HCl [Effexor] 75 mg PO HS 10/17/14 06/02/23 ALPRAZolam [Xanax] 0.5 mg PO DAILY PRN 08/18/16 06/02/23 Levothyroxine Sodium [Levo-T] 150 mcg PO DAILY 08/18/16 06/01/23 Dulaglutide [Trulicity] 3 mg SQ LEÓN 06/05/20 06/02/23 Oxybutynin Chloride 5 mg PO BID 06/05/20 06/01/23 Losartan Potassium [Cozaar] 25 mg PO DAILY 06/06/20 06/01/23 Ergocalciferol (Vitamin D2) 1,250 mcg PO LEÓN 12/02/20 06/02/23 [Vitamin D2 (50,000 Iu)] Omeprazole [PriLOSEC] 40 mg PO HS 12/02/20 06/02/23 metFORMIN HCL ER [Glucophage XR] 1,000 mg PO BID 12/02/20 06/02/23 Anastrozole 1 mg PO DAILY 09/12/21 06/01/23 Ascorbic Acid [Vitamin C] 500 mg PO DAILY 09/12/21 06/01/23 Famotidine 20 mg PO BID 09/12/21 06/01/23 Melatonin [Melatonin ER] 10 mg PO HS 09/12/21 06/02/23 Rosuvastatin [Crestor] 10 mg PO HS 09/12/21 06/02/23 Magnesium 500 mg PO DAILY 12/18/21 06/01/23 Cyanocobalamin (Vitamin B-12) 1,000 mcg PO DAILY 04/16/22 06/01/23 [Vitamin B-12] Metoprolol Tartrate [Lopressor] 50 mg PO BID 04/16/22 06/01/23 Zinc 50 mg PO DAILY 04/16/22 06/01/23 Unk Invanz Ivpb 1 dose IVPB DAILY 06/01/23 06/02/23 Previous Rx's Medication Instructions Recorded Ondansetron Odt [Zofran Odt] 4 mg PO Q8HR PRN #10 tab 01/18/23 Molnupiravir [Lagevrio (Eua)] 800 mg PO BID 5 Days #40 cap 08/18/23 Allergies Allergy/AdvReac Type Severity Reaction Status Date / Time sulfamethoxazole Allergy Severe Itching Verified 08/18/23 14:41 [From Bactrim] trimethoprim [From Bactrim] Allergy Severe Itching Verified 08/18/23 14:41 Penicillins Allergy Rash/Hives Verified 08/18/23 14:41 lisinopril AdvReac Cough Verified 08/18/23 14:41 Review of Systems ROS Statement: Those systems with pertinent positive or pertinent negative responses have been documented in the HPI. ROS Other: All systems not noted in ROS Statement are negative. Past Medical History Past Medical History: Cancer, Diabetes Mellitus, GERD/Reflux, Hyperlipidemia, Hypertension, Pneumonia, Sleep Apnea/CPAP/BIPAP, Thyroid Disorder Additional Past Medical History / Comment(s): THYROID CANCER 10/30/14; breast cancer; type 2 Diabetes, lymph edema, hx bladder (2019) and breast cancer (2020). COVID + AND IN HOSPITAL FOR 12 DAYS. has long hauler. some damage to lungs. tachycardia per pt. wears cpap History of Any Multi-Drug Resistant Organisms: ESBL Date of last positivie culture/infection: 05/06/23 MDRO Source:: Urine Past Surgical History: Cholecystectomy, Hysterectomy, Orthopedic Surgery, Tonsillectomy Additional Past Surgical History / Comment(s): thyroidectomy, left knees replacment. Past Anesthesia/Blood Transfusion Reactions: No Reported Reaction Past Psychological History: Depression Smoking Status: Former smoker Past Alcohol Use History: None Reported Past Drug Use History: None Reported - Past Family History Mother Family Medical History: Cancer Additional Family Medical History / Comment(s): uterine CA and esoghagus Father Family Medical History: Cancer General Exam Limitations: no limitations General appearance: alert, in no apparent distress Head exam: Present: atraumatic Eye exam: Present: normal appearance ENT exam: Present: normal exam, other (No significant tonsillar erythema, swelling or exudates. No muffled speech or drooling.) Neck exam: Present: full ROM Respiratory exam: Present: normal lung sounds bilaterally, respiratory distress Cardiovascular Exam: Present: regular rate, normal rhythm Extremities exam: Present: full ROM Back exam: Present: full ROM Neurological exam: Present: alert, oriented X3, CN II-XII intact, other (No nuchal rigidity) Psychiatric exam: Present: normal affect, normal mood Skin exam: Present: warm, dry Course Vital Signs 08/18/23 08/18/23 08/18/23 14:36 15:31 15:33 Temperature 100.9 F H 99.8 F H Pulse Rate 99 97 Respiratory 20 18 18 Rate Blood Pressure 148/85 141/79 O2 Sat by Pulse 95 96 Oximetry - Reevaluation(s) Reevaluation #1: 08/18/23 14:58 Patient has no wheezing on exam. She is in no respiratory distress vital signs are stable. O2 sat is 95+ percent. I discussed management with the antiviral with the patient. She does understand that it will likely lessen the symptoms however does not resolve completely. I discussed with her that there are some side effects with the antiviral however she does wish to go ahead and get the prescription as she had a bad experience with Covid if he is ago. The patient does understand signs return to the emergency room. I discussed management of this patient with Dr. Yanez, attending ED physician today. 08/18/23 14:59 Medical Decision Making - Medical Decision Making Was pt. sent in by a medical professional or institution (, PA, RN MEDICAL INPATIENT SERVICES, urgent care, hospital, or residential...) When possible be specific @ -[No] Did you speak to anyone other than the patient for history (EMS, parent, family, police, friend...)? What history was obtained from this source @ -[No] Did you review nursing and triage notes (agree or disagree)? Why? @ -[I reviewed and agree with nursing and triage notes] Were old charts reviewed (outside hosp., previous admission, EMS record, old EKG, old radiological studies, urgent care reports/EKG's, residential records)? Report findings @ -[No old charts were reviewed] Differential Diagnosis (chest pain, altered mental status, abdominal pain women, abdominal pain men, vaginal bleeding, weakness, fever, dyspnea, syncope, headache, dizziness, GI bleed, back pain, seizure, CVA, palpatations, mental health, musculoskeletal)? @ -COVID-19 EKG interpreted by me (3pts min.). @ -[As above] X-rays interpreted by me (1pt min.). @ -[None done] CT interpreted by me (1pt min.). @ -[None done] U/S interpreted by me (1pt. min.). @ -[None done] What testing was considered but not performed or refused? (CT, X-rays, U/S, labs)? Why? @ -[None] What meds were considered but not given or refused? Why? @ -[None] Did you discuss the management of the patient with other professionals (professionals i.e. , PA, RN MEDICAL INPATIENT SERVICES, lab, RT, psych nurse, public health social worker, tdp displays analyst, teacher, medical officer, case management assistant)? Give summary @ -[No] Was smoking cessation discussed for >3mins.? @ -[No] Was critical care preformed (if so, how long)? @ -[No] Were there social determinants of health that impacted care today? How? (Homele ssness, low income, unemployed, alcoholism, drug addiction, transportation, low edu. Level, literacy, decrease access to med. care, group home, rehab)? @ -[No] Was there de-escalation of care discussed even if they declined (Discuss DNR or withdrawal of care, Hospice)? DNR status @ -[No] What co-morbidities impacted this encounter? (DM, HTN, Smoking, COPD, CAD, Cancer, CVA, ARF, Chemo, Hep., AIDS, mental health diagnosis, sleep apnea, morbid obesity)? @ -[None] Was patient admitted / discharged? Hospital course, mention meds given and route, prescriptions, significant lab abnormalities, going to OR and other pertinent info. @ -The patient is well appearing in the emergency room. She is in no respiratory distress. She has no wheezing on exam. Her vital signs including O2 sat are stable. Patient does not require hospitalization at this time. Patient wishes to be treated with antiviral for the Covid. Patient will be given a prescription for the antiviral emergency room. She does understand she will still likely of symptoms and they have side effects however she does wish to continue with the antiviral. Patient's symptoms and evaluation emergency room was fully discussed with the ED physician Dr. Yanez today. Undiagnosed new problem with uncertain prognosis? @ -[No] Drug Therapy requiring intensive monitoring for toxicity (Heparin, Nitro, Insulin, Cardizem)? @ -[No] Were any procedures done? @ -[No] Diagnosis/symptom? @ -COVID-19 Acute, or Chronic, or Acute on Chronic? @ -Acute Uncomplicated (without systemic symptoms) or Complicated (systemic symptoms)? @ -[default] Side effects of treatment? @ -[No] Exacerbation, Progression, or Severe Exacerbation? @ -[No] Poses a threat to life or bodily function? How? (Chest pain, [place], [place], pneumonia, PE, COPD, DKA, ARF, appy, cholecystitis, CVA, Diverticulitis, Homicidal, Suicidal, threat to staff... and all critical care pts) @ -[No] Disposition Clinical Impression: COVID-19 Disposition: HOME SELF-CARE Condition: Good Instructions (If sedation given, give patient instructions): Molnupiravir (By mouth), Fever in Adults (ED), Droplet Precautions (ED), COVID-19 (Coronavirus Disease 2019) (ED) Prescriptions: Molnupiravir [Lagevrio (Eua)] 800 mg PO BID 5 Days #40 cap Is patient prescribed a controlled substance at d/c from ED?: No If prescribed controlled substance>3 days was MAPS reviewed?: No Referrals: Singh Otto MD [Primary Care Provider] - 1-2 days Time of Disposition: 15:00
[2023-08-18 15:36] VITALS: BP 141/79; PULSE 97; RESP 18; TEMP 99.8
== END 2023-08-18 15:38 | disposition home or self-care (01) ==
LOC: EC 13:51
DX: U07.1 COVID-19 (principal); E11.9 Type 2 diabetes mellitus without complications; E78.5 Hyperlipidemia, unspecified; I10 Essential (primary) hypertension; K21.9 Gastro-esophageal reflux disease without esophagitis; E07.9 Disorder of thyroid, unspecified; F32.A Depression, unspecified; Z87.891 Personal history of nicotine dependence; Z88.0 Allergy status to penicillin; Z88.2 Allergy status to sulfonamides; Z88.8 Allergy status to other drugs, medicaments and biological substances; Z88.1 Allergy status to other antibiotic agents; Z79.890 Hormone replacement therapy; Z79.84 Long term (current) use of oral hypoglycemic drugs; Z79.899 Other long term (current) drug therapy; Z90.49 Acquired absence of other specified parts of digestive tract
CPT/HCPCS: 99283

== ENCOUNTER → 2023-09-08 | Outpatient (CLI) | payer OTHER ==
[2023-09-08 11:01] LABS: African American GFR (CKD) >90 (>60 ml/min/1.73 sqM); Blood Urea Nitrogen 16 mg/dL (7-17); Non-African American GFR(CKD) >90 (>60 ml/min/1.73 sqM)
--- NOTE | 2023-09-08 11:42 | CT ---
EXAMINATION TYPE: CT angio chest DATE OF EXAM: 09/08/2023 COMPARISON: Prior CTA chest February 25, 2020 HISTORY: SOB, covid x3 weeks ago CT DLP: 548.7 mGycm. Automated Exposure Control for Dose Reduction was Utilized. CONTRAST: CTA scan of the thorax is performed with IV Contrast, patient injected with 100 mL of Isovue 300, pul monary embolism protocol. MIP Images are created on CT scanner and reviewed. FINDINGS: LUNGS: Some patchy reticulation and fibrotic change in the periphery of the lingula is redemonstrated . Additional mild left basilar linear scarring and/or atelectasis is redemonstrated. No new suspici ous focal consolidation. There is no pleural effusion or pneumothorax seen. The tracheobronchial kathi e is patent. MEDIASTINUM: There is satisfactory enhancement of the pulmonary artery and its branches, there is no CT evidence for pulmonary embolism. There are no greater than 1 cm hilar or mediastinal lymph nodes. No cardiomegaly or pericardial effusion is seen. OTHER: Liver is diffusely low dense consistent with fatty infiltrative hepatocellular disease. Cholec ystectomy clips are redemonstrated. Posttreatment change to the left breast with clips and distortion with some adjacent skin thickening is redemonstrated. IMPRESSION: 1. No CT evidence for acute pulmonary embolism. 2. Chronic changes without new acute pulmonary process.
== END | disposition home or self-care (01) ==
LOC: RADCTMAIN 10:24
PROVIDERS: ATTEND Internal Medicine
DX: J98.4 Other disorders of lung (principal); R06.02 Shortness of breath; U07.1 COVID-19
CPT/HCPCS: 82565; 84520; 71275; Q9967

== ENCOUNTER → 2023-12-01 | Outpatient (CLI) | payer OTHER ==
[2023-12-01 15:20] LABS: HCT 40.8 % (37.2-46.3); MCH 28.8 pg (27.0-32.0); MCHC 31.9 g/dL (32.0-37.0); MCV 90.3 FL (80.0-97.0); Mean Platelet Volume 10.6 FL (9.5-12.2); NRBC Per 100 WBC 0 X 10*3/uL (0.00-0.01); Platelet Count 287 X 10*3/uL (140-440); RBC 4.52 X 10*6/uL (4.10-5.20); WBC 6.09 X 10*3/uL (4.50-10.00)
[2023-12-01 16:39] LABS: BUN/Creat Ratio 15.86 Ratio (12.00-20.00); Blood Urea Nitrogen 11.1 mg/dL (9.0-27.0); Calcium 9.4 mg/dL (8.7-10.3); Carbon Dioxide 27.8 mmol/L (21.6-31.8); Chloride 101 mmol/L (96-109); Glucose 144 mg/dL (70-110); Potassium 4.9 mmol/L (3.5-5.5); Sodium 142 mmol/L (135-145)
== END | disposition home or self-care (01) ==
LOC: LABWHC1 08:58
PROVIDERS: ATTEND Internal Medicine Interventional Cardiology
DX: R06.02 Shortness of breath (principal)
CPT/HCPCS: 36415; 80048; 85027

== ENCOUNTER → 2023-12-13 | Outpatient (CLI) | payer OTHER ==
--- NOTE | 2023-12-13 12:50 | BD ---
EXAMINATION TYPE: Axial Bone Density DATE OF EXAM: 12/13/2023 CLINICAL HISTORY: 63 years old Female. ICD-10 CODE: C50.412 BREAST CA Height: 66 Weight: 240.6 FRAX RISK QUESTIONS: Alcohol (3 or more units per day): no Family History (Parent hip fracture): no Glucocorticoids (More than 3mos): no History of Fracture in Adulthood: no Secondary Osteoporosis: 1. Type 1 Diabetes: no 2. Hyperthyroidism: no 3. Menopause before 45: yes 4. Malnutrition: no 5. Chronic liver disease: no Rheumatoid Arthritis: no Current Tobacco Use: no RISK FACTORS HISTORY OF: Hip Fracture (Right/Left): no Spine Fracture: no History of Wrist Fracture: no Surgery to Spine/Hip(right/left)/Wrist (right/left): no MEDICATIONS: Thyroid Medications: Levothyroxine How Long: past 9 years Osteoporosis Medications: no EXAM MEASUREMENTS: Bone mineral densitometry was performed using the [employer] System. Bone mineral density as measured about the Lumbar spine is: ----- L1-L4(G/cm2): 1.097 T Score Values are as follows: ----- L1: -1.0 ----- L2: -0.3 ----- L3: -0.9 ----- L4: -0.8 ----- L1-L4: -0.7 Z Score Values are as follows: ----- L1: -0.8 ----- L2: 0.0 ----- L3: -0.6 ----- L4: -0.5 ----- L1-L4: -0.5 Bone mineral density has: 0.0 unchanged % since study of: 04/28/2021 Bone mineral density about the R hip (g/cm2): 1.270 Bone mineral density about the L hip (g/cm2): 1.113 T Score values are as follows: -----R Neck: 0.2 -----L Neck: 0.2 -----R Total: 2.1 -----L Total: 0.8 Z Score values are as follows: -----R Neck: 0.8 -----L Neck: 0.7 -----R Total: 2.3 -----L Total: 1.1 Bone mineral density has: decreased -6.7 % since study of: 04/28/2021 FRAX%s: The graph provided illustrates a 5.7 % chance for a major osteoporotic fx and a 0.1% chance f or the hips probability for fx in 10 years time. IMPRESSION: Normal (Values between +1 and -1 indicate normal bone mass). Consider repeating this study in 5 year s or sooner if there is some new clinical indication. NOTE: T-SCORE=SD OF THE YOUNG ADULT MEAN.
--- NOTE | 2023-12-14 15:16 | MM ---
Reason for Exam: Screening (asymptomatic). Last screening mammogram was performed 12 month(s) ago. Patient History: Menarche at age 11. Patient has no children. Left ovary removed at age 39. Right ovary removed at age 39. Hysterectomy at age 39. Postmenopausal. Other cancer. Breast cancer, left, age 60. 2020, Malignant Ultrasound-Guided Core Biopsy on the left side. Paternal cousin had breast cancer. Prior Study Comparison: 07/28/2020 Screening Mammogram, [facility]. 12/01/2021 Bilateral Diagnostic Mammogram, [facility]. 12/07/2022 Bilateral MG 3D screening mammo w/cad, [facility]. Tissue Density: The breasts are heterogeneously dense, which may obscure small masses. Findings: Analyzed By CAD. There is no suspicious group of microcalcifications or new suspicious mass in either breast. Overall Assessment: Benign, BI-RAD 2 Management: Screening Mammogram of both breasts in 1 year. . Patient should continue monthly self-breast exams. A clinical breast exam by your physician is recommended on an annual basis. This exam should not preclude additional follow-up of suspicious palpable abnormalities. Note on Carly scores and lifetime risk: 1. A Carly score greater than 3% is considered moderate risk. If this is the case, consider specialist referral to assess eligibility for a risk reducing agent. 2. If overall lifetime risk for the development of breast cancer is 20% or higher, the patient may qualify for future screening with alternating mammogram and breast MRI. Electronically signed and approved by: Mina Montana M.D. Radiologis
== END | disposition home or self-care (01) ==
LOC: RADMAMWWP 07:49
PROVIDERS: ATTEND Internal Medicine Hematology & Oncology
DX: Z12.31 Encounter for screening mammogram for malignant neoplasm of breast (principal); C50.412 Malignant neoplasm of upper-outer quadrant of left female breast; C73 Malignant neoplasm of thyroid gland; E61.1 Iron deficiency; D09.0 Carcinoma in situ of bladder; E11.9 Type 2 diabetes mellitus without complications; Z71.3 Dietary counseling and surveillance; Z78.0 Asymptomatic menopausal state; Z80.3 Family history of malignant neoplasm of breast
CPT/HCPCS: 77063; 77067; 77080

== ENCOUNTER 2024-01-16 19:50 | Outpatient (CLI) | payer OTHER ==
--- NOTE | 2024-01-22 23:37 | P.PCN ---
Date of Procedure: 01/16/24 Operative Findings: CPAP titration report Date of services 01/16/2024 Pertinent history This is a 69-year-old female patient with known history of obstructive sleep apnea has been having issues with ongoing fatigue and tiredness and sleepiness despite being on CPAP therapy. No restlessness in the lower extremities. She is diabetic. She has a APAP machine and based on a recent compliance check, the patient has demonstrated 100% compliancy averaging around 10.4 hours of CPAP use per night with a 95th percentile pressure of 9 cm of water with a leak of 6 L/min and the AHI was down to 3.8 with a central apnea index of 2.0. She was being treated with a pressures of 5/15 cm of water and she has a ResMed air sense 10 generation. A CPAP titration was done to reevaluate the adequacy of her treatment Pertinent physical findings The patient's height is 5 feet and 6 inches, weight is 246 and BMI 39.7 Technical description The patient was studied using a standard complex polysomnography protocol that included recording of the 2 EKG, Central, occipital and frontal EEG, right and left outer canthus EOG, submental EMG, right and left anterior tibialis EMG, respiratory airflow by thermocouple and or pressure/flow transducer, respiratory efforts by abdominal and thoracic PVDF belts, oxygen saturation by cable oximetry. Position by observation synchronized the PSG. Stepwise CPAP titration was done to eliminate all obstructive respiratory events equipment used: MEDSEEK. Sleep architecture The total recording duration was 457.0 minutes. The total sleep time was 49.5 minutes and the sleep efficiency was 89.6%. The latency to sleep onset was 16 minutes and the latest REM sleep was 320 minutes. The sleep architecture was catheterized by 9% stage I, 54.2% stage II, 15.6% stage III and 21.1% REM sleep. The total arousal index was 23.6. The wake after sleep onset time was 31 minutes. Respiratory summary CPAP titration was done at a minimum pressure was set at 5 cm of water and the maximum pressure was using the machine and an APAP mode. Initially at 15 cm of water. Subsequently, the pressure minimum was not brought up to 7 cm of water. During the titration, the patient had completed ablation of the obstructive respiratory events. No obstructive apneas or hypopneas were noted. The patient was able to maintain his oxygen saturation above 90% throughout the sleep study. Her disease was nonpositional. No interval worsening during REM sleep Sleep continuity summary The patient had a total of 161 arousals with an index of 23.6. Respiratory arousal index was 0.1 Periodic limb movement activity The patient had a total of 309. Little movement activity with an index of 45.3. The to the movement with arousals was 6 with an index of 0.9 Cardiac summary Average heart rate was 75 with 1171 and a maximum of 80 Assessment Obstructive sleep apnea with successful APAP therapy pressures of 7/15 cm of water. There was complete elimination of the obstructive respiratory events and the patient was able to maintain oxygen saturation above 90%. Nevertheless, it was noted that the patient had a high arousal index and this was independent from any form of respiratory events or periodic limb movement activity. The exact cause for her ongoing sleep fragmentation is not clear to me at this point. Chronic hypersomnia with an Largo score of 14 Adequate sleep architecture Adequate sleep efficiency Increased arousal index Excessive periodic limb movement activity, not causing any arousals History of thyroid cancer History of breast cancer History of bladder cancer Diabetes mellitus type 2 Lymphedema involving the upper extremity Plan Will discuss findings with the patient. Continue CPAP therapy at the same level of pressure. Keep the same mask interface. Look for any other contributing factor for frequent nocturnal arousals. If no identifiable cause, will consider daytime stimulation with modafinil or armodafinil.
== END 2024-01-17 05:55 | disposition home or self-care (01) ==
LOC: 3 N SLEEP 19:50
PROVIDERS: ATTEND Internal Medicine Critical Care Medicine
DX: G47.33 Obstructive sleep apnea (adult) (pediatric) (principal); G47.36 Sleep related hypoventilation in conditions classified elsewhere; G47.10 Hypersomnia, unspecified; E11.9 Type 2 diabetes mellitus without complications; I89.0 Lymphedema, not elsewhere classified; G47.61 Periodic limb movement disorder; F17.200 Nicotine dependence, unspecified, uncomplicated; Z85.3 Personal history of malignant neoplasm of breast; Z85.51 Personal history of malignant neoplasm of bladder; Z85.850 Personal history of malignant neoplasm of thyroid; Z99.89 Dependence on other enabling machines and devices; Z88.2 Allergy status to sulfonamides; Z88.1 Allergy status to other antibiotic agents; Z88.0 Allergy status to penicillin; Z88.8 Allergy status to other drugs, medicaments and biological substances; Z79.84 Long term (current) use of oral hypoglycemic drugs; Z79.85 Long-term (current) use of injectable non-insulin antidiabetic drugs
CPT/HCPCS: 95810

== ENCOUNTER → 2024-01-25 | Outpatient (CLI) | payer OTHER ==
[2024-01-25 15:41] LABS: Blood Urea Nitrogen 12.6 mg/dL (9.0-27.0); Chol/HDL Ratio 2.78 Ratio; Glucose 141 mg/dL (70-110); LDL Cholesterol,Calculated 39.9 mg/dL (0.0-131.0)
[2024-01-25 15:42] LABS: ALT 39 U/L (8-44); AST 30 U/L (13-35); Albumin 4.8 g/dL (3.8-4.9); Albumin/Globulin Ratio 2.09 Ratio (1.60-3.17); Alkaline Phosphatase 99 U/L (41-126); Calcium 10.2 mg/dL (8.7-10.3); Carbon Dioxide 26.8 mmol/L (21.6-31.8); Chloride 100 mmol/L (96-109); Globulin 2.3 g/dL (1.6-3.3); Potassium 5.5 mmol/L (3.5-5.5); Sodium 141 mmol/L (135-145); T4, Free (Free Thyroxine) 1.92 ng/dL (0.80-1.80); Total Bilirubin 0.3 mg/dL (0.3-1.2); Total Protein 7.1 g/dL (6.2-8.2)
[2024-01-25 18:25] LABS: Urine Creatinine 91.3 mg/dL (28.0-217.0)
== END | disposition home or self-care (01) ==
LOC: LABWHC1 10:02
PROVIDERS: ATTEND Internal Medicine
DX: C73 Malignant neoplasm of thyroid gland (principal); E11.65 Type 2 diabetes mellitus with hyperglycemia; E89.0 Postprocedural hypothyroidism; E55.9 Vitamin D deficiency, unspecified
CPT/HCPCS: 36415; 80053; 80061; 82043; 82306; 82570; 83036; 84432; 84439; 84443; 86800

== ENCOUNTER → 2024-03-15 | Outpatient (CLI) | payer OTHER ==
[2024-03-15 15:04] LABS: HCT 40.7 % (37.2-46.3); HGB 12.9 g/dL (12.0-15.0); MCH 28.5 pg (27.0-32.0); MCHC 31.7 g/dL (32.0-37.0); MCV 89.8 FL (80.0-97.0); Mean Platelet Volume 10.9 FL (9.5-12.2); NRBC Per 100 WBC 0 X 10*3/uL (0.00-0.01); Platelet Count 291 X 10*3/uL (140-440); RBC 4.53 X 10*6/uL (4.10-5.20); RDW 13.6 % (11.5-14.5); WBC 7.57 X 10*3/uL (4.50-10.00)
[2024-03-15 15:23] LABS: Blood Urea Nitrogen 18.8 mg/dL (9.0-27.0); Carbon Dioxide 25.5 mmol/L (21.6-31.8); Chloride 99 mmol/L (96-109); Potassium 5.2 mmol/L (3.5-5.5); Sodium 137 mmol/L (135-145)
== END | disposition home or self-care (01) ==
LOC: LABPAT 09:07
PROVIDERS: ATTEND Internal Medicine Interventional Cardiology
DX: Z01.812 Encounter for preprocedural laboratory examination (principal); R06.02 Shortness of breath
CPT/HCPCS: 36415; 80051; 82565; 84520; 85027

== ENCOUNTER 2024-03-20 06:17 | Day surgery (SDC) | payer OTHER ==
[2024-03-15 11:44] VITALS: BMI 38.7
[~2024-03-20 06:17] MED LIST changes: +ALPRAZolam 0.25 MG TAB PO PRN; +ALPRAZolam 0.5 MG TAB PO PRN; -DEXAMETHASONE SOD PHOSPHATE 4 MG/ML 1 ML VIAL IV ONE; -HYDROmorphone 0.5 MG/0.5 ML SYRINGE IVP PRN; -LACTATED RINGERS 1,000 ML IV SCH; -LIDOCAINE 1% (10MG/ML) FOR IV START INTRADERMA PRN; -MIDAZOLAM 2 MG/2 ML VIAL IV PRN; +NITROGLYCERIN SL TABS 0.4 MG TAB SUBLINGUAL PRN; -ONDANSETRON 4 MG/2 ML VIAL IVP ONE; +SODIUM CHLORIDE 0.9% 1,000 ML in EMPTY BAG 1 BAG IV SCH
[2024-03-20] MEDS: SODIUM CHLORIDE 0.9% 1,000 ML IV ONE (06:28)
[2024-03-20 06:52] LABS: Glucose,Whole Blood 136 mg/dL (70-110)
[2024-03-20 06:57] VITALS: RESP 16; TEMP 98.7
[2024-03-20] MEDS ORDERED: ASPIRIN 325 MG TAB PO ONE (07:00)
[2024-03-20] MEDS ORDERED: fentaNYL (PF) 50 MCG/ML 2 ML AMP ONE (07:13)
[2024-03-20] MEDS ORDERED: HEPARIN SODIUM 1,000 UN/ML (10ML VL) ONE (07:13)
[2024-03-20] MEDS ORDERED: VERAPAMIL 2.5 MG/ML 2 ML AMP ONE (07:13)
[2024-03-20] MEDS ORDERED: LIDOCAINE 1% INJ 10MG/ML (20 ML MDV) ONE (07:13)
[2024-03-20] MEDS: MIDAZOLAM 2 MG/2 ML VIAL IVP ONE (07:38)
[2024-03-20] MEDS: LIDOCAINE 1% INJ 10MG/ML (20 ML MDV) SQ ONE (07:38)
[2024-03-20] MEDS: fentaNYL (PF) 50 MCG/ML 2 ML AMP IVP ONE (07:38)
[2024-03-20] MEDS: VERAPAMIL SYRINGE (5 MG/10 ML) INTRAARTER ONE (07:41)
[2024-03-20] MEDS: HEPARIN SODIUM 1,000 UN/ML (10ML VL) IV ONE (07:41)
[2024-03-20] MEDS: IOPAMIDOL-370 100ML BTL INJ ONE (07:48)
[2024-03-20] MEDS: HEPARIN SODIUM,PORCINE 10,000 UNIT in SODIUM CHLORIDE 0.9% 1,000 ML IRRIGATION PRN (07:48)
[2024-03-20] MEDS ORDERED: RX INFO: IV CONTRAST WAS GIVEN 1 EACH MISC MISCELLANE PRN (08:01)
--- NOTE | 2024-03-20 08:05 | P.PCN ---
Date of Procedure: 03/20/24 Operative Findings: CARDIAC CATHETERIZATION PERFORMING PHYSICIAN: Jeovany Mcclellan MD, RPVI PROCEDURE PERFORMED: 1. Selective right and left coronary angiogram 2. Left heart catheterization 3. Ultrasound-guided access of the right radial artery INDICATION: Abnormal stress echocardiogram in the symptomatic 61-year-old female patient COMPLICATION: None APPROACH: Right radial artery LEVEL OF SEDATION: Moderate with a sedation length of 18 minutes PROCEDURE DESCRIPTION: After obtaining an informed consent, the patient was brought to cardiac labor training manager. Local anesthesia was performed using lidocaine subcutaneously. The right radial artery was cannulated using Seldinger technique, the guidewire passed easily, following that we advanced a 5-Amharic sheath dilator assembly, the wire and dilator were removed and sheath was flushed. Following that, 2 mg of verapamil along with 5000 unit heparin were given. Selective right and left coronary angiogram using a 6-Amharic JR4 and JL 3.5 catheters. Following that we did left heart catheterization using 6-Amharic pigtail catheter. The procedure was completed there was no complication. SELECTIVE CORONARY ANGIOGRAM: The right coronary artery: Large-caliber vessel and a dominant vessel and angiographically normal Left main: Is angiographically normal The left circumflex: Large caliber vessel nondominant vessel appears to be angiographically normal as well The left anterior descending artery: Large-caliber vessel. Is angiographically normal with gives rise into a large diagonal branch which seems to be normal HEMODYNAMICS: The LVEDP was 8 mmHg with no significant gradient across aortic valve CONCLUSION: 1. Normal coronary angiogram 2. Normal left-sided filling pressure POSTPROCEDURE MANAGEMENT: Medical treatment
[2024-03-20] MEDS ORDERED: SODIUM CHLORIDE 0.9% 1,000 ML IV SCH (08:15)
[2024-03-20 10:24] VITALS: PULSE 74
[2024-03-20 11:30] VITALS: BP 131/75
[2024-03-20] MEDS: HEPARIN SODIUM,PORCINE (1 ML) 2,500 UNIT in SODIUM CHLORIDE 0.9% 250 ML IRRIGATION PRN (12:56)
== END 2024-03-20 12:05 | disposition home or self-care (01) ==
LOC: CATHCVL 06:17
PROVIDERS: ATTEND Internal Medicine Interventional Cardiology
DX: R06.02 Shortness of breath (principal); R94.39 Abnormal result of other cardiovascular function study
CPT/HCPCS: 93458; C1769; C1894; J2250; J1644 ×3; J2001; J3010; Q9967

== ENCOUNTER 2024-04-17 06:30 | Day surgery (SDC) | payer OTHER ==
[2024-04-17] MEDS ORDERED: LACTATED RINGERS 1,000 ML BAG ONE (12:00)
[2024-04-17] MEDS ORDERED: PROPOFOL 10 MG/ML 20 ML VIAL IV ONE (12:47)
--- NOTE | 2024-04-27 15:53 | PCN ---
PROCEDURE NOTE REQUESTING PHYSICIAN: Dr. Belem Abdalla. BRIEF HISTORY: Patient is a 63-year-old pleasant white female scheduled for an elective colonoscopy as a part of evaluation of prior history of colon polyps. PROCEDURE PERFORMED: Colonoscopy with snare polypectomy. PREOPERATIVE DIAGNOSIS: History of colon polyps. ANESTHESIA: IV sedation per Anesthesia. DESCRIPTION OF PROCEDURE: After informed consent was obtained from the patient, she was brought into the endoscopy unit. IV conscious sedation was administered by Anesthesia under continuous monitoring. Initial digital rectal examination was normal. The Olympus CF-180 video colonoscope was entered into the rectum, gradually advanced into the cecum. Careful examination was performed as the scope was gradually being withdrawn. The ileocecal valve and appendiceal orifice were visualized and appeared normal. The prep was fair. Mucosa of the cecum and ascending colon appeared normal. In the hepatic flexure, there was a 2 cm broad-based polyp that was removed by piecemeal snare polypectomy and complete polypectomy accomplished. Transverse colon and descending colon appeared normal. In the sigmoid colon, there was a 5 mm polyp that was removed by cold snare polypectomy. Rectum appeared normal. Retroflexion was performed in the rectum. No lesions were noted and the patient tolerated the procedure well. IMPRESSION: 1. 2 cm broad-based hepatic flexure polyp, status post piecemeal snare polypectomy and complete polypectomy accomplished. 2. 5 mm sigmoid colon polyp, status post snare polypectomy. 3. Rest of the colon appeared normal. RECOMMENDATIONS: Findings of this examination were discussed with the patient as well as the family. She was advised to follow up with biopsy results and if the biopsy reveals adenoma, recommend a repeat colonoscopy in 3 years. MMODL / IJN: [id number] /
== END 2024-04-17 13:45 ==
LOC: ORWHC2ENDO 06:30
PROVIDERS: ATTEND Internal Medicine Gastroenterology
DX: Z12.11 Encounter for screening for malignant neoplasm of colon (principal); D12.3 Benign neoplasm of transverse colon; D12.5 Benign neoplasm of sigmoid colon; I10 Essential (primary) hypertension; G47.33 Obstructive sleep apnea (adult) (pediatric); K21.9 Gastro-esophageal reflux disease without esophagitis; M19.90 Unspecified osteoarthritis, unspecified site; R00.0 Tachycardia, unspecified; E11.9 Type 2 diabetes mellitus without complications; J93.11 Primary spontaneous pneumothorax; C50.919 Malignant neoplasm of unspecified site of unspecified female breast; U07.1 COVID-19; Z86.010 Personal history of colon polyps; Z79.899 Other long term (current) drug therapy; Z99.89 Dependence on other enabling machines and devices; Z79.84 Long term (current) use of oral hypoglycemic drugs; Z88.0 Allergy status to penicillin; Z88.2 Allergy status to sulfonamides
CPT/HCPCS: 45385; 88305

== ENCOUNTER 2024-04-17 17:45 | Emergency (ER) | payer OTHER ==
[2024-04-17] MEDS ORDERED: MORPHINE SULFATE 4 MG/ML SYRINGE ONE (21:35)
[2024-04-17] MEDS ORDERED: SODIUM CHLORIDE 0.9% 1,000 ML BAG ONE (21:40)
[2024-04-18] MEDS ORDERED: ACET/COD 300 MG/30 MG STARTER PACK 6 TAB BTL PO ONE (00:59)
[2024-04-18] MEDS ORDERED: cefTRIAXone IN SWFI 1,000 MG/10 ML SYRINGE IVP ONE (00:59)
[2024-04-18] MEDS ORDERED: MORPHINE SULFATE 4 MG/ML SYRINGE ONE (00:59)
[2024-04-18] MEDS ORDERED: metroNIDAZOLE 500 MG TAB ONE (01:00)
--- NOTE | 2024-06-09 18:38 | CT ---
EXAM: CT Abdomen and Pelvis With Intravenous Contrast CLINICAL HISTORY: abd pain fever TECHNIQUE: Axial computed tomography images of the abdomen and pelvis with intravenous contrast. CTDI is 44 mGy and DLP is 2233.5 mGy-cm. This CT exam was performed using one or more of the following dose reduction techniques: automated exposure control, adjustment of the mA and/or kV according to patient size, and/or use of iterative reconstruction technique. COMPARISON: No relevant prior studies available. FINDINGS: Lung bases:Unremarkable. No mass. No consolidation. ABDOMEN: Liver:Hepatic steatosis. Gallbladder and bile ducts:Cholecystectomy. No ductal dilation. Pancreas:Unremarkable. No mass. No ductal dilation. Spleen:Unremarkable. No splenomegaly. Adrenals:Unremarkable. No mass. Kidneys and ureters:Unremarkable. No solid mass. No hydronephrosis. Stomach and bowel:Colitis at the hepatic flexure, consisting of mild colonicwall thickening with pericolonic fat stranding. No perforation or abscess. No obstruction. PELVIS: Appendix:No findings to suggest acute appendicitis. Bladder:Unremarkable. No mass. Reproductive:Hysterectomy. ABDOMEN and PELVIS: Intraperitoneal space:Unremarkable. No free air. No significant fluid collection. Bones/joints:No acute fracture. No dislocation. Soft tissues:Unremarkable. Vasculature:Unremarkable. No abdominal aortic aneurysm. Lymph nodes:Unremarkable. No enlarged lymph nodes. IMPRESSION: 1. Colitis at the hepatic flexure, consisting of mild colonic wall thickening with pericolonic fat stranding. No perforation or abscess. 2. Hepatic steatosis. 3. Cholecystectomy. 4. Hysterectomy. Radiologist: Farshad Camacho MD Electronically Signed: 04/18/24 00:33 Study first marked ready to read at 22:58, study last marked ready to read at 22:58, initial results transmitted at 00:33 [facility]
== END 2024-04-18 00:08 | disposition home or self-care (01) ==
LOC: EC 17:45
DX: K52.9 Noninfective gastroenteritis and colitis, unspecified (principal)
CPT/HCPCS: 74177; 96361; 96374; 96375; 96376; 99284

== ENCOUNTER → 2024-05-31 | Outpatient (CLI) | payer OTHER ==
--- NOTE | 2024-06-04 08:10 | XR ---
EXAMINATION TYPE: XR KUB DATE OF EXAM: 05/31/2024 COMPARISON: 03/21/2023 INDICATION: Renal calculus TECHNIQUE: Single view abdomen frontal projection FINDINGS: There is a normal bowel gas pattern. Psoas margins are normal. No organomegaly is present. No renal or ureteral stones are identified. There is some calcification at the superior endplate of L 4 on the right. This is somewhat irregular. Consider a ureteral stone. Osteophyte from the vertebral bodies more likely. This is new from comparison. IMPRESSION: 1. No definite renal or ureteral stones. There is some calcification adjacent to the superior endplat e of L4 felt to more likely be related to Osteophyte formation [facility], Workstation: [email or web address], 06/04/2024 8:08 AM
== END | disposition home or self-care (01) ==
LOC: RADXRMAIN 10:21
PROVIDERS: ATTEND Urology
DX: N20.0 Calculus of kidney (principal)
CPT/HCPCS: 74018

== ENCOUNTER → 2024-07-24 | Outpatient (CLI) | payer OTHER ==
[2024-07-24 15:29] LABS: ALT 46 U/L (8-44); AST 37 U/L (13-35); Albumin 4.6 g/dL (3.8-4.9); Alkaline Phosphatase 98 U/L (41-126); BUN/Creat Ratio 16.86 Ratio (12.00-20.00); Blood Urea Nitrogen 11.8 mg/dL (9.0-27.0); Carbon Dioxide 27.1 mmol/L (21.6-31.8); Chloride 100 mmol/L (96-109); Globulin 2.3 g/dL (1.6-3.3); Glucose 192 mg/dL (70-110); Potassium 5.1 mmol/L (3.5-5.5); Sodium 139 mmol/L (135-145); Total Bilirubin 0.4 mg/dL (0.3-1.2); Total Protein 6.9 g/dL (6.2-8.2)
== END | disposition home or self-care (01) ==
LOC: LABWHC1 09:01
PROVIDERS: ATTEND Internal Medicine
DX: E11.65 Type 2 diabetes mellitus with hyperglycemia (principal); E89.0 Postprocedural hypothyroidism
CPT/HCPCS: 36415; 80053; 83036; 84439; 84443

== ENCOUNTER → 2024-10-04 | Outpatient (CLI) | payer OTHER ==
--- NOTE | 2024-10-05 07:25 | US ---
EXAMINATION TYPE: US arterial LE single level DATE OF EXAM: 10/04/2024 2:43 PM COMPARISONS: None. CLINICAL INDICATION: Female, 64 years old with history of I73.9 PERIPHERAL VASCULAR DISEASE; Pt state s weak and cold left foot TECHNIQUE: Systolic pressures were taken of the upper and lower extremity arteries with ankle-brachia l indices and toe brachial indices calculated bilaterally. History of: Smoker: Previous Hypertension: Yes Diabetic: Yes Hyperlipidemia: Yes TIA/CVA: No Previous Vascular Surgery: No CAD: No IN: No Vascular Ulcers: No FINDINGS: Doppler Waveforms: Right: Left: Brachial Artery systolic pressure: Right: 115 Left: 124 Posterior Tibial artery systolic pressure: Right: 124 Left: 125 Dorsalis Pedis artery systolic pressure: Right: 131 Left: 135 Toe artery systolic pressure: Right: 83 Left: 85 Ankle-Brachial Indices: Right: 1.1 Left: 1.1 Toe Brachial Indices: Right: 0.7 Left: 0.7 (Normal > 0.6; Mild 0.35 - 0.59, Moderate 0.12 - 0.34, Severe <0.12) IMPRESSION: MARK: Right: Normal 0.9 - 1.4, Recommendation: None Left: Normal 0.9 - 1.4, Recommendation: None [facility], , 10/05/2024 7:23 AM
== END | disposition home or self-care (01) ==
LOC: RADUSWWP 14:15
PROVIDERS: ATTEND Podiatrist Foot & Ankle Surgery
DX: I73.9 Peripheral vascular disease, unspecified (principal); I10 Essential (primary) hypertension; E78.5 Hyperlipidemia, unspecified; E11.51 Type 2 diabetes mellitus with diabetic peripheral angiopathy without gangrene; Z87.891 Personal history of nicotine dependence
CPT/HCPCS: 93922

== ENCOUNTER → 2024-11-20 | Outpatient (CLI) | payer OTHER ==
--- NOTE | 2024-11-20 15:39 | CT ---
EXAMINATION TYPE: CT abdomen pelvis wo con CT DLP: 1290.6 mGycm, Automated exposure control for dose reduction was used. DATE OF EXAM: 11/20/2024 3:21 PM COMPARISON: CT abdomen pelvis 05/13/2023 CLINICAL INDICATION:Female, 64 years old with history of N20.2 CALCULUS OF KIDNEY WITH CALCULUS OF UR ETER; UTI plus pain in mid back more toward right side. Hx of kidney stones. TECHNIQUE: Standard CT of the abdomen and pelvis without IV or oral contrast. Lack of IV or oral co ntrast limits evaluation of solid and hollow organ viscera. Coronal and sagittal reformats were perfo rmed. FINDINGS: LOWER CHEST: The visualized lungs are clear. Elevation of the right hemidiaphragm. ABDOMEN LIVER: Diffusely hypoattenuating parenchyma. Enlarged measuring 20.4 cm in CC dimension. GALLBLADDER AND BILE DUCTS: The gallbladder is surgically absent. No biliary ductal dilatation. PANCREAS: Unremarkable noncontrast appearance. SPLEEN: Unremarkable noncontrast appearance. ADRENAL GLANDS: Unremarkable noncontrast appearance.. KIDNEYS AND URETERS: No evidence of hydronephrosis or renal calculus. No ureteral calculus. No perin ephric fat stranding. PELVIS BLADDER: Unremarkable noncontrast appearance. REPRODUCTIVE: The uterus is surgically absent. ABDOMEN & PELVIS STOMACH AND BOWEL: Stomach and duodenum are unremarkable. No focal bowel wall thickening or surroundi ng inflammatory changes. Mild to moderate stools present in the colon. The appendix is within normal limits with appendicolith identified. No evidence of bowel obstruction. PERITONEUM: No evidence of pneumoperitoneum or free fluid. VASCULATURE: Mild atherosclerotic calcifications are present throughout the abdominal aorta and its b ranches. No evidence of aortic aneurysm. Few pelvic phleboliths. MUSCULOSKELETAL: No acute osseous abnormalities. Stable benign bone island within the T12 vertebral b jacinto. Multilevel degenerative changes of the visualized lumbar spine. LYMPH NODES: No gross evidence for lymphadenopathy. SOFT TISSUE/ABDOMINAL WALL: Unremarkable IMPRESSION: 1. No evidence for obstructive uropathy. No distinct renal or ureteral calculi. 2. Mild hepatomegaly with diffuse hepatic steatosis. [facility], , 11/20/2024 3:37 PM
[2024-11-20 15:45] LABS: Basophils # (A) 0.06 X 10*3/uL (0.00-0.10); Basophils % (A) 0.8 %; Eosinophils # (A) 0.26 X 10*3/uL (0.04-0.35); Eosinophils % (A) 3.3 %; HCT 39.8 % (37.2-46.3); HGB 12.4 g/dL (12.0-15.0); Lymphocytes # (A) 2.15 X 10*3/uL (0.90-5.00); Lymphocytes % (A) 27.2 %; MCH 27.6 pg (27.0-32.0); MCHC 31.2 g/dL (32.0-37.0); MCV 88.6 FL (80.0-97.0); Mean Platelet Volume 11.1 FL (9.5-12.2); Monocytes # (A) 0.62 X 10*3/uL (0.20-1.00); Monocytes % (A) 7.9 %; NRBC Per 100 WBC 0 X 10*3/uL (0.00-0.01); Neutrophils # (A) 4.77 X 10*3/uL (1.80-7.70); Neutrophils % (A) 60.4 %; Platelet Count 310 X 10*3/uL (140-440); RBC 4.49 X 10*6/uL (4.10-5.20); RDW 13.7 % (11.5-14.5); WBC 7.89 X 10*3/uL (4.50-10.00)
[2024-11-20 15:46] LABS: ALT 43 U/L (8-44); AST 46 U/L (13-35); Albumin 4.5 g/dL (3.8-4.9); Alkaline Phosphatase 92 U/L (41-126); Blood Urea Nitrogen 13.3 mg/dL (9.0-27.0); Calcium 9.3 mg/dL (8.7-10.3); Chloride 102 mmol/L (96-109); Globulin 2.5 g/dL (1.6-3.3); Glucose 106 mg/dL (70-110); Potassium 5.3 mmol/L (3.5-5.5); Sodium 140 mmol/L (135-145); Total Bilirubin 0.3 mg/dL (0.3-1.2)
== END | disposition home or self-care (01) ==
LOC: RADCTMAIN 11:38
PROVIDERS: ATTEND Family Medicine
DX: N20.2 Calculus of kidney with calculus of ureter (principal); K76.0 Fatty (change of) liver, not elsewhere classified; R16.0 Hepatomegaly, not elsewhere classified
CPT/HCPCS: 74176; 80053; 85025

== ENCOUNTER → 2024-12-13 | Outpatient (CLI) | payer OTHER ==
--- NOTE | 2024-12-13 13:43 | MM ---
Reason for Exam: Screening (asymptomatic). Last screening mammogram was performed 12 month(s) ago. Patient History: Menarche at age 11. Patient has no children. Left ovary removed at age 39. Right ovary removed at age 39. Hysterectomy at age 39. Postmenopausal. Breast cancer, left, age 60. 2020, Malignant Ultrasound-Guided Core Biopsy on the left side. Paternal cousin had breast cancer. Prior Study Comparison: 12/01/2021 Bilateral Diagnostic Mammogram, [facility]. 12/07/2022 Bilateral MG 3D screening mammo w/cad, [facility]. 12/13/2023 Bilateral MG 3D screening mammo w/cad, [facility]. Tissue Density: The breasts are heterogeneously dense, which may obscure small masses. Findings: Analyzed By CAD. Postsurgical and posttreatment changes redemonstrated left breast. Slight interval increasing fat necrosis calcifications at the lumpectomy site. Global asymmetry superior right MLO view is unchanged. Other areas of asymmetric density are also unchanged. There is no suspicious group of microcalcifications or new suspicious mass in either breast. Overall Assessment: Benign, BI-RAD 2 Management: Screening Mammogram of both breasts in 1 year. Patient should continue monthly self-breast exams. A clinical breast exam by your physician is recommended on an annual basis. This exam should not preclude additional follow-up of suspicious palpable abnormalities. [facility], , 12/13/2024 1:40 PM. Electronically signed and approved by: Neeraj Rodriguez M.D. Radiologist
== END | disposition home or self-care (01) ==
LOC: RADMAMWWP 09:16
PROVIDERS: ATTEND Internal Medicine Hematology & Oncology
DX: Z12.31 Encounter for screening mammogram for malignant neoplasm of breast (principal); R92.333 Mammographic heterogeneous density, bilateral breasts; C50.412 Malignant neoplasm of upper-outer quadrant of left female breast; C73 Malignant neoplasm of thyroid gland; K63.5 Polyp of colon; E61.1 Iron deficiency; E11.9 Type 2 diabetes mellitus without complications; Z71.3 Dietary counseling and surveillance; Z78.0 Asymptomatic menopausal state; Z80.3 Family history of malignant neoplasm of breast; Z85.3 Personal history of malignant neoplasm of breast; Z98.890 Other specified postprocedural states
CPT/HCPCS: 77063; 77067

== ENCOUNTER → 2025-02-14 | Outpatient (CLI) | payer OTHER ==
[2025-02-14 15:53] LABS: Blood Urea Nitrogen 10.5 mg/dL (9.0-27.0); Chol/HDL Ratio 2.73 Ratio; Glucose 141 mg/dL (70-110); LDL Cholesterol,Calculated 60.8 mg/dL (0.0-131.0)
[2025-02-14 15:54] LABS: ALT 37 U/L (8-44); AST 36 U/L (13-35); Albumin 4.5 g/dL (3.8-4.9); Albumin/Globulin Ratio 1.73 Ratio (1.60-3.17); Alkaline Phosphatase 95 U/L (41-126); Calcium 9.7 mg/dL (8.7-10.3); Carbon Dioxide 24.8 mmol/L (21.6-31.8); Chloride 99 mmol/L (96-109); Globulin 2.6 g/dL (1.6-3.3); Potassium 5.3 mmol/L (3.5-5.5); Sodium 136 mmol/L (135-145); Total Bilirubin 0.3 mg/dL (0.3-1.2); Total Protein 7.1 g/dL (6.2-8.2)
== END | disposition home or self-care (01) ==
LOC: LABWHC1 09:59
PROVIDERS: ATTEND Internal Medicine
DX: E03.9 Hypothyroidism, unspecified (principal); E11.9 Type 2 diabetes mellitus without complications; E55.9 Vitamin D deficiency, unspecified; C73 Malignant neoplasm of thyroid gland
CPT/HCPCS: 36415; 80053; 80061; 82043; 82306; 82570; 83036; 84432; 84439; 84443; 86800

== ENCOUNTER → 2025-04-04 | Outpatient (CLI) | payer OTHER ==
--- NOTE | 2025-04-04 13:01 | USB ---
Reason for Exam: Clinical finding. Patient History: Menarche at age 11. Patient has no children. Left ovary removed at age 39. Right ovary removed at age 39. Hysterectomy at age 39. Postmenopausal. Breast cancer, left, age 60. 2020, Malignant Ultrasound-Guided Core Biopsy on the left side. Paternal cousin had breast cancer. Technique: Method: Whole Breast Handheld. Prior Study Comparison: 12/07/2022 Bilateral MG 3D screening mammo w/cad, [facility]. 12/13/2023 Bilateral MG 3D screening mammo w/cad, [facility]. 12/13/2024 Bilateral MG 3D screening mammo w/cad, [facility]. Findings: The whole breast of the left breast, the axilla of the left breast and the retroareolar of the left breast were scanned. Whole left breast ultrasound including scanning of the subareolar region and axilla. There is dense shadowing at the 1:00 scar area, 5 cm from the nipple. No other solid or cystic lesion or axillary adenopathy. The patient reports that the rash has resolved now. As a precautionary measure, three-month follow-up left breast mammogram can be performed. Overall Assessment: Probably benign, BI-RAD 3 Management: Diagnostic Mammogram of the left breast in 3 months. This will be 6 months from her December screening exam. A clinical breast exam by your physician is recommended on an annual basis and results should be correlated with mammographic findings. This exam should not preclude additional follow-up of suspicious palpable abnormalities. Results were given to the patient verbally at the time of exam. [facility], , 04/04/2025 12:54 PM. Electronically signed and approved by: Neeraj Rodriguez M.D. Radiologist
== END | disposition home or self-care (01) ==
LOC: RADUSWWP 12:22
PROVIDERS: ATTEND Internal Medicine Hematology & Oncology
DX: N63.0 Unspecified lump in unspecified breast (principal); Z85.3 Personal history of malignant neoplasm of breast; Z80.3 Family history of malignant neoplasm of breast; Z78.0 Asymptomatic menopausal state